=== PATIENT | male | born 1960 | race Caucasian/White ===

== ENCOUNTER 2020-12-10 11:20 | Outpatient (CLI) | payer OTHER, SELFPAY ==
--- NOTE | 2020-12-10 11:31 | XR_ITS ---
WS: [id number] KUB, AP view, 12/10/2020 Clinical Data: CONSTIPATION/HTN/DIVERTICULITIS/DM 2/RLQ ABDOMINAL PAIN Comparison: None. Findings: No abnormal intraabdominal masses or calcifications are seen. There is no dilatated small bowel or ev idence of obstruction. 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 There is fecal material throughout the colon. The bladder is full. XR/XR KUB [id number] Impression: Negative KUB.
== END 2020-12-10 11:21 | disposition home or self-care (01) ==
PROVIDERS: PCP Electrodiagnostic Medicine; Visit Provider Electrodiagnostic Medicine
DX: K59.00 Constipation, unspecified (principal); K57.92 Diverticulitis of intestine, part unspecified, without perforation or abscess without bleeding; E11.9 Type 2 diabetes mellitus without complications; I12.9 Hypertensive chronic kidney disease with stage 1 through stage 4 chronic kidney disease, or unspecified chronic kidney disease; N18.30 Chronic kidney disease, stage 3 unspecified; R10.31 Right lower quadrant pain
CPT/HCPCS: 74018

== ENCOUNTER 2021-05-04 10:18 | Outpatient (CLI) | payer OTHER, SELFPAY ==
--- NOTE | 2021-05-04 10:29 | XRR_ITS ---
PROCEDURE INFORMATION: Exam: XR Chest Exam date and time: 05/04/2021 10:29 AM Age: 61 years old Clinical indication: Shortness of breath; Prior surgery; Surgery type: Gallbladder, appendix; Additional info: Shortness of breath/htn/nausea vomiting TECHNIQUE: Imaging protocol: XR of the chest. Views: 2 views. COMPARISON: CR Chest 1 [place] [id number] 11/03/2018 8:17 PM FINDINGS: Lungs: Unremarkable. No consolidation. Pleural spaces: Unremarkable. No pleural effusion. No pneumothorax. Heart/Mediastinum: Unremarkable. No cardiomegaly. Bones/joints: Unremarkable. XR/XR chest 2V* [id number] IMPRESSION: No acute findings.
--- NOTE | 2021-05-04 10:29 | XRR_ITS ---
PROCEDURE INFORMATION: Exam: XR Abdomen Exam date and time: 05/04/2021 10:29 AM Age: 61 years old Clinical indication: Nausea and vomiting; Prior surgery; Surgery type: Gallbladder appendix; Additional info: Nausea vomiting/diverticulitis TECHNIQUE: Imaging protocol: XR of the abdomen. Views: Frontal supine view of the abdomen. 1 View. COMPARISON: CR XR KUB [id number] 12/10/2020 11:46 AM FINDINGS: Gastrointestinal tract: Normal. No bowel dilation. Status post cholecystectomy Bones/joints: Unremarkable. XR/XR abdomen 1V* [id number] IMPRESSION: 1. No acute findings. 2. Status post cholecystectomy
== END 2021-05-04 10:19 | disposition home or self-care (01) ==
PROVIDERS: PCP Electrodiagnostic Medicine; Visit Provider Electrodiagnostic Medicine
DX: R11.2 Nausea with vomiting, unspecified (principal); R06.02 Shortness of breath; I10 Essential (primary) hypertension; K57.92 Diverticulitis of intestine, part unspecified, without perforation or abscess without bleeding; Z90.49 Acquired absence of other specified parts of digestive tract
CPT/HCPCS: 71046; 74018

== ENCOUNTER 2021-12-14 02:48 | Inpatient (IN) | payer OTHER, SELFPAY ==
[2021-12-14] VITALS (14 sets, daily range): BP systolic 146–192; BP diastolic 82–108; PULSE 81–107; RESP 15–20; TEMP 36.5–37.2; O2SAT 91–98; BMI 37.3
--- NOTE | 2021-12-14 02:57 | CTR_ITS ---
PROCEDURE INFORMATION: Exam: CT Abdomen And Pelvis Without Contrast Exam date and time: 12/14/2021 3:20 AM Age: 61 years old Clinical indication: Abdominal pain; Flank; Left; Prior surgery; Surgery type: Cholecystectomy, appendectomy; Additional info: Abd/back pain TECHNIQUE: Imaging protocol: Computed tomography of the abdomen and pelvis without contrast. Radiation optimization: All CT scans at this facility use at least one of these dose optimization techniques: automated exposure control; mA and/or kV adjustment per patient size (includes targeted exams where dose is matched to clinical indication); or iterative reconstruction. COMPARISON: CT abdomen pelvis w con* [id number] 12/24/2017 1:56 PM RADIATION DOSE METRICS: Total DLP (mGy-cm): 1417.53 FINDINGS: Lungs: Right basilar atelectasis or other infiltrate. Liver: Unremarkable. Gallbladder and bile ducts: Status post cholecystectomy. Pancreas: There is a fluid collection which appears to involve the distal pancreatic tail extending along the left anterior perirenal fascia with adjacent inflammation measuring 9 x 3 cm. Findings may be infectious in etiology. Spleen: Splenomegaly. Adrenal glands: Normal. No mass. Kidneys and ureters: 1.7 cm simple appearing right renal cyst, no follow up necessary. No hydronephrosis. Stomach and bowel: No obstruction. No mucosal thickening. Appendix: No evidence of appendicitis. Intraperitoneal space: No free air. No significant fluid collection. Vasculature: No abdominal aortic aneurysm. Lymph nodes: No enlarged lymph nodes. Urinary bladder: Unremarkable as visualized. Reproductive: Prostate gland is enlarged. Bones/joints: Unremarkable. No acute fracture. Soft tissues: Fluid collection which appears to involve the distal pancreatic tail extending along the left anterior perirenal fascia with adjacent inflammation measuring 9 x 3 cm. Findings may be infectious in etiology. There is edema, fluid and stranding about the left psoas muscle. CT/CT abdomen pelvis wo con [id number] IMPRESSION: 1. Fluid collection which appears to involve the distal pancreatic tail extending along the left anterior perirenal fascia with adjacent inflammation measuring 9 x 3 cm. Findings may be infectious in etiology. There is edema, fluid and stranding about the left psoas muscle. 2. Right basilar atelectasis or other infiltrate. COMMENTS: Consistent with the [employer]'s Incidental Findings Committee white paper (J Am Barrett Radiol 2018): Any incidental renal lesion less than 1 cm or classified as too small to characterize, or any incidental cystic renal lesion characterized as simple-appearing, is likely benign. No follow-up imaging is recommended for these lesions per consensus recommendations based on imaging criteria.
--- NOTE | 2021-12-14 03:03 | W.ED.BACK ---
HPI - Back Pain/Injury General: Chief Complaint: Back Pain/Injury Stated Complaint: low back pain Time Seen by Provider: 12/14/21 02:50 Source: patient Mode of arrival: ambulatory Limitations: no limitations History of Present Illness: 61-year-old male patient has been having low back pain for over a month. He states that tonight it worsened he has had worsening nausea as well. He denies any vomiting he has had some abdominal pain as well as cramping in nature he denies any fever states the pain is worse with movement improved with rest. Denies any bowel or bladder incontinence denies any difficulty walking. Associated symptoms: Reports nausea; Deny chills, dysuria or fever(s) Review of Systems Const: Denies: fever(s), chills, body aches or change in appetite Eyes: Denies: blurry vision or eye discomfort ENMT: Denies: throat pain or dental pain Card: Denies: chest pain Resp: Denies: dyspnea GI: Reports: nausea : Denies: dysuria Musc: Reports: back pain Skin/Breast: Denies: rash Neuro: Denies: headache(s) Psych: Denies: depression Luis/Lymph: Denies: easy bruising All/Imm: Denies: urticaria PFSH ED PFSH: Family History Mother Hypertension Father Hypertension Cancer LEUKEMIA CAD (coronary artery disease) Myocardial infarction Diabetes Social History Smoking and tobacco status: never smoked Alcohol intake: never Household members: spouse Marital status: Current occupational status: employed History of recent travel: No Physical Exam Const: COMMON NORMALS: no acute distress, patient oriented x3 and healthy appearing HENMT: COMMON NORMALS: normocephalic and atraumatic HEAD & SCALP: normocephalic and atraumatic Eye: COMMON NORMALS: Equal, round and reactive pupils present and EOMs intact bilaterally PUPIL: Yes Equal, round and reactive pupils present Neck/C-Spine: COMMON NORMALS: full ROM and supple Chest: COMMONS NORMALS: normal inspection of the chest and normal palpation of entire chest wall Resp: COMMON NORMALS: normal respiratory effort, No retractions, No use of accessory muscles and clear to auscultation bilaterally AUSCULTATION: clear to auscultation bilaterally Cardio: COMMON NORMALS: regular rate, regular rhythm and No murmurs present (Cardio) RATE: regular rate RHYTHM: regular rhythm GI: COMMON NORMALS: Normal to inspection, nondistended, normoactive bowel sounds present, Soft to palpation, non-tender and no masses PALPATION: Yes Soft to palpation Back/Pelvis: OTHER: Paraspinal tenderness to the lumbar spine Extremity: COMMON NORMALS: normal to inspection and full ROM Neuro: COMMON NORMALS: patient oriented x3, moves all extremities and no focal motor deficits Psych: COMMON NORMALS: mental status grossly normal, Normal thought process present and cooperative THOUGHT PROCESS: Normal thought process present Skin: COMMON NORMALS: no rashes or lesions noted and no wounds GENERAL SKIN EXAM: no rashes or lesions noted Course Vital Signs: Vital signs: Vital Signs Temperature 97.9 F 12/14/21 02:50 Pulse Rate 85 12/14/21 03:56 Respiratory Rate 18 12/14/21 04:23 Blood Pressure 192/93 12/14/21 03:56 Pulse Oximetry 95 12/14/21 04:23 Oxygen Delivery Me thod 12/14/21 02:50 MDM - Back Pain/Injury Medical Decision Making Patient presents here with pancreatitis this is likely causing his back and abdominal pain he is well-appearing here pain is improved. He has required multiple doses of Dilaudid though will admit for pain control. Labs : 12/14/21 03:08 12/14/21 03:08 Radiology Impressions Abdomen/Pelvis CT 12/14/21 02:57 IMPRESSION: 1. Fluid collection which appears to involve the distal pancreatic tail extending along the left anterior perirenal fascia with adjacent inflammation measuring 9 x 3 cm. Findings may be infectious in etiology. There is edema, fluid and stranding about the left psoas muscle. 2. Right basilar atelectasis or other infiltrate. COMMENTS: Consistent with the [employer]'s Incidental Findings Committee white paper (J Am Barrett Radiol 2018): Any incidental renal lesion less than 1 cm or classified as too small to characterize, or any incidental cystic renal lesion characterized as simple-appearing, is likely benign. No follow-up imaging is recommended for these lesions per consensus recommendations based on imaging criteria. Laboratory Results WBC 15.7 10^3/uL (4.0-10.0) H 12/14/21 03:08 RBC 5.24 10^6/uL (4.1-5.3) 12/14/21 03:08 Hgb 15.2 g/dL (11.7-16.6) 12/14/21 03:08 Hct 46.1 % (42.0-52.0) 12/14/21 03:08 MCV 88.0 fl (80-94) 12/14/21 03:08 MCH 29.0 pg (28.0-34.0) 12/14/21 03:08 MCHC 33.0 g/dL (30.0-36.0) 12/14/21 03:08 RDW 14.3 % (12.1-15.1) 12/14/21 03:08 Plt Count 175 10^3/cmm (130-400) 12/14/21 03:08 MPV 9.8 fL (7.4-10.4) 12/14/21 03:08 Neut % (Auto) 81.6 % 12/14/21 03:08 Lymph % (Auto) 11.2 % 12/14/21 03:08 [place] % (Auto) 5.5 % 12/14/21 03:08 Eos % (Auto) 0.9 % 12/14/21 03:08 Baso % (Auto) 0.4 % 12/14/21 03:08 Neut # (Auto) 12.85 10^3/uL (1.8-7.7) H 12/14/21 03:08 Lymph # (Auto) 1.8 10^3/uL (0.8-4.8) 12/14/21 03:08 [place] # (Auto) 0.9 10^3/uL (0.2-0.9) 12/14/21 03:08 Eos # (Auto) 0.1 10^3/uL (0.0-0.8) 12/14/21 03:08 Baso # (Auto) 0.1 10^3/uL (0.0-0.1) 12/14/21 03:08 Nucleated RBC % (auto) 0 % 12/14/21 03:08 Nucleated RBCs # 0.0 /100WBC 12/14/21 03:08 Sodium 136 mmol/L (136-145) 12/14/21 03:08 Potassium 4.2 mmol/L (3.5-5.1) 12/14/21 03:08 Chloride 95 mmol/L (98-107) L 12/14/21 03:08 Carbon Dioxide 32 mmol/L (22-29) H 12/14/21 03:08 Anion Gap 13.2 (5-19) 12/14/21 03:08 BUN 25 mg/dL (8-23) H 12/14/21 03:08 Creatinine 1.4 mg/dL (0.7-1.2) H 12/14/21 03:08 GFR Calculation 51.4 mL/min (90-130) L 12/14/21 03:08 Glucose 452 mg/dL (65-115) H 12/14/21 03:08 POC Glucose 290 mg/dL (70-110) H 12/14/21 04:48 Calculated Osmolality 306 mOsm/kg (285-295) H 12/14/21 03:08 Calcium 9.0 mg/dL (8.5-10.5) 12/14/21 03:08 Total Bilirubin 0.6 mg/dL (0.15-1.2) 12/14/21 03:08 AST 5 U/L (0-40) 12/14/21 03:08 ALT 14 U/L (0-41) 12/14/21 03:08 Alkaline Phosphatase 145 U/L (40-130) H 12/14/21 03:08 Total Protein 7.6 g/dL (6.6-8.7) 12/14/21 03:08 Albumin 4.2 g/dL (3.5-5.2) 12/14/21 03:08 Globulin 3.4 g/dL (1.3-4.6) 12/14/21 03:08 Lipase 483 U/L (13-60) H 12/14/21 03:08 Urine Color Yellow (Yellow) 12/14/21 04:21 Urine Appearance Clear (CLEAR) 12/14/21 04:21 Urine pH 5 (5-7) 12/14/21 04:21 Ur Specific [place] 1.020 (1.005-1.030) 12/14/21 04:21 Urine Protein 3+ (Negative) H 12/14/21 04:21 Urine Glucose (UA) 4+ (Normal) H 12/14/21 04:21 Urine Ketones Negative (Negative) 12/14/21 04:21 Urine Blood Neg (Negative) 12/14/21 04:21 Urine Nitrate Negative (Negative) 12/14/21 04:21 Urine Bilirubin Neg (Negative) 12/14/21 04:21 Urine Urobilinogen Norm mg/dL (Negative) 12/14/21 04:21 Ur Leukocyte Esterase Negative (Negative) 12/14/21 04:21 Urine RBC 0-4 /hpf (0-2) H 12/14/21 04:21 Urine WBC None /hpf (0-5) 12/14/21 04:21 Ur Squamous Epith Cells 0-4 /hpf (0-5) H 12/14/21 04:21 Amorphous Sediment Not Reportable 12/14/21 04:21 Urine Bacteria None /hpf (NONE) 12/14/21 04:21 Discharge Plan Discharge Patient Disposition: Admitted As Inpatient Clinical Impression: Acute pancreatitis Condition: Stable Coding Level of Care Code ED Sap Fico Architect for Jarrett Fwd Exam Comprehensive
[2021-12-14] MEDS: ondansetron 2 mg/ML SDV 2 mL 4 MG IVP (03:09)
[2021-12-14] MEDS: HYDROmorphone 1 mg/mL INJ 1 mL 0.5 MG IVP (03:11)
[2021-12-14 03:13] LABS: Basophils # 0.1 10^3/uL (0.0-0.1); Basophils % 0.4 %; Eosinophils # 0.1 10^3/uL (0.0-0.8); Eosinophils % 0.9 %; Hematocrit 46.1 % (42.0-52.0); Hemoglobin 15.2 g/dL (11.7-16.6); Lymphocytes # 1.8 10^3/uL (0.8-4.8); Lymphocytes % 11.2 %; Mean Platelet Volume 9.8 fL (7.4-10.4); Monocytes # 0.9 10^3/uL (0.2-0.9); Monocytes % 5.5 %; Neutrophils # 12.85 10^3/uL (1.8-7.7); Neutrophils % 81.6 %; Nucleated Red Blood Cells % 0 %; Platelet Count 175 10^3/cmm (130-400); Red Blood Count 5.24 10^6/uL (4.1-5.3); Red Cell Distribution Width 14.3 % (12.1-15.1); White Blood Count 15.7 10^3/uL (4.0-10.0)
[2021-12-14 03:31] LABS: Alanine Aminotransferase 14 U/L (0-41); Albumin Level 4.2 g/dL (3.5-5.2); Alkaline Phosphatase 145 U/L (40-130); Anion Gap 13.2 (5-19); Blood Urea Nitrogen 25 mg/dL (8-23); Carbon Dioxide 32 mmol/L (22-29); Chloride 95 mmol/L (98-107); Globulin 3.4 g/dL (1.3-4.6); Glomerular Filtration Rate 51.4 mL/min (90-130); Glucose 452 mg/dL (65-115); Osmolality Calculated 306 mOsm/kg (285-295); Potassium 4.2 mmol/L (3.5-5.1); Sodium 136 mmol/L (136-145); Total Bilirubin 0.6 mg/dL (0.15-1.2); Total Protein 7.6 g/dL (6.6-8.7)
[2021-12-14 03:40] LABS: Aspartate Amino Transferase 5 U/L (0-40)
[2021-12-14 03:42] LABS: Lipase 483 U/L (13-60)
[2021-12-14] MEDS: insulin regular-human 100 units/1 mL 6 UNIT IVP (03:57)
[2021-12-14] MEDS: sodium chloride 0.9% 1,000 ML 999 ML IV (03:57)
[2021-12-14] MEDS: HYDROmorphone 1 mg/mL INJ 1 mL IVP (04:23)
[2021-12-14 04:41] LABS: Glucose Urine UA 4+ (Normal); Ketones Urine Negative (Negative); Protein Urine 3+ (Negative); Urine Appearance Clear (CLEAR); Urine Color Yellow (Yellow); pH Urine 5 (5-7)
[2021-12-14 04:42] LABS: Add Urine Microscopic? YES; Bilirubin Urine Neg (Negative); Blood Urine Neg (Negative); Leukocyte Esterase Urine Negative (Negative); Nitrate Urine Negative (Negative); RBC Urine 0-4 /hpf (0-2); Squamous Epithelial Cell Urine 0-4 /hpf (0-5); Urobilinogen Urine Norm (Negative)
[2021-12-14 04:43] LABS: Add Urine Culture? No
[2021-12-14 04:50] LABS: Glucose Point of Care 290 mg/dL (70-110)
[2021-12-14 04:50] LABS: Glucose Point of Care 347 mg/dL (70-110)
--- NOTE | 2021-12-14 05:11 | PM.HP ---
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 Atkins, and Dr. Spivey (GI specialist), has been on IV as well as oral antibiotics in the past, most recently completed antibiotic course in October. Patient has seen his GI specialist recently as a follow-up for pancreatic pseudocyst, and he was told that no surgical intervention is needed at this time, they will continue to follow him. Came in today with chief complaint of lower abdominal pain rates 8 out of 10 , sharp , radiating to back accompanied with nausea and no vomiting going on for the last few days. Patient is also complaining of low back pain for over a month. Currently denies any vomiting, constipation, fever chills, shortness of breath, chest pain. Upon arrival in the ER he was worked up for above-mentioned complaint: Pertinent imaging studies: CT abdomen and pelvis without contrast: Fluid collection which appears to involve the distal pancreatic tail extending along the left anterior perirenal fascia with adjacent inflammation measuring 9 x 3 cm. Findings may be infectious in etiology.?There is edema, fluid and stranding about the left psoas muscle. Pertinent labs: WBC 15.7, H&H 15/46 , PLT : 175 , sodium 136, potassium 4.2, BUN serum creatinine: 25/1.4 , RBS ; 452 Lipase: 483 Patient was started on IV fluids as well as pain medication in the ER. Review of Systems General: Reports: 10 or more systems reviewed and unremarkable except in HPI and below Const: Denies: fever(s), chills, body aches, change in appetite or diaphoresis Card: Denies: palpitations, edema, swelling of feet/ankles, dyspnea on exertion, orthopnea or leg pain with exertion Resp: Denies: dyspnea, productive cough, wheezing or pain on inspiration GI: Reports: abdominal pain and nausea; Denies: vomiting, diarrhea or constipation : Denies: flank pain or difficulty urinating Musc: Reports: back pain; Denies: extremity pain or extremity swelling Neuro: Denies: headache(s), difficulty walking or confusion Medications/Allergies Home Medications Medication Instructions Recorded Confirmed Last Taken Type doxycycline hyclate 100 mg tablet 100 mg PO BID 7 days #14 tabs 11/14/20 11/08/21 Unknown Rx insulin detemir U-100 100 unit/mL 50 unit SUBCUT DAILY 11/14/20 11/08/21 Unknown History subcutaneous solution (Levemir U-100 Insulin) insulin regular human 100 unit/mL 15 unit SUBCUT TID PRN 11/14/20 11/08/21 Unknown History injection solution (Novolin R Regular U-100 Insulin) metoprolol succinate 50 mg 50 mg PO BID 11/14/20 11/08/21 Unknown History tablet,extended release 24 hr Allergies Allergy/AdvReac Type Severity Reaction Status Date / Time celecoxib [From Celebrex] Allergy ALGY-Hives Verified 11/08/21 11:33 povidone-iodine Allergy ALGY-Rash Verified 11/08/21 11:33 [From Betadine] Sulfa (Sulfonamide Allergy ALGY-Hives Verified 11/08/21 11:33 Antibiotics) PFSH Acute PFSH: Family History Mother Hypertension Father Hypertension Cancer LEUKEMIA CAD (coronary artery disease) Myocardial infarction Diabetes Social History Smoking and tobacco status: never smoked Alcohol intake: never Household members: spouse Marital status: Current occupational status: employed History of recent travel: No Vitals/I&O/Wt Last Vital Signs Temp 97.9 F 12/14/21 02:50 Pulse 85 12/14/21 03:56 Resp 18 12/14/21 04:23 BP 192/93 12/14/21 03:56 Pulse Ox 95 12/14/21 04:23 O2 Del Method 12/14/21 02:50 Weight last 48 hrs Weight 117.934 kg Physical Exam Const: COMMON NORMALS: patient oriented x3 Resp: COMMON NORMALS: normal respiratory effort, No retractions, No use of accessory muscles and clear to auscultation bilaterally EFFORT & INSPECTION: Yes symmetric chest movement AUSCULTATION: clear to auscultation bilaterally Cardio: COMMON NORMALS: regular rate, regular rhythm, S1 normal heart sound present, S2 normal heart sound present, No gallops present (Cardio), No murmurs present (Cardio), No rub (Cardio) and Peripheral pulses 2+ throughout RATE: regular rate RHYTHM: regular rhythm HEART SOUNDS: S1 normal heart sound present and S2 normal heart sound present PERIPHERAL PULSES: Peripheral pulses 2+ throughout GI: COMMON NORMALS: Normal to inspection, nondistended, normoactive bowel sounds present, Soft to palpation, non-tender, No hepatosplenomegaly present and no masses AUSCULTATION: Yes normoactive bowel sounds PALPATION: Yes Soft to palpation and Yes No hepatosplenomegaly present RECTAL EXAM: Yes deferred Extremity: COMMON NORMALS: no clubbing, cyanosis or edema and no pedal edema Neuro: COMMON NORMALS: patient oriented x3 Data : 12/14/21 03:08 12/14/21 03:08 A&P Assessment and plan (1) Hypertension: (2) Diabetes: (3) Gout: (4) Acute pancreatitis: (5) CKD (chronic kidney disease) stage 3, GFR 30-59 ml/min: Plan 61 year old male with past medical history of hypertension diabetes gout, CKD stage III ,Came in with chief complaint of abdominal pain as well as nausea, Patient is also complaining of low back pain for over a month. Assessment: Acute pancreatitis History of pancreatic pseudocyst Hypertension Diabetes CKD stage III Gout Leukocytosis Plan: N.p.o. except for meds Pain control IV hydration Will empirically keep on Zosyn for now Lantus 20 units subcu daily Low-dose sliding scale insulin Monitor fingerstick glucose Monitor BMP Avoid nephrotoxic's We will seek his medical records from [facility]. In case of any needed intervention patient will prefer to go to [facility]. DVT prophylaxis: On Lovenox CODE STATUS; full code Attestations Medical Necessity Statement*: Patient needs to be in hospital for management of acute pancreatitis. Anticipated length of stay greater than 2 midnights. Coding Level of Care Code Acute Punch Press Feeder for g Fwd Exam Detailed Diagnoses Hypertension I10 Diabetes E11.9 Gout M10.9 Acute pancreatitis K85.90 CKD (chronic kidney disease) stage 3, GFR 30-59 ml/min N18.30
[2021-12-14] MEDS: morphine 4 mg/mL SDV 1 mL 2 MG IVP (05:49)
[2021-12-14] MEDS: sodium chloride 0.9% 1,000 ML 100 ML IV (05:50)
[2021-12-14] MEDS: enoxaparin 40 mg/0.4 mL Syringe SUBCUT (05:51)
[2021-12-14] MEDS: hyDRALAzine 50 mg Tablet PO ×3 (06:29→20:31)
[2021-12-14] MEDS: acetaminophen 325 mg Tablet 650 MG PO ×2 (06:29→20:33)
[2021-12-14] MEDS: piperacillin-tazobactam 3.375 GM in sodium chloride 0.9% (plus) 50 ML IV ×3 (06:29→22:36)
[2021-12-14 06:54] LABS: Glucose Point of Care 279 mg/dL (70-110)
[2021-12-14] MEDS: insulin lispro 100 unit/1 mL SUBCUT ×4 (08:37→21:48)
[2021-12-14] MEDS: labetalol 5 mg/mL SDV 20mL 10 MG IVP (08:37)
[2021-12-14] MEDS: metoprolol succinate ER (24 HR) 50 mg Tablet PO ×2 (08:37→18:01)
[2021-12-14] MEDS: HYDROmorphone 1 mg/mL INJ 1 mL 0.4 MG IVP ×2 (11:12→18:02)
--- NOTE | 2021-12-14 11:13 | PM.PN ---
Subjective Subjective: Patient is endorsing pain 10/27 Added Dilaudid Continue IV fluids Abdomen is distended no significant peritonitis signs at this point Afebrile No signs of sepsis He is hypertensive because of pain Vitals/I&O/Wt Last Vital Signs Temp 98.5 F 12/14/21 08:00 Pulse 107 H 12/14/21 08:00 Resp 17 12/14/21 08:00 BP 173/94 12/14/21 08:00 Pulse Ox 98 12/14/21 08:00 O2 Del Method 12/14/21 09:00 12/13/21 12/14/21 12/14/21 22:59 06:59 14:59 Intake Total 1000 / 1000 Output Total 225 / 225 Balance 775 / 775 Weight last 48 hrs Weight 117.934 kg Physical Exam Narrative: Awake and alert Nonfocal neuro exam Abdomen distended Ascites positive Tender to deep palpation Bowel sounds are very sluggish Lower extremity 1+ edema Patient looks slightly bloated Awake and alert nonfocal neuro exam Currently saturating well on room air Sinus tachycardia, S1, S2 Data : 12/14/21 03:08 12/14/21 03:08 A&P Assessment and plan (1) CKD (chronic kidney disease) stage 3, GFR 30-59 ml/min: (2) Acute pancreatitis: (3) Diabetes: (4) Hypertension: Plan Recurrent pancreatitis Status postcholecystectomy No history of autoimmune disease N.p.o. 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
[2021-12-14 12:07] LABS: Glucose Point of Care 236 mg/dL (70-110)
[2021-12-14] MEDS: lactated ringers 1,000 ML 125 ML IV ×2 (12:37→21:47)
[2021-12-14 17:42] LABS: Glucose Point of Care 178 mg/dL (70-110)
[2021-12-14 20:58] LABS: Glucose Point of Care 157 mg/dL (70-110)
[2021-12-15] VITALS (14 sets, daily range): BP systolic 146–198; BP diastolic 84–109; PULSE 91–114; RESP 16–105; TEMP 36.4–37.3; O2SAT 93–96
[2021-12-15] MEDS: HYDROmorphone 1 mg/mL INJ 1 mL 0.4 MG IVP ×5 (01:37→23:37)
[2021-12-15 05:37] LABS: Alanine Aminotransferase 16 U/L (0-41); Albumin Level 2.9 g/dL (3.5-5.2); Alkaline Phosphatase 99 U/L (40-130); Blood Urea Nitrogen 19 mg/dL (8-23); Calcium 8.7 mg/dL (8.5-10.5); Carbon Dioxide 22 mmol/L (22-29); Chloride 96 mmol/L (98-107); Chol HDL Ratio 3.08 mg/dL (1.0-5.00); Cholesterol 148 mg/dL (0-200); Globulin 3.6 g/dL (1.3-4.6); Glomerular Filtration Rate 67.8 mL/min (90-130); Glucose 196 mg/dL (65-115); HDL Cholesterol 48 mg/dL (60-100); LDL Cholesterol Calculated 76 mg/dL (50-129); LDL HDL Ratio 1.58 RATIO (0.00-3.22); Magnesium 1.6 mg/dL (1.7-2.3); Osmolality Calculated 288 mOsm/kg (285-295); Sodium 135 mmol/L (136-145); Total Bilirubin 1.7 mg/dL (0.15-1.2); Total Protein 6.5 g/dL (6.6-8.7); Triglycerides 121 mg/dL (0-150)
[2021-12-15] MEDS: enoxaparin 40 mg/0.4 mL Syringe SUBCUT (05:37)
[2021-12-15] MEDS: piperacillin-tazobactam 3.375 GM in sodium chloride 0.9% (plus) 50 ML IV ×3 (05:37→22:42)
[2021-12-15 05:38] LABS: Anion Gap 20.8 (5-19); Aspartate Amino Transferase 13 U/L (0-40); Potassium 3.8 mmol/L (3.5-5.1)
[2021-12-15] MEDS: acetaminophen 325 mg Tablet 650 MG PO ×2 (05:51→12:02)
[2021-12-15 05:56] LABS: Basophils # 0.1 10^3/uL (0.0-0.1); Basophils % 0.4 %; Eosinophils # 0.1 10^3/uL (0.0-0.8); Eosinophils % 0.7 %; Hematocrit 47.2 % (42.0-52.0); Hemoglobin 15.1 g/dL (11.7-16.6); Lymphocytes # 0.9 10^3/uL (0.8-4.8); Lymphocytes % 5.6 %; Mean Corpuscular Hemoglobin 29.3 pg (28.0-34.0); Mean Corpuscular Volume 91.7 fl (80-94); Mean Platelet Volume 10.4 fL (7.4-10.4); Monocytes # 0.7 10^3/uL (0.2-0.9); Monocytes % 4.2 %; Neutrophils # 14.32 10^3/uL (1.8-7.7); Neutrophils % 88.7 %; Nucleated Red Blood Cells % 0 %; Platelet Count 123 10^3/cmm (130-400); Red Blood Count 5.15 10^6/uL (4.1-5.3); Red Cell Distribution Width 14.7 % (12.1-15.1); White Blood Count 16.2 10^3/uL (4.0-10.0)
[2021-12-15 06:44] LABS: Glucose Point of Care 231 mg/dL (70-110)
[2021-12-15] MEDS: lactated ringers 1,000 ML 125 ML IV ×2 (08:06→19:56)
[2021-12-15] MEDS: hyDRALAzine 50 mg Tablet PO ×3 (08:10→20:00)
[2021-12-15] MEDS: insulin lispro 100 unit/1 mL SUBCUT ×4 (08:10→21:29)
[2021-12-15] MEDS: metoprolol succinate ER (24 HR) 50 mg Tablet PO ×2 (08:10→18:03)
--- NOTE | 2021-12-15 10:28 | P.PN_ITS ---
Subjective Subjective: Patient is endorsing feeling better we will advance diet to GI soft Leukocytosis likely was No fever Continue IV antibiotics Patient is agreeable to stay 1 more day Pain 6/10 Vitals/I&O/Wt Last Vital Signs Temp 97.7 F 12/15/21 07:33 Pulse 96 12/15/21 07:33 Resp 18 12/15/21 09:46 BP 146/85 12/15/21 07:33 Pulse Ox 94 12/15/21 09:46 O2 Del Method 12/15/21 07:33 12/14/21 12/15/21 12/15/21 22:59 06:59 14:59 Intake Total 1050 / 1340 1050 / 2390 640 / 640 Output Total 200 / 200 800 / 1000 Balance 850 / 1140 250 / 1390 640 / 640 Weight last 48 hrs Weight 117.934 kg Physical Exam Narrative: Bloated, laying supine Decrease fluids Abdomen not extremely tender Midepigastric tenderness Lower extremity edema S1, S2 Currently on room air EOMI, PERRLA Nonfocal neuro exam Data : 12/15/21 05:50 12/15/21 04:22 A&P Assessment and plan (1) CKD (chronic kidney disease) stage 3, GFR 30-59 ml/min: (2) Acute pancreatitis: (3) Diabetes: (4) Hypertension: Plan Pancreatitis Pseudocyst No active signs of necrotic pancreas or sepsis however leukocytosis has worsened Continue antibiotics with fluids Advance diet to GI soft, pain is well managed for now No need to transfer at this point No active nausea, vomiting or diarrhea patient had 1 regular bowel movement today Full code GI soft diet DVT prophylaxis on board Attestations Medical Necessity Statement*: Discharge possibly tomorrow if stable Time Spent in Patient Care: 40 Coding Level of Care Code Acute Bus And Trolley Dispatcher for Chg Fwd Diagnoses CKD (chronic kidney disease) stage 3, GFR 30-59 ml/min N18.30 Acute pancreatitis K85.90 Diabetes E11.9 Hypertension I10
[2021-12-15 11:37] LABS: Glucose Point of Care 260 mg/dL (70-110)
--- NOTE | 2021-12-15 13:55 | CT_ITS ---
WS: [id number] CT ABDOMEN WITH CONTRAST HISTORY: Pancreatitis Contiguous single phase 5 mm axial imaging performed to the abdomen. Oral contrast has not been provi ded. Coronal and sagittal reformats are submitted. All CT scans at [facility] use at least on e of these dose optimization techniques: automated exposure control; mA and/or kV adjustment per geo ent size (includes targeted exams where dose is matched to clinical indication); or iterative reconst ruction. CONTRAST: Omnipaque 350; 95 mL IV. DLP: 950.03 mGy.cm COMPARISON: 12/14/2021 and 12/24/2017 Lower thorax: Small LEFT pleural effusion has increased since 12/14/2021. There is atelectasis which i s subsegmental at the lung bases. Heart is very mildly enlarged pericardial thickening or fluid. Mild scattered coronary artery calcifications. 14 mm subcarinal lymph node. Liver: Normal size liver. There is mild central bile duct dilatation. Common bile duct measures up to 9 mm. Decreased opacification of the portal vein is probably due to phase of injection and imaging. Gallbladder: Prior removal. Pancreas: Markedly abnormal appearance of the pancreas. Pancreas is atrophied with peripancreatic inf lammation and fluid. Pancreatic duct is difficult to see. There is a fluid collection extending from the pancreatic tail which extends along the paracolic gutter which is probably a pseudocyst. The panc reas is overall atrophied. Spleen: Mildly enlarged spleen at 15.5 cm. Granulomata. Adrenals: Normal. Right kidney: Normal. Left kidney: Normal size kidney. Exophytic cyst from the mid kidney measures 12 mm. No obstruction of the kidney. The kidneys being distorted and anteriorly displaced by multiloculated fluid collection in the pararenal space and extending along the psoas muscle. Aorta: Normal size aorta. Mild inflammatory changes surrounding the distal aorta. GI tract: Nondistended stomach. No small bowel obstruction. There is increased fluid within the small bowel. Abnormal wall thickening and inflammation surrounding the descending colon. This is at the level of t he pancreatic tail where there is contiguous inflammation from the pancreatic tail to involve the alo cending colon, perirenal space, paracolic gutter and psoas muscle. There are multiple small fluid col lections beginning in the bed of the pancreatic tail extending along the paracolic gutter. Multilocul ated collections with thickening of the perirenal fascia. There are additional multi loculated collec tions within an enlarged inflamed LEFT psoas muscle. Fluid collection at the pancreatic tail measures 9.2 x 4.5 cm. Smaller fluid collections extend along the LEFT psoas muscle. The entire collection in the inflammatory process is not included as only an abdomen CT was requested. There is adjacent thic kening of the abdominal wall muscles. Small mesenteric lymph nodes. Small amount of free fluid noted within the peritoneal cavity is along the perirenal fascia. Abdominal wall: No hernia. Visualized osseous structures: Unremarkable. CT/CT abdomen w con* [id number] IMPRESSION: 1. Multiloculated fluid collection beginning near the pancreatic tail and exte nding along the paracolic gutter. Contiguous inflammatory process continuing in feriorly along the paracolic gutter with multiple small fluid collections exten ding into the LEFT psoas muscle. There is associated and contiguous inflammatio n to involve the descending colon with wall thickening. No colonic perforation. Favor these changes all related to acute pancreatitis with multiloculated pseu docyst development. Patient is at risk for developing abscesses. Some of these collections may already be infected. 2. Hematoma may appear similar but these are likely pseudocysts related to the pancreatitis. 3. Atrophy of the pancreas with adjacent inflammation along the pancreatic bed . 4. Mild common bile duct dilatation to 9 mm. 5. Prior cholecystectomy. 6. Cirrhotic liver with intrahepatic duct dilatation. 7. New small LEFT pleural effusion since 12/14/2021.
[2021-12-15] MEDS: iohexol 350 mg/mL 100 mL Btl IV (14:33)
[2021-12-15] MEDS: morphine 4 mg/mL SDV 1 mL 2 MG IVP (15:41)
[2021-12-15 16:31] LABS: Glucose Point of Care 192 mg/dL (70-110)
--- NOTE | 2021-12-15 18:24 | P.TS_ITS ---
Transfer Summary Providers Date of Admission: 12/14/21 05:06 Date of Discharge/Transfer: 12/15/21 Attending Provider at Admission: Pipe Mosqueda MD Attending Provider at Transfer: Adriano Lynn MD Primary Care Provider: Tereso Nye DO Transfer Plans: Anticipated date of transfer: 12/15/21 . Diagnoses at Discharge Discharge Diagnosis (1) CKD (chronic kidney disease) stage 3, GFR 30-59 ml/min: Status: Acute (2) Acute pancreatitis: Status: Acute (3) Diabetes: Status: Acute (4) Hypertension: Status: Acute Reason for Visit Reason for Visit low back pain Hospital Course Hospital Course 61-year-old male who has a very complicated history of recurrent pancreatitis with pseudocyst has been evaluated by campus chaplain at [facility], patient was admitted there a month ago and CT-guided drainage was done, patient has been admitted this time for recurrent pancreatitis episodes his pain has not improved at all and his abdominal girth has been increasing repeat CT scan on 12/15 did show worsening of third spacing with multiloculated pseudocyst with concern for infection he has been getting IV Zosyn since admission, his lipase was around 483 at the time of admission are upper limit is 60 U/l, his leukocytosis has worsened to 16.5 today he was around 14,000 on admission he has remained afebrile, no recurrent nausea or vomiting he had a regular bowel movement on 12/15. I spoke with Dr. Patric Hernandez who accepted the patient for CT-guided drainage Will arrange transportation and transfer Patient is in agreement patient is not septic at this point but he is at risk, sepsis with pancreatitis carries high mortality and morbidity its better he gets transferred for higher level of care as soon as possible Physical Exam Narrative: Bloated, laying supine Decrease fluids Abdomen not extremely tender Midepigastric tenderness Lower extremity edema S1, S2 Currently on room air EOMI, PERRLA Nonfocal neuro exam TS Data Studies Completed and Pending Pending at discharge Category Date Time Status Complete Blood Count w/Auto AM LABS Lab 12/16/21 04:00 Ordered Complete Blood Count w/Auto AM LABS Lab 12/17/21 04:00 Ordered Comprehensive Metabolic Panel AM LABS Lab 12/16/21 04:00 Ordered Comprehensive Metabolic Panel AM LABS Lab 12/17/21 04:00 Ordered Labs from last 24 hours 12/15/21 12/15/21 12/15/21 16:28 11:06 06:26 WBC Corrected WBC RBC Hgb Hct MCV MCH MCHC RDW Plt Count MPV Gran % Neut % (Auto) Lymph % (Auto) Morrill % (Auto) Eos % (Auto) Baso % (Auto) Neut # (Auto) Lymph # (Auto) Morrill # (Auto) Eos # (Auto) Baso # (Auto) Absolute Gran (auto) Nucleated RBC % (auto) Nucleated RBCs # Sodium Potassium Chloride Carbon Dioxide Anion Gap BUN Creatinine GFR Calculation Glucose POC Glucose 192 H 260 H 231 H Calculated Osmolality Calcium Magnesium Total Bilirubin AST ALT Alkaline Phosphatase Total Protein Albumin Globulin Triglycerides Cholesterol LDL Cholesterol, Calc HDL Cholesterol LDL/HDL Ratio Cholesterol/HDL Ratio 12/15/21 12/15/21 12/15/21 05:50 04:22 04:22 WBC 16.2 H Cancelled Corrected WBC Cancelled RBC 5.15 Cancelled Hgb 15.1 Cancelled Hct 47.2 Cancelled MCV 91.7 Cancelled MCH 29.3 Cancelled MCHC 32.0 Cancelled RDW 14.7 Cancelled Plt Count 123 L Cancelled MPV 10.4 Cancelled Gran % Cancelled Neut % (Auto) 88.7 Cancelled Lymph % (Auto) 5.6 Cancelled Morrill % (Auto) 4.2 Cancelled Eos % (Auto) 0.7 Cancelled Baso % (Auto) 0.4 Cancelled Neut # (Auto) 14.32 H Cancelled Lymph # (Auto) 0.9 Cancelled Morrill # (Auto) 0.7 Cancelled Eos # (Auto) 0.1 Cancelled Baso # (Auto) 0.1 Cancelled Absolute Gran (auto) Cancelled Nucleated RBC % (auto) 0 Cancelled Nucleated RBCs # 0.0 Cancelled Sodium 135 L Potassium 3.8 Chloride 96 L Carbon Dioxide 22 Anion Gap 20.8 H BUN 19 Creatinine 1.1 GFR Calculation 67.8 L Glucose 196 H POC Glucose Calculated Osmolality 288 Calcium 8.7 Magnesium 1.6 L Total Bilirubin 1.7 H AST 13 ALT 16 Alkaline Phosphatase 99 Total Protein 6.5 L Albumin 2.9 L Globulin 3.6 Triglycerides 121 Cholesterol 148 LDL Cholesterol, Calc 76 HDL Cholesterol 48 L LDL/HDL Ratio 1.58 Cholesterol/HDL Ratio 3.08 12/14/21 20:45 WBC Corrected WBC RBC Hgb Hct MCV MCH MCHC RDW Plt Count MPV Gran % Neut % (Auto) Lymph % (Auto) Morrill % (Auto) Eos % (Auto) Baso % (Auto) Neut # (Auto) Lymph # (Auto) Morrill # (Auto) Eos # (Auto) Baso # (Auto) Absolute Gran (auto) Nucleated RBC % (auto) Nucleated RBCs # Sodium Potassium Chloride Carbon Dioxide Anion Gap BUN Creatinine GFR Calculation Glucose POC Glucose 157 H Calculated Osmolality Calcium Magnesium Total Bilirubin AST ALT Alkaline Phosphatase Total Protein Albumin Globulin Triglycerides Cholesterol LDL Cholesterol, Calc HDL Cholesterol LDL/HDL Ratio Cholesterol/HDL Ratio Completed Studies During Hospitalization Category Date Time Status CT abdomen pelvis wo con [id number] Stat Cat Scan 12/14/21 02:[address] abdomen w con* [id number] Routine Cat Scan 12/15/21 13:55 Completed Laboratory Last Values WBC 16.2 10^3/uL (4.0-10.0) H 12/15/21 05:50 Corrected WBC Cancelled 12/15/21 04:22 RBC 5.15 10^6/uL (4.1-5.3) 12/15/21 05:50 Hgb 15.1 g/dL (11.7-16.6) 12/15/21 05:50 Hct 47.2 % (42.0-52.0) 12/15/21 05:50 MCV 91.7 fl (80-94) 12/15/21 05:50 MCH 29.3 pg (28.0-34.0) 12/15/21 05:50 MCHC 32.0 g/dL (30.0-36.0) 12/15/21 05:50 RDW 14.7 % (12.1-15.1) 12/15/21 05:50 Plt Count 123 10^3/cmm (130-400) L 12/15/21 05:50 MPV 10.4 fL (7.4-10.4) 12/15/21 05:50 Gran % Cancelled 12/15/21 04:22 Neut % (Auto) 88.7 % 12/15/21 05:50 Lymph % (Auto) 5.6 % 12/15/21 05:50 Morrill % (Auto) 4.2 % 12/15/21 05:50 Eos % (Auto) 0.7 % 12/15/21 05:50 Baso % (Auto) 0.4 % 12/15/21 05:50 Neut # (Auto) 14.32 10^3/uL (1.8-7.7) H 12/15/21 05:50 Lymph # (Auto) 0.9 10^3/uL (0.8-4.8) 12/15/21 05:50 Morrill # (Auto) 0.7 10^3/uL (0.2-0.9) 12/15/21 05:50 Eos # (Auto) 0.1 10^3/uL (0.0-0.8) 12/15/21 05:50 Baso # (Auto) 0.1 10^3/uL (0.0-0.1) 12/15/21 05:50 Absolute Gran (auto) Cancelled 12/15/21 04:22 Nucleated RBC % (auto) 0 % 12/15/21 05:50 Nucleated RBCs # 0.0 /100WBC 12/15/21 05:50 Sodium 135 mmol/L (136-145) L 12/15/21 04:22 Potassium 3.8 mmol/L (3.5-5.1) 12/15/21 04:22 Chloride 96 mmol/L (98-107) L 12/15/21 04:22 Carbon Dioxide 22 mmol/L (22-29) 12/15/21 04:22 Anion Gap 20.8 (5-19) H 12/15/21 04:22 BUN 19 mg/dL (8-23) 12/15/21 04:22 Creatinine 1.1 mg/dL (0.7-1.2) 12/15/21 04:22 GFR Calculation 67.8 mL/min (90-130) L 12/15/21 04:22 Glucose 196 mg/dL (65-115) H 12/15/21 04:22 POC Glucose 192 mg/dL (70-110) H 12/15/21 16:28 Calculated Osmolality 288 mOsm/kg (285-295) 12/15/21 04:22 Calcium 8.7 mg/dL (8.5-10.5) 12/15/21 04:22 Magnesium 1.6 mg/dL (1.7-2.3) L 12/15/21 04:22 Total Bilirubin 1.7 mg/dL (0.15-1.2) H 12/15/21 04:22 AST 13 U/L (0-40) 12/15/21 04:22 ALT 16 U/L (0-41) 12/15/21 04:22 Alkaline Phosphatase 99 U/L (40-130) 12/15/21 04:22 Total Protein 6.5 g/dL (6.6-8.7) L 12/15/21 04:22 Albumin 2.9 g/dL (3.5-5.2) L 12/15/21 04:22 Globulin 3.6 g/dL (1.3-4.6) 12/15/21 04:22 Triglycerides 121 mg/dL (0-150) 12/15/21 04:22 Cholesterol 148 mg/dL (0-200) 12/15/21 04:22 LDL Cholesterol, Calc 76 mg/dL (50-129) 12/15/21 04:22 HDL Cholesterol 48 mg/dL (60-100) L 12/15/21 04:22 LDL/HDL Ratio 1.58 RATIO (0.00-3.22) 12/15/21 04:22 Cholesterol/HDL Ratio 3.08 mg/dL (1.0-5.00) 12/15/21 04:22 Lipase 483 U/L (13-60) H 12/14/21 03:08 Urine Color Yellow (Yellow) 12/14/21 04:21 Urine Appearance Clear (CLEAR) 12/14/21 04:21 Urine pH 5 (5-7) 12/14/21 04:21 Ur Specific [place] 1.020 (1.005-1.030) 12/14/21 04:21 Urine Protein 3+ (Negative) H 12/14/21 04:21 Urine Glucose (UA) 4+ (Normal) H 12/14/21 04:21 Urine Ketones Negative (Negative) 12/14/21 04:21 Urine Blood Neg (Negative) 12/14/21 04:21 Urine Nitrate Negative (Negative) 12/14/21 04:21 Urine Bilirubin Neg (Negative) 12/14/21 04:21 Urine Urobilinogen Norm mg/dL (Negative) 12/14/21 04:21 Ur Leukocyte Esterase Negative (Negative) 12/14/21 04:21 Urine RBC 0-4 /hpf (0-2) H 12/14/21 04:21 Urine WBC None /hpf (0-5) 12/14/21 04:21 Ur Squamous Epith Cells 0-4 /hpf (0-5) H 12/14/21 04:21 Amorphous Sediment Not Reportable 12/14/21 04:21 Urine Bacteria None /hpf (NONE) 12/14/21 04:21 Radiology Impressions Abdomen/Pelvis CT 12/14/21 02:57 IMPRESSION: 1. Fluid collection which appears to involve the distal pancreatic tail extending along the left anterior perirenal fascia with adjacent inflammation measuring 9 x 3 cm. Findings may be infectious in etiology. There is edema, fluid and stranding about the left psoas muscle. 2. Right basilar atelectasis or other infiltrate. COMMENTS: Consistent with the [employer]'s Incidental Findings Committee white paper (J Am Barrett Radiol 2018): Any incidental renal lesion less than 1 cm or classified as too small to characterize, or any incidental cystic renal lesion characterized as simple-appearing, is likely benign. No follow-up imaging is recommended for these lesions per consensus recommendations based on imaging criteria. Abdomen CT 12/15/21 13:55 IMPRESSION: 1. Multiloculated fluid collection beginning near the pancreatic tail and extending along the paracolic gutter. Contiguous inflammatory process continuing inferiorly along the paracolic gutter with multiple small fluid collections extending into the LEFT psoas muscle. There is associated and contiguous inflammation to involve the descending colon with wall thickening. No colonic perforation. Favor these changes all related to acute pancreatitis with multiloculated pseudocyst development. Patient is at risk for developing abscesses. Some of these collections may already be infected. 2. Hematoma may appear similar but these are likely pseudocysts related to the pancreatitis. 3. Atrophy of the pancreas with adjacent inflammation along the pancreatic bed. 4. Mild common bile duct dilatation to 9 mm. 5. Prior cholecystectomy. 6. Cirrhotic liver with intrahepatic duct dilatation. 7. New small LEFT pleural effusion since 12/14/2021. Recent Clincial Data Last Vital Signs Temp 98.2 F 12/15/21 15:23 Pulse 105 H 12/15/21 15:23 Resp 18 12/15/21 15:41 BP 198/109 12/15/21 15:23 Pulse Ox 95 12/15/21 15:41 O2 Del Method 12/15/21 15:23 Vital Signs Temp Pulse Resp BP Pulse Ox O2 Del Method 12/15/21 15:41 18 95 12/15/21 15:23 98.2 F 105 H 18 198/109 95 Room Air 12/15/21 13:51 18 96 12/15/21 08:00 97.7 F 95 18 166/87 12/15/21 11:07 97.7 F 95 18 166/87 96 Room Air 12/15/21 09:46 18 94 12/15/21 07:33 97.7 F 96 18 146/85 94 Room Air Intake & Output/Weight 12/13/21 12/14/21 12/15/21 12/16/21 06:59 06:59 06:59 06:59 Intake Total 1000 / 1000 2390 / 2390 690 / 690 Output Total 225 / 225 1000 / 1000 475 / 475 Balance 775 / 775 1390 / 1390 215 / 215 Weight 117.934 kg Vitals Last Vital Signs Temp 98.2 F 12/15/21 15:23 Pulse 105 H 12/15/21 15:23 Resp 18 12/15/21 15:41 BP 198/109 12/15/21 15:23 Pulse Ox 95 12/15/21 15:41 O2 Del Method 12/15/21 15:23 TS Medications Medications Acetaminophen (Acetaminophen 325 Mg Tablet) 650 mg PO Q6H PRN PRN Reason: Mild/Mod Pain Or Temp >/= 101 Last Admin: 12/15/21 12:02 Dose: 650 mg Bisacodyl (Bisacodyl 5 Mg Tablet) 10 mg PO DAILY PRN; Protocol PRN Reason: Constipation (see protocol) Dextrose (Dextrose 50% Syringe 50 Ml) 25 ml IVP ONCE PRN; Protocol PRN Reason: hypoglycemia protocol Dextrose (Dextrose 50% Syringe 50 Ml) 50 ml IVP PRN PRN; Protocol PRN Reason: hypoglycemia protocol Enoxaparin Sodium (Enoxaparin 40 Mg/0.4 Ml Syringe) 40 mg SUBCUT Q24H [facility] Last Admin: 12/15/21 05:37 Dose: 40 mg Glucagon (Glucagon 1 Mg/Ml Inj 1 Ml) 1 mg IM ONCE PRN; Protocol PRN Reason: Adult Acute Hypoglycemia Prot. Hydralazine HCl (Hydralazine 50 Mg Tablet) 50 mg PO TID [facility] Last Admin: 12/15/21 15:33 Dose: 50 mg Hydromorphone HCl (Hydromorphone 1 Mg/Ml Inj 1 Ml) 0.4 mg IVP Q4H PRN PRN Reason: pain Last Admin: 12/15/21 13:51 Dose: 0.4 mg Dextrose (D5w) 500 mls @ 100 mls/hr IV ONCE PRN; Protocol PRN Reason: Adult Acute Hypoglycemia Prot Piperacillin Sod/Tazobactam (Sod 3.375 gm/ Sodium Chloride) 50 mls @ 12.5 mls/hr IV Q8H [facility]; Protocol Last Admin: 12/15/21 13:51 Dose: 12.5 mls/hr Lactated Ringer's (Lactated Ringers) 1,000 mls @ 75 mls/hr IV .[id number] [facility] Last Admin: 12/15/21 08:06 Dose: 125 mls/hr Insulin Human Lispro (Insulin Lispro 100 Unit/1 Ml) 0 unit SUBCUT WM&BEDTIME [facility]; Protocol Last Admin: 12/15/21 18:00 Dose: 4 unit Metoprolol Succinate (Metoprolol Succinate Er (24 Hr) 50 Mg Tablet) 50 mg PO BID [facility] Last Admin: 12/15/21 18:03 Dose: 50 mg Morphine Sulfate (Morphine 4 Mg/Ml Sdv 1 Ml) 2 mg IVP Q4H PRN PRN Reason: SEVERE PAIN Last Admin: 12/15/21 15:41 Dose: 2 mg Naloxone HCl (Naloxone 0.4 Mg/Ml Sdv) 0.1 mg IVP Q2M PRN PRN Reason: OPIATERV Ondansetron HCl (Ondansetron 2 Mg/Ml Sdv 2 Ml) 4 mg IVP Q8H PRN PRN Reason: vomiting, or N/V if npo Discontinued Medications Hydromorphone HCl (Hydromorphone 1 Mg/Ml Inj 1 Ml) 0.5 mg IVP ONCE ONE Stop: 12/14/21 02:58 Last Admin: 12/14/21 03:11 Dose: 0.5 mg Hydromorphone HCl (Hydromorphone 1 Mg/Ml Inj 1 Ml) 1 mg IVP ONCE ONE Stop: 12/14/21 04:12 Last Admin: 12/14/21 04:23 Dose: 1 mg Sodium Chloride (Sodium Chloride 0.9%) 1,000 mls @ 999 mls/hr IV .Q1H1M ONE Stop: 12/14/21 04:47 Last Infusion: 12/14/21 05:43 Dose: Infused Sodium Chloride (Sodium Chloride 0.9%) 1,000 mls @ 100 mls/hr IV .Q10H [facility] Last Admin: 12/14/21 05:50 Dose: 100 mls/hr Insulin Glargine (Insulin Glargine 100 Units/1 Ml) 20 unit SUBCUT ONCE ONE Stop: 12/14/21 20:01 Last Admin: 12/14/21 21:50 Dose: Not Given Insulin Human Regular (Insulin Regular-Human 100 Units/1 Ml) 10 unit IVP ONCE ONE Stop: 12/14/21 03:48 Last Admin: 12/14/21 03:56 Dose: Not Given Insulin Human Regular (Insulin Regular-Human 100 Units/1 Ml) 6 unit IVP ONCE ONE Stop: 12/14/21 03:55 Last Admin: 12/14/21 03:57 Dose: 6 unit Iohexol (Iohexol 350 Mg/Ml 100 Ml Btl) 0 ml IV ONCE ONE Stop: 12/15/21 14:33 Last Admin: 12/15/21 14:33 Dose: 80 ml Labetalol HCl (Labetalol 5 Mg/Ml Sdv 20ml) 10 mg IVP ONCE ONE Stop: 12/14/21 07:39 Last Admin: 12/14/21 08:37 Dose: 10 mg Ondansetron HCl (Ondansetron 2 Mg/Ml Sdv 2 Ml) 4 mg IVP ONCE ONE Stop: 12/14/21 02:58 Last Admin: 12/14/21 03:09 Dose: 4 mg Allergies amoxicillin Allergy (Verified 12/14/21 06:15) ADR-Itching celecoxib [From Celebrex] Allergy (Verified 12/14/21 06:15) ALGY-Difficulty Breathing with hives povidone-iodine [From Betadine] Allergy (Verified 11/08/21 11:33) ALGY-Rash Sulfa (Sulfonamide Antibiotics) Allergy (Verified 11/08/21 11:33) ALGY-Hives Home Medications insulin detemir U-100 100 unit/mL subcutaneous solution (Levemir U-100 Insulin) 25 unit SUBCUT BID 11/14/20 [History Confirmed 12/14/21] insulin regular human 100 unit/mL injection solution (Novolin R Regular U-100 Insulin) 10 unit SUBCUT TID 11/14/20 [History Confirmed 12/14/21] metoprolol succinate 50 mg tablet,extended release 24 hr 50 mg PO TID 11/14/20 [History Confirmed 12/14/21] ascorbic acid (vitamin C) 500 mg tablet (Vitamin C) 500 mg PO DAILY 12/14/21 [History Confirmed 12/14/21] cholecalciferol (vitamin D3) 50 mcg (2,000 unit) tablet (Vitamin D3) 50 mcg PO DAILY 12/14/21 [History Confirmed 12/14/21] cyclobenzaprine 10 mg tablet 10 mg PO TID PRN Muscle Spasm 12/14/21 [History Confirmed 12/14/21] hydralazine 50 mg tablet 50 mg PO TID 12/14/21 [History Confirmed 12/14/21] hydroxyzine HCl 25 mg tablet 25 mg PO BID PRN Muscle Spasm 12/14/21 [History Confirmed 12/14/21] [id number] 36,000-114,000-180,000 unit capsule,delay rel (Creon) 2 cap PO TIDWM 12/14/21 [History Confirmed 12/14/21] metolazone 2.5 mg tablet 2.5 mg PO DAILY 12/14/21 [History Confirmed 12/14/21] ondansetron HCl 4 mg tablet 4 mg PO Q6H PRN Nausea And Vomiting 12/14/21 [History Confirmed 12/14/21] pantoprazole 40 mg tablet,delayed release 40 mg PO DAILY 12/14/21 [History Confirmed 12/14/21] prednisone 20 mg tablet 20 mg PO DAILY 12/14/21 [History Confirmed 12/14/21] sildenafil 25 mg tablet 20 mg PO DAILY PRN Erectile Dysfunction 12/14/21 [History Confirmed 12/14/21] tamsulosin 0.4 mg capsule 0.4 mg PO DAILY 12/14/21 [History Confirmed 12/14/21] Discharge Plan Discharge Patient Disposition: Home Condition: Stable Prescriptions: No Action Levemir U-100 Insulin 100 unit/mL solution 25 unit SUBCUT BID Novolin R Regular U-100 Insuln 100 unit/mL solution 10 unit SUBCUT TID metoprolol succinate 50 mg tablet extended release 24 hr 50 mg PO TID cyclobenzaprine 10 mg Tablet 10 mg PO TID PRN (Reason: Muscle Spasm) metolazone 2.5 mg Tablet 2.5 mg PO DAILY ondansetron HCl 4 mg Tablet 4 mg PO Q6H PRN (Reason: Nausea And Vomiting) prednisone 20 mg Tablet 20 mg PO DAILY Rx Instructions: Take for one week then d/c. To be finished on 12/16/21. sildenafil 25 mg Tablet 20 mg PO DAILY PRN (Reason: Erectile Dysfunction) Rx Instructions: administer 30 minutes to 4 hours before activity Vitamin C 500 mg Tablet 500 mg PO DAILY tamsulosin 0.4 mg Capsule 0.4 mg PO DAILY pantoprazole 40 mg Tablet,Delayed Release (Dr/Ec) 40 mg PO DAILY hydroxyzine HCl 25 mg Tablet 25 mg PO BID PRN (Reason: Muscle Spasm) hydralazine 50 mg Tablet 50 mg PO TID Vitamin D3 50 mcg (2,000 unit) Tablet 50 mcg PO DAILY Creon 36,000-114,000- 180,000 unit Capsule,Delayed Release(Dr/Ec) 2 cap PO TIDWM Rx Instructions: administer with meals and/or snacks Discharge Orders: Transfer Out of Facility (Order); Ordered 12/15/21 Ordered By: Adriano Lynn Referrals: Tereso Nye DO [Primary Care Provider] - Patient Instructions: Opioid Safety Transfer Attestations Time Spent in Transfer Care: less than 30 min Quality Metrics Clinical Quality Measures [ No reported AMI, CVA or VTE this stay] Coding Level of Care Code Acute [employer]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
[2021-12-15 21:21] LABS: Glucose Point of Care 178 mg/dL (70-110)
--- NOTE | 2021-12-15 22:24 | PC.NURSE ---
Report called to Russ Calvo, , [address] to [facility] at 0280. Patient to transfer to room [facility].
--- NOTE | 2021-12-15 23:59 | PC.NURSE ---
[facility]S at bedside at 2350 to transport pt to [place], [place]. Patient given PRN pain medication prior to transfer, per pt request. Pt left via stretcher with belongings.
== END 2021-12-16 | disposition short-term general hospital (02) | DRG 439 ==
LOC: ER 05:14 → MEDSURG 06:21
PROVIDERS: Admitting Provider Internal Medicine; Emergency Provider Emergency Medicine; PCP Electrodiagnostic Medicine; Visit Provider Internal Medicine
DX: K85.90 Acute pancreatitis without necrosis or infection, unspecified (principal); K86.3 Pseudocyst of pancreas; E11.22 Type 2 diabetes mellitus with diabetic chronic kidney disease; I12.9 Hypertensive chronic kidney disease with stage 1 through stage 4 chronic kidney disease, or unspecified chronic kidney disease; N18.30 Chronic kidney disease, stage 3 unspecified; I16.0 Hypertensive urgency; M10.9 Gout, unspecified; E11.65 Type 2 diabetes mellitus with hyperglycemia; Z79.4 Long term (current) use of insulin; Z90.49 Acquired absence of other specified parts of digestive tract
CPT/HCPCS: 36415; 36416; 74160; 74176; 80053; 80061; 81001; 82962; 83690; 83735; 85025; 96372; J1170; J1650; J1815; J2270; J2405; J2543; J3490; J7030; Q9967

== ENCOUNTER → 2021-12-29 08:10 | Outpatient (BNVA) | payer OTHER, SELFPAY | PROVIDERS: PCP Electrodiagnostic Medicine; Visit Provider Nurse Practitioner Family | DX: N40.1 Benign prostatic hyperplasia with lower urinary tract symptoms (principal) | CPT/HCPCS: 81003 ==

== ENCOUNTER 2022-01-20 06:36 | Emergency (ER) | payer OTHER, SELFPAY ==
[2022-01-20 06:44] VITALS: BP 144/103; PULSE 95; RESP 16; TEMP 37.1; O2SAT 97; BMI 39.7
--- NOTE | 2022-01-20 06:58 | XRR_ITS ---
PROCEDURE INFORMATION: Exam: XR Left Knee Exam date and time: 01/20/2022 7:09 AM Age: 61 years old Clinical indication: Pain; Knee; Left; Prior surgery; Additional info: Pain. History--pt is C/O pain left knee -swelling and up to hip. PT could not straigten left knee TECHNIQUE: Imaging protocol: Radiologic exam of the Left knee. Views: 3 views. COMPARISON: No relevant prior studies available. FINDINGS: Bones/joints: There is no acute fracture or dislocation. If symptoms persist, follow-up imaging in several days may be useful to exclude an occult fracture. No other significant acute bone or joint abnormality. Soft tissues: Soft tissue fullness in the suprapatellar region may indicate evidence of joint effusion. XR/XR knee LT 3V* [id number] IMPRESSION: 1. No acute fracture or dislocation. 2. Suspected knee joint effusion.
--- NOTE | 2022-01-20 07:18 | ED_ITS ---
HPI - Extremity Problem General: Chief complaint: Extremity Problem,Nontraumatic Stated complaint: Lower back and hip pain Time Seen by Provider: 01/20/22 06:42 Source: patient Mode of arrival: wheelchair History of Present Illness: 61-year-old male presents to the emergency room with complaint of the left knee pain. He states began about 6 weeks ago. He has a lumbar spine film his primary care doctor took around that time where he is complaining of some extremity pain they are evaluating for radiculopathy. He cannot recall any particular injury to the knee or to his back. His knee has been swollen and painful with ambulation. He has not had any fever sweats or chills he has noticed the knee has become warm to the touch is gotten progressively worse. He denies any swelling outside of the knee joint itself there is no calf pain or thigh pain he has not had any shortness of breath or chest pain. No trauma no direct injury or blows or cuts abrasions etc. to the knee itself. Patient is diabetic. No previous surgeries on the left knee. MD Complaint: joint swelling and joint pain Onset (ago): week(s) (6) Pain Consistency: constant Location: left Quality: aching Radiation: none Relieving factors: nothing and rest Exacerbating factors: weight bearing and palpation Associated symptoms: Deny arthralgias, chest pain, fever(s), myalgias, rash or short of breath Review of Systems Const: Denies: fever(s), chills, fatigue or malaise ENMT: Denies: throat pain, ear or mastoid pain, nasal discharge or nasal congestion Card: Denies: chest pain, palpitations, irregular heart rhythm, edema or swelling of feet/ankles Resp: Denies: dyspnea, productive cough or non-productive cough GI: Denies: abdominal pain, nausea, vomiting, hematemesis, coffee ground emesis, diarrhea, constipation, bloating, hematochezia or melena : Denies: flank pain, difficulty urinating, dysuria, urinary frequency or urinary urgency Musc: Reports: back pain (chronic) and joint pain (L knee); Denies: joint warmth Skin/Breast: Denies: rash or pruritus PFS ED PFSH: Medical History Diabetes GERD (gastroesophageal reflux disease) Gout Gout Hypercholesteremia Hypertension Hypertension Male erectile dysfunction, unspecified Type 2 diabetes mellitus without complications Surgical History History of appendectomy History of laparoscopic cholecystectomy History of vasectomy Family History Mother Hypertension Father Hypertension Cancer LEUKEMIA CAD (coronary artery disease) Myocardial infarction Diabetes Social History Smoking and tobacco status: never smoked Alcohol intake: never Household members: spouse Marital status: Current occupational status: employed History of recent travel: No Course Vital Signs: Vital signs: Vital Signs Temperature 98.7 F 01/20/22 06:44 Pulse Rate 83 01/20/22 08:11 Respiratory Rate 16 01/20/22 06:44 Blood Pressure 150/77 01/20/22 08:11 Pulse Oximetry 97 01/20/22 08:11 Oxygen Delivery Me thod 01/20/22 08:11 MDM - Extremity (Nontraumatic) Medical Decision Making No acute fracture on left knee x-ray. His low back pain is chronic and is for the most part unchanged previously seen Dr. Hansen and did some x-rays of his back which not show anything significantly acute. He does appear to have a new joint effusion on exam his sed rate and CRP are mildly elevated his white count is normal discussed the CT findings with Dr. Allen. Based on the laboratory studies and the clinical presentation we do not feel that his acutely infected like it is more of a arthritic inflammation. We will do Medrol Dosepak he avoids any NSAIDs he can use the hydrocodone that was previously prescribed and we will get him set up to see orthopedics. Medical Records I reviewed the patient's medical records. Lab Data I reviewed the patient's lab results. : 01/20/22 06:55 01/20/22 06:55 Radiology Impressions Knee X-Ray 01/20/22 06:58 IMPRESSION: 1. No acute fracture or dislocation. 2. Suspected knee joint effusion. Knee CT 01/20/22 07:23 IMPRESSION: 1. Moderate suprapatellar joint effusion with enhancing joint capsule suspicious for synovitis or infection. 2. Mild soft tissue edema about the knee suspicious for cellulitis. Recommend correlation for infection. 3. No acute fractures. 4. 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 5. No drainable extra-articular fluid collections Laboratory Results WBC 9.8 10^3/uL (4.0-10.0) 01/20/22 06:55 RBC 4.05 10^6/uL (4.1-5.3) L 01/20/22 06:55 Hgb 11.2 g/dL (11.7-16.6) L 01/20/22 06:55 Hct 35.6 % (42.0-52.0) L 01/20/22 06:55 MCV 87.9 fl (80-94) 01/20/22 06:55 MCH 27.7 pg (28.0-34.0) L 01/20/22 06:55 MCHC 31.5 g/dL (30.0-36.0) 01/20/22 06:55 RDW 14.2 % (12.1-15.1) 01/20/22 06:55 Plt Count 207 10^3/cmm (130-400) 01/20/22 06:55 MPV 10.8 fL (7.4-10.4) H 01/20/22 06:55 Neut % (Auto) 82.3 % 01/20/22 06:55 Lymph % (Auto) 8.7 % 01/20/22 06:55 [place] % (Auto) 7.2 % 01/20/22 06:55 Eos % (Auto) 1.0 % 01/20/22 06:55 Baso % (Auto) 0.3 % 01/20/22 06:55 Neut # (Auto) 8.08 10^3/uL (1.8-7.7) H 01/20/22 06:55 Lymph # (Auto) 0.9 10^3/uL (0.8-4.8) 01/20/22 06:55 [place] # (Auto) 0.7 10^3/uL (0.2-0.9) 01/20/22 06:55 Eos # (Auto) 0.1 10^3/uL (0.0-0.8) 01/20/22 06:55 Baso # (Auto) 0.0 10^3/uL (0.0-0.1) 01/20/22 06:55 Nucleated RBC % (auto) 0 % 01/20/22 06:55 Nucleated RBCs # 0.0 /100WBC 01/20/22 06:55 ESR 58 mm/hr (0-10) H 01/20/22 06:55 Sodium 137 mmol/L (136-145) 01/20/22 06:55 Potassium 3.5 mmol/L (3.5-5.1) 01/20/22 06:55 Chloride 100 mmol/L (98-107) 01/20/22 06:55 Carbon Dioxide 28 mmol/L (22-29) 01/20/22 06:55 Anion Gap 12.5 (5-19) 01/20/22 06:55 BUN 14 mg/dL (8-23) 01/20/22 06:55 Creatinine 1.0 mg/dL (0.7-1.2) 01/20/22 06:55 GFR Calculation 75.7 mL/min (90-130) L 01/20/22 06:55 Glucose 117 mg/dL (65-115) H 01/20/22 06:55 Calculated Osmolality 286 mOsm/kg (285-295) 01/20/22 06:55 Calcium 8.7 mg/dL (8.5-10.5) 01/20/22 06:55 C-Reactive Protein 80.8 mg/L (0.0-4.9) H 01/20/22 06:55 Discharge Plan Discharge Patient Disposition: Home Clinical Impression: Arthralgia of knee, left, Effusion of knee joint, left Condition: Stable Prescriptions: New Medrol (Kaveh) 4 mg tablets,dose pack See Rx Instructions .ROUTE .COMPLEX Qty: 21 0RF Rx Instructions: orally per package directions No Action Levemir U-100 Insulin 100 unit/mL solution 25 unit SUBCUT BID Novolin R Regular U-100 Insuln 100 unit/mL solution 15 unit SUBCUT TID tamsulosin 0.4 mg capsule 0.4 mg PO BID Qty: 180 3RF cyclobenzaprine 10 mg Tablet 10 mg PO TID PRN (Reason: Muscle Spasm) ondansetron HCl 4 mg Tablet 4 mg PO Q6H PRN (Reason: Nausea And Vomiting) sildenafil 25 mg Tablet 20 mg PO DAILY PRN (Reason: Erectile Dysfunction) Rx Instructions: administer 30 minutes to 4 hours before activity ascorbic acid (vitamin C) [Vitamin C] 500 mg Tablet 500 mg PO DAILY pantoprazole 40 mg Tablet,Delayed Release (Dr/Ec) 40 mg PO DAILY hydralazine 50 mg Tablet 50 mg PO TID cholecalciferol (vitamin D3) [Vitamin D3] 50 mcg (2,000 unit) Tablet 50 mcg PO DAILY Creon 36,000-114,000- 180,000 unit Capsule,Delayed Release(Dr/Ec) 2 cap PO TIDWM Rx Instructions: administer with meals and/or snacks hydrocodone-acetaminophen 5-325 mg tablet 1 tab PO BID PRN (Reason: Pain) metoprolol tartrate 50 mg tablet 50 mg PO TID Discharge Orders: Discharge ED (Routine); Ordered 01/20/22 Ordered By: Wilfredo Cadet Referrals: Tereso Nye DO [Primary Care Provider] - Discharge Diet: Usual diet Discharge Activity: Increase activity as tolerated Patient Instructions: Opioid Safety, Pain Management Activity Restrictions/Additional Instructions: Case management will contact you to make arrangements for you to follow-up with orthopedics. Use prednisone taper as prescribed. Use previously prescribed hydrocodone for pain elevate and ice as needed. Coding Level of Care Code ED Order To Delivery Supervisor for Jarrett Tobias
[2022-01-20 07:19] LABS: Erythrocyte Sedimentation Rate 58 mm/hr (0-10)
[2022-01-20 07:22] LABS: Basophils % 0.3 %; Eosinophils # 0.1 10^3/uL (0.0-0.8); Hematocrit 35.6 % (42.0-52.0); Hemoglobin 11.2 g/dL (11.7-16.6); Lymphocytes # 0.9 10^3/uL (0.8-4.8); Lymphocytes % 8.7 %; Mean Corpuscular HGB Conc 31.5 g/dL (30.0-36.0); Mean Corpuscular Hemoglobin 27.7 pg (28.0-34.0); Mean Corpuscular Volume 87.9 fl (80-94); Mean Platelet Volume 10.8 fL (7.4-10.4); Monocytes # 0.7 10^3/uL (0.2-0.9); Monocytes % 7.2 %; Neutrophils # 8.08 10^3/uL (1.8-7.7); Neutrophils % 82.3 %; Nucleated Red Blood Cells % 0 %; Platelet Count 207 10^3/cmm (130-400); Red Blood Count 4.05 10^6/uL (4.1-5.3); Red Cell Distribution Width 14.2 % (12.1-15.1); White Blood Count 9.8 10^3/uL (4.0-10.0)
--- NOTE | 2022-01-20 07:23 | CT_ITS ---
WS: [id number] CONTRAST-ENHANCED CT LEFT KNEE TECHNIQUE: Contrast-enhanced CT LEFT knee with coronal and sagittal reformatted images. CLINICAL INFORMATION: pain swelling COMPARISON: None. DLP: 368.[address] scans at [facility] use at least one of these dose optimization techniques: automated e xposure control; mA and/or kV adjustment per patient size (includes targeted exams where dose is matc hed to clinical indication); or iterative reconstruction. FINDINGS: Normal anatomic alignment. No acute fractures. 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 Moderate suprapatellar and joint effusion. Enhancing joint capsule suspicious for synovitis or infection in the appropriate clinical setting. No evidence of osteomyelitis. Joint space narrowing worse in the medial joint compartment. Moderate narrowing at the patellofemoral articulation with hypertrophic patella. Soft tissue edema in the prepatellar soft tissues. Mild soft tissue edema about the knee.Correlation for cellulitis. CT/CT knee LT w con [id number] IMPRESSION: 1. Moderate suprapatellar joint effusion with enhancing joint capsule suspicio us for synovitis or infection. 2. Mild soft tissue edema about the knee suspicious for cellulitis. Recommend correlation for infection. 3. No acute fractures. 4. 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 5. No drainable extra-articular fluid collections
[2022-01-20 07:34] LABS: Anion Gap 12.5 (5-19); Blood Urea Nitrogen 14 mg/dL (8-23); C Reactive Protein 80.8 mg/L (0.0-4.9); Calcium 8.7 mg/dL (8.5-10.5); Carbon Dioxide 28 mmol/L (22-29); Chloride 100 mmol/L (98-107); Glomerular Filtration Rate 75.7 mL/min (90-130); Glucose 117 mg/dL (65-115); Osmolality Calculated 286 mOsm/kg (285-295); Potassium 3.5 mmol/L (3.5-5.1); Sodium 137 mmol/L (136-145)
[2022-01-20] MEDS: iohexol 350 mg/mL 500 mL Btl (per mL) IV (07:35)
[2022-01-20 08:11] VITALS: BP 150/77; PULSE 83; O2SAT 97
[2022-01-20 09:00] VITALS: BP 134/68; PULSE 85; O2SAT 96
[2022-01-20 10:03] VITALS: BP 144/70; PULSE 85; O2SAT 99
== END 2022-01-20 10:05 | disposition home or self-care (01) ==
PROVIDERS: Emergency Provider Family Medicine; PCP Electrodiagnostic Medicine
DX: M25.462 Effusion, left knee (principal); M25.562 Pain in left knee; Z79.4 Long term (current) use of insulin; E11.9 Type 2 diabetes mellitus without complications; I10 Essential (primary) hypertension
CPT/HCPCS: 73562; 73701; 80048; 85025; 85651; 86140; 87040; 99285

== ENCOUNTER → 2022-02-22 14:44 | Outpatient (BNVA) | payer OTHER, SELFPAY | PROVIDERS: PCP Electrodiagnostic Medicine; Referring Provider Electrodiagnostic Medicine; Visit Provider Orthopaedic Surgery | DX: M79.89 Other specified soft tissue disorders (principal) | CPT/HCPCS: 73560; 73565 ==

== ENCOUNTER 2022-02-23 08:43 | Outpatient (CLI) | payer OTHER, SELFPAY ==
--- NOTE | 2022-02-23 08:45 | USCV_ITS ---
LexusClay Age: 61 Gender: M : 1960 Exam Date: 02/23/2022 09:02 Ordering Phys: Tyler Perla MD Technologist: HIPOLITO Exam Location: [facility] [place] Indication: LT Leg Swelling HISTORY: PT has LT leg swelling x 2 months. Pt has diabetes PROCEDURES: Venous duplex imaging was performed in only the left lower extremity. The following venous structures were evaluated: common femoral vein, profunda vein, proximal portion of the greater saphenous vein, superficial femoral vein, and the popliteal vein. In addition, the posterior tibial and peroneal trunk were evaluated. On the left side, the common femoral, superficial femoral, profunda femoral, popliteal, posterior tibial, greater saphenous veins, and the peroneal trunk were identified and interrogated in the standard fashion. FINDINGS: Normal 2-D Doppler and augmentation and compressibility throughout the lower extremity venous structures. Additional imaging through the proximal calf veins also reveals no thrombus. Limited evaluation of the greater saphenous vein is patent with no thrombus. CONCLUSIONS No DVT left lower extremity. Dr. Mellisa Prado DO (Electronically Signed) Final Date: 23 February 2022 09:55 S
== END 2022-02-23 08:44 | disposition home or self-care (01) ==
LOC: RAD 08:44
PROVIDERS: PCP Electrodiagnostic Medicine; Visit Provider Orthopaedic Surgery
DX: M25.562 Pain in left knee (principal)
CPT/HCPCS: 93971

== ENCOUNTER 2022-03-29 12:58 | Outpatient (CLI) | payer OTHER, SELFPAY | END 2022-03-29 12:59 | disposition home or self-care (01) | LOC: LAB 13:02 | PROVIDERS: Nurse Practitioner Family; PCP Electrodiagnostic Medicine; Visit Provider Urology | DX: Z12.5 Encounter for screening for malignant neoplasm of prostate (principal) | CPT/HCPCS: 36415; 84153 ==

== ENCOUNTER → 2022-03-31 10:09 | Outpatient (BNVA) | payer OTHER, SELFPAY | PROVIDERS: PCP Electrodiagnostic Medicine; Visit Provider Urology | DX: N40.1 Benign prostatic hyperplasia with lower urinary tract symptoms (principal); R97.20 Elevated prostate specific antigen [PSA]; N52.9 Male erectile dysfunction, unspecified; N41.1 Chronic prostatitis | CPT/HCPCS: 81003 ==

== ENCOUNTER → 2022-05-11 15:00 | Outpatient (BNVA) | payer OTHER, SELFPAY | PROVIDERS: PCP Electrodiagnostic Medicine; Visit Provider Urology | DX: N40.1 Benign prostatic hyperplasia with lower urinary tract symptoms (principal); N52.9 Male erectile dysfunction, unspecified | CPT/HCPCS: 81003 ==

== ENCOUNTER 2022-05-12 09:26 | Outpatient (CLI) | payer OTHER, SELFPAY ==
--- NOTE | 2022-05-12 09:36 | USCV_ITS ---
LexusClay Age: 62 Gender: M : 1960 Exam Date: 05/12/2022 09:48 Ordering Phys: Tereso Nye DO Technologist: HUBERT Exam Location: [facility] [place]_ Indication: CHRONIC HEART FAILURE BP: 143 / 93 HR: 70 Rhythm: Sinus Technical Quality: Suboptimal, Poor MEASUREMENTS (Male / Female) Normal Values 2D ECHO LVOT Diameter 2.0 cm LA Diameter 4.4 cm Aorta at Sinotubular Diameter 3.1 cm IVC Diameter 1.5 cm M-MODE Aortic Annulus Diameter 3.1 cm LA Ao Ratio MM 1.4 MV E Point Septal Separation 0.8 cm DOPPLER Right Atrial Pressure 8.0 mmHg PV Peak Velocity 85.0 cm/s RV Acceleration Time 0.1 s RV Ejection Time 0.3 s RV AcT/ET 0.2 FINDINGS Left Ventricle Normal left ventricular size and systolic function, EF 65%. Segmental wall motion analysis difficult, since there is no apical views. No gross abnormalities based on the parasternal views Right Ventricle Possibly of normal size and ejection fraction Right Atrium Right atrium not well visualized. Left Atrium Mildly increased left atrial size. Mitral Valve Mild mitral annular calcification. Trace mitral valve regurgitation. Aortic Valve No gross abnormalities noted Tricuspid Valve No gross abnormalities noted Pulmonic Valve No gross abnormalities noted Pericardium No pericardial effusion. Aorta Normal aortic annulus size. IVC Inferior vena cava not visualized. CONCLUSIONS Normal left ventricular size and systolic function, EF 65%. Segmental wall motion analysis difficult, since there is no apical views. No gross wall motion abnormalities based on the parasternal views. Mildly increased left atrial size. Right atrium not well visualized. Mild mitral annular calcification. Trace mitral valve regurgitation. There is no pericardial effusion. Technically difficult study since there is no apical views Dr Nery Pagan MD FACC (Electronically Signed) Final Date: 12 May 2022 18:34 S
== END 2022-05-12 09:27 | disposition home or self-care (01) ==
PROVIDERS: PCP Electrodiagnostic Medicine; Visit Provider Electrodiagnostic Medicine
DX: I50.9 Heart failure, unspecified (principal); I34.0 Nonrheumatic mitral (valve) insufficiency
CPT/HCPCS: 93306

== ENCOUNTER 2022-08-08 10:57 | Inpatient (IN) | payer OTHER, SELFPAY ==
[2022-08-08] VITALS (12 sets, daily range): BP systolic 107–160; BP diastolic 76–120; PULSE 83–102; RESP 16–18; TEMP 36.4–36.7; O2SAT 95–100; BMI 35.9; BMI 37.8
[2022-08-08 11:08] LABS: Glucose Point of Care 209 mg/dL (70-110)
--- NOTE | 2022-08-08 11:48 | XRR_ITS ---
PROCEDURE INFORMATION: Exam: XR Chest Exam date and time: 08/08/2022 11:55 AM Age: 62 years old Clinical indication: Other: Weakness TECHNIQUE: Imaging protocol: Radiologic exam of the chest. Views: 1 view. COMPARISON: CR XR chest 2V* [id number] 06/21/2022 3:26 PM FINDINGS: Lungs: Hypoinflation and interstitial prominence. Pleural spaces: No significant pleural effusion. Heart/Mediastinum: Borderline cardiomegaly. Bones/joints: Osteopenia and degenerative change. XR/XR chest 1V portable [id number] IMPRESSION: Hypoinflation and interstitial prominence.
--- NOTE | 2022-08-08 11:51 | W.ED.WEAKNES ---
HPI - Weakness General: Chief complaint: Weakness Stated complaint: dizzy, high sugar Time Seen by Provider: 08/08/22 11:42 History of Present Illness: Patient presents to the ER with complaints of dizziness and weakness worsening over the last several days. Patient does state a couple weeks ago he was placed on several water pills. Patient also complained of calf tightness muscle spasms abdominal cramps and dizziness. Patient does have a history of chronic pancreatitis. Patient did not take any medicine this morning. MD Complaint: generalized weakness Onset (ago): day(s) (2 to 3 days ago) Duration: constant Location: generalized Migration: none Severity: mild Relieving factors: none Exacerbating factors: none Context: new medication Associated symptoms: Denies chest pain, chills, dysuria, fever(s), headache(s), nausea or vomiting Review of Systems General: Reports: 10 or more systems reviewed and unremarkable except in HPI and below Const: Denies: fever(s), chills or body aches Eyes: Denies: change in vision or photophobia ENMT: Denies: throat pain or odynophagia Card: Denies: chest pain, palpitations or irregular heart rhythm Resp: Denies: dyspnea, productive cough or non-productive cough GI: Denies: abdominal pain, nausea, vomiting or diarrhea : Denies: flank pain, difficulty urinating or dysuria Musc: Reports: muscle weakness; Denies: neck pain or back pain Neuro: Reports: vertigo; Denies: headache(s), numbness in extremities or weakness in extremities PFSH ED PFSH: Medical History Diabetes GERD (gastroesophageal reflux disease) Gout Gout Hypercholesteremia Hypertension Hypertension Male erectile dysfunction, unspecified Type 2 diabetes mellitus without complications Surgical History History of appendectomy History of laparoscopic cholecystectomy History of vasectomy Family History Mother Hypertension Father , Age 72 Hypertension Cancer LEUKEMIA CAD (coronary artery disease) Myocardial infarction Diabetes Social History Smoking and tobacco status: never smoked Alcohol intake: never Household members: spouse Marital status: Current occupational status: employed Physical Exam Const: COMMON NORMALS: no acute distress, average body habitus, patient oriented x3, no limitations, healthy appearing, alert and well nourished HENMT: COMMON NORMALS: normocephalic, atraumatic, hearing grossly normal bilaterally, external ears normal, Normal external nose present and moist oral mucous membranes HEAD & SCALP: normocephalic and atraumatic NOSE: Normal external nose present EXTERNAL EAR: Yes external ears normal Eye: COMMON NORMALS: Equal, round and reactive pupils present, EOMs intact bilaterally, conjunctivae normal and no scleral icterus CONJUNCTIVA: Yes conjunctivae normal PUPIL: Yes Equal, round and reactive pupils present Neck/C-Spine: COMMON NORMALS: full ROM, no lymphadenopathy, supple, no meningeal signs, no JVD and Thyroid normal THYROID: Thyroid normal Lymph: LYMPHATIC: no lymphadenopathy noted Chest: COMMONS NORMALS: normal inspection of the chest and normal palpation of entire chest wall Resp: COMMON NORMALS: normal respiratory effort, No retractions, No use of accessory muscles and clear to auscultation bilaterally AUSCULTATION: clear to auscultation bilaterally Cardio: COMMON NORMALS: no JVD, regular rate, regular rhythm, S1 normal heart sound present, S2 normal heart sound present, No gallops present (Cardio), No clicks present (Cardio) and No murmurs present (Cardio) RATE: regular rate RHYTHM: regular rhythm HEART SOUNDS: S1 normal heart sound present and S2 normal heart sound present GI: COMMON NORMALS: Normal to inspection, nondistended, normoactive bowel sounds present, Soft to palpation, No hepatosplenomegaly present and no masses PALPATION: Yes Soft to palpation, Yes Tenderness to palpation present (GI) Details: other (Mildly diffuse tenderness with palpation), Yes No hepatosplenomegaly present and No Rebound tenderness present : COMMON NORMALS: Yes no CVA tenderness BLADDER/KIDNEY EXAM: Yes no CVA tenderness Back/Pelvis: COMMON NORMALS: no CVA tenderness Neuro: COMMON NORMALS: patient oriented x3 SENSORIUM/ORIENTATION: Yes alert MENINGEAL SIGNS: Yes no meningeal signs Course Vital Signs: Vital signs: Vital Signs Temperature 97.6 F 08/08/22 11:01 Pulse Rate 88 08/08/22 16:00 Respiratory Rate 18 08/08/22 11:01 Blood Pressure 133/90 08/08/22 16:00 Pulse Oximetry 98 08/08/22 16:00 Oxygen Delivery Me thod Room Air 08/08/22 16:00 MDM - Weakness Medical Decision Making Patient presented with multiple complaints such as dizziness weakness elevated blood sugar abdominal pain cramps. Patient is on 3 different diuretics and they all per patient they are all started within the last 2 weeks. Patient symptoms are started over the last 2 to 3 days. Lab work was obtained which showed patient a white count of 10.4, BUN of 51 and 2.2, chest x-ray which was essentially negative and abdomen pelvis CT which showed suspicion for acute pancreatitis, patient's liver enzymes are all elevated patient was given a bolus of 1 L normal saline here in ER and I did not make the patient feel any better. These findings was discussed with the patient and as well as Dr. Mosqueda patient will be admitted for acute pancreatitis and dehydration. Differential Diagnosis Likely dehydration; Unlikely acute myocardial infarction, anemia, hypoglycemia, hypothyroidism, rhabdomyolysis or sepsis Medical Records I reviewed the patient's medical records. Lab Data I reviewed the patient's lab results. 08/08/22 12:05 08/08/22 12:05 Radiology Impressions Chest X-Ray 08/08/22 11:48 IMPRESSION: Hypoinflation and interstitial prominence. Abdomen/Pelvis CT 08/08/22 13:08 IMPRESSION: 1. Mild induration about the atrophic pancreas suspicious for acute pancreatitis. Reactive mesenteric lymph nodes. Recommend correlation with pancreatic enzymes. 2. Interval increase in size of the pancreatic tail pseudocyst extending into the LEFT lower quadrant. This is described above. 3. Pseudocyst closely abuts the LEFT colon. Patient risk for fistula formation. This is similar to the prior study. 4. Cirrhotic liver with mild intrahepatic biliary ductal dilatation and dilatation common bile duct appears stable. 5. Prior cholecystectomy. 6. Enlarged prostate. 7. Trace RIGHT pleural fluid with RIGHT basilar atelectasis. Laboratory Results WBC 10.4 10^3/uL (4.0-10.0) H 08/08/22 12:05 RBC 5.44 10^6/uL (4.1-5.3) H 08/08/22 12:05 Hgb 16.5 g/dL (11.7-16.6) 08/08/22 12:05 Hct 48.1 % (42.0-52.0) 08/08/22 12:05 MCV 88.4 fl (80-94) 08/08/22 12:05 MCH 30.3 pg (28.0-34.0) 08/08/22 12:05 MCHC 34.3 g/dL (30.0-36.0) 08/08/22 12:05 RDW 13.2 % (12.1-15.1) 08/08/22 12:05 Plt Count 206 10^3/cmm (130-400) 08/08/22 12:05 MPV 10.9 fL (7.4-10.4) H 08/08/22 12:05 Neut % (Auto) 74.8 % 08/08/22 12:05 Lymph % (Auto) 14.8 % 08/08/22 12:05 [place] % (Auto) 5.0 % 08/08/22 12:05 Eos % (Auto) 4.2 % 08/08/22 12:05 Baso % (Auto) 0.9 % 08/08/22 12:05 Neut # (Auto) 7.76 10^3/uL (1.8-7.7) H 08/08/22 12:05 Lymph # (Auto) 1.5 10^3/uL (0.8-4.8) 08/08/22 12:05 [place] # (Auto) 0.5 10^3/uL (0.2-0.9) 08/08/22 12:05 Eos # (Auto) 0.4 10^3/uL (0.0-0.8) 08/08/22 12:05 Baso # (Auto) 0.1 10^3/uL (0.0-0.1) 08/08/22 12:05 Nucleated RBC % (auto) 0 % 08/08/22 12:05 Nucleated RBCs # 0.0 /100WBC 08/08/22 12:05 Sodium 135 mmol/L (136-145) L 08/08/22 12:05 Potassium 4.1 mmol/L (3.5-5.1) 08/08/22 12:05 Chloride 92 mmol/L (98-107) L 08/08/22 12:05 Carbon Dioxide 28 mmol/L (22-29) 08/08/22 12:05 Anion Gap 19.1 (5-19) H 08/08/22 12:05 BUN 51 mg/dL (8-23) H 08/08/22 12:05 Creatinine 2.2 mg/dL (0.7-1.2) H 08/08/22 12:05 GFR Calculation 30.4 mL/min (90-130) L 08/08/22 12:05 Glucose 209 mg/dL (65-115) H 08/08/22 12:05 POC Glucose 209 mg/dL (70-110) H 08/08/22 11:06 Calculated Osmolality 300 mOsm/kg (285-295) H 08/08/22 12:05 Calcium 10.0 mg/dL (8.5-10.5) 08/08/22 12:05 Magnesium 1.7 mg/dL (1.7-2.3) 08/08/22 12:05 Total Bilirubin 2.5 mg/dL (0.15-1.2) H 08/08/22 12:05 AST 226 U/L (0-40) H 08/08/22 12:05 ALT 383 U/L (0-41) H 08/08/22 12:05 Alkaline Phosphatase 425 U/L (40-130) H 08/08/22 12:05 Troponin T Baseline 37 ng/L (0-15) H 08/08/22 12:05 Troponin T 120 Minute 25.32 ng/L (0-15) H 08/08/22 15:55 Delta Troponin T -11.68 ABS# (0-10) L 08/08/22 15:55 Total Protein 8.0 g/dL (6.6-8.7) 08/08/22 12:05 Albumin 4.3 g/dL (3.5-5.2) 08/08/22 12:05 Globulin 3.7 g/dL (1.3-4.6) 08/08/22 12:05 Lipase 479 U/L (13-60) H 08/08/22 12:05 Urine Color Dark yellow (Yellow) 08/08/22 16:05 Urine Appearance Clear (CLEAR) 08/08/22 16:05 Urine pH 5 (5-7) 08/08/22 16:05 Ur Specific [place] 1.020 (1.005-1.030) 08/08/22 16:05 Urine Protein 2+ (Negative) H 08/08/22 16:05 Urine Glucose (UA) 2+ (Normal) H 08/08/22 16:05 Urine Ketones 1+ (Negative) H 08/08/22 16:05 Urine Blood Neg (Negative) 08/08/22 16:05 Urine Nitrate Negative (Negative) 08/08/22 16:05 Urine Bilirubin 1+ (Negative) H 08/08/22 16:05 Urine Urobilinogen 4 mg/dL (Negative) H 08/08/22 16:05 Ur Leukocyte Esterase Negative (Negative) 08/08/22 16:05 Urine RBC 0-4 /hpf (0-2) H 08/08/22 16:05 Urine WBC 0-4 /hpf (0-5) H 08/08/22 16:05 Ur Squamous Epith Cells 0-4 /hpf (0-5) H 08/08/22 16:05 Amorphous Sediment Not Reportable 08/08/22 16:05 Urine Bacteria Trace /hpf (NONE) 08/08/22 16:05 Hyaline Casts 5-10 /lpf H 08/08/22 16:05 Serum Ketones Negative (Negative) 08/08/22 12:05 EKG Data EKG 1: I personally reviewed and interpreted this EKG as follows: EKG interpretation date: 08/08/22 EKG interpretation time: 12:03 Prior EKG tracings: not available for review Interpretation: EKG showed ventricular rate of 95 bpm, IL interval 163, QRS duration 93, QTc of 399, normal sinus rhythm, moderate ST depression EKG 2: I personally reviewed and interpreted this EKG as follows: EKG interpretation date: 08/08/22 EKG interpretation time: 14:36 Prior EKG tracings: available for review Interpretation: EKG showed ventricular rate of 79 bpm normal sinus rhythm, IL interval 160, QRS duration 91, QTc of 423, normal sinus rhythm, moderate ST depression Discharge Plan Discharge Patient Disposition: Admitted As Inpatient Clinical Impression: Dehydration, Weakness generalized Acute pancreatitis Qualifiers: Pancreatitis type: unspecified pancreatitis type Acute pancreatitis complication: no infection or necrosis Qualified Code(s): K85.90 - Acute pancreatitis without necrosis or infection, unspecified Condition: Stable Coding Level of Care Code ED Human Relations Manager for Chg Micheline
--- NOTE | 2022-08-08 12:03 | ECG_ITS ---
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 Measurements Intervals [place] Rate: 95 P: 78 NM: 163 QRS: 29 QRSD: 93 T: 31 QT: 347 QTc: 436 Interpretive Statements SINUS RHYTHM MODERATE ST DEPRESSION [0.05+ mV ST DEPRESSION] Compared to ECG 12/24/2017 12:51:46 ST (T wave) deviation now present T-wave abnormality no longer present Electronically Signed On 08-08-2022 16:28:08 CDT by Geoff Whitfield M.D. [id number]
[2022-08-08 12:12] LABS: Basophils # 0.1 10^3/uL (0.0-0.1); Basophils % 0.9 %; Eosinophils # 0.4 10^3/uL (0.0-0.8); Eosinophils % 4.2 %; Hematocrit 48.1 % (42.0-52.0); Hemoglobin 16.5 g/dL (11.7-16.6); Lymphocytes # 1.5 10^3/uL (0.8-4.8); Lymphocytes % 14.8 %; Mean Corpuscular HGB Conc 34.3 g/dL (30.0-36.0); Mean Corpuscular Hemoglobin 30.3 pg (28.0-34.0); Mean Corpuscular Volume 88.4 fl (80-94); Mean Platelet Volume 10.9 fL (7.4-10.4); Monocytes # 0.5 10^3/uL (0.2-0.9); Neutrophils # 7.76 10^3/uL (1.8-7.7); Neutrophils % 74.8 %; Nucleated Red Blood Cells % 0 %; Platelet Count 206 10^3/cmm (130-400); Red Blood Count 5.44 10^6/uL (4.1-5.3); Red Cell Distribution Width 13.2 % (12.1-15.1); White Blood Count 10.4 10^3/uL (4.0-10.0)
[2022-08-08 12:24] LABS: Ketone (Acetest) Serum Negative (Negative)
[2022-08-08 12:33] LABS: Alanine Aminotransferase 383 U/L (0-41); Albumin Level 4.3 g/dL (3.5-5.2); Alkaline Phosphatase 425 U/L (40-130); Anion Gap 19.1 (5-19); Aspartate Amino Transferase 226 U/L (0-40); Blood Urea Nitrogen 51 mg/dL (8-23); Carbon Dioxide 28 mmol/L (22-29); Chloride 92 mmol/L (98-107); Globulin 3.7 g/dL (1.3-4.6); Glomerular Filtration Rate 30.4 mL/min (90-130); Glucose 209 mg/dL (65-115); Magnesium 1.7 mg/dL (1.7-2.3); Osmolality Calculated 300 mOsm/kg (285-295); Potassium 4.1 mmol/L (3.5-5.1); Sodium 135 mmol/L (136-145); Total Bilirubin 2.5 mg/dL (0.15-1.2)
[2022-08-08 13:00] LABS: Lipase 479 U/L (13-60)
[2022-08-08 13:06] LABS: Troponin(5th) Baseline 37 ng/L (0-15)
--- NOTE | 2022-08-08 13:08 | CT_ITS ---
WS: [id number] CT ABDOMEN PELVIS TECHNIQUE: Noncontrast CT of the abdomen and pelvis with coronal and sagittal reformatted images. CLINICAL INFORMATION: n/v ab d pain, elevated lfts, hx of chronic pancratitis COMPARISON: None. DLP: 1205.[address] scans at [facility] use at least one of these dose optimization techniques: automated e xposure control; mA and/or kV adjustment per patient size (includes targeted exams where dose is matc hed to clinical indication); or iterative reconstruction. FINDINGS: Changes of chronic pancreatitis. Suggestion of acute pancreatitis with mild inflammation of the atrop hic pancreas. Reactive mesenteric lymph nodes. Pancreatic pseudocyst along the pancreatic tail was pr esent December 15, 2021. This has increased in size today measuring 7.4 x 6.7 x 9.9 cm. LEFT colon a buts the pseudocyst similar to previous. Patient risk for fistula formation. Prior cholecystectomy clips. Splenic granulomas. Cirrhotic liver is similar to previous. Trace RIGHT pleural fluid with RIGHT basilar atelectasis. Normal sigmoid colon. Sigmoid constipation. . Enlarged prostate measuring 5.3 CM. Tiny fat-containing umbilical hernia. Adrenal glands are normal. Bilateral renal cortical atrophy. Malrotation LEFT kidn ey. Bilateral renal cysts. No hydronephrosis. Prominent lymph nodes along the central mesentery likel y reactive. CT/CT abdomen pelvis wo con [id number] IMPRESSION: 1. Mild induration about the atrophic pancreas suspicious for acute pancreatit is. Reactive mesenteric lymph nodes. Recommend correlation with pancreatic enzy mes. 2. Interval increase in size of the pancreatic tail pseudocyst extending into the LEFT lower quadrant. This is described above. 3. Pseudocyst closely abuts the LEFT colon. Patient risk for fistula formation . This is similar to the prior study. 4. Cirrhotic liver with mild intrahepatic biliary ductal dilatation and dilata tion common bile duct appears stable. 5. Prior cholecystectomy. 6. Enlarged prostate. 7. Trace RIGHT pleural fluid with RIGHT basilar atelectasis.
[2022-08-08] MEDS: sodium chloride 0.9% 1,000 ML 999 ML IV (13:34)
--- NOTE | 2022-08-08 13:54 | PC.PHAR ---
pt states his takes care of his medications-pts verified pts medications-pt states he uses levemir flextouch 35 units bid rx filled 30 units daily max 60 units per day filled 07/13/22-pt states he uses novolog flexpen 20 units daily at noon rx filled 07/13/22 20 units plus ss tid max of 100 units per day-pts states the pts pantoprazole 40mg daily was dced 07/28/22 and changed to pepcid 20mg daily-notes are made in the pharmacy comments
[2022-08-08] MEDS: ondansetron 2 mg/ML SDV 2 mL 4 MG IVP (14:04)
--- NOTE | 2022-08-08 14:14 | ECG_ITS ---
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 Measurements Intervals [place] Rate: 79 P: 73 [place]: 160 QRS: 54 QRSD: 91 T: 4 QT: 388 QTc: 447 Interpretive Statements SINUS RHYTHM MODERATE ST DEPRESSION [0.05+ mV ST DEPRESSION] Compared to ECG 08/08/2022 12:03:54 No significant changes Electronically Signed On 08-08-2022 16:33:29 CDT by Geoff Whitfield M.D. [email or web address] [id number]
[2022-08-08 16:21] LABS: Troponin 5 2HR 25.32 ng/L (0-15)
[2022-08-08 16:23] LABS: Troponin 5 2HR Delta -11.68 ABS# (0-10)
[2022-08-08 16:35] LABS: Urine Appearance Clear (CLEAR); Urine Color Dark Yellow (Yellow)
[2022-08-08 16:36] LABS: Add Urine Culture? No; Add Urine Microscopic? YES; Bacteria Urine TRACE /hpf; Bilirubin Urine 1+ (Negative); Blood Urine Neg (Negative); Glucose Urine UA 2+ (Normal); Ketones Urine 1+ (Negative); Leukocyte Esterase Urine Negative (Negative); Nitrate Urine Negative (Negative); Protein Urine 2+ (Negative); RBC Urine 0-4 /hpf (0-2); Squamous Epithelial Cell Urine 0-4 /hpf (0-5); Urobilinogen Urine 4 mg/dL (Negative); WBC Urine 0-4 /hpf (0-5); pH Urine 5 (5-7)
--- NOTE | 2022-08-08 18:20 | PM.HP ---
Providers/Chief Complaint Admitting Physician: Pipe Mosqueda MD Primary Care Provider: Tereso Nye DO Chief Complaint: dizzy, high sugar History of Present Illness Clay Alberts is a 62 year old male with past medical history of hypertension diabetes chronic pancreatitis, recently being managed as outpatient with torsemide metolazone and spironolactone, for shortness of breath, came in today with chief complaint of worsening abdominal pain as well as nausea, going on for the last few days , along with bilateral lower extremity cramps, patient is also reporting poor appetite, CT abdomen and pelvis done today without contrast has shown: Changes consistent with acute on chronic pancreatitis. X-ray chest no acute findings pertinent labs: WBC 10.4, H&H 16.5 and 48,plt : 206 , serum sodium 135 serum potassium 4.1, BUN 51, serum creatinine 2.2, total bilirubin 2.5, AST 226, ALT 383, ALP 425, lipase 479. Review of Systems General: Reports: 10 or more systems reviewed and unremarkable except in HPI and below Const: Denies: fever(s), chills, body aches, change in appetite or diaphoresis Card: Denies: palpitations, edema, swelling of feet/ankles, dyspnea on exertion, orthopnea or leg pain with exertion Resp: Denies: dyspnea, productive cough, wheezing or pain on inspiration GI: Reports: abdominal pain and nausea; Denies: vomiting, diarrhea or constipation : Denies: flank pain or difficulty urinating Musc: Denies: back pain, extremity pain or extremity swelling Neuro: Denies: headache(s), difficulty walking or confusion Medications/Allergies Home Medications Medication Instructions Recorded Confirmed Last Taken Type cholecalciferol (vitamin D3) 50 50 mcg PO DAILY 12/14/21 08/08/22 01/20/22 History mcg (2,000 unit) tablet (Vitamin D3) hydralazine 50 mg tablet 50 mg PO TID 12/14/21 08/08/22 08/07/22 History ondansetron HCl 4 mg tablet 4 mg PO Q6H PRN Nausea And Vomiting 12/14/21 08/08/22 12/11/21 History sildenafil 25 mg tablet 25 mg PO DAILY PRN Erectile 12/14/21 08/08/22 Unknown History Dysfunction tamsulosin 0.4 mg capsule 0.4 mg PO BID #180 caps 12/29/21 08/08/22 08/07/22 Rx hydrocodone 5 mg-acetaminophen 325 1 tab PO BID PRN Pain 01/20/22 08/08/22 01/20/22 History mg tablet metoprolol tartrate 50 mg tablet 50 mg PO TID 01/20/22 08/08/22 08/07/22 History albuterol sulfate 90 mcg/actuation 2 puff inhalation QID PRN 08/08/22 08/08/22 Unknown History aerosol inhaler Shortness Of Breath famotidine 20 mg tablet (Pepcid AC) 20 mg PO QAM 08/08/22 08/08/22 Unknown History hydroxyzine HCl 25 mg tablet 25 mg PO BEDTIME PRN 08/08/22 08/08/22 08/07/22 History anxiety/itching insulin aspart U-100 100 unit/mL 20 unit SUBCUT DAILY@12 08/08/22 08/08/22 Unknown History (3 mL) subcutaneous pen (Novolog FlexPen U-100 Insulin aspart) insulin detemir U-100 100 unit/mL 35 unit SUBCUT BID 08/08/22 08/08/22 Unknown History (3 mL) subcutaneous pen (Levemir FlexPen) [id number] See Rx Instructions .Route .COMPLEX 08/08/22 08/08/22 Unknown History 36,000-114,000-180,000 unit capsule,delay rel (Creon) metolazone 5 mg tablet 2.5 - 5 mg PO DAILY 08/08/22 08/08/22 08/07/22 History potassium chloride 10 mEq 10 meq PO DAILY 08/08/22 08/08/22 08/07/22 History tablet,extended release spironolactone 50 mg tablet 50 mg PO QAM 08/08/22 08/08/22 08/07/22 History torsemide 20 mg tablet 20 mg PO DAILY 08/08/22 08/08/22 08/07/22 History Allergies Allergy/AdvReac Type Severity Reaction Status Date / Time amoxicillin Allergy ADR-Itching Verified 08/08/22 13:28 celecoxib [From Celebrex] Allergy ALGY-Difficulty Verified 08/08/22 13:28 Breathing doxycycline Allergy Unknown Verified 08/08/22 13:29 furosemide [From Lasix] Allergy ALGY-Hives Verified 08/08/22 13:29 povidone-iodine Allergy ALGY-Rash Verified 08/08/22 13:28 [From Betadine] Sulfa (Sulfonamide Allergy ALGY-Hives Verified 08/08/22 13:28 Antibiotics) PFSH Acute PFSH: Medical History (Updated 08/08/22 @ 18:24 by iPpe Mosqueda MD) Diabetes GERD (gastroesophageal reflux disease) Gout Gout Hypercholesteremia Hypertension Hypertension Male erectile dysfunction, unspecified Type 2 diabetes mellitus without complications Surgical History History of appendectomy History of laparoscopic cholecystectomy History of vasectomy Family History Mother Hypertension Father , Age 72 Hypertension Cancer LEUKEMIA CAD (coronary artery disease) Myocardial infarction Diabetes Social History Smoking and tobacco status: never smoked Alcohol intake: never Household members: spouse Marital status: Current occupational status: employed Vitals/I&O/Wt Last Vital Signs Temp 97.6 F 08/08/22 11:01 Pulse 86 08/08/22 18:00 Resp 18 08/08/22 11:01 BP 156/111 08/08/22 18:00 Pulse Ox 98 08/08/22 18:00 O2 Del Method Room Air 08/08/22 18:00 08/08/22 08/08/22 08/08/22 06:59 14:59 22:59 Intake Total 1000 / 1000 Balance 1000 / 1000 Weight last 48 hrs Weight 113.398 kg Physical Exam Const: COMMON NORMALS: patient oriented x3 HENMT: COMMON NORMALS: normocephalic and atraumatic Resp: COMMON NORMALS: normal respiratory effort, No retractions, No use of accessory muscles and clear to auscultation bilaterally EFFORT & INSPECTION: Yes symmetric chest movement AUSCULTATION: clear to auscultation bilaterally Cardio: COMMON NORMALS: regular rate, regular rhythm, S1 normal heart sound present, S2 normal heart sound present, No gallops present (Cardio), No murmurs present (Cardio), No rub (Cardio) and Peripheral pulses 2+ throughout RATE: regular rate RHYTHM: regular rhythm HEART SOUNDS: S1 normal heart sound present and S2 normal heart sound present PERIPHERAL PULSES: Peripheral pulses 2+ throughout GI: COMMON NORMALS: Normal to inspection, nondistended, normoactive bowel sounds present, Soft to palpation, non-tender, No hepatosplenomegaly present and no masses AUSCULTATION: Yes normoactive bowel sounds PALPATION: Yes Soft to palpation and Yes No hepatosplenomegaly present RECTAL EXAM: Yes deferred Extremity: COMMON NORMALS: no clubbing, cyanosis or edema and no pedal edema Neuro: COMMON NORMALS: patient oriented x3 Data 08/08/22 12:05 08/08/22 12:05 A&P Assessment and plan (1) Acute pancreatitis: Qualifiers: Acute pancreatitis complication: no infection or necrosis Pancreatitis type: unspecified pancreatitis type Qualified Code(s): K85.90 - Acute pancreatitis without necrosis or infection, unspecified (2) Hypertension: (3) Dehydration: (4) Acute kidney injury superimposed on CKD: (5) Transaminitis: Plan 62 year old male with past medical history of hypertension diabetes chronic pancreatitis, recently being managed as outpatient with torsemide metolazone and spironolactone, for shortness of breath, came in today with chief complaint of worsening abdominal pain as well as nausea, going on for the last few days , along with bilateral lower extremity cramps, patient is also reporting poor appetite. Assessment: BOYD on CKD: Possibly secondary to recent diuretic use, monitor for possibly developing HRS1 : Given these CT findings of cirrhotic liver, HRS can be possibly precipitated by overdiuresis associated dehydration. CT abdomen and pelvis done today without contrast has shown: Changes consistent with acute on chronic pancreatitis. Admission serum creatinine is:2.2 Baseline serum creatinine unknown Follow urine electrolytes: Random urine sodium random urine creatinine Monitor intake and output charting. Monitor BMP Avoid nephrotoxic's Currently on IV hydration with normal saline 125 cc an hour Continue albumin IV 25 g every 8 hours Hold spironolactone metolazone torsemide Acute on chronic pancreatitis: Pain control Advance diet as tolerated Transaminitis: Patient has prior history of cholecystectomy Follow ultrasound abdomen Monitor CMP Possible hepatitis panel Possible serum acetaminophen level Elevated total bilirubin: Plan as above CODE STATUS: Full code DVT prophylaxis on heparin subcu Attestations Medical Necessity Statement*: Patient needs to be in hospital for management of BOYD need for IV hydration. Anticipated length of stay greater 2 midnights Coding Level of Care Code Acute Code for [facility] Diagnoses Acute pancreatitis K85.90 Acute pancreatitis complication: no infection or necrosis Pancreatitis type: unspecified pancreatitis type Hypertension I10 Dehydration E86.0 Acute kidney injury superimposed on CKD N17.9; N18.9 Transaminitis R74.01
--- NOTE | 2022-08-08 18:33 | USR_ITS ---
PROCEDURE INFORMATION: Exam: US Abdomen, Limited; Right Upper Quadrant Exam date and time: 08/08/2022 6:50 PM Age: 62 years old Clinical indication: Other: Transaminitis; Prior surgery; Surgery date: 6+ months; Surgery type: [place] 2020, appendectomy 1963 TECHNIQUE: Imaging protocol: Real time ultrasound of the abdomen with image documentation. Limited exam focused on the right upper quadrant. COMPARISON: No relevant prior studies available. FINDINGS: Liver: Normal. No masses. Gallbladder: Cholecystectomy. Biliary ducts: Normal. No stones. No dilation. Pancreas: Poorly visualized due to overlying bowel gas. Right kidney: Right kidney measures 10.7 cm in length. No mass. No hydronephrosis. US/US abdomen limited [id number] IMPRESSION: No acute findings.
[2022-08-08] MEDS: albumin 25 G/100 ML VIAL IV (19:57)
[2022-08-08] MEDS: sodium chloride 0.9% 1,000 ML 125 ML IV (19:58)
[2022-08-08] MEDS: heparin 5,000 unit/mL INJ 1 mL 5000 UNIT SUBCUT (19:58)
[2022-08-08] MEDS: acetaminophen 325 mg Tablet 650 MG PO (19:58)
[2022-08-08 21:16] LABS: Glucose Point of Care 189 mg/dL (70-110)
[2022-08-08] MEDS: hyDRALAzine 50 mg Tablet PO (21:24)
[2022-08-08] MEDS: insulin glargine 100 units/1 mL 35 UNIT SUBCUT (21:24)
[2022-08-08 22:08] LABS: Creatinine Urine, Random 214 mg/dL (39-259)
[2022-08-08 22:14] LABS: Urine Random Sodium 37 mmol/L
[2022-08-08 22:17] LABS: Urine Protein Random 82 mg/dL
[2022-08-08 22:22] LABS: Troponin 5 6HR 32.52 ng/L (0-15)
[2022-08-08 22:28] LABS: Troponin 5 6HR Delta -4.48 ng/L (0-12)
[2022-08-09] VITALS (7 sets, daily range): BP systolic 119–141; BP diastolic 74–85; PULSE 64–91; RESP 14–18; TEMP 36.3–37.2; O2SAT 95–96
[2022-08-09] MEDS: sodium chloride 0.9% 1,000 ML 125 ML IV ×3 (03:57→22:47)
[2022-08-09] MEDS: heparin 5,000 unit/mL INJ 1 mL 5000 UNIT SUBCUT ×3 (03:57→17:23)
[2022-08-09] MEDS: albumin 25 G/100 ML VIAL IV ×3 (04:05→20:42)
[2022-08-09] MEDS: famotidine 20 mg Tablet PO (05:59)
[2022-08-09 06:22] LABS: Glucose Point of Care 180 mg/dL (70-110)
[2022-08-09 06:40] LABS: Basophils # 0.1 10^3/uL (0.0-0.1); Basophils % 1.2 %; Eosinophils # 0.5 10^3/uL (0.0-0.8); Eosinophils % 6.6 %; Hematocrit 41.8 % (42.0-52.0); Hemoglobin 13.9 g/dL (11.7-16.6); Lymphocytes # 1.7 10^3/uL (0.8-4.8); Lymphocytes % 22.7 %; Mean Corpuscular HGB Conc 33.3 g/dL (30.0-36.0); Mean Corpuscular Hemoglobin 30.2 pg (28.0-34.0); Mean Corpuscular Volume 90.9 fl (80-94); Mean Platelet Volume 10.9 fL (7.4-10.4); Monocytes # 0.4 10^3/uL (0.2-0.9); Monocytes % 5.3 %; Neutrophils % 63.8 %; Nucleated Red Blood Cells % 0 %; Platelet Count 142 10^3/cmm (130-400); Red Cell Distribution Width 13.3 % (12.1-15.1); White Blood Count 7.5 10^3/uL (4.0-10.0)
[2022-08-09 06:50] LABS: Alanine Aminotransferase 299 U/L (0-41); Alkaline Phosphatase 320 U/L (40-130); Anion Gap 16.6 (5-19); Aspartate Amino Transferase 171 U/L (0-40); Blood Urea Nitrogen 49 mg/dL (8-23); Calcium 8.7 mg/dL (8.5-10.5); Carbon Dioxide 25 mmol/L (22-29); Chloride 97 mmol/L (98-107); Glomerular Filtration Rate 38.3 mL/min (90-130); Glucose 156 mg/dL (65-115); Magnesium 1.7 mg/dL (1.7-2.3); Osmolality Calculated 296 mOsm/kg (285-295); Potassium 3.6 mmol/L (3.5-5.1); Sodium 135 mmol/L (136-145); Total Bilirubin 2.4 mg/dL (0.15-1.2)
[2022-08-09] MEDS: hyDRALAzine 50 mg Tablet PO ×3 (09:08→20:37)
[2022-08-09] MEDS: tamsulosin 0.4 mg Capsule PO ×2 (09:08→17:23)
[2022-08-09] MEDS: insulin glargine 100 units/1 mL 35 UNIT SUBCUT ×2 (09:10→20:37)
--- NOTE | 2022-08-09 10:15 | PC.CHAP ---
Pastoral Care Encounter/Spiritual Assessment Type of Contact [] Declined international tax manager visit [] Patient/Family/Request visit [] Outpatient visit [] Follow-up visit [] Physician referral [] Code/Alert [] Routine visit [] Staff referral [] Actively dying [] Patient sleeping [] Family support [] [] Out of room [] Palliative care [] [x] Receiving care in room [] Pre-surgical visit [] Trauma [] Long length of stay [] ICU visit [] Other: Relational/Emotional Strength [] Patient feels connected with others/family/visitors/staff [] Distress [] Loneliness/isolation [] Abandonment Spirituality of Patient [] Person of Niya [] Attends Voodoo of their [place] [] Believes in Prayer [] Reads Bible or Mormon materials [] There are Spiritual issues to be addressed 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 Interventions [] Prayer [] Active listening [] Non-anxious presence [] Spiritual/emotional support [] Crisis/trauma care [] Spiritual counseling [] Bereavement support [] Provided bereavement packet [] Provided Bible/devotional materials [] Provided toy/stuffed animal, coloring book to patient or family member [] Provided Communion [] Anointing/[place] [] Salvation [] Completed spiritual assessment [] Other: Impact on Illness or Injury [] Angry [] Fearful [] Anxious [] Often cries [] Exhaustion [] Unable to work [] Unable to attend voodoo [] Unable to walk/stand [] Unable to read [] Unable to drive [] Unable to eat/drink [] Unable to sleep [] Unable to be with family [] Patient intubated [] Other: Summary Time spent with patient
[2022-08-09 11:14] LABS: Glucose Point of Care 280 mg/dL (70-110)
--- NOTE | 2022-08-09 13:36 | PM.PN ---
Subjective Subjective: Patient was seen and examined this morning, denied any abdominal pain nausea vomiting, BOYD is improving, Transaminitis is improving. Medications: Medication Review Details: Generic Name Dose Route Start Last Admin Trade Name Lucy PRN Reason Stop Dose Admin Acetaminophen 650 mg 08/08/22 18:13 08/08/22 19:58 Acetaminophen 32 5 Mg Tablet PO 650 mg Q6H PRN Administration Mild/Mod Pain Or Temp >/= 101 Famotidine 20 mg 08/09/22 06:00 08/09/22 05:59 Famotidine 20 Mg Tablet PO 20 mg QAM GIBRAN Administration Heparin Sodium (Po rcine) 5,000 unit 08/08/22 18:30 08/09/22 09:09 Heparin 5,000 Un it/Ml Inj 1 Ml SUBCUT 5,000 unit Q8H GIBRAN Administration Hydralazine HCl 50 mg 08/08/22 21:00 08/09/22 09:08 Hydralazine 50 M g Tablet PO 50 mg TID GIBRAN Administration Sodium Chloride 1,000 mls @ 125 m ls/hr 08/08/22 18:15 08/09/22 03:57 Sodium Chloride 0.9% IV 125 mls/hr .Q8H GIBRAN Administration Albumin Human 25 g in 100 mls @ 60 mls/hr 08/08/22 18:30 08/09/22 12:26 Albumin IV 60 mls/hr Q8H GIBRAN Administration Insulin Glargine 35 unit 08/08/22 21:00 08/09/22 09:10 Insulin Glargine 100 Units/1 Ml SUBCUT 35 unit BID@0900,2100 GIBRAN Administration Tamsulosin HCl 0.4 mg 08/09/22 09:00 08/09/22 09:08 Tamsulosin 0.4 M g Capsule PO 0.4 mg BID GIBRAN Administration Vitals/I&O/Wt Last Vital Signs Temp 97.5 F L 08/09/22 08:16 Pulse 77 08/09/22 08:16 Resp 18 08/09/22 08:16 BP 132/79 08/09/22 08:16 Pulse Ox 96 08/09/22 08:16 O2 Del Method Room Air 08/09/22 08:16 08/08/22 08/09/22 08/09/22 22:59 06:59 14:59 Intake Total 1100 / 2100 2197.917 / 4297.917 240 / 240 Output Total 70 / 70 700 / 770 Balance 1029 1497.917 / 3527.917 240 / 240 Weight last 48 hrs Weight 119.295 kg Weight 119.431 kg Weight 113.398 kg Physical Exam Const: COMMON NORMALS: patient oriented x3 HENMT: COMMON NORMALS: normocephalic and atraumatic HEAD & SCALP: normocephalic and atraumatic Resp: COMMON NORMALS: clear to auscultation bilaterally EFFORT & INSPECTION: Yes symmetric chest movement AUSCULTATION: clear to auscultation bilaterally Cardio: COMMON NORMALS: regular rate, regular rhythm, S1 normal heart sound present, S2 normal heart sound present, No gallops present (Cardio), No murmurs present (Cardio), No rub (Cardio) and Peripheral pulses 2+ throughout RATE: regular rate RHYTHM: regular rhythm HEART SOUNDS: S1 normal heart sound present and S2 normal heart sound present PERIPHERAL PULSES: Peripheral pulses 2+ throughout GI: COMMON NORMALS: Normal to inspection, nondistended, normoactive bowel sounds present, Soft to palpation, non-tender, No hepatosplenomegaly present and no masses AUSCULTATION: Yes normoactive bowel sounds PALPATION: Yes Soft to palpation and Yes No hepatosplenomegaly present RECTAL EXAM: Yes deferred Extremity: COMMON NORMALS: no clubbing, cyanosis or edema and no pedal edema Neuro: COMMON NORMALS: patient oriented x3 Data 08/09/22 06:23 08/09/22 06:23 A&P Assessment and plan (1) Acute pancreatitis: Qualifiers: Acute pancreatitis complication: no infection or necrosis Pancreatitis type: unspecified pancreatitis type Qualified Code(s): K85.90 - Acute pancreatitis without necrosis or infection, unspecified (2) Hypertension: (3) Dehydration: (4) Acute kidney injury superimposed on CKD: (5) Transaminitis: Plan 62 year old male with past medical history of hypertension diabetes chronic pancreatitis, recently being managed as outpatient with torsemide metolazone and spironolactone, for shortness of breath, came in today with chief complaint of worsening abdominal pain as well as nausea, going on for the last few days , along with bilateral lower extremity cramps, patient is also reporting poor appetite. Assessment: BOYD on CKD: Possibly secondary to recent diuretic use, monitor for possibly developing HRS1 : Given these CT findings of cirrhotic liver, HRS can be possibly precipitated by overdiuresis associated dehydration. CT abdomen and pelvis done today without contrast has shown: Changes consistent with acute on chronic pancreatitis. Admission serum creatinine is:2.2 Baseline serum creatinine unknown Follow urine electrolytes: Random urine sodium random urine creatinine Monitor intake and output charting. Monitor BMP Avoid nephrotoxic's Currently on IV hydration with normal saline 125 cc an hour Continue albumin IV 25 g every 8 hours Hold spironolactone metolazone torsemide Acute on chronic pancreatitis: Pain control Advance diet as tolerated Transaminitis: Patient has prior history of cholecystectomy Follow ultrasound abdomen Monitor CMP Possible hepatitis panel Possible serum acetaminophen level Elevated total bilirubin: Plan as above CODE STATUS: Full code DVT prophylaxis on heparin subcu Attestations Medical Necessity Statement*: Needs to be in hospital for IV hydration. Coding Level of Care Code Acute Code for [facility] Diagnoses Acute pancreatitis K85.90 Acute pancreatitis complication: no infection or necrosis Pancreatitis type: unspecified pancreatitis type Hypertension I10 Dehydration E86.0 Acute kidney injury superimposed on CKD N17.9; N18.9 Transaminitis R74.01
[2022-08-09] MEDS: insulin lispro 100 unit/1 mL SUBCUT ×3 (15:25→20:37)
[2022-08-09 16:56] LABS: Glucose Point of Care 328 mg/dL (70-110)
[2022-08-09] MEDS: ondansetron 2 mg/ML SDV 2 mL 4 MG IVP (17:23)
[2022-08-09 20:30] LABS: Glucose Point of Care 209 mg/dL (70-110)
[2022-08-10] MEDS: heparin 5,000 unit/mL INJ 1 mL 5000 UNIT SUBCUT ×3 (01:19→17:33)
[2022-08-10] MEDS: albumin 25 G/100 ML VIAL IV (03:47)
[2022-08-10 03:52] VITALS: BP 130/78; PULSE 80; RESP 16; TEMP 36.4; O2SAT 97
[2022-08-10 05:05] LABS: Basophils # 0.1 10^3/uL (0.0-0.1); Basophils % 0.9 %; Eosinophils # 0.4 10^3/uL (0.0-0.8); Eosinophils % 6.4 %; Hematocrit 38.8 % (42.0-52.0); Hemoglobin 12.7 g/dL (11.7-16.6); Lymphocytes # 1.2 10^3/uL (0.8-4.8); Mean Corpuscular HGB Conc 32.7 g/dL (30.0-36.0); Mean Corpuscular Volume 91.5 fl (80-94); Monocytes # 0.4 10^3/uL (0.2-0.9); Monocytes % 7.1 %; Neutrophils # 3.75 10^3/uL (1.8-7.7); Neutrophils % 65.4 %; Nucleated Red Blood Cells % 0 %; Platelet Count 121 10^3/cmm (130-400); Red Blood Count 4.24 10^6/uL (4.1-5.3); Red Cell Distribution Width 13.3 % (12.1-15.1); White Blood Count 5.7 10^3/uL (4.0-10.0)
[2022-08-10 05:23] LABS: Alanine Aminotransferase 358 U/L (0-41); Alkaline Phosphatase 317 U/L (40-130); Aspartate Amino Transferase 231 U/L (0-40); Blood Urea Nitrogen 34 mg/dL (8-23); Calcium 8.7 mg/dL (8.5-10.5); Carbon Dioxide 26 mmol/L (22-29); Chloride 102 mmol/L (98-107); Globulin 2.6 g/dL (1.3-4.6); Glomerular Filtration Rate 47.3 mL/min (90-130); Glucose 105 mg/dL (65-115); Osmolality Calculated 290 mOsm/kg (285-295); Sodium 136 mmol/L (136-145); Total Bilirubin 1.7 mg/dL (0.15-1.2); Total Protein 6.6 g/dL (6.6-8.7)
[2022-08-10 05:24] LABS: Anion Gap 11.9 (5-19); Potassium 3.9 mmol/L (3.5-5.1)
[2022-08-10 06:21] LABS: Glucose Point of Care 134 mg/dL (70-110)
[2022-08-10] MEDS: famotidine 20 mg Tablet PO (06:27)
[2022-08-10 08:00] VITALS: BP 162/101; PULSE 70; RESP 18; TEMP 36.4; O2SAT 95
[2022-08-10] MEDS: hyDRALAzine 50 mg Tablet PO ×3 (08:15→20:53)
[2022-08-10] MEDS: tamsulosin 0.4 mg Capsule PO ×2 (08:15→17:33)
[2022-08-10] MEDS: sodium chloride 0.9% 1,000 ML 125 ML IV (08:24)
[2022-08-10] MEDS: insulin glargine 100 units/1 mL 35 UNIT SUBCUT ×2 (08:53→20:53)
--- NOTE | 2022-08-10 09:02 | MR_ITS ---
WS: [id number] MRCP (MAGNETIC RESONANCE CHOLANGIOPANCREATOGRAPHY) HISTORY: transaminitis, hyperbilirubinemia. COMPARISON: CT abdomen and pelvis 08/08/2022 TECHNIQUE: Multiple sequences are performed to evaluate the intra and extrahepatic ducts. Liver is normal size. No bile duct dilatation. Common bile duct is normal and 8 mm. Prior cholecystec misty. No filling defect of the common bile duct. Common bile duct is poorly visualized due to the ragland creatic head. Spleen is enlarged measuring 15.6 cm in length. No renal obstruction. Mild atrophy of t he LEFT kidney. Very poor visualization of the pancreas. There is tethering and cluster of soft tissue surrounding th e pancreas involving the mesentery in the small bowel. Similar findings seen on recent CTs. It is amilcar y difficult to identify a normal pancreas. There is central small bowel mesenteric stranding and teth ering. Patient has a known pseudocyst along the LEFT paracolic gutter which is incompletely included on numerous sequences. Pseudocyst measures at least 7.0 x 1.7 cm. Stomach wall is thickened. No defin ite enlarged lymph nodes. There are small mesenteric lymph nodes which are not enlarged. No GI tract obstruction. No adrenal mass. MR/MR MRCP [id number] IMPRESSION: 1. No bile duct dilatation. Maximum diameter of the common bile duct is 8 mm. 2. Prior cholecystectomy. 3. Very poor visualization of the pancreas. There is marked tethering of the c entral small bowel mesentery. Poor differentiation of the proximal small bowel, pancreas and marked thickening of the stomach wall. These findings are poorly visualized on the recent CTs which have been obtained without oral and not IV c ontrast has been obtained. As patient's renal function improves consider follow -up CT abdomen and pelvis with IV and good oral contrast. The central mesentery and the pancreas needs to be better evaluated. PET/CT is also an option to bear luate for malignancy. These changes may all be related to chronic episodes of p ancreatitis. 4. LEFT paracolic gutter pseudocyst.
[2022-08-10 11:55] VITALS: BP 152/89; PULSE 81; RESP 16; TEMP 36.6; O2SAT 96
[2022-08-10] MEDS: insulin lispro 100 unit/1 mL SUBCUT ×3 (12:30→20:53)
[2022-08-10] MEDS: ondansetron 2 mg/ML SDV 2 mL 4 MG IVP (15:55)
[2022-08-10 16:00] VITALS: BP 161/92; PULSE 75; RESP 18; TEMP 36.5; O2SAT 96
--- NOTE | 2022-08-10 16:32 | P.PN_ITS ---
Subjective Subjective: Patient was seen and examined this morning, he has denied any abdominal pain nausea vomiting, unfortunately AST has trended up ALT : Has also trended up alk phos has gone slightly down, total bilirubin is trending down, given the fact that the AST ALT is going up after initial downward trend, will do MRCP. Serum creatinine is improving. Medications: Medication Review Details: Generic Name Dose Route Start Last Admin Trade Name Freq PRN Reason Stop Dose Admin Acetaminophen 650 mg 08/08/22 18:13 08/08/22 19:58 Acetaminophen 32 5 Mg Tablet PO 650 mg Q6H PRN Administration Mild/Mod Pain Or Temp >/= 101 Famotidine 20 mg 08/09/22 06:00 08/10/22 06:27 Famotidine 20 Mg Tablet PO 20 mg QAM GIBRAN Administration Heparin Sodium (Po rcine) 5,000 unit 08/08/22 18:30 08/10/22 11:14 Heparin 5,000 Un it/Ml Inj 1 Ml SUBCUT 5,000 unit Q8H GIBRAN Administration Hydralazine HCl 50 mg 08/08/22 21:00 08/10/22 15:43 Hydralazine 50 M g Tablet PO 50 mg TID GIBRAN Administration Insulin Glargine 35 unit 08/08/22 21:00 08/10/22 08:53 Insulin Glargine 100 Units/1 Ml SUBCUT 35 unit BID@0900,2100 GIBRAN Administration Insulin Human Lisp ro 0 unit 08/09/22 14:24 08/10/22 12:30 Insulin Lispro 1 00 Unit/1 Ml SUBCUT 6 unit WM&BEDTIME GIBRAN Administration Protocol Ondansetron HCl 4 mg 08/08/22 18:13 08/10/22 15:55 Ondansetron 2 Mg /Ml Sdv 2 Ml IVP 4 mg Q8H PRN Administration vomiting, or N/V if npo Tamsulosin HCl 0.4 mg 08/09/22 09:00 08/10/22 08:15 Tamsulosin 0.4 M g Capsule PO 0.4 mg BID GIBRAN Administration Vitals/I&O/Wt Last Vital Signs Temp 97.8 F 08/10/22 11:55 Pulse 81 08/10/22 11:55 Resp 16 08/10/22 11:55 BP 152/89 08/10/22 11:55 Pulse Ox 96 08/10/22 11:55 O2 Del Method Room Air 08/10/22 11:55 08/10/22 08/10/22 08/10/22 06:59 14:59 22:59 Intake Total 1100 / 4360 240 / 240 975 / 1215 Output Total 900 / 2200 Balance 200 / 2160 240 / 240 975 / 1215 Weight last 48 hrs Weight 123.921 kg Weight 119.295 kg Weight 119.431 kg Physical Exam Const: COMMON NORMALS: patient oriented x3 HENMT: COMMON NORMALS: normocephalic and atraumatic HEAD & SCALP: normocephalic and atraumatic Resp: COMMON NORMALS: clear to auscultation bilaterally EFFORT & INSPECTION: Yes symmetric chest movement AUSCULTATION: clear to auscultation bilaterally Cardio: COMMON NORMALS: regular rate, regular rhythm, S1 normal heart sound present, S2 normal heart sound present, No gallops present (Cardio), No murmurs present (Cardio), No rub (Cardio) and Peripheral pulses 2+ throughout RATE: regular rate RHYTHM: regular rhythm HEART SOUNDS: S1 normal heart sound present and S2 normal heart sound present PERIPHERAL PULSES: Peripheral pulses 2+ throughout GI: COMMON NORMALS: Normal to inspection, nondistended, normoactive bowel sounds present, Soft to palpation, non-tender, No hepatosplenomegaly present and no masses AUSCULTATION: Yes normoactive bowel sounds PALPATION: Yes Soft to palpation and Yes No hepatosplenomegaly present RECTAL EXAM: Yes deferred Extremity: COMMON NORMALS: no clubbing, cyanosis or edema and no pedal edema Neuro: COMMON NORMALS: patient oriented x3 Data 08/10/22 04:20 08/10/22 04:20 A&P Assessment and plan (1) Acute pancreatitis: Qualifiers: Acute pancreatitis complication: no infection or necrosis Pancreatitis type: unspecified pancreatitis type Qualified Code(s): K85.90 - Acute pancreatitis without necrosis or infection, unspecified (2) Hypertension: (3) Dehydration: (4) Acute kidney injury superimposed on CKD: (5) Transaminitis: Plan 62 year old male with past medical history of hypertension diabetes chronic pancreatitis, recently being managed as outpatient with torsemide metolazone and spironolactone, for shortness of breath, came in today with chief complaint of worsening abdominal pain as well as nausea, going on for the last few days , along with bilateral lower extremity cramps, patient is also reporting poor appetite. Assessment: BOYD on CKD: Possibly secondary to recent diuretic use, monitor for possibly developing HRS1 : Given these CT findings of cirrhotic liver, HRS can be possibly precipitated by overdiuresis associated dehydration. CT abdomen and pelvis done today without contrast has shown: Changes consistent with acute on chronic pancreatitis. Admission serum creatinine is:2.2 Baseline serum creatinine unknown Follow urine electrolytes: Random urine sodium random urine creatinine Monitor intake and output charting. Monitor BMP Avoid nephrotoxic's Currently on IV hydration with normal saline 125 cc an hour Continue albumin IV 25 g every 8 hours Hold spironolactone metolazone torsemide Acute on chronic pancreatitis: Pain control Advance diet as tolerated Transaminitis: Patient has prior history of cholecystectomy Follow ultrasound abdomen Monitor CMP Possible hepatitis panel Possible serum acetaminophen level Elevated total bilirubin: Plan as above CODE STATUS: Full code DVT prophylaxis on heparin subcu Attestations Medical Necessity Statement*: Awaiting MRCP Coding Level of Care Code Acute Code for [facility] Diagnoses Acute pancreatitis K85.90 Acute pancreatitis complication: no infection or necrosis Pancreatitis type: unspecified pancreatitis type Hypertension I10 Dehydration E86.0 Acute kidney injury superimposed on CKD N17.9; N18.9 Transaminitis R74.01
[2022-08-10 16:53] LABS: Glucose Point of Care 149 mg/dL (70-110)
[2022-08-10 19:33] VITALS: BP 134/70; PULSE 93; RESP 16; TEMP 36.6; O2SAT 95
[2022-08-10 20:25] LABS: Glucose Point of Care 246 mg/dL (70-110)
[2022-08-10 23:50] VITALS: BP 128/70; PULSE 79; RESP 18; TEMP 36.4; O2SAT 98
[2022-08-11] MEDS: heparin 5,000 unit/mL INJ 1 mL 5000 UNIT SUBCUT (01:53)
[2022-08-11 03:52] VITALS: BP 122/68; PULSE 72; RESP 16; TEMP 36.9; O2SAT 98
[2022-08-11 05:08] LABS: Basophils # 0.1 10^3/uL (0.0-0.1); Basophils % 0.9 %; Eosinophils # 0.4 10^3/uL (0.0-0.8); Eosinophils % 6.7 %; Hematocrit 41.9 % (42.0-52.0); Hemoglobin 13.5 g/dL (11.7-16.6); Lymphocytes % 17.7 %; Mean Corpuscular HGB Conc 32.2 g/dL (30.0-36.0); Mean Corpuscular Volume 93.1 fl (80-94); Monocytes # 0.4 10^3/uL (0.2-0.9); Monocytes % 6.4 %; Neutrophils # 3.95 10^3/uL (1.8-7.7); Nucleated Red Blood Cells % 0 %; Platelet Count 127 10^3/cmm (130-400); Red Cell Distribution Width 13.2 % (12.1-15.1); White Blood Count 5.8 10^3/uL (4.0-10.0)
[2022-08-11 05:27] LABS: Alanine Aminotransferase 312 U/L (0-41); Albumin Level 3.9 g/dL (3.5-5.2); Alkaline Phosphatase 347 U/L (40-130); Aspartate Amino Transferase 155 U/L (0-40); Blood Urea Nitrogen 25 mg/dL (8-23); Calcium 9.3 mg/dL (8.5-10.5); Carbon Dioxide 23 mmol/L (22-29); Chloride 104 mmol/L (98-107); Globulin 2.9 g/dL (1.3-4.6); Glomerular Filtration Rate 51.2 mL/min (90-130); Glucose 142 mg/dL (65-115); Osmolality Calculated 291 mOsm/kg (285-295); Sodium 137 mmol/L (136-145); Total Bilirubin 1.4 mg/dL (0.15-1.2); Total Protein 6.8 g/dL (6.6-8.7)
[2022-08-11 05:28] LABS: Anion Gap 14.2 (5-19); Potassium 4.2 mmol/L (3.5-5.1)
[2022-08-11 05:36] LABS: Hepatitis A Antibody IgM Non-Reactive (Nonreactive); Hepatitis B Core IgM Non-Reactive (Nonreactive); Hepatitis B Surface Antigen Non-Reactive (Nonreactive); Hepatitis C Virus Antibody Non-Reactive (Nonreactive)
[2022-08-11 06:12] LABS: Glucose Point of Care 170 mg/dL (70-110)
[2022-08-11] MEDS: famotidine 20 mg Tablet PO (06:16)
[2022-08-11] MEDS: tamsulosin 0.4 mg Capsule PO (08:15)
[2022-08-11] MEDS: insulin lispro 100 unit/1 mL SUBCUT (08:15)
[2022-08-11] MEDS: hyDRALAzine 50 mg Tablet PO (08:15)
[2022-08-11] MEDS: insulin glargine 100 units/1 mL 35 UNIT SUBCUT (08:17)
[2022-08-11 08:44] VITALS: BP 136/87; PULSE 74; RESP 15; TEMP 37.1; O2SAT 96
--- NOTE | 2022-08-11 09:43 | P.DS_ITS ---
Discharge Providers Date of Admission: 08/08/22 17:53 Date of Discharge: August 11, 2022 Attending Provider at Admission: Pipe Mosqueda MD Attending Provider at Discharge: Pipe Mosqueda MD Primary Care Provider: Tereso Nye DO Diagnoses at Discharge Discharge Diagnosis (1) Acute pancreatitis: Status: Acute Qualifiers: Acute pancreatitis complication: no infection or necrosis Pancreatitis type: unspecified pancreatitis type Qualified Code(s): K85.90 - Acute pancreatitis without necrosis or infection, unspecified (2) Hypertension: Status: Acute (3) Dehydration: Status: Acute (4) Acute kidney injury superimposed on CKD: Status: Acute (5) Transaminitis: Status: Acute Reason for Visit Reason for Visit: dizzy, high sugar Hospital Course Hospital Course 62 year old male with past medical history of hypertension diabetes chronic pancreatitis, recently being managed as outpatient with torsemide metolazone and spironolactone, for shortness of breath, came in today with chief complaint of worsening abdominal pain as well as nausea, going on for the last few days , along with bilateral lower extremity cramps, patient is also reporting poor appetite was admitted for the management of BOYD on CKD possibly secondary to overdiuresis, he was recently started on torsemide metolazone as well spironolactone, for shortness of breath and possibly lower extremity swelling,CT abdomen and pelvis done today without contrast has shown: Changes consistent with acute on chronic pancreatitis.Admission serum creatinine is:2.2, patient was kept on IV hydration, albumin IV, diuretics were on hold, intake output was monitored, nephrotoxins were avoided, kidney function responded appropriately Serum creatinine at the time of discharge was 1.4, at the time of discharge diuretics has been kept on hold He has been asked to follow-up with repeat CMP with his PCP, during the hospital stay patient was also managed for acute pancreatitis, was managed conservatively with pain control, diet as tolerated, to which she responded well, at the time of discharge, he denied any abdominal pain nausea vomiting was tolerating diet well, he was also worked up for transaminitis, has prior history of cholecystectomy, ultrasound abdomen:No acute findings.MRCP was done: No bile duct dilatation, Very poor visualization of the pancreas. There is marked tethering of the central small bowel mesentery. Poor differentiation of the proximal small bowel, pancreas and marked thickening of the stomach wall. These findings are poorly visualized on the recent CTs which have been obtained without oral and not IV contrast has been obtained. As patient's renal function improves consider follow-up CT abdomen and pelvis with IV and good oral contrast. The central mesentery and the pancreas needs to be better evaluated. PET/CT is also an option to evaluate for malignancy. These changes may all be related to chronic episodes of pancreatitis. LEFT paracolic gutter pseudocyst. At the time of discharge LFT was improving, he has been asked to follow-up with repeat CMP, with his primary care physician, patient has also been advised to get CT abdomen and pelvis with IV contrast done once renal function is recovered. Overall patient responded well to above medical management and is being discharged in stable condition to home.He will continue to follow his PCP as well as GI as outpatient. ? Physical Exam Const: COMMON NORMALS: patient oriented x3 HENMT: COMMON NORMALS: normocephalic and atraumatic HEAD & SCALP: normocephalic and atraumatic Resp: COMMON NORMALS: clear to auscultation bilaterally AUSCULTATION: clear to auscultation bilaterally Cardio: COMMON NORMALS: regular rate, regular rhythm, S1 normal heart sound present, S2 normal heart sound present, No gallops present (Cardio), No murmurs present (Cardio), No rub (Cardio) and Peripheral pulses 2+ throughout RATE: regular rate RHYTHM: regular rhythm HEART SOUNDS: S1 normal heart sound present and S2 normal heart sound present PERIPHERAL PULSES: Peripheral pulses 2+ throughout GI: COMMON NORMALS: Normal to inspection, nondistended, normoactive bowel sounds present, Soft to palpation, non-tender, No hepatosplenomegaly present and no masses AUSCULTATION: Yes normoactive bowel sounds PALPATION: Yes Soft to palpation and Yes No hepatosplenomegaly present RECTAL EXAM: Yes deferred Extremity: COMMON NORMALS: no clubbing, cyanosis or edema and no pedal edema Neuro: COMMON NORMALS: patient oriented x3 Discharge Data Studies Completed and Pending Completed Studies During Hospitalization Category Date Time Status CT abdomen pelvis wo con [id number] Stat Cat Scan 08/08/22 13:08 Completed XR chest 1V portable [id number] Stat Exams 08/08/22 11:48 Completed MR MRCP [id number] Routine MRI 08/10/22 09:02 Completed US abdomen limited [id number] Routine Ultrasound 08/08/22 18:33 Completed Radiology Impressions Chest X-Ray 08/08/22 11:48 IMPRESSION: Hypoinflation and interstitial prominence. Abdomen/Pelvis CT 08/08/22 13:08 IMPRESSION: 1. Mild induration about the atrophic pancreas suspicious for acute pancreatitis. Reactive mesenteric lymph nodes. Recommend correlation with pancreatic enzymes. 2. Interval increase in size of the pancreatic tail pseudocyst extending into the LEFT lower quadrant. This is described above. 3. Pseudocyst closely abuts the LEFT colon. Patient risk for fistula formation. This is similar to the prior study. 4. Cirrhotic liver with mild intrahepatic biliary ductal dilatation and dilatation common bile duct appears stable. 5. Prior cholecystectomy. 6. Enlarged prostate. 7. Trace RIGHT pleural fluid with RIGHT basilar atelectasis. Abdomen Ultrasound 08/08/22 18:33 IMPRESSION: No acute findings. Cholangiopancreatography MRI 08/10/22 09:02 IMPRESSION: 1. No bile duct dilatation. Maximum diameter of the common bile duct is 8 mm. 2. Prior cholecystectomy. 3. Very poor visualization of the pancreas. There is marked tethering of the central small bowel mesentery. Poor differentiation of the proximal small bowel, pancreas and marked thickening of the stomach wall. These findings are poorly visualized on the recent CTs which have been obtained without oral and not IV co ntrast has been obtained. As patient's renal function improves consider follow- up CT abdomen and pelvis with IV and good oral contrast. The central mesentery and the pancreas needs to be better evaluated. PET/CT is also an option to evaluate for malignancy. These changes may all be related to chronic episodes of pancreatitis. 4. LEFT paracolic gutter pseudocyst. Laboratory Results WBC 5.8 10^3/uL (4.0-10.0) 08/11/22 04:50 RBC 4.50 10^6/uL (4.1-5.3) 08/11/22 04:50 Hgb 13.5 g/dL (11.7-16.6) 08/11/22 04:50 Hct 41.9 % (42.0-52.0) L 08/11/22 04:50 MCV 93.1 fl (80-94) 08/11/22 04:50 MCH 30.0 pg (28.0-34.0) 08/11/22 04:50 MCHC 32.2 g/dL (30.0-36.0) 08/11/22 04:50 RDW 13.2 % (12.1-15.1) 08/11/22 04:50 Plt Count 127 10^3/cmm (130-400) L 08/11/22 04:50 MPV 11.0 fL (7.4-10.4) H 08/11/22 04:50 Neut % (Auto) 68.0 % 08/11/22 04:50 Lymph % (Auto) 17.7 % 08/11/22 04:50 [place] % (Auto) 6.4 % 08/11/22 04:50 Eos % (Auto) 6.7 % 08/11/22 04:50 Baso % (Auto) 0.9 % 08/11/22 04:50 Neut # (Auto) 3.95 10^3/uL (1.8-7.7) 08/11/22 04:50 Lymph # (Auto) 1.0 10^3/uL (0.8-4.8) 08/11/22 04:50 [place] # (Auto) 0.4 10^3/uL (0.2-0.9) 08/11/22 04:50 Eos # (Auto) 0.4 10^3/uL (0.0-0.8) 08/11/22 04:50 Baso # (Auto) 0.1 10^3/uL (0.0-0.1) 08/11/22 04:50 Nucleated RBC % (auto) 0 % 08/11/22 04:50 Nucleated RBCs # 0.0 /100WBC 08/11/22 04:50 Sodium 137 mmol/L (136-145) 08/11/22 04:50 Potassium 4.2 mmol/L (3.5-5.1) 08/11/22 04:50 Chloride 104 mmol/L (98-107) 08/11/22 04:50 Carbon Dioxide 23 mmol/L (22-29) 08/11/22 04:50 Anion Gap 14.2 (5-19) 08/11/22 04:50 BUN 25 mg/dL (8-23) H 08/11/22 04:50 Creatinine 1.4 mg/dL (0.7-1.2) H 08/11/22 04:50 GFR Calculation 51.2 mL/min (90-130) L 08/11/22 04:50 Glucose 142 mg/dL (65-115) H 08/11/22 04:50 POC Glucose 170 mg/dL (70-110) H 08/11/22 06:08 Calculated Osmolality 291 mOsm/kg (285-295) 08/11/22 04:50 Calcium 9.3 mg/dL (8.5-10.5) 08/11/22 04:50 Magnesium 1.7 mg/dL (1.7-2.3) 08/09/22 06:23 Total Bilirubin 1.4 mg/dL (0.15-1.2) H 08/11/22 04:50 AST 155 U/L (0-40) H 08/11/22 04:50 ALT 312 U/L (0-41) H 08/11/22 04:50 Alkaline Phosphatase 347 U/L (40-130) H 08/11/22 04:50 Troponin T Baseline 37 ng/L (0-15) H 08/08/22 12:05 Troponin T 120 Minute 25.32 ng/L (0-15) H 08/08/22 15:55 Delta Troponin T -11.68 ABS# (0-10) L 08/08/22 15:55 Troponin T Hi Sens 6Hr 32.52 ng/L (0-15) H 08/08/22 21:58 Troponin T Hi Sens 6Hr Delta -4.48 ng/L (0-12) L 08/08/22 21:58 Total Protein 6.8 g/dL (6.6-8.7) 08/11/22 04:50 Albumin 3.9 g/dL (3.5-5.2) 08/11/22 04:50 Globulin 2.9 g/dL (1.3-4.6) 08/11/22 04:50 Lipase 479 U/L (13-60) H 08/08/22 12:05 Urine Color Dark yellow (Yellow) 08/08/22 16:05 Urine Appearance Clear (CLEAR) 08/08/22 16:05 Urine pH 5 (5-7) 08/08/22 16:05 Ur Specific [place] 1.020 (1.005-1.030) 08/08/22 16:05 Urine Protein 2+ (Negative) H 08/08/22 16:05 Urine Glucose (UA) 2+ (Normal) H 08/08/22 16:05 Urine Ketones 1+ (Negative) H 08/08/22 16:05 Urine Blood Neg (Negative) 08/08/22 16:05 Urine Nitrate Negative (Negative) 08/08/22 16:05 Urine Bilirubin 1+ (Negative) H 08/08/22 16:05 Urine Urobilinogen 4 mg/dL (Negative) H 08/08/22 16:05 Ur Leukocyte Esterase Negative (Negative) 08/08/22 16:05 Urine RBC 0-4 /hpf (0-2) H 08/08/22 16:05 Urine WBC 0-4 /hpf (0-5) H 08/08/22 16:05 Ur Squamous Epith Cells 0-4 /hpf (0-5) H 08/08/22 16:05 Amorphous Sediment Not Reportable 08/08/22 16:05 Urine Bacteria Trace /hpf (NONE) 08/08/22 16:05 Hyaline Casts 5-10 /lpf H 08/08/22 16:05 U Random Total Protein 82 mg/dL 08/08/22 16:09 Ur Random Sodium 37 mmol/L 08/08/22 16:09 Urine Creatinine 214 mg/dL (39-259) 08/08/22 16:09 Serum Ketones Negative (Negative) 08/08/22 12:05 Hepatitis A IgM Ab Non-reactive (Nonreactive) 08/11/22 04:50 Hep Bs Antigen Non-reactive (Nonreactive) 08/11/22 04:50 Hep B Core IgM Ab Non-reactive (Nonreactive) 08/11/22 04:50 Hepatitis C Antibody Non-reactive (Nonreactive) 08/11/22 04:50 Vitals Last Vital Signs Temp 98.4 F 08/11/22 03:52 Pulse 72 08/11/22 03:52 Resp 16 08/11/22 03:52 BP 122/68 08/11/22 03:52 Pulse Ox 98 08/11/22 03:52 O2 Del Method Room Air 08/11/22 03:52 Discharge Plan Discharge Patient Disposition: Home Condition: Stable Prescriptions: Continued tamsulosin 0.4 mg capsule 0.4 mg PO BID Qty: 180 3RF ondansetron HCl 4 mg Tablet 4 mg PO Q6H PRN (Reason: Nausea And Vomiting) sildenafil 25 mg Tablet 25 mg PO DAILY PRN (Reason: Erectile Dysfunction) Rx Instructions: administer 30 minutes to 4 hours before activity hydralazine 50 mg Tablet 50 mg PO TID cholecalciferol (vitamin D3) [Vitamin D3] 50 mcg (2,000 unit) Tablet 50 mcg PO DAILY hydrocodone-acetaminophen 5-325 mg tablet 1 tab PO BID PRN (Reason: Pain) metoprolol tartrate 50 mg tablet 50 mg PO TID Pepcid AC 20 mg Tablet 20 mg PO QAM albuterol sulfate 90 mcg/actuation HFA aerosol inhaler 2 puff INHALATION QID PRN (Reason: Shortness Of Breath) hydroxyzine HCl 25 mg tablet 25 mg PO BEDTIME PRN (Reason: anxiety/itching) Novolog FlexPen U-100 Insulin 100 unit/mL (3 mL) insulin pen 20 unit SUBCUT DAILY@12 Levemir FlexPen 100 unit/mL (3 mL) insulin pen 35 unit SUBCUT BID Creon 36,000-114,000- 180,000 unit capsule,delayed release(DR/EC) See Rx Instructions .ROUTE .COMPLEX Rx Instructions: TAKE 2 CAPSULES BY MOUTH WITH EACH MEAL AND 1 CAPSULE WITH EACH SNACK Held torsemide 20 mg tablet 20 mg PO DAILY Hold Instructions: Resume on 09/01/22. patient will see his pcp before starting metolazone 5 mg tablet 2.5 - 5 mg PO DAILY Hold Instructions: Resume on 09/01/22. Patient will see his pcp before restarting potassium chloride 10 mEq tablet extended release 10 meq PO DAILY Hold Instructions: Resume on 09/01/22. spironolactone 50 mg tablet 50 mg PO QAM Hold Instructions: Resume on 08/18/22. Discharge Orders: Discharge Order (Routine); Ordered 08/11/22 Ordered By: Pipe Mosqueda Other Ambulatory Orders: Comprehensive Metabolic Panel (Routine) Timeframe: 1 Week Facility: [facility] - Location: Lab - Main Lab Ordered By: Pipe Mosqueda Referrals: Tereso Nye DO [Primary Care Provider] - 08/16/22 2:40 am Discharge Diet: Diabetic Patient Instructions: Opioid Safety Discharge Attestations Time Spent in Discharge Care*: less than 30 min Quality Metrics Clinical Quality Measures [ No reported AMI, CVA or VTE this stay] Coding Level of Care Code Acute Code for [facility] Diagnoses Acute pancreatitis K85.90 Acute pancreatitis complication: no infection or necrosis Pancreatitis type: unspecified pancreatitis type Hypertension I10 Dehydration E86.0 Acute kidney injury superimposed on CKD N17.9; N18.9 Transaminitis R74.01
[2022-08-11 10:49] VITALS: BP 136/87; PULSE 74; RESP 15; TEMP 37.1; O2SAT 96
[2022-08-11 11:18] LABS: Glucose Point of Care 222 mg/dL (70-110)
== END 2022-08-11 11:40 | disposition home or self-care (01) | DRG 439 ==
LOC: ER 17:27 → MEDSURG 17:54
PROVIDERS: Admitting Provider Internal Medicine; Emergency Provider Emergency Medicine; PCP Electrodiagnostic Medicine; Visit Provider Internal Medicine
DX: K85.90 Acute pancreatitis without necrosis or infection, unspecified (principal); N17.9 Acute kidney failure, unspecified; I12.9 Hypertensive chronic kidney disease with stage 1 through stage 4 chronic kidney disease, or unspecified chronic kidney disease; N18.9 Chronic kidney disease, unspecified; E86.0 Dehydration; E11.22 Type 2 diabetes mellitus with diabetic chronic kidney disease; K86.1 Other chronic pancreatitis; Z79.891 Long term (current) use of opiate analgesic; Z79.4 Long term (current) use of insulin; K21.9 Gastro-esophageal reflux disease without esophagitis; M10.9 Gout, unspecified; E78.00 Pure hypercholesterolemia, unspecified; K74.60 Unspecified cirrhosis of liver
CPT/HCPCS: 36415; 36416; 71045; 74176; 74181; 76705; 80053; 80074; 81001; 82009; 82575; 82962; 83690; 83735; 84156; 84300; 84484; 85025; 93005; 96361; 96372; 96374; 96376; 99285; J1644; J1815; J2405; J7030; P9047

== ENCOUNTER → 2022-09-14 15:57 | Outpatient (BNVA) | payer OTHER, SELFPAY | PROVIDERS: PCP Electrodiagnostic Medicine; Visit Provider Internal Medicine Cardiovascular Disease | DX: R06.02 Shortness of breath (principal); R06.09 Other forms of dyspnea; R06.01 Orthopnea | CPT/HCPCS: 36415; 80048; 83880; 85378 ==

== ENCOUNTER 2022-10-06 07:37 | Outpatient (CLI) | payer OTHER, SELFPAY ==
[2022-10-06 08:43] LABS: Blood Urea Nitrogen 29 mg/dL (8-23); Calcium 8.8 mg/dL (8.5-10.5); Carbon Dioxide 32 mmol/L (22-29); Chloride 101 mmol/L (98-107); Glomerular Filtration Rate 43.9 mL/min (90-130); Glucose 231 mg/dL (65-115); NT Pro B Type Natriuretic Pept 154 pg/mL (0-125); Osmolality Calculated 303 mOsm/kg (285-295); Sodium 140 mmol/L (136-145)
== END 2022-10-06 07:38 | disposition home or self-care (01) ==
PROVIDERS: PCP Electrodiagnostic Medicine; Visit Provider Internal Medicine Cardiovascular Disease
DX: I50.32 Chronic diastolic (congestive) heart failure (principal); R06.09 Other forms of dyspnea; R06.01 Orthopnea
CPT/HCPCS: 80048; 83880

== ENCOUNTER 2024-11-29 09:42 | Outpatient (CLI) | payer MEDICARE, BC, SELFPAY ==
--- NOTE | 2024-11-29 09:48 | CTR_ITS ---
PROCEDURE INFORMATION: Exam: CT Abdomen And Pelvis Without Contrast Exam date and time: 11/29/2024 9:54 AM Age: 64 years old Clinical indication: Condition or disease; Other: Pseudocyst of pancrea; Prior surgery; Surgery date: 6+ months; Surgery type: Pancreatic stent, appy, gb; HX of chronic pancreatitis, pancreatic pseudocyst, abscess drain removed 10 days ago, recent bloating and abdominal distention; Additional info: Other chronic pancreatitis/pseudocyst of pancreas, stat TECHNIQUE: Imaging protocol: Computed tomography of the abdomen and pelvis without contrast. Radiation optimization: All CT scans at this facility use at least one of these dose optimization techniques: automated exposure control; mA and/or kV adjustment per patient size (includes targeted exams where dose is matched to clinical indication); or iterative reconstruction. COMPARISON: MR MRCP [id number] 08/10/2022 2:22 PM RADIATION DOSE METRICS: Total DLP (mGy-cm): 971.7 FINDINGS: Heart: There is a tiny pericardial effusion. Liver: Normal. No mass. Gallbladder and biliary ducts: Status post cholecystectomy. Pancreas: See Soft tissues finding. Spleen: Multiple calcifications are seen within the splenic parenchyma compatible with calcified splenic granulomas. The spleen is prominent measuring 17.1 cm AP dimension. Adrenal glands: Normal. No mass. Kidneys and ureters: There are nonobstructing left renal calculi present, the largest measuring approximately 4.7 mm. Stable bilateral renal cysts are present, the largest seen on the right measuring 1.9 cm. Stomach and bowel: See Intraperitoneal space finding. Appendix: No evidence of appendicitis. Intraperitoneal space: The previously noted pseudocyst within the left paracolic gutter appears smaller in size compared with 08/08/2022. There is some scarring and thickening of the pseudocyst wall that extends into Gerota's fascia and lateral conal fascia on the left. The fat planes of the descending colon are obliterated adjacent to the pseudocyst. The somewhat triangular-shaped pseudocyst now measures approximately 6.3 cm AP dimension by 2.9 cm transverse dimension and approximately 5.1 cm craniocaudal dimension. There is mildly prominent mesenteric and omental vasculature seen on this noncontrast CT examination. This could represent some portosystemic shunt vascularity. Vasculature: See Intraperitoneal space finding. Lymph nodes: Unremarkable. No enlarged lymph nodes. Urinary bladder: Unremarkable as visualized. Reproductive: The prostate gland is prominent measuring 5.3 x 5.5 x 6.1 cm. Bones/joints: Unremarkable. No acute fracture. Soft tissues: Strandy opacities are seen in the perinephric fascia bilaterally likely representing chronic scarring. Again, the pancreatic morphology is poorly defined with calcifications present in the pancreatic head, hazy and strandy opacities seen along the serosal margins of the pancreas and extending into the mesenteric fat, dilatation of the main pancreatic duct measuring approximately 9 mm, and bilateral chronic thickening of Gerota's fascia. These findings likely represent chronic pancreatitis although recurrent pancreatitis can not be entirely excluded in the appropriate clinical setting. There are small bilateral inguinal hernias containing fat. Subcutaneous haziness is seen in the left flank anteriorly likely representing edema. CT/CT abdomen pelvis wo con [id number] IMPRESSION: 1. Somewhat indistinct amorphous appearing pancreas again noted with findings suggesting chronic pancreatitis. Hazy and strandy opacities in the peripancreatic fat extending into the mesenteric fat and fascia ghazal represents chronic scarring as well although acute pancreatitis can not be entirely excluded. 2. Decreasing volume of the left pseudocyst as described above. Thickening of Gerota's fascia and lateral conal fascia with attenuation of fat planes between the descending colon and pseudocyst suggest chronic changes. 3. Mild splenomegaly. 4. Mildly prominent mesenteric and omental vasculature seen in this noncontrast CT examination could represent portosystemic shunt vascularity. 5. Tiny pericardial effusion 6. Stable bilateral renal cysts and left renal calculi.
== END 2024-11-29 09:43 | disposition home or self-care (01) ==
LOC: RAD 09:44
PROVIDERS: PCP Electrodiagnostic Medicine; Visit Provider Nurse Practitioner
DX: K86.1 Other chronic pancreatitis (principal); K86.3 Pseudocyst of pancreas
CPT/HCPCS: 74176

== ENCOUNTER 2025-02-10 23:05 | Emergency (ER) | payer MEDICARE, BC, SELFPAY ==
--- OUTSIDE RECORDS SUMMARY | 2025-02-10 23:11 | XMS_ITS | Encounter Summary ---
Author Organization [facility] Address [address] [place] [address] Care Team Providers Care Blood Bank Specialist Name Role Phone Unavailable Primary Care Provider Unavailabl e Encounter Details Date Type Department Care Team (Late st Contact Info) Description 04/30/2018 Lab Requisition [facility] Laboratory Services [address] [place] [address] Karen Austin MD [address] [place] [address] Social History Tobacco Use Types Packs/Day Years Used Date Smoking Tobacco: Never Assessed Sex and Gender Information Value Date Recorded Sex Assigned at Not on file Legal Sex Male 12:46 AM BULK PLANT MANAGER Gender Identity Not on file Sexual Orientation Not on file documented as of this encounter Plan of Treatment Not on file documented as of this encounter Procedures Procedure Name Priority Date/Time Associated Diagnosis Comments CBC WITH DIFFERENTIAL Stat 04/30/2018 3:20 AM BULK PLANT MANAGER documented in this encounter Results * (ABNORMAL) CBC WITH DIFFERENTIAL (04/30/2018 3:20 AM BULK PLANT MANAGER) WBC 7.6 4.8 - 10.8 K/uL 04/30/2018 5:[address] [facility]OR[facility] RBC 2.90(L) 4.60 - 6.20 M/uL 04/30/2018 5:20 AM [facility] HEMOGLOBIN 8.4(L) 14.0 - 18.0 g/dL 04/30/2018 5:20 AM [facility] HEMATOCRIT 29.0(L) 41.0 - 53.0 % 04/30/2018 5:[address] [facility] MCV 100.0 84.0 - 103.0 fL 04/30/2018 5:[address] [facility] [employer] [facility] MCH 29.0 27.0 - 34.0 pg 04/30/2018 5:[address] [facility] [employer] [facility] MCHC 29.0(L) 30.0 - 35.0 g/dL 04/30/2018 5:[address] [facility] [employer] [facility] RDW 14.9(H) 11.0 - 14.5 % 04/30/2018 5:[address] [facility] [employer] [facility] RDW-STDEV 55.4(H) 37.0 - 54.0 fL 04/30/2018 5:[address] [facility] [employer] [facility] PLATELETS 218 140 - 440 K/uL 04/30/2018 5:[address] [facility] [employer] [facility] MPV 10.4 8.9 - 12.8 fL 04/30/2018 5:[address] [facility] [employer] [facility] NEUTROPHILS 72 42 - 75 % 04/30/2018 5:[address] [facility] [employer] [facility] LYMPHOCYTES 16(L) 24 - 44 % 04/30/2018 5:[address] [facility] [employer] [facility] MONOCYTES 10 2 - 10 % 04/30/2018 5:[address] [facility] [employer] [facility] EOSINOPHILS 2 0 - 7 % 04/30/2018 5:[address] [facility] [employer] [facility] BASOPHILS 1 0 - 1 % 04/30/2018 5:[address] [facility] [employer] [facility] IMMATURE GRANULOCYTES 0 0 - 2 % 04/30/2018 5:[address] [facility] [employer] [facility] NEUTROPHIL ABSOLUTE 5.42 2.00 - 8.00 K/uL 04/30/2018 5:[address] [facility] [employer] [facility] LYMPHOCYTE ABSOLUTE 1.20 1.20 - 4.00 K/uL 04/30/2018 5:[address] [facility] [employer] [facility] MONOCYTE ABSOLUTE 0.73(H) 0.10 - 0.60 K/uL 04/30/2018 5:[address] [facility] [employer] [facility] EOSINOPHIL ABSOLUTE 0.15 0.00 - 0.70 K/uL 04/30/2018 5:[address] [facility] [employer] [facility] BASOPHILS ABSOLUTE 0.04 0.00 - 0.20 K/uL 04/30/2018 5:20 AM BULK PLANT MANAGER [facility] IMMATURE GRANULOCYTES ABSOLUTE 0.03 0.00 - 0.10 K/uL 04/30/2018 5:20 AM BULK PLANT MANAGER [facility] Blood Collection / Unknown 04/30/2018 3:20 AM BULK PLANT MANAGER 04/30/2018 5:12 AM BULK PLANT MANAGER us Karen Austin MD HEMATOLOGY ORDERABLES Fin al Result [facility] CLIA# [id number] [address] [place] [address] documented in this encounter Visit Diagnoses Not on filedocumented in this encounter
--- OUTSIDE RECORDS SUMMARY | 2025-02-10 23:11 | XMS_ITS | Encounter Summary ---
Author Organization [employer] [facility] Address [address] [place] [address] Care Team Providers Care Plastics Plater Name Role Phone Unavailable Primary Care Provider Unavailabl e Encounter Details Date Type Department Care Team (Late st Contact Info) Description 03/30/2018 Lab Requisition [facility] Laboratory Services [address] [place] [address] [place] [address] Timi Duy Taylor MD [address] [place] [address] Social History Tobacco Use Types Packs/Day Years Used Date Smoking Tobacco: Never Assessed Sex and Gender Information Value Date Recorded Sex Assigned at Not on file Legal Sex Male 12:46 AM ION EXCHANGE OPERATOR Gender Identity Not on file Sexual Orientation Not on file documented as of this encounter Plan of Treatment Not on file documented as of this encounter Procedures Procedure Name Priority Date/Time Associated Diagnosis Comments CBC WITH DIFFERENTIAL Stat 03/30/2018 3:00 AM ION EXCHANGE OPERATOR COMPREHENSIVE METABOLIC PANEL Stat 03/30/2018 3:00 AM ION EXCHANGE OPERATOR documented in this encounter Results * (ABNORMAL) COMPREHENSIVE METABOLIC PANEL (03/30/2018 3:00 AM ION EXCHANGE OPERATOR) SODIUM 137 136 - 145 mmol/L 03/30/2018 8:48 AM ION EXCHANGE OPERATOR [facility] LABORATORY [facility] POTASSIUM 3.8 3.5 - 5.1 mmol/L 03/30/2018 8:48 AM ION EXCHANGE OPERATOR [facility] CHLORIDE 92(L) 98 - 107 mmol/L 03/30/2018 8:48 AM ION EXCHANGE OPERATOR [facility] LABORATORY [facility] CO2 28 22 - 29 mmol/L 03/30/2018 8:48 AM ION EXCHANGE OPERATOR [facility] LAB[facility] CALCIUM 9.3 8.6 - 10.0 mg/dL 03/30/2018 8:48 AM [facility] BUN 61(H) 6 - 20 mg/dL 03/30/2018 8:48 AM [facility] CREATININE 3.85(H) 0.67 - 1.17 mg/dL 03/30/2018 8:48 AM [facility] GLUCOSE 171(H) 74 - 99 mg/dL 03/30/2018 8:48 AM [facility] TOTAL PROTEIN 6.7 6.4 - 8.3 g/dL 03/30/2018 8:48 AM [facility] ALBUMIN 3.0(L) 3.5 - 5.2 g/dL 03/30/2018 8:48 AM [facility] BILIRUBIN TOTAL 0.3 0.2 - 1.0 mg/dL 03/30/2018 8:48 AM [facility] ALKALINE PHOSPHATASE 128 40 - 129 U/L 03/30/2018 8:48 AM [facility] AST 13 10 - 50 U/L 03/30/2018 8:48 AM [facility] ALT 23 <=50 U/L 03/30/2018 8:48 AM [facility] GFR 16(L) >=60 mL/min/1. 73 sq meter 03/30/2018 8:48 AM [facility] Comment: eGFR has not been validated for use in the elderly (> 70 years of age), women, patients with serious co-morbid conditions, or persons with extremes of body size or muscle mass and should also be interpreted with caution in patients with acute kidney failure, dialysis dependent patients, patients reporting exceptional dietary intake (e.g. vegetarian diet, high protein diets, creatine supplementation), and patients with severe liver disease. Based on National Kidney Disease Education Program If patient is , please refer to the GFR result. GFR, 20(L) >=60 mL/min/1. 73 sq meter 03/30/2018 8:48 AM [facility] ANION GAP 17 9 - 20 mmol/L 03/30/2018 8:48 AM [facility] Blood Collection / Unknown 03/30/2018 3:00 AM ION EXCHANGE OPERATOR 03/30/2018 8:14 AM ION EXCHANGE OPERATOR us Timi Duy Taylor MD CHEMISTRY ORDERABLES Final Resul t [facility] CLIA# [id number] [facility] [place] [address] * (ABNORMAL) CBC WITH DIFFERENTIAL (03/30/2018 3:00 AM ION EXCHANGE OPERATOR) Pathologist [facility] WBC 10.1 4.8 - 10.8 K/uL 03/30/2018 8:23 AM [facility] RBC 2.76(L) 4.60 - 6.20 M/uL 03/30/2018 8:23 AM [facility] HEMOGLOBIN 8.0(L) 14.0 - 18.0 g/dL 03/30/2018 8:23 AM [facility] HEMATOCRIT 27.1(L) 41.0 - 53.0 % 03/30/2018 8:23 AM [facility] MCV 98.2 84.0 - 103.0 fL 03/30/2018 8:23 AM [facility] MCH 29.0 27.0 - 34.0 pg 03/30/2018 8:23 AM [facility] MCHC 29.5(L) 30.0 - 35.0 g/dL 03/30/2018 8:23 AM [facility] RDW 17.9(H) 11.0 - 14.5 % 03/30/2018 8:23 AM [facility] RDW-STDEV 64.5(H) 37.0 - 54.0 fL 03/30/2018 8:23 AM [facility] PLATELETS 283 140 - 440 K/uL 03/30/2018 8:23 AM [facility] MPV 9.9 8.9 - 12.8 fL 03/30/2018 8:23 AM [facility] NEUTROPHILS 70 42 - 75 % 03/30/2018 8:23 AM [facility] LYMPHOCYTES 14(L) 24 - 44 % 03/30/2018 8:23 AM [facility] MONOCYTES 10 2 - 10 % 03/30/2018 8:23 AM [facility] EOSINOPHILS 5 0 - 7 % 03/30/2018 8:23 AM [facility] BASOPHILS 1 0 - 1 % 03/30/2018 8:23 AM [facility] IMMATURE GRANULOCYTES 1 0 - 2 % 03/30/2018 8:23 AM [facility] NEUTROPHIL ABSOLUTE 7.10 2.00 - 8.00 K/uL 03/30/2018 8:23 AM [facility] LYMPHOCYTE ABSOLUTE 1.45 1.20 - 4.00 K/uL 03/30/2018 8:23 AM [facility] MONOCYTE ABSOLUTE 0.96(H) 0.10 - 0.60 K/uL 03/30/2018 8:23 AM [facility] EOSINOPHIL ABSOLUTE 0.50 0.00 - 0.70 K/uL 03/30/2018 8:23 AM [facility] BASOPHILS ABSOLUTE 0.07 0.00 - 0.20 K/uL 03/30/2018 8:23 AM [facility] IMMATURE GRANULOCYTES ABSOLUTE 0.05 0.00 - 0.10 K/uL 03/30/2018 8:23 AM [facility] Blood Collection / Unknown 03/30/2018 3:00 AM [facility] 03/30/2018 8:14 AM ION EXCHANGE OPERATOR us Timi Duy Taylor MD HEMATOLOGY ORDERABLES Final Resu lt [facility] CLIA# [id number] [address] [place] [id number] documented in this encounter Visit Diagnoses Not on filedocumented in this encounter
--- OUTSIDE RECORDS SUMMARY | 2025-02-10 23:11 | XMS_ITS | Encounter Summary ---
Author Organization [facility] Address [address] [place] [address] Care Team Providers Care Brick Molder Hand Name Role Phone Unavailable Primary Care Provider Unavailabl e Encounter Details Date Type Department Care Team (Late st Contact Info) Description 04/25/2018 Lab Requisition [facility] Laboratory Services [address] [place] [address] Timi Duy Taylor MD [address] [place] [address] Social History Tobacco Use Types Packs/Day Years Used Date Smoking Tobacco: Never Assessed Sex and Gender Information Value Date Recorded Sex Assigned at Not on file Legal Sex Male 12:46 AM LUBE MAN Gender Identity Not on file Sexual Orientation Not on file documented as of this encounter Plan of Treatment Not on file documented as of this encounter Visit Diagnoses Not on filedocumented in this encounter
--- OUTSIDE RECORDS SUMMARY | 2025-02-10 23:11 | XMS_ITS | Encounter Summary ---
Author Organization [facility] Address [address] [place] [address] Care Team Providers Care Kitchen Helper Name Role Phone Unavailable Primary Care Provider Unavailabl e Encounter Details Date Type Department Care Team (Late st Contact Info) Description 04/29/2018 Lab Requisition [facility] Laboratory Services [address] [place] [address] [place] [address] Karen Austin MD [address] [place] [address] Social History Tobacco Use Types Packs/Day Years Used Date Smoking Tobacco: Never Assessed Sex and Gender Information Value Date Recorded Sex Assigned at Not on file Legal Sex Male 12:46 AM CONTROL CLERK FOOD AND BEVERAGE Gender Identity Not on file Sexual Orientation Not on file documented as of this encounter Plan of Treatment Not on file documented as of this encounter Procedures Procedure Name Priority Date/Time Associated Diagnosis Comments MAGNESIUM LEVEL Stat 04/29/2018 3:00 AM CONTROL CLERK [employer]OD [employer] BEVERAGE BASIC METABOLIC PANEL Stat 04/29/2018 3:00 AM CONTROL CLERK [employer]OD [employer] BEVERAGE documented in this encounter Results * (ABNORMAL) BASIC METABOLIC PANEL (04/29/2018 3:00 AM CONTROL CLERK [employer]OD AND BEVERAGE) SODIUM 145 136 - 145 mmol/L 04/29/2018 6:03 AM CONTROL CLERK FOOD AND BEVERAGE [facility] LAB[facility] POTASSIUM 3.7 3.5 - 5.1 mmol/L 04/29/2018 6:03 AM CONTROL CLERK FOOD AND BEVERAGE [facility] CHLORIDE 110(H) 98 - 107 mmol/L 04/29/2018 6:03 AM CONTROL CLERK FOOD AND BEVERAGE [facility] CO2 24 22 - 29 mmol/L 04/29/2018 6:03 AM CONTROL CLERK FOOD AND BEVERAGE [facility] CALCIUM 8.4(L) 8.6 - 10.0 mg/dL 04/29/2018 6:03 AM [facility] BUN 19 6 - 20 mg/dL 04/29/2018 6:03 AM [facility] CREATININE 1.46(H) 0.67 - 1.17 mg/dL 04/29/2018 6:03 AM [facility] GLUCOSE 82 74 - 99 mg/dL 04/29/2018 6:03 AM [facility] GFR 49(L) >=60 mL/min/1. 73 sq meter 04/29/2018 6:03 AM [facility] Comment: eGFR has not been validated for [...] please refer to the GFR result. GFR, 60 >=60 mL/min/1. 73 sq meter 04/29/2018 6:03 AM [facility] ANION GAP 11 9 - 20 mmol/L 04/29/2018 6:03 AM [facility] Blood Collection / Unknown 04/29/2018 3:00 AM CONTROL CLERK [employer]OD [employer] BEVERAGE 04/29/2018 5:59 AM [facility] us Karen Austin MD CHEMISTRY ORDERABLES Leidy josé Result [facility] CLIA# [id number] [address] [place] [address] * (ABNORMAL) MAGNESIUM LEVEL (04/29/2018 3:00 AM [facility]) MAGNESIUM 1.5(L) 1.6 - 2.6 mg/dL 04/29/2018 6:01 AM [facility] Blood Collection / Unknown 04/29/2018 3:00 AM CONTROL CLERK [employer]OD AND BEVERAGE 04/29/2018 5:59 AM CONTROL CLERK FOOD AND BEVERAGE us Karen Austin MD CHEMISTRY ORDERABLES Leidy josé Result [facility] CLIA# [id number] [address] [place] [address] documented in this encounter Visit Diagnoses Not on filedocumented in this encounter
--- OUTSIDE RECORDS SUMMARY | 2025-02-10 23:11 | XMS_ITS | Encounter Summary ---
Author Organization [facility] Address [address] [place] [address] Care Team Providers Care Disposal Plant Operator Name Role Phone Unavailable Primary Care Provider Unavailabl e Encounter Details Date Type Department Care Team (Late st Contact Info) Description 05/03/2018 Lab Requisition [facility] Laboratory Services [address] [place] [address] [place] [address] Wilmar Haas, DO [address] [place] [address] Social History Tobacco Use Types Packs/Day Years Used Date Smoking Tobacco: Never Assessed Sex and Gender Information Value Date Recorded Sex Assigned at Not on file Legal Sex Male 12:46 AM PODIATRIC SURGEON Gender Identity Not on file Sexual Orientation Not on file documented as of this encounter Plan of Treatment Not on file documented as of this encounter Procedures Procedure Name Priority Date/Time Associated Diagnosis Comments BLOOD CULTURE Stat 05/03/2018 11:45 PM PODIATRIC SURGEON documented in this encounter Results * (ABNORMAL) BLOOD CULTURE (05/03/2018 11:45 PM PODIATRIC SURGEON) BLOOD CULTURE Culture positive for Lactobacillus species(A) 05/08/2018 7:23 AM PODIATRIC SURGEON [facility] Comment:This organism isolat ed from one culture only. Susceptibility testing is not routinely performed as this organism frequently represents skin contaminants in blood cultures. If testing is indicated, please contact Microbiology. Blood (Other, specify) Collection / Unknown 05/03/2018 11:45 PM PODIATRIC SURGEON 05/04/2018 12:39 AM PODIATRIC SURGEON Narrative [facility] - 05/08/2018 7:23 AM PODIATRIC SURGEON Positive Blood Culture called to Yady Alcantara RN at [facility] by LIAM JANG on 05/05/2018 at 1:06 PM with verbal readback. us Wilmar Haas DO MICROBIOLOGY - GENERAL ORDER VANESSA Final Result [facility] LABORATORY SERVICES [facility]# [id number] [address] [place] [address] documented in this encounter Visit Diagnoses Not on filedocumented in this encounter
--- OUTSIDE RECORDS SUMMARY | 2025-02-10 23:11 | XMS_ITS | Encounter Summary ---
Author Organization [facility] Address [address] [place] [address] Care Team Providers Care Unloader Name Role Phone Unavailable Primary Care Provider Unavailabl e Encounter Details Date Type Department Care Team (Late st Contact Info) Description 03/11/2018 Lab Requisition [facility] Laboratory [facility] [facility] [address] [place] [address] [place] [address] Tracy Pereira MD NO ADDRESS ON FILE Social History Tobacco Use Types Packs/Day Years Used Date Smoking Tobacco: Never Assessed Sex and Gender Information Value Date Recorded Sex Assigned at Not on file Legal Sex Male 12:46 AM SUPERVISOR NURSE Gender Identity Not on file Sexual Orientation Not on file documented as of this encounter Plan of Treatment Not on file documented as of this encounter Procedures Procedure Name Priority Date/Time Associated Diagnosis Comments BLOOD CULTURE Stat 03/11/2018 11:05 AM SUPERVISOR NURSE documented in this encounter Results * BLOOD CULTURE (03/11/2018 11:05 AM SUPERVISOR NURSE) BLOOD CULTURE No growth 03/16/2018 12:53 PM SUPERVISOR NURSE [facility] Blood (Other, specify) Collection / Unknown 03/11/2018 11:05 AM SUPERVISOR NURSE 03/11/2018 12:13 PM SUPERVISOR NURSE us Tracy Pereira MD MICROBIOLOGY - GENERAL ORDERABLE S Final Result [facility] CLIA# [id number] [address] [place] [address] documented in this encounter Visit Diagnoses Not on filedocumented in this encounter
--- OUTSIDE RECORDS SUMMARY | 2025-02-10 23:11 | XMS_ITS | Encounter Summary ---
Author Organization [facility] Address [address] [place] [address] Care Team Providers Care Gameplay Programmer Name Role Phone Unavailable Primary Care Provider Unavailabl e Encounter Details Date Type Department Care Team (Late st Contact Info) Description 03/23/2018 Lab Requisition [facility] Laboratory Services [address] [place] [address] [place] [address] Arturo Simon MD [address] [place] [address] Social History Tobacco Use Types Packs/Day Years Used Date Smoking Tobacco: Never Assessed Sex and Gender Information Value Date Recorded Sex Assigned at Not on file Legal Sex Male 12:46 AM PORT DRIER Gender Identity Not on file Sexual Orientation Not on file documented as of this encounter Plan of Treatment Not on file documented as of this encounter Procedures Procedure Name Priority Date/Time Associated Diagnosis Comments SPUTUM CULTURE WITH GRAM STAIN Stat 03/23/2018 7:45 AM PORT DRIER documented in this encounter Results * SPUTUM CULTURE WITH GRAM STAIN (03/23/2018 7:45 AM PORT DRIER) CULTURE No pathogens isolated. Normal respiratory geovanna present. 03/27/2018 8:09 AM [facility] [employer] [facility] GRAM STAIN Smear contains </=10 squamous epithelial cells per low power field 03/27/2018 8:09 AM PORT DRIER [facility] GRAM STAIN >25 PMN WBC/LPF 9 8:09 AM PORT DRIER [facility] GRAM STAIN Mixed geovanna with no predominate morphology 03/27/2018 8:[address] [facility] Sputum SPUTUM SPECIMEN OBTAINED BY ASPIRATION / Unknown Collection / Unknown 03/23/2018 7:45 AM PORT DRIER 03/25/2018 4:19 AM PORT DRIER us Arturo Simon MD MICROBIOLOGY - GENERAL FLOR SANON Final Result Performing Organization Address City/State/[facility] Co de Phone Number [facility] LABORATORY SERVICES [facility]# [id number] [address] [place] [address] documented in this encounter Visit Diagnoses Not on filedocumented in this encounter
--- OUTSIDE RECORDS SUMMARY | 2025-02-10 23:11 | XMS_ITS | Encounter Summary ---
Author Organization [facility] Address [address] [place] [address] Care Team Providers Care Acid Purification Equipment Operator Name Role Phone Unavailable Primary Care Provider Unavailabl e Encounter Details Date Type Department Care Team (Late st Contact Info) Description 04/30/2018 Lab Requisition [facility] Laboratory Services [address] [place] [address] [place] [address] Karen Austin MD [address] [place] [address] Social History Tobacco Use Types Packs/Day Years Used Date Smoking Tobacco: Never Assessed Sex and Gender Information Value Date Recorded Sex Assigned at Not on file Legal Sex Male 12:46 AM VP SOFTWARE Gender Identity Not on file Sexual Orientation Not on file documented as of this encounter Plan of Treatment Not on file documented as of this encounter Procedures Procedure Name Priority Date/Time Associated Diagnosis Comments MAGNESIUM LEVEL Stat 04/30/2018 3:20 AM VP SOFTWARE BASIC METABOLIC PANEL Stat 04/30/2018 3:20 AM VP SOFTWARE documented in this encounter Results * MAGNESIUM LEVEL (04/30/2018 3:20 AM VP SOFTWARE) MAGNESIUM 1.9 1.6 - 2.6 mg/dL 04/30/2018 6:12 AM VP SOFTWARE [facility] [employer] [facility] Blood Collection / Unknown 04/30/2018 3:20 AM VP SOFTWARE 04/30/2018 5:12 AM VP SOFTWARE Karen Austin MD CHEMISTRY ORDERABLES Leidy l Result [facility] [employer] [facility] CLIA# [id number] On license of [facility] [place] [address] * (ABNORMAL) BASIC METABOLIC PANEL (04/30/2018 3:20 AM [facility]) SODIUM 146(H) 136 - 145 mmol/L 04/30/2018 6:12 AM [facility] POTASSIUM 3.9 3.5 - 5.1 mmol/L 04/30/2018 6:12 AM [facility] CHLORIDE 111(H) 98 - 107 mmol/L 04/30/2018 6:12 AM [facility] CO2 23 22 - 29 mmol/L 04/30/2018 6:12 AM [facility] CALCIUM 8.2(L) 8.6 - 10.0 mg/dL 04/30/2018 6:12 AM [facility] BUN 19 6 - 20 mg/dL 04/30/2018 6:12 AM [facility] CREATININE 1.48(H) 0.67 - 1.17 mg/dL 04/30/2018 6:12 AM [facility] GLUCOSE 72(L) 74 - 99 mg/dL 04/30/2018 6:12 AM [facility] GFR 49(L) >=60 mL/min/1. 73 sq meter 04/30/2018 6:12 AM [facility] Comment: eGFR has not been validated for [...] please refer to the GFR result. GFR, 59(L) >=60 mL/min/1. 73 sq meter 04/30/2018 6:12 AM [facility] ANION GAP 12 9 - 20 mmol/L 04/30/2018 6:12 AM [facility] Blood Collection / Unknown 04/30/2018 3:20 AM VP SOFTWARE 04/30/2018 5:12 AM [employer] us Karen Austin MD CHEMISTRY ORDERABLES Leidy josé Result [facility] CLIA# [id number] [address] [place] [address] documented in this encounter Visit Diagnoses Not on filedocumented in this encounter
--- OUTSIDE RECORDS SUMMARY | 2025-02-10 23:11 | XMS_ITS | Encounter Summary ---
Author Organization [employer] [facility] Address [address] [place] [address] Care Team Providers Care Senior Asset Manager Name Role Phone Unavailable Primary Care Provider Unavailabl e Encounter Details Date Type Department Care Team (Late st Contact Info) Description 03/23/2018 Lab Requisition [facility] Laboratory Services [address] [place] [address] Eulalia Carter MD [address] [place] [address] Social History Tobacco Use Types Packs/Day Years Used Date Smoking Tobacco: Never Assessed Sex and Gender Information Value Date Recorded Sex Assigned at Not on file Legal Sex Male 12:46 AM HAIR SPINNER Gender Identity Not on file Sexual Orientation Not on file documented as of this encounter Plan of Treatment Not on file documented as of this encounter Procedures Procedure Name Priority Date/Time Associated Diagnosis Comments COMPREHENSIVE METABOLIC PANEL Stat 03/23/2018 3:30 AM HAIR SPINNER HEMOGLOBIN A1C Stat 03/23/2018 3:00 AM HAIR SPINNER documented in this encounter Results * (ABNORMAL) COMPREHENSIVE METABOLIC PANEL (03/23/2018 3:30 AM HAIR SPINNER) SODIUM 132(L) 136 - 145 mmol/L 03/23/2018 5:42 AM HAIR SPINNER [facility] POTASSIUM 5.1 3.5 - 5.1 mmol/L 03/23/2018 5:42 AM HAIR SPINNER [facility] CHLORIDE 88(L) 98 - 107 mmol/L 03/23/2018 5:42 AM HAIR SPINNER [facility] CO2 27 22 - 29 mmol/L 03/23/2018 5:42 AM HAIR SPINNER [facility] CALCIUM 9.3 8.6 - 10.0 mg/dL 03/23/2018 5:42 AM [facility] BUN 70(H) 6 - 20 mg/dL 03/23/2018 5:42 AM [facility] CREATININE 4.01(H) 0.67 - 1.17 mg/dL 03/23/2018 5:42 AM [facility] GLUCOSE 77 74 - 99 mg/dL 03/23/2018 5:42 AM [facility] TOTAL PROTEIN 6.8 6.4 - 8.3 g/dL 03/23/2018 5:42 AM [facility] ALBUMIN 3.2(L) 3.5 - 5.2 g/dL 03/23/2018 5:42 AM [facility] BILIRUBIN TOTAL 0.4 0.2 - 1.0 mg/dL 03/23/2018 5:42 AM [facility] ALKALINE PHOSPHATASE 152(H) 40 - 129 U/L 03/23/2018 5:42 AM [facility] AST 13 10 - 50 U/L 03/23/2018 5:42 AM [facility] ALT 23 <=50 U/L 03/23/2018 5:42 AM [facility] GFR 15(L) >=60 mL/min/1. 73 sq meter 03/23/2018 5:42 AM [facility] Comment: eGFR has not been validated for [...] please refer to the GFR result. GFR, 19(L) >=60 mL/min/1. 73 sq meter 03/23/2018 5:42 AM [facility] ANION GAP 17 9 - 20 mmol/L 03/23/2018 5:42 AM [facility] Blood Collection / Unknown 03/23/2018 3:30 AM HAIR SPINNER 03/23/2018 4:55 AM HAIR SPINNER Eulalia Carter MD CHEMISTRY ORDERABLES Final Resul t Performing Organization Address [facility] de Phone Number [facility] [place] [facility] CLIA# [id number] [facility] [place] [address] * HEMOGLOBIN A1C (03/23/2018 3:00 AM HAIR SPINNER) HEMOGLOBIN A1C 5.4 4.0 - 6.0 % 03/23/2018 1:46 PM HAIR SPINNER [facility] [place] [facility] EST. AVG GLUCOSE, A1C 108 mg/dL 03/23/2018 1:46 PM HAIR SPINNER [facility] Blood 03/23/2018 3:00 AM HAIR SPINNER 03/23/2018 4:55 AM HAIR SPINNER Narrative [facility] - 03/23/2018 1:46 PM HAIR SPINNER HGB A1C INTERPRETATION NORMAL: <5.7% PRE-DIABETES: 5.7 - 6.4% DIABETES: 6.5% OR GREATER Eulalia Carter MD CHEMISTRY ORDERABLES Final Resul t Performing Organization Address [facility] Co de Phone Number [facility] CLIA# [id number] [facility] [place] [address] documented in this encounter Visit Diagnoses Not on filedocumented in this encounter
--- OUTSIDE RECORDS SUMMARY | 2025-02-10 23:11 | XMS_ITS | Encounter Summary ---
Author Organization [facility] Address [address] [place] [address] Care Team Providers Care Bit Sander Name Role Phone Unavailable Primary Care Provider Unavailabl e Encounter Details Date Type Department Care Team (Late st Contact Info) Description 03/20/2018 Lab Requisition [facility] Laboratory Services [address] [place] [address] [place] [address] Arturo Simon MD [address] [place] [address] Social History Tobacco Use Types Packs/Day Years Used Date Smoking Tobacco: Never Assessed Sex and Gender Information Value Date Recorded Sex Assigned at Not on file Legal Sex Male 12:46 AM IMPREGNATOR Gender Identity Not on file Sexual Orientation Not on file documented as of this encounter Plan of Treatment Not on file documented as of this encounter Procedures Procedure Name Priority Date/Time Associated Diagnosis Comments CBC WITH DIFFERENTIAL Stat 03/20/2018 10:30 AM IMPREGNATOR COMPREHENSIVE METABOLIC PANEL Stat 03/20/2018 10:30 AM IMPREGNATOR documented in this encounter Results * (ABNORMAL) COMPREHENSIVE METABOLIC PANEL (03/20/2018 10:30 AM IMPREGNATOR) SODIUM 132(L) 136 - 145 mmol/L 03/20/2018 12:51 PM IMPREGNATOR [facility] POTASSIUM 4.6 3.5 - 5.1 mmol/L 03/20/2018 12:51 PM IMPREGNATOR [facility] CHLORIDE 90(L) 98 - 107 mmol/L 03/20/2018 12:51 PM IMPREGNATOR [facility] CO2 29 22 - 29 mmol/L 03/20/2018 12:51 PM IMPREGNATOR [facility] CALCIUM 9.3 8.6 - 10.0 mg/dL 03/20/2018 12:51 PM [facility] BUN 46(H) 6 - 20 mg/dL 03/20/2018 12:51 PM [facility] CREATININE 3.69(H) 0.67 - 1.17 mg/dL 03/20/2018 12:51 PM [facility] GLUCOSE 143(H) 74 - 99 mg/dL 03/20/2018 12:51 PM [facility] TOTAL PROTEIN 7.1 6.4 - 8.3 g/dL 03/20/2018 12:51 PM [facility] ALBUMIN 3.4(L) 3.5 - 5.2 g/dL 03/20/2018 12:51 PM [facility] BILIRUBIN TOTAL 0.5 0.2 - 1.0 mg/dL 03/20/2018 12:51 PM [facility] ALKALINE PHOSPHATASE 159(H) 40 - 129 U/L 03/20/2018 12:51 PM [facility] AST 21 10 - 50 U/L 03/20/2018 12:51 PM [facility] ALT 28 <=50 U/L 03/20/2018 12:51 PM [facility] GFR 17(L) >=60 mL/min/1. 73 sq meter 03/20/2018 12:51 PM [facility] Comment: eGFR has not been validated [...] please refer to the GFR result. GFR, 21(L) >=60 mL/min/1. 73 sq meter 03/20/2018 12:51 PM [facility] ANION GAP 13 9 - 20 mmol/L 03/20/2018 12:51 PM [facility] Blood Collection / Unknown 03/20/2018 10:30 AM IMPREGNATOR 03/20/2018 11:57 AM IMPREGNATOR us Arturo Simon MD CHEMISTRY ORDERABLES Final Result [facility] CLIA# [id number] [facility] [place] [address] * (ABNORMAL) CBC WITH DIFFERENTIAL (03/20/2018 10:30 AM IMPREGNATOR) WBC 14.9(H) 4.8 - 10.8 K/uL 03/20/2018 12:04 PM [facility] RBC 2.70(L) 4.60 - 6.20 M/uL 03/20/2018 12:04 PM [facility] HEMOGLOBIN 7.8(L) 14.0 - 18.0 g/dL 03/20/2018 12:04 PM [facility] HEMATOCRIT 26.1(L) 41.0 - 53.0 % 03/20/2018 12:04 PM [facility] MCV 96.7 84.0 - 103.0 fL 03/20/2018 12:04 PM [facility] MCH 28.9 27.0 - 34.0 pg 03/20/2018 12:04 PM [facility] MCHC 29.9(L) 30.0 - 35.0 g/dL 03/20/2018 12:04 PM [facility] RDW 17.8(H) 11.0 - 14.5 % 03/20/2018 12:04 PM [facility] RDW-STDEV 62.7(H) 37.0 - 54.0 fL 03/20/2018 12:04 PM [facility] PLATELETS 386 140 - 440 K/uL 03/20/2018 12:04 PM [facility] MPV 9.8 8.9 - 12.8 fL 03/20/2018 12:04 PM [facility] NEUTROPHILS 78(H) 42 - 75 % 03/20/2018 12:04 PM [facility] LYMPHOCYTES 11(L) 24 - 44 % 03/20/2018 12:04 PM [facility] MONOCYTES 10 2 - 10 % 03/20/2018 12:04 PM [facility] EOSINOPHILS 1 0 - 7 % 03/20/2018 12:04 PM [facility] BASOPHILS 0 0 - 1 % 03/20/2018 12:04 PM [facility] IMMATURE GRANULOCYTES 1 0 - 2 % 03/20/2018 12:04 PM [facility] NEUTROPHIL ABSOLUTE 11.54(H) 2.00 - 8.00 K/uL 03/20/2018 12:04 PM [facility] LYMPHOCYTE ABSOLUTE 1.61 1.20 - 4.00 K/uL 03/20/2018 12:04 PM [facility] MONOCYTE ABSOLUTE 1.52(H) 0.10 - 0.60 K/uL 03/20/2018 12:04 PM [facility] EOSINOPHIL ABSOLUTE 0.09 0.00 - 0.70 K/uL 03/20/2018 12:04 PM [facility] BASOPHILS ABSOLUTE 0.05 0.00 - 0.20 K/uL 03/20/2018 12:04 PM [facility] IMMATURE GRANULOCYTES ABSOLUTE 0.08 0.00 - 0.10 K/uL 03/20/2018 12:04 PM [facility] Blood Collection / Unknown 03/20/2018 10:30 AM IMPREGNATOR 03/20/2018 11:57 AM IMPREGNATOR us Arturo Simon MD HEMATOLOGY ORDERABLES Final Result [facility] CLIA# [id number] [address] [place] [address] documented in this encounter Visit Diagnoses Not on filedocumented in this encounter
--- OUTSIDE RECORDS SUMMARY | 2025-02-10 23:11 | XMS_ITS | Encounter Summary ---
Author Organization [facility] Address [address] [place] [address] Care Team Providers Care Software Quality Engineer Name Role Phone Unavailable Primary Care Provider Unavailabl e Encounter Details Date Type Department Care Team (Late st Contact Info) Description 03/19/2018 Lab Requisition [facility] Laboratory Services [address] [place] [address] [place] [address] Adriano Ng MD NO ADDRESS ON FILE Social History Tobacco Use Types Packs/Day Years Used Date Smoking Tobacco: Never Assessed Sex and Gender Information Value Date Recorded Sex Assigned at Not on file Legal Sex Male 12:46 AM SOLUTION ENGINEER Gender Identity Not on file Sexual Orientation Not on file documented as of this encounter Plan of Treatment Not on file documented as of this encounter Procedures Procedure Name Priority Date/Time Associated Diagnosis Comments AMMONIA LEVEL Stat 03/19/2018 11:48 PM SOLUTION ENGINEER documented in this encounter Results * AMMONIA LEVEL (03/19/2018 11:48 PM SOLUTION ENGINEER) AMMONIA 39.6 16.0 - 60.0 umol/L 03/20/2018 12:25 AM SOLUTION ENGINEER [facility] Venous blood specimen (specimen) Collection / Unknown 03/19/2018 11:48 PM SOLUTION ENGINEER 03/20/2018 12:03 AM SOLUTION ENGINEER us Adriano Ng MD CHEMISTRY ORDERABLES Final Re sult [facility] CLIA# [id number] [address] [place] [address] documented in this encounter Visit Diagnoses Not on filedocumented in this encounter
--- OUTSIDE RECORDS SUMMARY | 2025-02-10 23:11 | XMS_ITS | Encounter Summary ---
Author Organization [facility] Address [address] [place] [address] Care Team Providers Care Boom Supervisor Name Role Phone Unavailable Primary Care Provider Unavailabl e Encounter Details Date Type Department Care Team (Late st Contact Info) Description 03/28/2018 Lab Requisition [facility] Laboratory Services [address] [place] [address] [place] [address] Timi Duy Taylor MD [address] [place] [address] Social History Tobacco Use Types Packs/Day Years Used Date Smoking Tobacco: Never Assessed Sex and Gender Information Value Date Recorded Sex Assigned at Not on file Legal Sex Male 12:46 AM FLAKE OR SHRED ROLL OPERATOR Gender Identity Not on file Sexual Orientation Not on file documented as of this encounter Plan of Treatment Not on file documented as of this encounter Procedures Procedure Name Priority Date/Time Associated Diagnosis Comments IRON, TIBC, AND PERCENT SATURATION Stat 03/28/2018 4:00 AM FLAKE OR SHRED ROLL OPERATOR documented in this encounter Results * (ABNORMAL) IRON, TIBC, AND PERCENT SATURATION (03/28/2018 4:00 AM FLAKE OR SHRED ROLL OPERATOR) IRON 36(L) 59 - 158 ug/dL 03/28/2018 6:05 AM FLAKE OR SHRED ROLL OPERATOR [facility] TIBC 210(L) 250 - 450 ug/dL 03/28/2018 6:05 AM FLAKE OR SHRED ROLL OPERATOR [facility] IRON % SATURATION 17 15 - 60 % 03/28/2018 6:05 AM FLAKE OR SHRED ROLL OPERATOR [facility] Blood Collection / Unknown 03/28/2018 4:00 AM FLAKE OR SHRED ROLL OPERATOR 03/28/2018 5:04 AM FLAKE OR SHRED ROLL OPERATOR Timi Duy Taylor MD CHEMISTRY ORDERABLES Final Resul t [facility]# [id number] [address] [place], [place] [address] documented in this encounter Visit Diagnoses Not on filedocumented in this encounter
--- OUTSIDE RECORDS SUMMARY | 2025-02-10 23:11 | XMS_ITS | Encounter Summary ---
Author Organization [facility] Address [address] [place] [address] Care Team Providers Care Adult Literacy Teacher Name Role Phone Unavailable Primary Care Provider Unavailabl e Encounter Details Date Type Department Care Team (Late st Contact Info) Description 03/14/2018 Lab Requisition [facility] Laboratory Services [address] [place] [address] [place] [address] Tracy Pereira MD NO ADDRESS ON FILE Social History Tobacco Use Types Packs/Day Years Used Date Smoking Tobacco: Never Assessed Sex and Gender Information Value Date Recorded Sex Assigned at Not on file Legal Sex Male 12:46 AM PLANT UTILITIES ENGINEER Gender Identity Not on file Sexual Orientation Not on file documented as of this encounter Plan of Treatment Not on file documented as of this encounter Procedures Procedure Name Priority Date/Time Associated Diagnosis Comments CBC WITH DIFFERENTIAL Stat 03/14/2018 3:00 AM PLANT UTILITIES ENGINEER COMPREHENSIVE METABOLIC PANEL Stat 03/14/2018 3:00 AM PLANT UTILITIES ENGINEER documented in this encounter Results * (ABNORMAL) COMPREHENSIVE METABOLIC PANEL (03/14/2018 3:00 AM PLANT UTILITIES ENGINEER) SODIUM 131(L) 136 - 145 mmol/L 03/14/2018 5:47 AM [facility] POTASSIUM 4.8 3.5 - 5.1 mmol/L 03/14/2018 5:47 AM PLANT UTILITIES ENGINEER [facility] CHLORIDE 90(L) 98 - 107 mmol/L 03/14/2018 5:47 AM [facility] CO2 27 22 - 29 mmol/L 03/14/2018 5:47 AM [facility] CALCIUM 8.6 8.6 - 10.0 mg/dL 03/14/2018 5:47 AM PLANT UTILITIES ENGINEER [facility] BUN 53(H) 6 - 20 mg/dL 03/14/2018 5:47 AM [facility] CREATININE 4.33(H) 0.67 - 1.17 mg/dL 03/14/2018 5:47 AM [facility] GLUCOSE 196(H) 74 - 99 mg/dL 03/14/2018 5:47 AM [facility] TOTAL PROTEIN 6.2(L) 6.4 - 8.3 g/dL 03/14/2018 5:47 AM [facility] ALBUMIN 3.0(L) 3.5 - 5.2 g/dL 03/14/2018 5:47 AM [facility] BILIRUBIN TOTAL 0.7 0.2 - 1.0 mg/dL 03/14/2018 5:47 AM [facility] ALKALINE PHOSPHATASE 198(H) 40 - 129 U/L 03/14/2018 5:47 AM [facility] AST 10 10 - 50 U/L 03/14/2018 5:47 AM [facility] ALT 11 <=50 U/L 03/14/2018 5:47 AM [facility] GFR 14(L) >=60 mL/min/1. 73 sq meter 03/14/2018 5:47 AM [facility] Comment: eGFR has not been validated for [...] please refer to the GFR result. GFR, 17(L) >=60 mL/min/1. 73 sq meter 03/14/2018 5:47 AM [facility] ANION GAP 14 9 - 20 mmol/L 03/14/2018 5:47 AM [facility] Blood Collection / Unknown 03/14/2018 3:00 AM PLANT UTILITIES ENGINEER 03/14/2018 5:07 AM PLANT UTILITIES ENGINEER us Tracy Pereira MD CHEMISTRY ORDERABLES Final Resul t [facility] CLIA# [id number] [address] [place] [address] * (ABNORMAL) CBC WITH DIFFERENTIAL (03/14/2018 3:00 AM PLANT UTILITIES ENGINEER) Pathologist [facility] WBC 14.0(H) 4.8 - 10.8 K/uL 03/14/2018 5:15 AM [facility] RBC 2.50(L) 4.60 - 6.20 M/uL 03/14/2018 5:15 AM [facility] HEMOGLOBIN 7.3(L) 14.0 - 18.0 g/dL 03/14/2018 5:15 AM [facility] HEMATOCRIT 24.3(L) 41.0 - 53.0 % 03/14/2018 5:15 AM [facility] MCV 97.2 84.0 - 103.0 fL 03/14/2018 5:15 AM [facility] MCH 29.2 27.0 - 34.0 pg 03/14/2018 5:15 AM [facility] MCHC 30.0 30.0 - 35.0 g/dL 03/14/2018 5:15 AM [facility] RDW 17.8(H) 11.0 - 14.5 % 03/14/2018 5:15 AM [facility] RDW-STDEV 62.0(H) 37.0 - 54.0 fL 03/14/2018 5:15 AM [facility] PLATELETS 189 140 - 440 K/uL 03/14/2018 5:15 AM [facility] MPV 10.1 8.9 - 12.8 fL 03/14/2018 5:15 AM [facility] NEUTROPHILS 82(H) 42 - 75 % 03/14/2018 5:15 AM [facility] LYMPHOCYTES 7(L) 24 - 44 % 03/14/2018 5:15 AM [facility] MONOCYTES 7 2 - 10 % 03/14/2018 5:15 AM [facility] EOSINOPHILS 2 0 - 7 % 03/14/2018 5:15 AM [facility] BASOPHILS 1 0 - 1 % 03/14/2018 5:15 AM [facility] IMMATURE GRANULOCYTES 2 0 - 2 % 03/14/2018 5:15 AM [facility] NEUTROPHIL ABSOLUTE 11.40(H) 2.00 - 8.00 K/uL 03/14/2018 5:15 AM [facility] LYMPHOCYTE ABSOLUTE 1.03(L) 1.20 - 4.00 K/uL 03/14/2018 5:15 AM [facility] MONOCYTE ABSOLUTE 1.02(H) 0.10 - 0.60 K/uL 03/14/2018 5:15 AM [facility] EOSINOPHIL ABSOLUTE 0.21 0.00 - 0.70 K/uL 03/14/2018 5:15 AM [facility] BASOPHILS ABSOLUTE 0.08 0.00 - 0.20 K/uL 03/14/2018 5:15 AM [facility] IMMATURE GRANULOCYTES ABSOLUTE 0.23(H) 0.00 - 0.10 K/uL 03/14/2018 5:15 AM [facility] Blood Collection / Unknown 03/14/2018 3:00 AM PLANT UTILITIES ENGINEER 03/14/2018 5:08 AM PLANT UTILITIES ENGINEER Tracy Pereira MD HEMATOLOGY ORDERABLES Final Resu lt [facility] CLIA# [id number] [address] [place] [address] documented in this encounter Visit Diagnoses Not on filedocumented in this encounter
--- OUTSIDE RECORDS SUMMARY | 2025-02-10 23:11 | XMS_ITS | Encounter Summary ---
Author Organization [facility] Address [address] [place] [address] Care Team Providers Care Change Agent Name Role Phone Unavailable Primary Care Provider Unavailabl e Encounter Details Date Type Department Care Team (Late st Contact Info) Description 05/03/2018 Lab Requisition [facility] Laboratory Services [address] [place] [address] [place] [address] Rudy Mcclure MD [address] [place] [address] Social History Tobacco Use Types Packs/Day Years Used Date Smoking Tobacco: Never Assessed Sex and Gender Information Value Date Recorded Sex Assigned at Not on file Legal Sex Male 12:46 AM CLEANING PORTER Gender Identity Not on file Sexual Orientation Not on file documented as of this encounter Plan of Treatment Not on file documented as of this encounter Procedures Procedure Name Priority Date/Time Associated Diagnosis Comments BASIC METABOLIC PANEL Stat 05/03/2018 11:30 PM CLEANING PORTER documented in this encounter Results * (ABNORMAL) BASIC METABOLIC PANEL (05/03/2018 11:30 PM CLEANING PORTER) SODIUM 147(H) 136 - 145 mmol/L 05/04/2018 1:14 AM [facility] POTASSIUM 3.9 3.5 - 5.1 mmol/L 05/04/2018 1:14 AM [facility] CHLORIDE 112(H) 98 - 107 mmol/L 05/04/2018 1:14 AM [facility] CO2 23 22 - 29 mmol/L 05/04/2018 1:14 AM [facility] CALCIUM 8.2(L) 8.6 - 10.0 mg/dL 05/04/2018 1:14 AM CLEANING PORTER [facility] BUN 19 6 - 20 mg/dL 05/04/2018 1:14 AM [facility] CREATININE 1.37(H) 0.67 - 1.17 mg/dL 05/04/2018 1:14 AM [facility] GLUCOSE 57(L) 74 - 99 mg/dL 05/04/2018 1:14 AM [facility] GFR 53(L) >=60 mL/min/1. 73 sq meter 05/04/2018 1:14 AM [facility] Comment: eGFR has not been validated [...] please refer to the GFR result. GFR, >60 >=60 mL/min/1. 73 sq meter 05/04/2018 1:14 AM [facility] ANION GAP 12 9 - 20 mmol/L 05/04/2018 1:14 AM [facility] Blood Collection / Unknown 05/03/2018 11:30 PM CLEANING PORTER 05/04/2018 12:39 AM CLEANING PORTER us Rudy Mcclure MD CHEMISTRY ORDERABLES Final Res ult [facility] CLIA# [id number] [address] [place] [address] documented in this encounter Visit Diagnoses Not on filedocumented in this encounter
--- OUTSIDE RECORDS SUMMARY | 2025-02-10 23:11 | XMS_ITS | Encounter Summary ---
Author Organization [facility] Address [address] [place] [address] Care Team Providers Care Senior Business Architect Name Role Phone Unavailable Primary Care Provider Unavailabl e Encounter Details Date Type Department Care Team (Late st Contact Info) Description 03/28/2018 Lab Requisition [facility] Laboratory Services [address] [place] [address] [place] [address] Timi Duy Taylor MD [address] [place] [address] Social History Tobacco Use Types Packs/Day Years Used Date Smoking Tobacco: Never Assessed Sex and Gender Information Value Date Recorded Sex Assigned at Not on file Legal Sex Male 12:46 AM WORKGROUP LEADER Gender Identity Not on file Sexual Orientation Not on file documented as of this encounter Plan of Treatment Not on file documented as of this encounter Procedures Procedure Name Priority Date/Time Associated Diagnosis Comments HEMOGLOBIN A1C Stat 03/28/2018 4:00 AM WORKGROUP LEADER documented in this encounter Results * HEMOGLOBIN A1C (03/28/2018 4:00 AM WORKGROUP LEADER) HEMOGLOBIN A1C 5.4 4.0 - 6.0 % 03/28/2018 12:08 PM [facility] Packet [employer] [facility] EST. AVG GLUCOSE, A1C 108 mg/dL 03/28/2018 12:08 PM [facility] [employer] [facility] Blood Collection / Unknown 03/28/2018 4:00 AM WORKGROUP LEADER 03/28/2018 5:04 AM WORKGROUP LEADER Narrative [facility] [employer] [facility] - 03/28/2018 12:08 PM WORKGROUP LEADER HGB A1C INTERPRETATION NORMAL: <5.7% PRE-DIABETES: 5.7 - 6.4% DIABETES: 6.5% OR GREATER us Timi Duy Taylor MD CHEMISTRY ORDERABLES Final Resul t [facility]# [id number] [address] [place] [address] documented in this encounter Visit Diagnoses Not on filedocumented in this encounter
--- OUTSIDE RECORDS SUMMARY | 2025-02-10 23:11 | XMS_ITS | Encounter Summary ---
Author Organization [facility] Address [address] [place] [address] Care Team Providers Care Heel Finisher Name Role Phone Unavailable Primary Care Provider Unavailabl e Encounter Details Date Type Department Care Team (Late st Contact Info) Description 03/11/2018 Lab Requisition [facility] Services [address] [place] [address] Tracy Pereira MD NO ADDRESS ON FILE Social History Tobacco Use Types Packs/Day Years Used Date Smoking Tobacco: Never Assessed Sex and Gender Information Value Date Recorded Sex Assigned at Not on file Legal Sex Male 12:46 AM [employer] Gender Identity Not on file Sexual Orientation Not on file documented as of this encounter Plan of Treatment Not on file documented as of this encounter Visit Diagnoses Not on filedocumented in this encounter
--- OUTSIDE RECORDS SUMMARY | 2025-02-10 23:11 | XMS_ITS | Encounter Summary ---
Author Organization [facility] Address [address] [place] [address] Care Team Providers Care Gm Name Role Phone Unavailable Primary Care Provider Unavailabl e Encounter Details Date Type Department Care Team (Late st Contact Info) Description 05/03/2018 Lab Requisition [facility] [address] [place] [address] Wilmar Haas, DO [address] [place] [address] Social History Tobacco Use Types Packs/Day Years Used Date Smoking Tobacco: Never Assessed Sex and Gender Information Value Date Recorded Sex Assigned at Not on file Legal Sex Male 12:46 AM [employer] Gender Identity Not on file Sexual Orientation Not on file documented as of this encounter Plan of Treatment Not on file documented as of this encounter Procedures Procedure Name Priority Date/Time Associated Diagnosis Comments CBC WITH DIFFERENTIAL Stat 05/03/2018 11:30 PM [employer] documented in this encounter Results * (ABNORMAL) CBC WITH DIFFERENTIAL (05/03/2018 11:30 PM [employer]) WBC 7.3 4.8 - 10.8 K/uL 05/04/2018 12:45 AM [facility]OR[facility]ORY [facility] RBC 2.88(L) 4.60 - 6.20 M/uL 05/04/2018 12:45 AM [facility] HEMOGLOBIN 8.5(L) 14.0 - 18.0 g/dL 05/04/2018 12:45 AM [facility] HEMATOCRIT 29.3(L) 41.0 - 53.0 % 05/04/2018 12:45 AM [facility] MCV 101.7 84.0 - 103.0 fL 05/04/2018 12:45 AM [facility] [place] [facility] MCH 29.5 27.0 - 34.0 pg 05/04/2018 12:45 AM [facility] [place] [facility] MCHC 29.0(L) 30.0 - 35.0 g/dL 05/04/2018 12:45 AM [facility] [place] [facility] RDW 14.8(H) 11.0 - 14.5 % 05/04/2018 12:45 AM [facility] [place] [facility] RDW-STDEV 55.5(H) 37.0 - 54.0 fL 05/04/2018 12:45 AM [facility] [place] [facility] PLATELETS 217 140 - 440 K/uL 05/04/2018 12:45 AM [facility] MPV 10.4 8.9 - 12.8 fL 05/04/2018 12:45 AM [facility] [place] [facility] NEUTROPHILS 70 42 - 75 % 05/04/2018 12:45 AM [facility] [place] [facility] LYMPHOCYTES 18(L) 24 - 44 % 05/04/2018 12:45 AM [facility] [place] [facility] MONOCYTES 8 2 - 10 % 05/04/2018 12:45 AM [facility] [place] [facility] EOSINOPHILS 3 0 - 7 % 05/04/2018 12:45 AM [facility] BASOPHILS 1 0 - 1 % 05/04/2018 12:45 AM [facility] [place] [facility] IMMATURE GRANULOCYTES 1 0 - 2 % 05/04/2018 12:45 AM [facility] [place] [facility] NEUTROPHIL ABSOLUTE 5.13 2.00 - 8.00 K/uL 05/04/2018 12:45 AM [facility] [place] [facility] LYMPHOCYTE ABSOLUTE 1.34 1.20 - 4.00 K/uL 05/04/2018 12:45 AM [facility] MONOCYTE ABSOLUTE 0.59 0.10 - 0.60 K/uL 05/04/2018 12:45 AM [facility] [place] [facility] EOSINOPHIL ABSOLUTE 0.19 0.00 - 0.70 K/uL 05/04/2018 12:45 AM [facility] BASOPHILS ABSOLUTE 0.04 0.00 - 0.20 K/uL 05/04/2018 12:45 AM [employer] [facility] IMMATURE GRANULOCYTES ABSOLUTE 0.04 0.00 - 0.10 K/uL 05/04/2018 12:45 AM [employer] [facility] Blood Collection / Unknown 05/03/2018 11:30 PM [employer] 05/04/2018 12:39 AM [employer] us Wilmar Haas DO HEMATOLOGY ORDERABLES Final Result [facility] CLIA# [id number] [place] [address] documented in this encounter Visit Diagnoses Not on filedocumented in this encounter
--- OUTSIDE RECORDS SUMMARY | 2025-02-10 23:11 | XMS_ITS | Data Portability ---
Author Organization [facility]ena [facility], L.LKennyCKenny, [facility] Address [address] [place] [address] Care Team Providers Care Student Counsellor Name Role Phone MATEUS GLOVER Primary Care Provider Unavailabl e Assessment Encounter Date Assessment Date Assessment LastModified by Organization Details LastModified Time 06/26/2024 06/26/2024 Document scribed by Jayce Oliver Genetics Teacher. I was present during interview and exam. I have reviewed and agree with above documentation. Dr. Mateus Glover. A Care Coordination Assessment form was filled out as part of this patient's office visit today. [email or web address] Not available 06/26/2024 12:23:28 07/24/2024 07/24/[address] fu [address] sr next week. monitor wound for worsening drainage. continue to monitor glucose closely. pt to take lexarpo 10mg every single day for 1 mt. f/u with me in 1 mt. [email or web address] Not available 07/24/2024 12:56:19 11/27/2024 11/27/2024 Document scribed by Jayce Oliver Genetics Teacher. I was present during interview and exam. I have reviewed and agree with above documentation. Dr. Mateus Glover. Advised pt contact [place] and update them on the amount of purulent drainage he is experiencing, they may want to address this sooner than his next appt on 12/05/24. Will treat with abx, I want to prevent Sepsis. Reviewed allergies, will treat with Clindamycin, spouse confirms he does ok on this. [email or web address] Not available 11/27/2024 10:55:17 12/09/2024 12/09/2024 Document scribed by Jayce Oliver, Genetics Teacher. I was present during interview and exam. I have reviewed and agree with above documentation. Dr. Mateus Glover. Reviewed recent lab with pt, explained kidneys and liver appear well right now, likely not the cause of his issue. Likely having allergic rxn to med, or house substance ( detergent, soap), or side effect of a med. Pt to stop Spironolactone and Pepcid AC, start OTC Loratadine, [email or web address] Not available 12/09/2024 16:41:21 Plan of Treatment Reminders Order Date Submit Date Provider Last Modified By Organization Details Last Modified Time Details Appointments None recorded. Lab CMP, serum or plasma [address] [facility], [address], [address], 17:37:16 CBC [address] [facility], [address], [address], 17:37:16 C-reactive protein, quantitativ e, serum or plasma 2024 025 [facility], [address] [place] [address], [facility] [address] [place], [address], 07:17:29 ESR (erythrocyt e sedimentati on rate), blood [address] ([facility]), [address] [place], [address], 17:37:16 lipase, serum or plasma 2024 025 [facility], [address] [place] [address], [facility] [address] [place], [address], 07:17:29 amylase, serum or plasma 2024 025 [facility], [address] [facility] [address] [place], [address], 07:17:29 Referral None recorded. Procedures None recorded. Surgeries None recorded. Imaging None recorded. Medication Orders loratadine 10 mg tablet 2024 025 [email or web address] [facility]/Pharmacy #[id number], [address], [address], [place], [address], 16:48:34 clindamycin HCl 300 mg capsule 2024 025 [facility]/Pharmacy #[id number], [address], [address], [place], [address], 16:19:27 fluconazole 150 mg tablet 2024 025 [facility]/Pharmacy #[id number], [address], [address], [place], [address], 16:22:41 terbinafine HCl 1 % topical cream 2024 025 [email or web address] [facility]/Pharmacy #[id number], [address], [address], [place], [address], 17:37:16 allopurinol 200 mg tablet 2024 025 [facility]/Pharmacy #[id number], [address], [address], [place], [address], 5 05:02:03 escitalopra m 10 mg tablet 2024 025 [email or web address] [facility]/Pharmacy #[id number], [address], [address], [place], [address], 16:22:31 Patient TargetsNo targets recorded. Patient InstructionsNo instructions recorded. Reason for Referral None Reported. Results Created Date Observation Date Name Description Value Unit Range Abnormal Flag Note LastModifiedBy Organization Detail LastModifiedTime 11/28/1911/27/2024 CBC WBC 12.8 x10 4.5-10 .5 high Not Available [facility] [address] [facility], [place], [address], 11/27/2024 11:34:35 11/28/1911/27/2024 CBC RBC 4.63 x10 4.30-5 .90 Not Available [facility] [address] [facility], [place], [address], 11/27/2024 11:34:35 11/28/1911/27/2024 CBC HGB 14.1 g/dL 13.5-1 8.0 Not Available [facility] [address] [facility], [place], [address], 11/27/2024 11:34:35 11/28/1911/27/2024 CBC HCT 43.5 % 35.0-6 0.0 Not Available [facility] [address] [facility], [place], [address], 11/27/2024 11:34:35 11/28/1911/27/2024 CBC MCV 94.0 fL 80.0-9 9.9 Not Available [facility] [address] [facility], [place], [address], 11/27/2024 11:34:35 11/28/1911/27/2024 CBC MCH 30.4 pg 27.0-3 2.0 Not Available [facility] [address] [facility], [place], [address], 11/27/2024 11:34:35 11/28/1911/27/2024 CBC MCHC 32.3 g/dL 32.0-3 6.0 Not Available [facility] [address] [facility], [place], [address], 11/27/2024 11:34:35 11/28/1911/27/2024 CBC RDW 13.3 % 11.5-1 4.5 Not Available [facility] [address] [facility] [place], [address], 11/27/2024 11:34:35 11/28/1911/27/2024 CBC plt 238.5 x10 150.0- 451.0 Not Available [facility] [address] [facility], [place], [address], 11/27/2024 11:34:35 11/28/1911/27/2024 CBC lymphocytes % 6.5 % 20.0-5 0.0 low Not Available [facility] [address] [facility] [address], [place], [address], 11/27/2024 11:34:35 11/28/1911/27/2024 CBC granulcytes % 87.9 % 30.0-7 0.0 high Not Available [facility] [address] [facility] [address], [place], [address], 11/27/2024 11:34:35 11/28/1911/27/2024 CBC monocytes % 3.6 % 2.0-16 .0 Not Available [facility] [address] [facility] [address], [place], [address], 11/27/2024 11:34:35 11/28/1911/27/2024 CBC granulcytes# 11.3 x10 Not Joslyn ilable [facility] [address] [facility] [place], [address], 11/27/2024 11:34:35 11/28/19 25 11/27/2024 CBC lymphocytes # 0.8 x10 Not Available [facility] [address] [facility] [address], [place], [address], 11/27/2024 11:34:35 11/28/19 25 11/27/2024 CBC monocytes # 0.5 x10 Not Avai lable [facility] [address] [facility] [address], [place], [address], 11/27/2024 11:34:35 11/28/19 25 11/27/2024 CMP (MALE ) glucose 91.0 mg/dL 60.0-9 9.0 Not Available [facility] [address] [address], [place], [address], 11/27/2024 11:57:43 11/28/19 25 11/27/2024 CMP (MALE ) BUN (blood urea nitrogen) 18.0 mg/dL 10.0-2 6.0 Not Available [facility] [address] [facility], [place], [address], 11/27/2024 11:57:43 11/28/19 25 11/27/2024 CMP (MALE ) creatinine (serum) 1.5 mg/dL 0.4-1. 5 Not Available [facility] [address] [address], [place], [address], 11/27/2024 11:57:43 11/28/19 25 11/27/2024 CMP (MALE ) BUN/creatini ne ratio 12.00 ratio Not Available [facility] [address] [facility] [address], [place], [address], 11/27/2024 11:57:43 11/28/19 25 11/27/2024 CMP (MALE ) eGFR calculated 49.9 Not Available [facility] [address] [facility] [address], [place], [address], 11/27/2024 11:57:43 11/28/19 25 11/27/2024 CMP (MALE ) total protein 8.0 g/dL 6.0-8. 5 Not Available [facility] [address] [facility], [place], [address], 11/27/2024 11:57:43 11/28/19 25 11/27/2024 CMP (MALE ) total bilirubin 1.3 mg/dL 0.2-1. 3 Not Available [facility] [address] [facility] [address], [place], [address], 11/27/2024 11:57:43 11/28/19 25 11/27/2024 CMP (MALE ) albumin 4.1 g/dL 3.5-5. 5 Not Available [facility] [address] [facility] [address], [place], [address], 11/27/2024 11:57:43 11/28/1911/27/2024 CMP (MALE ) globulin 3.9 calc Not Available [facility] [address] [facility] [address], [place], [address], 11/27/2024 11:57:43 11/28/19 25 11/27/2024 CMP (MALE ) AST (SGOT) 30.0 U/L 0.0-46 .0 Not Available [facility] [address] [facility] [address], [place], [address], 11/27/2024 11:57:43 11/28/19 25 11/27/2024 CMP (MALE ) altv (SGPT) 64.0 U/L 13.0-6 9.0 normal Not Available [facility] [address] [facility], [place], [address], 11/27/2024 11:57:43 09/1011/27/2024 CMP (MALE ) A/G ratio 1.1 ratio Not Available [facility] [address] [facility] [address], [place], [address], 11/27/2024 11:57:43 11/28/1911/27/2024 CMP (MALE ) ALP phos 330.0 U/L 30.0-1 40.0 abnormal Not Available [facility] [address] [facility], [place], [address], 11/27/2024 11:57:43 11/28/19 25 11/27/2024 CMP (MALE ) calcium 9.2 mg/dL 8.4-10 .5 Not Available [facility] [address] [facility], [place], [address], 11/27/2024 11:57:43 11/28/19 25 11/27/2024 CMP (MALE ) sodium 140.0 mmol/ L 136.0- 145.0 Not Available [facility] [address] [facility] [address], [place], [address], 11/27/2024 11:57:43 11/28/19 25 11/27/2024 CMP (MALE ) potassium 3.9 mmol/ L 3.5-5. 1 Not Available [facility] [address] [facility] [address], [place], [address], 11/27/2024 11:57:43 11/28/1911/27/2024 CMP (MALE ) chloride 105.0 mmol/ L 98.0-1 10.0 normal Not Available [facility] [address] [facility], [place], [address], 11/27/2024 11:57:43 11/28/19 25 11/27/2024 CMP (MALE ) C02 26.0 mmol/ L 22.0-3 1.0 Not Available [facility] [address] [facility] [address], [place], [address], 11/27/2024 11:57:43 11/28/19 25 11/27/2024 CMP (MALE ) anion gap 9.0 calc Not Available [facility] [address] [facility] [address], [place], [address], 11/27/2024 11:57:43 11/28/19 25 11/27/2024 CMP (MALE ) osmolality 290.6 calc Not Available [facility] [address] [facility] [address], [place], [address], 11/27/2024 11:57:43 11/28/19 25 11/28/2024 C-DAVID CTIVE PROTE IN C-reactive protein 97.9 mg/L <8.0 high Not Available [facility] [address] [place], [address], 11/28/2024 07:17:28 11/28/1911/28/2024 AMYLA SE amylase 45 U/L 21-101 normal Not Available [facility] [address] [place], [address], 11/28/2024 07:17:29 11/28/1911/28/2024 LIPAS E lipase 114 U/L 7-60 high Not Available [facility] [address] [place], [address], 11/28/2024 07:17:29 11/28/1911/27/2024 ESR (eryt hrocy te sedim entat ion rate) , blood SedRate 35 Not Available [facility] ([facility] [address] [place], [address], 11/27/2024 10:56:15 Result Notes None recorded. Problems Name Problem SNOMED Code Status Onset Date Resolution Date Notes Provider Name and Address Organization Details Recorded Time [facility] 05780748 Active 2022 Mateus Glover DO [address] [place] [address], [address] , [facility]CKenny 5 08:16:17 Benign hypertensi on 33883226 Active 2022 Jayce baez, [facility], [facility].L[facility]CKenny 5 12:22:35 Pulmonary edema 39272915 Active 2022 Not Available [facility] 4 07:52:43 Acute on chronic diastolic heart failure 886337966 Active 2022 Mateus Glover, [address], [address] , [facility].CKenny 5 08:16:17 Herpes zoster 7437250 Active 2022 Not Available [facility] 4 07:52:43 Chronic diastolic heart failure 098500063 Active 2022 Not Available [facility] 4 07:52:43 Chronic atrial flutter 066424143 Active 2022 Not Available [facility] 4 07:52:43 Pseudocyst of pancreas 815263471 Active 2022 Not Available [facility] 4 07:52:43 Cirrhosis of liver 53807066 Active 2022 Mateus Glover [address], [address] , [facility] 5 08:16:17 Dyspnea 361369931 Active 2022 Princess baez [facility] 5 12:14:34 Edema 254446343 Active 2022 Mateus Glover DO [address] [place] [address], [address] , [facility] 5 08:16:17 Congestive heart failure 43252029 Completed 202212/20/2023 Jayce Brizuelakofi sasha, [facility] 4 12:48:27 Acute bronchitis 32707790 Active 2023 Princess Pamella baez, [facility] 5 12:14:25 Candidiasi s of skin 96380978 Active 2023 Princess baez [facility] 5 12:14:29 Type 2 diabetes mellitus 56184375 Active 2023 Mateus Glover [address], [address] , [facility] 5 08:16:17 Obstructiv e sleep apnea syndrome 15436707 Active 2023 Mateus Glover [address], [address] , [facility] 5 08:16:17 Itching of skin 665544353 Active 2023 Princess baez [facility] 5 12:15:36 Chronic kidney disease 264986809 Active 2023 Mateus Glover [address], [address] , [facility] 5 08:16:17 Gastroesop hageal reflux disease 501834518 Active 2023 Mateus Glover [address], [address] , [facility] 5 08:16:17 Chronic obstructiv e pulmonary disease 44589560 Active 2023 Mateus Glover [address], [address] , [facility] 5 08:16:17 Chronic pancreatit is 481724839 Active 2024 Jayce baez [facility] 5 12:25:40 Moderate recurrent major depression 07204437 Active 2024 Jayce baez [facility] 5 12:40:47 Depressive disorder 15413002 Active [address], [address] , [facility] 5 00:27:12 Wound of skin 728781643 Active [address], [address] , [facility] 5 00:27:13 Problem Notes None recorded. Medical Equipment None Reported. Allergies Allergen ID Allergen Name Allergen Category Reaction Reaction Severity Criticality Documentation Date Start Date Code Code System Note Provider Name and Address Organization Details Recorded Time 51731 Celebrex medicatio n hives mild low 10/15/2022 37104 7 RxNorm Britt Jimenez [facility] 4 16:18:55 14271 Levaquin medicatio n Not available Not available Not available 11/14/2022 63528 2 RxNorm ELISA MENJIVAR [facility] 3 13:59:14 978 doxycycli ne Not available Not available Not available Not available 06/21/2022 3640 RxNorm ERIC MARISOL [facility] 3 15:19:55 979 amoxicill in medicatio n Not available Not available Not available 06/21/2022 723 RxNorm ERIC DAMON [facility] 3 15:20:01 980 celecoxib medicatio n Not available Not available Not available 06/21/2022 66713 7 RxNojonh DAMON [facility] 3 15:20:14 981 chlorhexi dine medicatio n Not available Not available Not available 06/21/2022 2358 RxNorm ERIC DAMON [facility] 3 15:20:33 982 Substance with sulfonami de structure and antibacte rial mechanism of action (substanc e) medicatio n Not available Not available Not available 06/21/2022 44099 8003 SNOMED ERIC DAMON [facility] 3 15:20:39 983 furosemid e medicatio n Not available Not available Not available 06/21/2022 4603 RxNojonh DAMON [facility] 3 15:20:55 Medications Name Sig Start Date Stop Date Status Note LastModified by Organization Details LastModified Time cyclobenz aprine 10 mg tablet 3 times a day as needed for muscle pain and spasm 08/15 completed Recorded 04/21/19 23 9:52AM by Elisa Delarosa, Office Visit; Refill Quantity : 45; Tablet; Not Available Not Available Not Available metolazon e 2.5 mg tablet 08/15 completed Not Available Not Available Not Available terbinafi ne HCl 1 % topical cream APPLY TO THE AFFECTED AND SURROUND ING AREAS OF SKIN BY TOPICAL ROUTE ONCE DAILY active Not Available Not Available No t Available doxycycli ne hyclate 100 mg capsule 09/12 completed Not Available Not Available Not Available torsemide 20 mg tablet TAKE 1/2 TABLET BY MOUTH DAILY 12/09 completed Not Available Not Available Not Available clindamyc in HCl 300 mg capsule TAKE 1 CAPSULE BY MOUTH FOUR TIMES A DAY FOR 10 DAYS 12/09 completed Not Available Not Available Not Available Normal Saline Flush 0.9 % injection syringe FLUSH WITH 5ML OF NS ONCE DAILY 12/09 completed Not Available Not Available Not Available fluconazo le 150 mg tablet TAKE 1 TABLET BY MOUTH EVERY DAY FOR FUNGAL INFECTIO N. 12/09 completed Not Available Not Available Not Available metoprolo l succinate ER 50 mg tablet,ex tended release 24 hr Take 1 tablet 3 times a day by oral route. 08/15 completed Not Available Not Available Not Available hydrocodo ne 5 mg-acetam inophen 325 mg tablet TAKE 2 TABLETS BY MOUTH EVERY 6 HOURS NEEDED FOR MILD PAIN X5 DAYS 12/09 completed Not Available Not Available Not Available ondansetr on HCl 4 mg tablet TAKE 1 TABLET BY MOUTH THREE TIMES A DAY NEEDED FOR NAUSEA FOR 45 DAYS 11/15 completed Not Available Not Available Not Available prednison e 20 mg tablet 09/12 completed Not Available Not Available Not Available metolazon e 5 mg tablet Take 1 tablet every day by oral route for 30 days. 09/12 completed Not Available Not Available Not Available triamcino lone acetonide 0.5 % topical ointment APPLY A THIN LAYER TO AFFECTED AREA(S) TWICE A DAY 09/12 completed Not Available Not Available Not Available potassium chloride ER 10 mEq tablet,ex tended release TAKE 1 TABLET BY MOUTH EVERY DAY FOR 30 DAYS 08/15 completed Not Available Not Available Not Available allopurin ol 100 mg tablet TAKE 2 TABLETS BY MOUTH EVERY DAY FOR 10 DAYS 12/09 completed Not Available Not Available Not Available ciproflox acin 500 mg tablet TAKE 1 TABLET BY MOUTH EVERY DAY FOR 5 DAYS 06/26 completed Not Available Not Available Not Available sildenafi l 25 mg tablet Take 1 tablet every day by oral route as directed . 08/15 completed Not Available Not Available Not Available simvastat in 40 mg tablet daily 08/15 completed Recorded 08/15/19 09 4:28PM by Leticia Mullen LPN, Office Visit; Not Available Not Available Not Available amoxicill in 875 mg tablet TAKE 1 TABLET BY MOUTH TWICE A DAY TILL GONE 06/14 completed Not Available Not Available Not Available tamsulosi n 0.4 mg capsule TAKE 1 CAPSULE BY MOUTH TWICE A DAY FOR 90 DAYS active Not Available Not Available No t Available linezolid 600 mg tablet TAKE 1 TABLET BY MOUTH EVERY 12 HOURS FOR 10 DAYS 07/24 completed Not Available Not Available Not Available gemfibroz il 600 mg tablet daily 08/15 completed Recorded 08/15/19 4:27PM by Leticia Mullen LPN, Office Visit; Not Available Not Available Not Available pantopraz ole 40 mg tablet,de layed release TAKE 1 TABLET BY MOUTH EVERY DAY 08/15 completed Not Available Not Available Not Available triamcino lone acetonide 0.1 % topical ointment APPLY TOPICALL Y TO AFFECTED AREAS TWICE A DAY FOR 2 WEEKS. 08/15 completed Not Available Not Available Not Available nystatin 100,000 unit/gram topical cream APPLY TO AFFECTED AREA TWICE A DAY NEEDED 08/15 completed Not Available Not Available Not Available metoprolo l tartrate 50 mg tablet TAKE 1 TABLET BY MOUTH THREE TIMES A DAY 2024 active Once daily Not Available Not Available Not Available docusate sodium 100 mg capsule TAKE 1 CAPSULE BY MOUTH TWICE A DAY 12/09 completed Not Available Not Available Not Available hydroxyzi ne HCl 25 mg tablet TAKE 1 TABLET BY MOUTH AT BEDTIME FOR 30 DAYS NEEDED FOR ANXIETY 08/15 completed Not Available Not Available Not Available allopurin ol 300 mg tablet daily 04/03 completed Recorded 08/15/19 09 4:26PM by Leticia Mullen LPN, Office Visit; Not Available Not Available Not Available hydralazi ne 50 mg tablet TAKE 1 TABLET BY MOUTH 3 TIMES A DAY 04/17 completed Not Available Not Available Not Available hydrochlo rothiazid e 25 mg tablet daily 08/15 completed Recorded 08/15/19 09 4:26PM by Leticia Mullen LPN, Office Visit; Not Available Not Available Not Available furosemid e 20 mg tablet TAKE 1 TABLET BY MOUTH EVERY DAY 08/15 completed Not Available Not Available Not Available levofloxa yara 500 mg tablet Take 1 tablet every 24 hours by oral route for 10 days. 04/10 completed Not Available Not Available Not Available albuterol sulfate HFA 90 mcg/actua tion aerosol inhaler INHALE 2 PUFFS BY MOUTH EVERY 4 HOURS NEEDED 08/15 completed Not Available Not Available Not Available ondansetr on 4 mg disintegr ating tablet DISSOLVE 1 TABLET IN MOUTH EVERY 8 HOURS FOR 10 DAYS 12/09 completed Not Available Not Available Not Available cefdinir 300 mg capsule take 1 capsule BY MOUTH EVERY TWELVE HOURS for 5 days 06/26 completed Not Available Not Available Not Available finasteri de 5 mg tablet TAKE 1 TABLET BY MOUTH EVERY DAY 08/15 completed Not Available Not Available Not Available loratadin e 10 mg tablet Take 1 tablet every day by oral route for 30 days. 2024 active Not Available Not Available Not Avai lable spironola ctone 50 mg tablet TAKE 1 TABLET BY MOUTH EVERY DAY IN THE MORNING 12/09 completed Not Available Not Available Not Available oxycodone 5 mg tablet TAKE 1 TABLET EVERY 6 HOURS NEEDED FOR PAIN DO NOT OPERATE HEAVY MACHINER Y OR MIX WITH ALCOHOL 06/14 completed Not Available Not Available Not Available ergocalci ferol (vitamin D2) 1,000 unit tablet Take 1 tablet every day by oral route. 12/09 completed Not Available Not Available Not Available escitalop juan 10 mg tablet TAKE 1 TABLET BY MOUTH EVERY DAY FOR 90 DAYS, FOR MOOD. 12/09 completed Not Available Not Available Not Available dutasteri de 0.5 mg capsule TAKE 1 CAPSULE BY MOUTH EVERY DAY 08/15 completed Not Available Not Available Not Available Novolog FlexPen U-100 Insulin aspart 100 unit/mL (3 mL) subcutane ous INJECT 20 UNITS PLUS SLIDING SCALE SUBCUTAN EOUSLY 3 TIMES A DAY BEFORE MEALS MAX 100 UNITS PER DAY 06/10 completed Not Available Not Available Not Available Pepcid AC 20 mg tablet Take 1 tablet every day by oral route. 12/09 completed Not Available Not Available Not Available hydroxyzi ne HCl as needed 04/17 completed 88466; Recorded 04/21/19 9:52AM by Elisa Delarosa (Authori olivia through Mateus Glover DO), Office Visit; Refill Quantity : 0; Not Available Not Available Not Available metoprolo l tartrate 3 times a day 06/14 completed Recorded 02/02/20 23 9:52AM by Elisa Delarosa, Office Visit; Refill Quantity : 90; Tablet; Not Available Not Available Not Available furosemid e twice a day as needed for swelling 04/17 completed Recorded 04/21/19 23 11:02AM by Mateus Glover DO, Office Visit; Refill Quantity : 60; Tablet; Not Available Not Available Not Available hydralazi ne three times daily 04/17 completed 14338; Recorded 05/31/19 23 3:29PM by Estela Harry (Authori zed through Wade Sharma MD), Refill Request; Refill Quantity : 90; Tablet; Not Available Not Available Not Available quinapril daily 08/15 completed Recorded 08/15/19 09 4:27PM by Leticia Mullen LPN, Office Visit; Not Available Not Available Not Available sildenafi l as needed 06/14 completed [id number]; Recorded 05/31/19 23 3:29PM by Estela Harry (Authori zed through Wade Sharma MD), Refill Request; Refill Quantity : 0; Not Available Not Available Not Available metolazon e as needed 06/14 completed 54307; Recorded 05/31/19 23 3:29PM by Estela Harry (Authori zed through Wade Sharma MD), Refill Request; Refill Quantity : 0; Not Available Not Available Not Available Mucinex DM q 12 hours 08/15 completed Recorded 10/13/19 22 11:08AM by Elisa Delarosa, Office Visit; Refill Quantity : 0; Not Available Not Available Not Available Levemir FlexPen 100 unit/mL (3 mL) solution subcutane ous insulin pen INJECT 30 UNITS UNDER THE SKIN DAILY, MAX 60 UNITS/DA Y 06/10 completed Not Available Not Available Not Available BD Ultra-Fin e Deanna Pen Needle 32 gauge x /32 active Not Available Not Available Not Available Suprep Bowel Prep Kit 17.5 gram-3.13 gram-1.6 gram oral solution FOLLOWIN G directio ns provided by clinic 06/26 completed Not Available Not Available Not Available Novolog PenFill U-100 Insulin 08/15 completed Not Available Not Available Not Available Creon 36,000 unit-114, 000 unit-180, 000 unit capsule,d elayed release TAKE 2 CAPSULES BY MOUTH BEFORE MEALS active Not Available Not Available No t Available Levemir FlexTouch U100 Insulin 08/15 completed Not Available Not Available Not Available Stiolto Respimat 2.5 mcg-2.5 mcg/actua tion solution for inhalatio n INHALE 2 PUFFS BY MOUTH EVERY DAY 06/10 completed Not Available Not Available Not Available Tresiba FlexTouch U-200 insulin 200 unit/mL (3 mL) subcutane ous pen INJECT 80 UNITS SUBCUTAN EOUSLY DAILY TITRATE UP TO 120 UNITS active Not Available Not Available No t Available FreeStyle Deana 14 Day Sensor kit USE 4 TIMES DAILY TO CHECK BLOOD SUGARS active Not Available Not Available No t Available Trelegy Ellipta 200 mcg-62.5 mcg-25 mcg powder for inhalatio n TAKE 1 PUFF BY MOUTH EVERY DAY 08/15 completed Not Available Not Available Not Available FreeStyle Deana 3 Sensor device USE TO CHECK CONTINUO USLY active Not Available Not Available No t Available allopurin ol 200 mg tablet Take 1 tablet every day by oral route for 10 days. 09/30 completed Not Available Not Available Not Available Ultra-Fin e Pen Needle 31 gauge x 3/16 USE TO INJECT INSULIN 4 TO 5 TIMES DAILY E11.65 active Not Available Not Available No t Available Vitals Date Recorded Body height Body mass index (BMI) Body weight Oxygen saturation Heart rate Respiratory rate Systolic And Diastolic Provider Name and Address Organization Details Last Updated DateTime 5 177.8 cm 34.5 kg/m2 704894. 87 g 99 % 85 /min 20 /min 110/68 mm[Hg] Princess Can [facility] 5 12:15:53 Date Recorded Body height Body mass index (BMI) Body weight Oxygen saturation Heart rate Respiratory rate Systolic And Diastolic Provider Name and Address Organization Details Last Updated DateTime 5 177.8 cm 35.5 kg/m2 140389. 12 g 98 % 86 /min 18 /min 110/70 mm[Hg] Princess Can [facility] 5 11:46:52 Date Recorded Body height Body mass index (BMI) Body weight Oxygen saturation Heart rate Body temperature Systolic And Diastolic Provider Name and Address Organization Details Last Updated DateTime 5 177.8 cm 36 kg/m2 323852. 68 g 99 % 76 /min 97.6 [degF] 128/74 mm[Hg] Tatiana Jacob [facility] 5 08:56:36 Date Recorded Body height Body mass index (BMI) Body weight Oxygen saturation Heart rate Respiratory rate Systolic And Diastolic Provider Name and Address Organization Details Last Updated DateTime 5 177.8 cm 36.3 kg/m2 478056. 87 g 98 % 71 /min 18 /min 122/64 mm[Hg] Princess Can [facility] 5 10:22:30 Date Recorded Body height Body mass index (BMI) Body weight Oxygen saturation Heart rate Respiratory rate Systolic And Diastolic Provider Name and Address Organization Details Last Updated DateTime 5 177.8 cm 36.5 kg/m2 265812. 56 g 94 % 90 /min 18 /min 136/80 mm[Hg] Princess Can [facility] 5 16:20:47 Social History Question Answer Notes LastModified by [employer] Details LastModified Time Tobacco Smoking Status Never Smoker Princess Can sasha [facility] 11/16/2023 10:04:13 What Was The Date Of Your Most Recent Tobacco Screening? 09/13/2024 [email or web address] Information not available 09/13/2024 What Is Your Relationship Status? [email or web address] Information not available 12/20/2023 Sex: Unknown Functional Status Question Answer Note LastModified by [employer] Details LastModified Time Do you use any illicit or recreational drugs? No [email or web address] Information not available 06/21/2022 Do you or have you ever used any other forms of tobacco or nicotine? No [email or web address] Information not available 06/21/2022 What is your level of alcohol consumption? None [email or web address] Information not available 06/21/2022 Mental Status None recorded. Family History Relationship Description Onset Age of this Age Resolved Age Notes LastModified by Organization Details LastModified Time Father No current problems or disability [email or web address] Not available 06/2022 15:39:32 Mother No current problems or disability [email or web address] Not available 06/2022 15:39:32 Notes:Diabetes-father, broth er, [place]/CAD- father, Leukemia- father, Hypertension, HTN- mother,father, Arthritis, Colon Cancer, Hypercholesterolemia, Cancer, Heart disease in male family member before age 55, Diabetes Mellitus Medical History No medical history recorded. Immunizations Vaccine Type Date Status Note Provider Nam e and Address Organization Details Recorded Time Td(adult) unspecified formulation 2 completed Not Available [facility] 10/15/2022 02:52:02 Tdap 2 completed Princess baez [facility] 08/16/2023 09:55:33 Influenza, split virus, quadrivalent, PF 2 completed Princess baez [facility] 08/16/2023 09:55:33 Influenza, split virus, trivalent, preservative 4 completed Not Available [facility] 12/09/2024 16:12:50 RSV, recombinant, protein subunit RSVpreF, adjuvant reconstituted, 0.5 mL, PF 4 completed Not Available [facility] 12/09/2024 16:12:50 Influenza, MDCK, trivalent, PF 4 completed Not Available [facility] 12/09/2024 16:12:50 Pneumococcal conjugate PCV20, polysaccharide [id number] conjugate, adjuvant, PF 4 completed Not Available [facility] 12/09/2024 16:12:50 Past Encounters Encounter ID Performer Location Encounter Start Date Encounter Closed Date Diagnosis/Indication Diagnosis SNOMED-CT Code Diagnosis ICD10 Code Diagnosis IMO Codes Diagnosis Note [id number] Mateus Glover DO [facility] ([facility]) [address] [place] [address] 06/21/2022 14:30:42 06/28/2022 21:17:06 Dyspnea on exertion 18980608 R06.09 Edema of l ower extremity 799788155 R60.0 worsening. with heart failure. pt does not tolerate loop diuretics. will start spironolac tone. counseled Chronic pancreatitis 235 143595 K86.1 will get labs to determine if this is contributi ng to symptoms. counseled [id number] Mateus Glover DO [facility] ([facility]) [address] [place] [address] 07/13/2022 10:27:52 07/13/2022 20:32:23 Dyspnea 737484155 R06.00 Pulmonary edema 14507199 J81.1 Chronic sy stolic heart failure 614680418 I50.22 start back on torsemide. pt reports he tolerates this despite question of allergy.co unseled on concerns for CHF flair vs cirrhosis. will get labs and get records of ECHO, and send to to his hepatologi . Herpes zoster 5677912 B0 2.9 present for 1-2 mts. topical steroids. I counseled the patient on diagnosis, treatment options, medication s, and expectatio ns. All questions were addresssed . They were instructed to call the office or come in for Follow Up with any questions, concerns, or worsening problems. Acute on c hronic diastolic heart failure 943703581 I50.33 start tosemide for 7 days. monitor weight, breathing. consider doubling torsemide if no improvemen t in 2 days. Return to office with no improvemen t or any problems. Go to ER with severe worsening or severe problems. Chronic di astolic heart failure 484479954 I50.32 05/12/22 EHCO:CONCL USIONSNorm al left ventricula r size and systolic function, EF 65%.Segmen chiki wall motion analysis difficult, since there is noapical views.No gross wall motion abnormalit ies based on the parasterna lviews.Mil dly increased left atrial size.Right atrium not well visualized .Mild mitral annular calcificat ion. Trace mitral valveregur gitation.T here is no pericardia l effusion.T echnically difficult study since there is no apical views+++++ ++++++++++ + [id number] Mateus Glover DO [facility] ([facility]) [address] [place] [address] 07/28/2022 14:09:32 07/28/2022 18:55:45 Chronic diastolic heart failure 677763110 I50.32 acute worsening, will need to have pt start back on torsemide 20mg every single day and the 1/2 tab of metolozone . continue spironolac tone, consider entresto. start KCL daily.will send to cardiology . ==== 3 EHCO:CONCL USIONS Normal left ventricula r size and systolic function, EF 65%. Segmental wall motion analysis difficult, since there is no apical views. No gross wall motion abnormalit ies based on the parasterna l views. Mildly increased left atrial size. Right atrium not well visualized . Mild mitral annular calcificat ion. Trace mitral valve regurgitat ion. There is no pericardia l effusion. Technicall y difficult study since there is no apical views ++++++++++ ++++++ [id number] Mateus Glover DO [facility]) [address] [place] [address] 08/16/2022 15:22:41 08/16/2022 20:02:44 Pseudocyst of pancreas 146251653 K86.3 concern for fistula vs flair. pt has f/u with Dr. Sr at [facility] next week.pt has f/u imaging next week at [facility] as well. will get labs in 2 days. Chronic di astolic heart failure 907462647 I50.32 acute worsening, will need to have pt start back on 1/2 dose torsemide 20mg every single day and the 1/2 tabspirono lactone, when weight starts increasein g. Pt to monitor weight closely. consider ==== 3 EHCO:CONCL USIONS Normal left ventricula r size and systolic function, EF 65%. Segmental wall motion analysis difficult, since there is no apical views. No gross wall motion abnormalit ies based on the parasterna l views. Mildly increased left atrial size. Right atrium not well visualized . Mild mitral annular calcificat ion. Trace mitral valve regurgitat ion. There is no pericardia l effusion. Technicall y difficult study since there is no apical views ++++++++++ ++++++ Cirrhosis of liver 007 K74.60 acute worsening, I reviewed recent hospital records as above.symp toms improved. will get f/u labs. [id number] Mateus Glover DO [facility] ([facility]) [address] [place] [address] 09/12/2022 16:40:47 09/12/2022 19:33:22 Edema 733898138 R60.9 recurrent fluid overload. unclear if cardiac or hepatic. pt to keep fu with GI and cardiology .will have pt take spironolac tone every single AM. prn torsemide 20mg with metolazone 2.5mg, and 10meg KCL. pt to monitor weight and symptoms. Congestive heart failure 10432842 I50.9 presumed. pt needs cardiology eval. Ins will not cover [facility] cardiology , will send to [facility] as his other specialist s are there.will have pt take spironolac tone every single AM. prn torsemide 20mg with metolazone 2.5mg, and 10meg KCL. pt to monitor weight and symptoms. Chronic di astolic heart failure 033106548 I50.32 ====05/12/ 3 EHCO:CONCL USIONS Normal left ventricula r size and systolic function, EF 65%. Segmental wall motion analysis difficult, since there is no apical views. No gross wall motion abnormalit ies based on the parasterna l views. Mildly increased left atrial size. Right atrium not well visualized . Mild mitral annular calcificat ion. Trace mitral valve regurgitat ion. There is no pericardia l effusion. Technicall y difficult study since there is no apical views ++++++++++ ++++++ Chronic at rial flutter 750553697 I48.92 [id number] Mateus Glover DO [facility] ([facility]) [address] [place] [address] 11/10/2022 10:42:50 11/10/2022 13:23:11 Dysuria 40124789 R30.0 Benign pro static hyperplasia with outflow obstruction 177703983 N40.1 Acute urin javier tract infection 503928640 N39.0 Chronic di astolic heart failure 157657824 I50.32 ==== 3 EHCO:CONCL USIONS Normal left ventricula r size and systolic function, EF 65%. Segmental wall motion analysis difficult, since there is no apical views. No gross wall motion abnormalit ies based on the parasterna l views. Mildly increased left atrial size. Right atrium not well visualized . Mild mitral annular calcificat ion. Trace mitral valve regurgitat ion. There is no pericardia l effusion. Technicall y difficult study since there is no apical views ++++++++++ ++++++ Cirrhosis of liver 007 K74.60 acute worsening, I reviewed recent hospital records as above.symp toms improved. will get f/u labs. [id number] Mateus Glover DO [facility] ([facility]) [address] [place] [phone] 04/03/2023 11:23:57 04/03/2023 16:21:33 Chronic atrial flutter 289472413 I48.92 stable. continue with metoprolol and cardiology . Chronic di astolic heart failure 044869376 I50.32 continue metoprolol , torsemide. continue with cardiology . He will continue to monitor weight and SOB. counseled on diet, fluids. ==== 3 EHCO:CONCL USIONS Normal left ventricula r size and systolic function, EF 65%. Segmental wall motion analysis difficult, since there is no apical views. No gross wall motion abnormalit ies based on the parasterna l views. Mildly increased left atrial size. Right atrium not well visualized . Mild mitral annular calcificat ion. Trace mitral valve regurgitat ion. There is no pericardia l effusion. Technicall y difficult study since there is no apical views ++++++++++ ++++++ Benign hypertension 1072 5009 I10 improved. continue metoprolol . spironolac tone, hydralazin e. Gout 53802352 M10.9 stable. counseled Candidiasis of skin 4988 3006 B37.2 counseled oun [employer], start nystatin powder. Acute bronchitis 9980468 2 J20.9 prn albuterol. Return to office with no improvemen t or any problems. Go to ER with severe worsening or severe problems. Type 2 lilo betes mellitus 93026756 E11.69 E11.59 E11.42 E11.22 Pt is on long acting and short acting insulin. followed by Endocrinol deirdre. counseled on glucose control, diet, weight. continue care with specialist . [id number] Mateus Glover DO [facility] ([facility]) [address] [place] [address] 04/17/2023 14:05:43 04/17/2023 15:28:28 Chronic diastolic heart failure 844198236 I50.32 currently stable. continue metoprolol , torsemide. continue with cardiology . He will continue to monitor weight and SOB. counseled on diet, fluids. ==== 3 EHCO:CONCL USIONS Normal left ventricula r size and systolic function, EF 65%. Segmental wall motion analysis difficult, since there is no apical views. No gross wall motion abnormalit ies based on the parasterna l views. Mildly increased left atrial size. Right atrium not well visualized . Mild mitral annular calcificat ion. Trace mitral valve regurgitat ion. There is no pericardia l effusion. Technicall y difficult study since there is no apical views ++++++++++ ++++++ Acute on c hronic diastolic heart failure 021995806 I50.33 stablized. continue torsemide and care with cardiology Benign hypertension 1072 5009 I10 improved. continue metoprolol . spironolac tone. stay off hydralazin e for now. [id number] Mateus Glover DO [facility] ([facility]) [address] [place] [address] 06/15/2023 11:19:21 06/16/2023 22:54:06 Chronic diastolic heart failure 840216372 I50.32 currently stable. continue metoprolol , torsemide. continue with cardiology . He will continue to monitor weight and SOB. counseled on diet, fluids.Has follow-up with what sounds like an angiogram scheduled early July ==== 3 EHCO:CONCL USIONS Normal left ventricula r size and systolic function, EF 65%. Segmental wall motion analysis difficult, since there is no apical views. No gross wall motion abnormalit ies based on the parasterna l views. Mildly increased left atrial size. Right atrium not well visualized . Mild mitral annular calcificat ion. Trace mitral valve regurgitat ion. There is no pericardia l effusion. Technicall y difficult study since there is no apical views ++++++++++ ++++++ Benign hypertension 1072 5009 I10 improved. continue metoprolol . spironolac tone. stay off hydralazin e for now. Type 2 lilo betes mellitus 85059001 E11.69 E11.59 E11.42 E11.22 Pt is on long acting and short acting insulin. followed by Endocrinol deirdre. counseled on glucose control, diet, weight. continue care with specialist . [id number] Mateus Glover DO [facility] ([facility]) [address] [place] [address] 08/16/2023 09:36:53 08/16/2023 13:07:17 Chronic diastolic heart failure 850701655 I50.32 currently stable. continue metoprolol , torsemide. continue with cardiology . He will continue to monitor weight and SOB. counseled on diet, fluids. ==== 3 EHCO:CONCL USIONS Normal left ventricula r size and systolic function, EF 65%. Segmental wall motion analysis difficult, since there is no apical views. No gross wall motion abnormalit ies based on the parasterna l views. Mildly increased left atrial size. Right atrium not well visualized . Mild mitral annular calcificat ion. Trace mitral valve regurgitat ion. There is no pericardia l effusion. Technicall y difficult study since there is no apical views ++++++++++ ++++++ Benign hypertension 1072 5009 I10 Monitor BP regularly at home, continue metoprolol . spironolac tone. stay off hydralazin e for now. Type 2 lilo betes mellitus 67957959 E11.69 E11.59 E11.42 E11.22 Pt is on long acting and short acting insulin. followed by Endocrinol deirdre. counseled on glucose control, diet, weight. continue care with specialist . Pseudocyst of pancreas 459486531 K86.3 08/16/23- Recent CT pancreas, fluid around it, continue seeing [facility], planning repeat CT in 2-3 months. Obstructiv e sleep apnea syndrome 08079427 G47.33 Sleep study Spring 2023 with [facility], planning to start CPAP, using HOME. Seeing Dr. Davey with [facility]. [id number] Mateus Glover DO [facility] ([facility]) [address] [place] [phone] 09/27/2023 08:05:49 09/27/2023 09:58:07 Cirrhosis of liver 04579143 K74.60 09/27/23- recently with abnormal LFT's on lab with [facility], will obtain these records for review, repeat lab today. Edema 565906960 R60.9 09/27/23- weight gain 10 lbs in one week, counseled take Torsemide 1 whole tablet daily for the next 3 days, then he can resume his 1/2 tablet. Continue Spironolac tone. Lab today. Obstructiv e sleep apnea syndrome 39916265 G47.33 09/27/23- tolerating CPAP. [id number] Mateus Glover DO [facility] ([facility]) [address] [place] [phone] 11/16/2023 09:56:08 11/16/2023 12:09:55 Cirrhosis of liver 06993246 K74.60 11/16/23: Liver enzymes elevated in September. We will repeat labs today. Counseled patient. He currently does not have abdominal pain or jaundice.- recently with abnormal LFT's on lab with [facility], will obtain these records for review, repeat lab today. Edema 001338657 R60.9 Improved. Continue to monitor weight daily. Continue spironolac tone and one half tab of torsemide daily. Obstructiv e sleep apnea syndrome 16808957 G47.33 Pt is compliant with CPAP, wearing more than 6hrs/night and missing less than 1 night/90da ys. I counseled on REBEKA, CPAPs, and sleep hygeine. Itching of skin 63131213 0 L29.9 Possibly secondary to his liver issues. We can try loratadine over-the-c ounter daily for a few weeks. Type 2 lilo betes mellitus 42646913 E11.69 E11.59 E11.42 E11.22 Pt is on long acting and short acting insulin. followed by Endocrinol deirdre. counseled on glucose control, diet, weight. continue care with specialist . [id number] Mateus Glover DO [facility] ([facility]) [address] [place] [phone] 02/29/2024 10:16:58 03/10/2024 08:49:26 Pseudocyst of pancreas 081207819 K86.3 08/16/23- Recent CT pancreas, fluid around it, continue seeing [facility], planning repeat CT in 2-3 months. Cirrhosis of liver 13572 007 K74.60 11/16/23: Liver enzymes elevated in September. We will repeat labs today. Counseled patient. He currently does not have abdominal pain or jaundice.- recently with abnormal LFT's on lab with [facility], will obtain these records for review, repeat lab today. [id number] Mateus Glover DO [facility] ([facility]) [address] [place] [address] 03/06/2024 12:42:42 03/06/2024 18:01:16 Abdominal pain 27996794 R10.9 03/06/24- lab and CT w/wo contrast. [id number] Mateus Glover DO [facility] ([facility]) [address] [place] [address] 5 06/10/2024 08:02:58 06/10/2024 08:49:36 Chronic diastolic heart failure 369330430 I50.32 concern for dehydratio n: stop torsemide for now. monitor closely ==== 3 EHCO:CONCL USIONS Normal left ventricula r size and systolic function, EF 65%. Segmental wall motion analysis difficult, since there is no apical views. No gross wall motion abnormalit ies based on the parasterna l views. Mildly increased left atrial size. Right atrium not well visualized . Mild mitral annular calcificat ion. Trace mitral valve regurgitat ion. There is no pericardia l effusion. Technicall y difficult study since there is no apical views ++++++++++ ++++++ Pseudocyst of pancreas 070734917 K86.3 06/10/24: I am concerned he has either another intra-abd infection and becoming septic or her pancreatic drain is not working properly. Pt to go to [facility] today, this AM. either Dr. Sr's office or [facility] ER. His will call Dr. Sr's office first thing. story: He had pancreatic duct stent placed and removed a few wks later in Jan, [address] Valdivia at [facility]. He then became septic and required hospitaliz ation again for IV abx in Feb. Dr. Sr placed a buttermaker pancreatic drain along with another, larger stent about 1 mt ago. [id number] Mateus Glover DO [facility] ([facility]) [address] [place] [address] 06/26/2024 12:02:26 06/27/2024 14:31:23 Chronic diastolic heart failure 704360603 I50.32 concern for dehydratio n: stop torsemide for now. monitor closely ==== 3 EHCO:CONCL USIONS Normal left ventricula r size and systolic function, EF 65%. Segmental wall motion analysis difficult, since there is no apical views. No gross wall motion abnormalit ies based on the parasterna l views. Mildly increased left atrial size. Right atrium not well visualized . Mild mitral annular calcificat ion. Trace mitral valve regurgitat ion. There is no pericardia l effusion. Technicall y difficult study since there is no apical views ++++++++++ ++++++ Chronic at rial flutter 009633598 I48.92 stable. continue with metoprolol and cardiology . Type 2 lilo betes mellitus 12111825 E11.69 E11.59 E11.42 E11.22 Pt is on long acting and short acting insulin. followed by Endocrinol deirdre. counseled on glucose control, diet, weight. continue care with specialist . Benign hypertension 1072 5009 I10 Monitor BP regularly at home, continue metoprolol . spironolac tone. stay off hydralazin e for now. Cirrhosis of liver 007 K74.60 11/16/23: Liver enzymes elevated in September. We will repeat labs today. Counseled patient. He currently does not have abdominal pain or jaundice.- recently with abnormal LFT's on lab with [facility], will obtain these records for review, repeat lab today. Chronic ki dney disease [id number] N18.9 monitoring renal function. Chronic ob structive pulmonary disease [id number] J44.9 Cough and breathing have been stable. Tolerating inhalers. No acute exacerbati on. Counseled patient on triggers and use of inhalers. No changes to medication s. Gastroesop hageal reflux disease [id number] K21.9 Stable, continues Pepcid. Gout [id number] M10.9 stable. counseled. no chronic meds Chronic pancreatitis [id number] K86.1 curently no flair. counseled on s/s and action plan. counseled on diet Depressive disorder [id number] F32.A 06/26/24: situations , r/t health, counseled start Escitalopr am 10mg daily. Counseled on diagnosis, treatment options including medication s and possible side effects. Wound of skin [id number] T14.8XXD 06/26/24: wound healing well, continue with nursing dressing changes twice weekly, f/u with Surgeon next week as scheduled. Moderate r ecurrent major depression [id number] F33.1 06/26/24: situations , r/t health, counseled start Escitalopr am 10mg daily. Counseled on diagnosis, treatment options including medication s and possible side effects. [id number] Mateus Glover DO [facility] ([facility]) [address] [place] [address] [phone] 5 07/24/2024 10:50:28 09/05/2024 16:26:34 Type 2 diabetes mellitus [id number] E11.69 E11.59 E11.42 E11.22 Pt is on long acting and short acting insulin. followed by Endocrinol deirdre. counseled on glucose control, diet, weight. continue care with specialist . He had lantus lowered to 72 units due to low glucose. [id number] MELVA LANDRUM [facility] ([facility]) [address] [place] [address] [phone] 5 09/13/2024 08:48:05 09/13/2024 09:13:12 Gouty arthritis of right wrist [id number] M10.9 [id number] Discussed use of allopurino l. No injury or signs of infection as cause. Pt to f/u if he develops fever, worsening symptoms, red streaking, or concerns arise. [id number] Mateus Glover DO [facility] ([facility]) [address] [place] [address] [phone] 5 11/27/2024 09:56:55 12/10/2024 08:06:01 Candidiasis [id number] B37.9 [id number] Counseled will treat with oral and topical antifungal Local infe ction of wound [id number] T14.8XXA L08.9 [id number] 11/27/24: Advised pt contact [place] and update them on the amount of purulent drainage he is experienci ng, they may want to address this sooner than his next appt on 12/05/24. Will treat with abx, I want to prevent Sepsis. Reviewed allergies, will treat with Clindamyci n, spouse confirms he does ok on this. Will also draw lab today. [id number] Mateus Glover DO [facility] ([facility]) [address] [place] [address] [phone] 5 12/09/2024 16:12:33 12/18/2024 13:18:52 Contact dermatitis [id number] L25.9 [id number] 12/09/24: Reviewed recent lab with pt, explained kidneys and liver appear well right now, likely not the cause of his issue. Likely having allergic rxn to med, or house substance ( detergent, soap), or side effect of a med.Pt to stop Spironolac tone and Pepcid AC, start OTC Loratadine . Health Concerns Section Related Observation LastModified by Organization Detai ls LastModified Time None Recorded Concern Status LastModified by Organization Details LastModified Time None Recorded Advance Directives Directive None Recorded Payers Insurance Date Sequence Insurance Name Policy Number Policy Brooke Covered Member ID Brooke Member ID Guarantor Name 09/13/2024 1 [place] [id number] Clay Alberts [id number] Clay Alberts 11/26/2024 1 [place] Clay Alberts [id number] Clay Alberts 11/26/2024 [place] - [facility] (MEDICARE) Clay Alberts [id number] Clay Alberts 09/13/2024 1 [employer] (EPO) [id number] Clay Alberts [id number] Clay Alberts 12/18/2024 2 [place]MEDICARE SUPPLEMENT) [id number] Clay Alberts [id number] Clay Alberts 09/13/2024 1 [facility] (E[facility] Clay Alberts [id number] Clay Alberts Notes Date Note Type Note Provider Name and Address Organization Details Recorded Time 06/26/2024 text/html ROS as noted in the HPI Pt presents for recheck He had surgery on his back for cyst removal on 06/18/[address] Sr, f/u scheduled in one week. He is taking tylenol for his pain. He rates his pain at 7/10He did not receive any abtHe believes he is healing well, reports there is some green in there, the nurse comes out twice weekly to change dressing, has told pt he is doing well, nothing to worry about. Having some clear drainage. Having some chills, no fever. He still has ALAN drain in place, was told it is nearly ready to remove. He has coughing and sinus drainage for a month He c/o problems sleeping was unable to sleep until 5 am this morning Bp has been ranging from 108/77 to 139/85, is 110/68 in clinic this am.Continues Metoprolol 50mg TID, Spironolactone 50mg daily, Torsemide 10mg daily. Continues seeing Dr. Roque for Endocrinology.Report s his DM is doing well. He admits mood is down some r/t health lately, tearful in clinic this am. Mateus Glover, DO [address] [place] [address], [phone], [facility] 07/24/2024 00:27:26 07/24/2024 text/html ROS as noted in the HPI Pt presents for recheck on mood and sleep He was started on escitalopram on 07/16 and he admits that he has not been taking all the time. He feels that he just has some bad days and is doing good overall He has been taking a sleep aid from [email or web address] as needed and has been sleeping goodHe has been without his cpap for over a week for it to be repaired and states that he slept better when he had it Last he had the spot on his back removed and he is doing ok. He still continues with runny nose and cough for cpl months and has not resolved after taking abt tx Mateus Glover, DO [address] [place] [address], [phone], [facility] 09/04/2024 23:30:07 09/13/2024 text/html ROS as noted in the HPI walk inx2 days swelling to right wrist without injury. Pt states he's had gout before but it's always in his ankle/toes. The wrist pain feels just like gout. denies fever. The wrist is red, swollen, and painful. States allupurinol has worked in the past. MELVA LANDRUM [address] [place], [phone], [facility]. 09/14/2024 08:15:30 11/27/2024 text/html ROS as noted in the HPI Pt presents for skin problem He has itchy discolorations to both axilla, this has been present for 1 month. He has itchy rash on both arms and legs that he can no get rid of No new meds/ vitamins/ supplements/ soaps/ detergents. He also c/o diarrhea this am and fever that started on Sat, 4 days ago.He has lost 4lbs the last 2-3 days. He had his drain removed last week on Mon of last week, he has some bumps around the site that he thinks is d/t the adhesive. He has significant purulent drainage at site.He goes back on 12/05 to have ERCP and stent changedNot currently on abx. He reports DM has been pretty good. Glucose is 79 in clinic this am. Mateus Glover DO [address] [place] [address], [phone], [facility] 12/09/2024 16:31:44 12/09/2024 text/html ROS as noted in the HPI Pt presents for itching. He continues with itching and starting with rash on chest.He is taking Benadryl but not resolving the itching He is concerned it may be from one of his medications We treated with Fluconazole and Terbinafine, as well as Clindamycin on 11/27/24. He has been using these. He admits he didn't notice much difference when he took the Fluconazole. Continues Spironolactone. Continues Pepcid AC, not having any issues with acid reflux. Mateus Glover DO [address] [place], [phone], [facility] 12/17/2024 18:56:13
--- OUTSIDE RECORDS SUMMARY | 2025-02-10 23:11 | XMS_ITS | Encounter Summary ---
Author Organization [facility] Address [address] [place] [address] Care Team Providers Care Sports Clerk Name Role Phone Unavailable Primary Care Provider Unavailabl e Encounter Details Date Type Department Care Team (Late st Contact Info) Description 05/01/2018 Lab Requisition [facility] Laboratory Services [address] [place] [address] Karen Austin MD [address] [place] [address] Social History Tobacco Use Types Packs/Day Years Used Date Smoking Tobacco: Never Assessed Sex and Gender Information Value Date Recorded Sex Assigned at Not on file Legal Sex Male 12:46 AM INDUSTRIAL RELATIONS SPECIALIST Gender Identity Not on file Sexual Orientation Not on file documented as of this encounter Plan of Treatment Not on file documented as of this encounter Procedures Procedure Name Priority Date/Time Associated Diagnosis Comments MAGNESIUM LEVEL Stat 05/01/2018 3:15 AM INDUSTRIAL RELATIONS SPECIALIST BASIC METABOLIC PANEL Stat 05/01/2018 3:15 AM INDUSTRIAL RELATIONS SPECIALIST documented in this encounter Results * MAGNESIUM LEVEL (05/01/2018 3:15 AM INDUSTRIAL RELATIONS SPECIALIST) MAGNESIUM 1.6 1.6 - 2.6 mg/dL 05/01/2018 5:45 AM INDUSTRIAL RELATIONS SPECIALIST [facility] Blood Collection / Unknown 05/01/2018 3:15 AM INDUSTRIAL RELATIONS SPECIALIST 05/01/2018 5:13 AM INDUSTRIAL RELATIONS SPECIALIST Karen Austin MD CHEMISTRY ORDERABLES Leidy l Result [facility] [employer] [facility] CLIA# [id number] [facility]ly [facility] [place] [address] * (ABNORMAL) BASIC METABOLIC PANEL (05/01/2018 3:15 AM [facility]) SODIUM 147(H) 136 - 145 mmol/L 05/01/2018 5:45 AM [facility] POTASSIUM 4.0 3.5 - 5.1 mmol/L 05/01/2018 5:45 AM [facility] CHLORIDE 113(H) 98 - 107 mmol/L 05/01/2018 5:45 AM [facility] CO2 24 22 - 29 mmol/L 05/01/2018 5:45 AM [facility] CALCIUM 8.2(L) 8.6 - 10.0 mg/dL 05/01/2018 5:45 AM [facility] BUN 20 6 - 20 mg/dL 05/01/2018 5:45 AM [facility] CREATININE 1.41(H) 0.67 - 1.17 mg/dL 05/01/2018 5:45 AM [facility] GLUCOSE 53(L) 74 - 99 mg/dL 05/01/2018 5:45 AM [facility] GFR 51(L) >=60 mL/min/1. 73 sq meter 05/01/2018 5:45 AM [facility] Comment: eGFR has not been validated for [...] GFR, >60 >=60 mL/min/1. 73 sq meter 05/01/2018 5:45 AM [facility] ANION GAP 10 9 - 20 mmol/L 05/01/2018 5:45 AM [facility] Blood Collection / Unknown 05/01/2018 3:15 AM INDUSTRIAL RELATIONS SPECIALIST 05/01/2018 5:13 AM INDUSTRIAL RELATIONS SPECIALIST us Karen Austin MD CHEMISTRY ORDERABLES Leidy josé Result [facility] CLIA# [id number] [address] [place] [address] documented in this encounter Visit Diagnoses Not on filedocumented in this encounter
--- OUTSIDE RECORDS SUMMARY | 2025-02-10 23:11 | XMS_ITS | Encounter Summary ---
Author Organization [facility] Address [address] [place] [address] Care Team Providers Care Aerodynamics Engineer Name Role Phone Unavailable Primary Care Provider Unavailabl e Encounter Details Date Type Department Care Team (Late st Contact Info) Description 05/03/2018 Lab Requisition [facility] Laboratory Services [address] [place] [address] Wilmar Haas, DO [address] [place] [address] Social History Tobacco Use Types Packs/Day Years Used Date Smoking Tobacco: Never Assessed Sex and Gender Information Value Date Recorded Sex Assigned at Not on file Legal Sex Male 12:46 AM ORDER EDITOR Gender Identity Not on file Sexual Orientation Not on file documented as of this encounter Plan of Treatment Not on file documented as of this encounter Procedures Procedure Name Priority Date/Time Associated Diagnosis Comments BLOOD CULTURE Stat 05/03/2018 11:30 PM ORDER EDITOR documented in this encounter Results * (ABNORMAL) BLOOD CULTURE (05/03/2018 11:30 PM ORDER EDITOR) BLOOD CULTURE CORYNEBAC TERIUM(A) 05/07/2018 6:54 AM ORDER EDITOR [facility] Comment:This organism isolat ed from one culture only. Susceptibility testing is not routinely performed as this organism frequently represents skin contaminants in blood cultures. If testing is indicated, please contact Microbiology. Blood (Other, specify) Collection / Unknown 05/03/2018 11:30 PM ORDER EDITOR 05/04/2018 12:40 AM ORDER EDITOR Narrative [facility] - 05/07/2018 6:54 AM ORDER EDITOR Positive blood culture called to Anamaria Tony RN [facility] by Jennie Rosa on 05/05/2018 at 2:18 AM with verbal readback. us Wilmar Haas DO MICROBIOLOGY - GENERAL ORDER VANESSA Final Result [facility]# [id number] [address] [place] [address] documented in this encounter Visit Diagnoses Not on filedocumented in this encounter
--- OUTSIDE RECORDS SUMMARY | 2025-02-10 23:11 | XMS_ITS | Encounter Summary ---
Author Organization [facility] Address [address] [place] [address] Care Team Providers Care Inside Polisher Name Role Phone Unavailable Primary Care Provider Unavailabl e Encounter Details Date Type Department Care Team (Late st Contact Info) Description 05/02/2018 Lab Requisition [facility] Laboratory Services [address] [place] [address] Wilmar Haas, DO [address] [place] [address] Social History Tobacco Use Types Packs/Day Years Used Date Smoking Tobacco: Never Assessed Sex and Gender Information Value Date Recorded Sex Assigned at Not on file Legal Sex Male 12:46 AM COGNOS BI DEVELOPER Gender Identity Not on file Sexual Orientation Not on file documented as of this encounter Plan of Treatment Not on file documented as of this encounter Procedures Procedure Name Priority Date/Time Associated Diagnosis Comments BASIC METABOLIC PANEL Stat 05/02/2018 3:00 AM COGNOS BI DEVELOPER documented in this encounter Results * (ABNORMAL) BASIC METABOLIC PANEL (05/02/2018 3:00 AM COGNOS BI DEVELOPER) SODIUM 144 136 - 145 mmol/L 05/02/2018 5:59 AM [facility] LABORATORY [facility] POTASSIUM 3.8 3.5 - 5.1 mmol/L 05/02/2018 5:59 AM COGNOS BI DEVELOPER [facility] CHLORIDE 110(H) 98 - 107 mmol/L 05/02/2018 5:59 AM [facility] CO2 25 22 - 29 mmol/L 05/02/2018 5:59 AM [facility] CALCIUM 8.7 8.6 - 10.0 mg/dL 05/02/2018 5:59 AM [facility] BUN 21(H) 6 - 20 mg/dL 05/02/2018 5:59 AM [facility] CREATININE 1.37(H) 0.67 - 1.17 mg/dL 05/02/2018 5:59 AM [facility] GLUCOSE 39(LL) 74 - 99 mg/dL 05/02/2018 5:59 AM [facility] Comment:Critical value. Resu lts called to Ailin Talbert by FORD SHAIKH at 5:57 AM on 05/02/2018 and read back verified. GFR 53(L) >=60 mL/min/1. 73 sq meter 05/02/2018 5:59 AM [facility] Comment: eGFR has not been validated [...] GFR, >60 >=60 mL/min/1. 73 sq meter 05/02/2018 5:59 AM [facility] ANION GAP 9 9 - 20 mmol/L 05/02/2018 5:59 AM [facility] Blood Collection / Unknown 05/02/2018 3:00 AM COGNOS BI DEVELOPER 05/02/2018 5:14 AM COGNOS BI DEVELOPER us Wilmar Haas DO CHEMISTRY ORDERABLES Final R esult [facility] CLIA# [id number] [facility] [address] documented in this encounter Visit Diagnoses Not on filedocumented in this encounter
--- OUTSIDE RECORDS SUMMARY | 2025-02-10 23:11 | XMS_ITS | Encounter Summary ---
Author Organization [facility] Address [address] [place] [address] Care Team Providers Care Pediatric Orthodontist Name Role Phone Unavailable Primary Care Provider Unavailabl e Encounter Details Date Type Department Care Team (Late st Contact Info) Description 03/19/2018 Lab Requisition [facility] Laboratory [facility] [address] [place] [address] Adriano Ng MD NO ADDRESS ON FILE Social History Tobacco Use Types Packs/Day Years Used Date Smoking Tobacco: Never Assessed Sex and Gender Information Value Date Recorded Sex Assigned at Not on file Legal Sex Male 12:46 AM RESIDENTIAL GREEN BUILDING DESIGNER Gender Identity Not on file Sexual Orientation Not on file documented as of this encounter Plan of Treatment Not on file documented as of this encounter Procedures Procedure Name Priority Date/Time Associated Diagnosis Comments URINALYSIS WITH REFLEX CULTURE Stat 03/19/2018 11:17 PM RESIDENTIAL GREEN BUILDING DESIGNER URINE CULTURE Routine 03/19/2018 11:17 PM RESIDENTIAL GREEN BUILDING DESIGNER documented in this encounter Results * URINE CULTURE (03/19/2018 11:17 PM RESIDENTIAL GREEN BUILDING DESIGNER) CULTURE Polymicrobial growth consistent with normal urethral geovanna and/or colonizing bacteria 03/20/2018 8:48 PM RESIDENTIAL GREEN BUILDING DESIGNER [facility] Urine URINE SPECIMEN OBTAINED BY CLEAN CATCH PROCEDURE / Unknown Collection / Unknown 03/19/2018 11:17 PM RESIDENTIAL GREEN BUILDING DESIGNER 03/20/2018 12:17 AM RESIDENTIAL GREEN BUILDING DESIGNER Adriano Ng MD MICROBIOLOGY - GENERAL ORDERA BLES Final Result [facility] CLIA# [id number] [address] [place] [address] * (ABNORMAL) URINALYSIS WITH REFLEX CULTURE (03/19/2018 11:17 PM RESIDENTIAL GREEN BUILDING DESIGNER) COLOR UA Ashanti(A) Pale to dark yellow 03/20/2018 12:17 AM [facility] CLARITY UA Cloudy(A) Clear 03/20/2018 12:17 AM [facility] SPECIFIC GRAVITY UA 1.019 1.003 - 1.035 03/20/2018 12:17 AM [facility] PH UA 5.0 5.0 - 8.0 03/20/2018 12:17 AM [facility] LEUKOCYTE ESTERASE UA 3+(A) Negative 03/20/2018 12:17 AM [facility] NITRITE UA Negative Negative 03/20/2018 12:17 AM [facility] PROTEIN UA 1+(A) Negative 03/20/2018 12:17 AM [facility] GLUCOSE UA 1+(A) Negative 03/20/2018 12:17 AM [facility] KETONES UA Negative Negative 03/20/2018 12:17 AM [facility] UROBILINOGEN UA <2.0 <2.0 mg/dL 12:17 AM [facility] BILIRUBIN UA Negative Negative 03/20/2018 12:17 AM [facility] BLOOD UA Negative Negative 03/20/2018 12:17 AM [facility] Comment: Ascorbic acid may cause false negative results for blood. A microscopic review was reflexed to rule out this interference. WBC UA 51-100(A) 0 - 2 /hpf 03/20/2018 12:17 AM [facility] RBC UA 0-2 0 - 2 /hpf 03/20/2018 12:17 AM [facility] BACTERIA UA 2+(A) Negative /hpf 03/20/2018 12:17 AM [facility] EPITHELIAL CELLS, URINE 0-5 0 - 5 /hpf 03/20/2018 12:17 AM [facility] TRANSITIONAL EPI 0-2 0 - 2 /hpf 03/20/2018 12:17 AM [facility] HYALINE CAST 6-10(A) None Seen, 0-2 /lpf 03/20/2018 12:17 AM [facility] AMORPHOUS CRYSTAL Present(A) Absent 03/20/2018 12:17 AM [facility] WBC CLUMPS Present(A) Absent 03/20/2018 12:17 AM [facility] COMMENT, URINE Mucous: Few 9 12:17 AM [facility] Ascorbic Acid UA Positive(A) Negative 03/20/2018 12:17 AM [facility] Urine URINE SPECIMEN OBTAINED BY CLEAN CATCH PROCEDURE / Unknown Collection / Unknown 03/19/2018 11:17 PM RESIDENTIAL GREEN BUILDING DESIGNER 03/20/2018 12:02 AM RESIDENTIAL GREEN BUILDING DESIGNER Narrative [facility] - 03/20/2018 12:17 AM RESIDENTIAL GREEN BUILDING DESIGNER Based on results, a urine culture has been reflexed. Adriano Ng MD URINE ORDERABLES Final Result [facility] CLIA# [id number] [address] [place] [address] documented in this encounter Visit Diagnoses Not on filedocumented in this encounter
--- OUTSIDE RECORDS SUMMARY | 2025-02-10 23:11 | XMS_ITS | Encounter Summary ---
Author Organization [facility] Address [address] [place] [address] Care Team Providers Care Web Marketing Analyst Name Role Phone Unavailable Primary Care Provider Unavailabl e Encounter Details Date Type Department Care Team (Late st Contact Info) Description 03/16/2018 Lab Requisition [facility] Laboratory Services [address] [place] [address] Eulalia Carter MD [address] [place] [address] Social History Tobacco Use Types Packs/Day Years Used Date Smoking Tobacco: Never Assessed Sex and Gender Information Value Date Recorded Sex Assigned at Not on file Legal Sex Male 12:46 AM SILK SNAPPER Gender Identity Not on file Sexual Orientation Not on file documented as of this encounter Plan of Treatment Not on file documented as of this encounter Procedures Procedure Name Priority Date/Time Associated Diagnosis Comments BASIC METABOLIC PANEL Stat 03/16/2018 4:30 AM SILK SNAPPER documented in this encounter Results * (ABNORMAL) BASIC METABOLIC PANEL (03/16/2018 4:30 AM SILK SNAPPER) SODIUM 131(L) 136 - 145 mmol/L 03/16/2018 6:20 AM [facility] LABORATORY [facility] POTASSIUM 4.3 3.5 - 5.1 mmol/L 03/16/2018 6:20 AM SILK SNAPPER [facility] CHLORIDE 89(L) 98 - 107 mmol/L 03/16/2018 6:20 AM [facility] CO2 25 22 - 29 mmol/L 03/16/2018 6:20 AM [facility] CALCIUM 8.9 8.6 - 10.0 mg/dL 03/16/2018 6:20 AM [facility] Trinean [facility] BUN 45(H) 6 - 20 mg/dL 03/16/2018 6:20 AM [facility] CREATININE 4.22(H) 0.67 - 1.17 mg/dL 03/16/2018 6:20 AM [facility] GLUCOSE 166(H) 74 - 99 mg/dL 03/16/2018 6:20 AM [facility] GFR 15(L) >=60 mL/min/1. 73 sq meter 03/16/2018 6:20 AM [facility] Comment: eGFR has not [...] please refer to the GFR result. GFR, 18(L) >=60 mL/min/1. 73 sq meter 03/16/2018 6:20 AM [facility] ANION GAP 17 9 - 20 mmol/L 03/16/2018 6:20 AM [facility] Blood Collection / Unknown 03/16/2018 4:30 AM SILK SNAPPER 03/16/2018 5:21 AM SILK SNAPPER us Eulalia Carter MD CHEMISTRY ORDERABLES Final Resul t [facility] CLIA# [id number] [facility] [place] [address] documented in this encounter Visit Diagnoses Not on filedocumented in this encounter
--- OUTSIDE RECORDS SUMMARY | 2025-02-10 23:11 | XMS_ITS | Encounter Summary ---
Author Organization [facility] Address [address] [place] [address] Care Team Providers Care Ground Support Agent Name Role Phone Unavailable Primary Care Provider Unavailabl e Encounter Details Date Type Department Care Team (Late st Contact Info) Description 03/26/2018 Lab Requisition [facility] Laboratory Services [address] [place] [address] [place] [address] Eulalia Carter MD [address] [place] [address] Social History Tobacco Use Types Packs/Day Years Used Date Smoking Tobacco: Never Assessed Sex and Gender Information Value Date Recorded Sex Assigned at Not on file Legal Sex Male 12:46 AM PRIVATE SECRETARY Gender Identity Not on file Sexual Orientation Not on file documented as of this encounter Plan of Treatment Not on file documented as of this encounter Procedures Procedure Name Priority Date/Time Associated Diagnosis Comments HEMOGLOBIN A1C Stat 03/26/2018 3:00 AM PRIVATE SECRETARY COMPREHENSIVE METABOLIC PANEL Stat 03/26/2018 3:00 AM PRIVATE SECRETARY documented in this encounter Results * HEMOGLOBIN A1C (03/26/2018 3:00 AM PRIVATE SECRETARY) HEMOGLOBIN A1C 5.4 4.0 - 6.0 % 03/26/2018 10:48 AM PRIVATE SECRETARY [facility] EST. AVG GLUCOSE, A1C 108 mg/dL 03/26/2018 10:48 AM PRIVATE SECRETARY [facility] Blood Collection / Unknown 03/26/2018 3:00 AM PRIVATE SECRETARY 03/26/2018 4:54 AM PRIVATE SECRETARY Narrative [facility] - 03/26/2018 10:48 AM PRIVATE SECRETARY HGB A1C INTERPRETATION NORMAL: <5.7% PRE-DIABETES: 5.7 - 6.4% DIABETES: 6.5% OR GREATER us Eulalia Carter MD CHEMISTRY ORDERABLES Final Resul t [facility] CLIA# [id number] [address] [place] [address] * (ABNORMAL) COMPREHENSIVE METABOLIC PANEL (03/26/2018 3:00 AM PRIVATE SECRETARY) SODIUM 134(L) 136 - 145 mmol/L 03/26/2018 5:30 AM [facility] POTASSIUM 4.1 3.5 - 5.1 mmol/L 03/26/2018 5:30 AM [facility] CHLORIDE 89(L) 98 - 107 mmol/L 03/26/2018 5:30 AM [facility] CO2 25 22 - 29 mmol/L 03/26/2018 5:30 AM [facility] CALCIUM 9.4 8.6 - 10.0 mg/dL 03/26/2018 5:30 AM [facility] BUN 94(H) 6 - 20 mg/dL 03/26/2018 5:30 AM [facility] CREATININE 4.77(H) 0.67 - 1.17 mg/dL 03/26/2018 5:30 AM [facility] GLUCOSE 151(H) 74 - 99 mg/dL 03/26/2018 5:30 AM [facility] TOTAL PROTEIN 6.8 6.4 - 8.3 g/dL 03/26/2018 5:30 AM [facility] ALBUMIN 2.9(L) 3.5 - 5.2 g/dL 03/26/2018 5:30 AM [facility] BILIRUBIN TOTAL 0.5 0.2 - 1.0 mg/dL 03/26/2018 5:30 AM [facility] ALKALINE PHOSPHATASE 126 40 - 129 U/L 03/26/2018 5:30 AM [facility] AST 17 10 - 50 U/L 03/26/2018 5:30 AM [facility] ALT 26 <=50 U/L 03/26/2018 5:30 AM [facility] GFR 13(L) >=60 mL/min/1. 73 sq meter 03/26/2018 5:30 AM [facility] Comment: eGFR has not been validated [...] please refer to the GFR result. GFR, 15(L) >=60 mL/min/1. 73 sq meter 03/26/2018 5:30 AM [facility] ANION GAP 20 9 - 20 mmol/L 03/26/2018 5:30 AM [facility] Blood Collection / Unknown 03/26/2018 3:00 AM PRIVATE SECRETARY 03/26/2018 4:52 AM PRIVATE SECRETARY us Eulalia Carter MD CHEMISTRY ORDERABLES Final Resul t [facility] CLIA# [id number] [address] [place] [id number] documented in this encounter Visit Diagnoses Not on filedocumented in this encounter
--- OUTSIDE RECORDS SUMMARY | 2025-02-10 23:11 | XMS_ITS | Clinical Summary ---
Author Organization [facility] Address [address] [place] [address] Phone Care Team Providers Care Java Web Engineer Name Role Phone Unavailable Primary Care Provider Unavailabl e Social History Tobacco Use Types Packs/Day Years Used Date Smoking Tobacco: Never Assessed Sex and Gender Information Value Date Recorded Sex Assigned at Not on file Legal Sex Male 12:46 AM STAFF CONSULTANT Gender Identity Not on file Sexual Orientation Not on file Plan of Treatment Health Maintenance Due Date Last Done Comments DTAP/TDAP/TD VACCINES (1 - Tdap) 1978 COLORECTAL SCREENING 2004 Colorectal Cancer Screening 2004 FIT-DNA Q 3 years 2004 FIT/FOBT Q 1 year 2004 Flex Sig/CT Colonography Q 5 years 2004 PNEUMOCOCCAL VACCINE 50+ YEARS (1 of 1 - PCV) 04/12/19 10 ZOSTER VACCINE (1 of 2) 2009 INFLUENZA VACCINE (#1) 2024 RSV VACCINE (60+ or ) (1 - 1-dose 75+ series) 2034
--- OUTSIDE RECORDS SUMMARY | 2025-02-10 23:11 | XMS_ITS | Encounter Summary ---
Author Organization [facility] Address [address] [place] [address] Care Team Providers Care Ancillary Services Manager Therapy Name Role Phone Unavailable Primary Care Provider Unavailabl e Encounter Details Date Type Department Care Team (Late st Contact Info) Description 04/26/2018 Lab Requisition [facility] Laboratory Services [address] [place] [address] [place] [address] Karen Austin MD [address] [place] [address] Social History Tobacco Use Types Packs/Day Years Used Date Smoking Tobacco: Never Assessed Sex and Gender Information Value Date Recorded Sex Assigned at Not on file Legal Sex Male 12:46 AM EYEGLASS LENS GENERATOR Gender Identity Not on file Sexual Orientation Not on file documented as of this encounter Plan of Treatment Not on file documented as of this encounter Procedures Procedure Name Priority Date/Time Associated Diagnosis Comments MAGNESIUM LEVEL Stat 04/26/2018 3:45 AM EYEGLASS LENS GENERATOR BASIC METABOLIC PANEL Stat 04/26/2018 3:45 AM EYEGLASS LENS GENERATOR documented in this encounter Results * (ABNORMAL) MAGNESIUM LEVEL (04/26/2018 3:45 AM EYEGLASS LENS GENERATOR) MAGNESIUM 1.5(L) 1.6 - 2.6 mg/dL 04/26/2018 5:48 AM EYEGLASS LENS GENERATOR [facility] [employer] [facility] Blood Collection / Unknown 04/26/2018 3:45 AM EYEGLASS LENS GENERATOR 04/26/2018 5:09 AM EYEGLASS LENS GENERATOR Karen Austin MD CHEMISTRY ORDERABLES Leidy l Result [facility] CLIA# [id number] [address] [place] [address] * (ABNORMAL) BASIC METABOLIC PANEL (04/26/2018 3:45 AM EYEGLASS LENS GENERATOR) SODIUM 146(H) 136 - 145 mmol/L 04/26/2018 5:48 AM [facility] POTASSIUM 3.6 3.5 - 5.1 mmol/L 04/26/2018 5:48 AM [facility] CHLORIDE 111(H) 98 - 107 mmol/L 04/26/2018 5:48 AM [facility] CO2 23 22 - 29 mmol/L 04/26/2018 5:48 AM [facility] CALCIUM 8.6 8.6 - 10.0 mg/dL 04/26/2018 5:48 AM [facility] BUN 23(H) 6 - 20 mg/dL 04/26/2018 5:48 AM [facility] CREATININE 1.82(H) 0.67 - 1.17 mg/dL 04/26/2018 5:48 AM [facility] GLUCOSE 83 74 - 99 mg/dL 04/26/2018 5:48 AM [facility] GFR 38(L) >=60 mL/min/1. 73 sq meter 04/26/2018 5:48 AM [facility] Comment: eGFR has not been validated for [...] please refer to the GFR result. GFR, 47(L) >=60 mL/min/1. 73 sq meter 04/26/2018 5:48 AM [facility] ANION GAP 12 9 - 20 mmol/L 04/26/2018 5:48 AM [facility] Blood Collection / Unknown 04/26/2018 3:45 AM EYEGLASS LENS GENERATOR 04/26/2018 5:09 AM EYEGLASS LENS GENERATOR us Karen Austin MD CHEMISTRY ORDERABLES Leidy josé Result [facility] CLIA# [id number] [address] [place] [id number] documented in this encounter Visit Diagnoses Not on filedocumented in this encounter
--- OUTSIDE RECORDS SUMMARY | 2025-02-10 23:11 | XMS_ITS | Encounter Summary ---
Author Organization [facility] Address [address] [place] [address] Care Team Providers Care Secret Service Agent Name Role Phone Unavailable Primary Care Provider Unavailabl e Encounter Details Date Type Department Care Team (Late st Contact Info) Description 03/26/2018 Lab Requisition [facility] Laboratory Services [address] [place] [address] [place] [address] Eulalia Carter MD [address] [place] [address] Social History Tobacco Use Types Packs/Day Years Used Date Smoking Tobacco: Never Assessed Sex and Gender Information Value Date Recorded Sex Assigned at Not on file Legal Sex Male 12:46 AM RECRUITMENT ADVERTISING MANAGER Gender Identity Not on file Sexual Orientation Not on file documented as of this encounter Plan of Treatment Not on file documented as of this encounter Procedures Procedure Name Priority Date/Time Associated Diagnosis Comments CBC WITH DIFFERENTIAL Stat 03/26/2018 3:00 AM RECRUITMENT ADVERTISING MANAGER documented in this encounter Results * (ABNORMAL) CBC WITH DIFFERENTIAL (03/26/2018 3:00 AM RECRUITMENT ADVERTISING MANAGER) WBC 9.0 4.8 - 10.8 K/uL 03/26/2018 4:59 AM RECRUITMENT ADVERTISING MANAGER [facility] RBC 2.84(L) 4.60 - 6.20 M/uL 03/26/2018 4:59 AM RECRUITMENT ADVERTISING MANAGER [facility] HEMOGLOBIN 8.3(L) 14.0 - 18.0 g/dL 03/26/2018 4:59 [address] RECRUITMENT ADVERTISING MANAGER [facility] HEMATOCRIT 27.2(L) 41.0 - 53.0 % 03/26/2018 4:59 AM RECRUITMENT ADVERTISING MANAGER [facility] MCV 95.8 84.0 - 103.0 fL 03/26/2018 4:59 AM [facility] [email or web address] [facility] MCH 29.2 27.0 - 34.0 pg 03/26/2018 4:59 AM [facility] MCHC 30.5 30.0 - 35.0 g/dL 03/26/2018 4:59 AM [facility] RDW 17.9(H) 11.0 - 14.5 % 03/26/2018 4:59 AM [facility] RDW-STDEV 61.1(H) 37.0 - 54.0 fL 03/26/2018 4:59 AM [facility] PLATELETS 328 140 - 440 K/uL 03/26/2018 4:59 AM [facility] MPV 9.8 8.9 - 12.8 fL 03/26/2018 4:59 AM [facility] NEUTROPHILS 72 42 - 75 % 03/26/2018 4:59 AM [facility] LYMPHOCYTES 13(L) 24 - 44 % 03/26/2018 4:59 AM [facility] [email or web address] [facility] MONOCYTES 9 2 - 10 % 03/26/2018 4:59 AM [facility] [email or web address] [facility] EOSINOPHILS 5 0 - 7 % 03/26/2018 4:59 AM [facility] BASOPHILS 1 0 - 1 % 03/26/2018 4:59 AM [facility] IMMATURE GRANULOCYTES 1 0 - 2 % 03/26/2018 4:59 AM [facility] NEUTROPHIL ABSOLUTE 6.52 2.00 - 8.00 K/uL 03/26/2018 4:59 AM [facility] [email or web address] [facility] LYMPHOCYTE ABSOLUTE 1.15(L) 1.20 - 4.00 K/uL 03/26/2018 4:59 AM [facility] [email or web address] [facility] MONOCYTE ABSOLUTE 0.78(H) 0.10 - 0.60 K/uL 03/26/2018 4:59 AM [facility] EOSINOPHIL ABSOLUTE 0.44 0.00 - 0.70 K/uL 03/26/2018 4:59 AM [facility] BASOPHILS ABSOLUTE 0.07 0.00 - 0.20 K/uL 03/26/2018 4:59 AM RECRUITMENT ADVERTISING MANAGER [facility] IMMATURE GRANULOCYTES ABSOLUTE 0.07 0.00 - 0.10 K/uL 03/26/2018 4:59 AM RECRUITMENT ADVERTISING MANAGER [facility] Blood Collection / Unknown 03/26/2018 3:00 AM RECRUITMENT ADVERTISING MANAGER 03/26/2018 4:53 AM RECRUITMENT ADVERTISING MANAGER us Eulalia Carter MD HEMATOLOGY ORDERABLES Final Resu lt [facility] CLIA# [id number] [address] [place] [address] documented in this encounter Visit Diagnoses Not on filedocumented in this encounter
--- OUTSIDE RECORDS SUMMARY | 2025-02-10 23:11 | XMS_ITS | Encounter Summary ---
Author Organization [facility] Address [address] [place] [address] Care Team Providers Care Weld Engineer Name Role Phone Unavailable Primary Care Provider Unavailabl e Encounter Details Date Type Department Care Team (Late st Contact Info) Description 03/12/2018 Lab Requisition [facility] Laboratory Services [address] [place] [address] [place] [address] Tracy Pereira MD NO ADDRESS ON FILE Social History Tobacco Use Types Packs/Day Years Used Date Smoking Tobacco: Never Assessed Sex and Gender Information Value Date Recorded Sex Assigned at Not on file Legal Sex Male 12:46 AM SKIDWAY MAN Gender Identity Not on file Sexual Orientation Not on file documented as of this encounter Plan of Treatment Not on file documented as of this encounter Visit Diagnoses Not on filedocumented in this encounter
--- OUTSIDE RECORDS SUMMARY | 2025-02-10 23:11 | XMS_ITS | Encounter Summary ---
Author Organization [facility] Address [address] [place] [address] Care Team Providers Care Roofing Tile Sorter Name Role Phone Unavailable Primary Care Provider Unavailabl e Encounter Details Date Type Department Care Team (Late st Contact Info) Description 05/09/2018 Lab Requisition [facility] Laboratory Services [address] [place] [address] [place] [address] Wilmar Haas, DO [address] [place] [address] Social History Tobacco Use Types Packs/Day Years Used Date Smoking Tobacco: Never Assessed Sex and Gender Information Value Date Recorded Sex Assigned at Not on file Legal Sex Male 12:46 AM EMBROIDERER HAND Gender Identity Not on file Sexual Orientation Not on file documented as of this encounter Plan of Treatment Not on file documented as of this encounter Procedures Procedure Name Priority Date/Time Associated Diagnosis Comments CBC WITH DIFFERENTIAL Stat 05/09/2018 3:00 AM EMBROIDERER HAND PHOSPHORUS Stat 05/09/2018 3:00 AM EMBROIDERER HAND MAGNESIUM LEVEL Stat 05/09/2018 3:00 AM EMBROIDERER HAND COMPREHENSIVE METABOLIC PANEL Stat 05/09/2018 3:00 AM EMBROIDERER HAND documented in this encounter Results * (ABNORMAL) PHOSPHORUS (05/09/2018 3:00 AM EMBROIDERER HAND) PHOSPHORUS 4.9(H) 2.5 - 4.5 mg/dL 05/09/2018 5:44 AM EMBROIDERER HAND [facility] Blood Collection / Unknown 05/09/2018 3:00 AM EMBROIDERER HAND 05/09/2018 5:07 AM EMBROIDERER HAND Wilmar Haas DO CHEMISTRY ORDERABLES Final R esult Performing Organization Address City/[facility]/ZIP Co de Phone Number [facility] CLIA# [id number] [address] [place] [address] * MAGNESIUM LEVEL (05/09/2018 3:00 AM EMBROIDERER HAND) MAGNESIUM 1.7 1.6 - 2.6 mg/dL 05/09/2018 5:44 AM [facility] Blood Collection / Unknown 05/09/2018 3:00 AM EMBROIDERER HAND 05/09/2018 5:07 AM EMBROIDERER HAND Wilmar Haas DO CHEMISTRY ORDERABLES Final R esult Performing Organization Address [facility] Co de Phone Number [facility] CLIA# [id number] [address] [place] [address] * (ABNORMAL) COMPREHENSIVE METABOLIC PANEL (05/09/2018 3:00 AM EMBROIDERER HAND) SODIUM 145 136 - 145 mmol/L 05/09/2018 5:44 AM [facility] POTASSIUM 5.4(H) 3.5 - 5.1 mmol/L 05/09/2018 5:44 AM [facility] CHLORIDE 110(H) 98 - 107 mmol/L 05/09/2018 5:44 AM [facility] CO2 25 22 - 29 mmol/L 05/09/2018 5:44 AM [facility] CALCIUM 9.0 8.6 - 10.0 mg/dL 05/09/2018 5:44 AM [facility] BUN 24(H) 6 - 20 mg/dL 05/09/2018 5:44 AM [facility] CREATININE 2.24(H) 0.67 - 1.17 mg/dL 05/09/2018 5:44 AM [facility] GLUCOSE 129(H) 74 - 99 mg/dL 05/09/2018 5:44 AM [facility] TOTAL PROTEIN 7.1 6.4 - 8.3 g/dL 05/09/2018 5:44 AM [facility] ALBUMIN 2.9(L) 3.5 - 5.2 g/dL 05/09/2018 5:44 AM [facility] BILIRUBIN TOTAL 0.3 0.2 - 1.0 mg/dL 05/09/2018 5:44 AM [facility] ALKALINE PHOSPHATASE 134(H) 40 - 129 U/L 05/09/2018 5:44 AM [facility] AST 88(H) 10 - 50 U/L 05/09/2018 5:44 AM [facility] ALT 74(H) <=50 U/L 05/09/2018 5:44 AM [facility] GFR 30(L) >=60 mL/min/1. 73 sq meter 05/09/2018 5:44 AM [facility] Comment: eGFR has not been [...] please refer to the GFR result. GFR, 37(L) >=60 mL/min/1. 73 sq meter 05/09/2018 5:44 AM [facility] ANION GAP 10 9 - 20 mmol/L 05/09/2018 5:44 AM [facility] Blood Collection / Unknown 05/09/2018 3:00 AM EMBROIDERER HAND 05/09/2018 5:07 AM [facility] us Wilmar Haas DO CHEMISTRY ORDERABLES Final R esult [facility] CLIA# [id number] [address] [place] [address] * (ABNORMAL) CBC WITH DIFFERENTIAL (05/09/2018 3:00 AM EMBROIDERER HAND) [facility] WBC 14.7(H) 4.8 - 10.8 K/uL 05/09/2018 5:19 AM [facility] RBC 3.15(L) 4.60 - 6.20 M/uL 05/09/2018 5:19 AM [facility] HEMOGLOBIN 9.3(L) 14.0 - 18.0 g/dL 05/09/2018 5:19 AM [facility] HEMATOCRIT 33.0(L) 41.0 - 53.0 % 05/09/2018 5:19 AM [facility] MCV 104.8(H) 84.0 - 103.0 fL 05/09/2018 5:19 AM [facility] MCH 29.5 27.0 - 34.0 pg 05/09/2018 5:19 AM [facility] MCHC 28.2(L) 30.0 - 35.0 g/dL 05/09/2018 5:19 AM [facility] RDW 15.4(H) 11.0 - 14.5 % 05/09/2018 5:19 AM [facility] RDW-STDEV 59.0(H) 37.0 - 54.0 fL 05/09/2018 5:19 AM [facility] PLATELETS 329 140 - 440 K/uL 05/09/2018 5:19 AM [facility] MPV 9.6 8.9 - 12.8 fL 05/09/2018 5:19 AM [facility] NEUTROPHILS 82(H) 42 - 75 % 05/09/2018 5:19 AM [facility] LYMPHOCYTES 10(L) 24 - 44 % 05/09/2018 5:19 AM [facility] [facility] MONOCYTES 6 2 - 10 % 05/09/2018 5:19 AM [facility] EOSINOPHILS 1 0 - 7 % 05/09/2018 5:19 AM [facility] BASOPHILS 1 0 - 1 % 05/09/2018 5:19 AM [facility] IMMATURE GRANULOCYTES 1 0 - 2 % 05/09/2018 5:19 AM [facility] NEUTROPHIL ABSOLUTE 11.95(H) 2.00 - 8.00 K/uL 05/09/2018 5:19 AM [facility] LYMPHOCYTE ABSOLUTE 1.52 1.20 - 4.00 K/uL 05/09/2018 5:19 AM [facility] MONOCYTE ABSOLUTE 0.90(H) 0.10 - 0.60 K/uL 05/09/2018 5:19 AM [facility] EOSINOPHIL ABSOLUTE 0.08 0.00 - 0.70 K/uL 05/09/2018 5:19 AM [facility] BASOPHILS ABSOLUTE 0.10 0.00 - 0.20 K/uL 05/09/2018 5:19 AM [facility] IMMATURE GRANULOCYTES ABSOLUTE 0.10 0.00 - 0.10 K/uL 05/09/2018 5:19 AM [facility] Blood Collection / Unknown 05/09/2018 3:00 AM EMBROIDERER HAND 05/09/2018 5:07 AM EMBROIDERER HAND Wilmar Haas DO HEMATOLOGY ORDERABLES Final Result [facility] CLIA# [id number] [address] [place] [address] documented in this encounter Visit Diagnoses Not on filedocumented in this encounter
--- OUTSIDE RECORDS SUMMARY | 2025-02-10 23:11 | XMS_ITS | Encounter Summary ---
Author Organization [facility] Address [address] [place] [address] Care Team Providers Care Oven Attendant Name Role Phone Unavailable Primary Care Provider Unavailabl e Encounter Details Date Type Department Care Team (Late st Contact Info) Description 04/19/2018 Lab Requisition [facility] Laboratory Services [address] [place] [address] [place] [address] Carissa Monroy MD NO ADDRESS ON FILE Social History Tobacco Use Types Packs/Day Years Used Date Smoking Tobacco: Never Assessed Sex and Gender Information Value Date Recorded Sex Assigned at Not on file Legal Sex Male 12:46 AM BLUEPRINT ASSEMBLER Gender Identity Not on file Sexual Orientation Not on file documented as of this encounter Plan of Treatment Not on file documented as of this encounter Procedures Procedure Name Priority Date/Time Associated Diagnosis Comments CBC WITH DIFFERENTIAL Stat 04/19/2018 3:00 AM BLUEPRINT ASSEMBLER documented in this encounter Results * (ABNORMAL) CBC WITH DIFFERENTIAL (04/19/2018 3:00 AM BLUEPRINT ASSEMBLER) WBC 10.7 4.8 - 10.8 K/uL 04/19/2018 1:51 PM [facility] RBC 3.11(L) 4.60 - 6.20 M/uL 04/19/2018 1:51 PM [facility] HEMOGLOBIN 9.0(L) 14.0 - 18.0 g/dL 04/19/2018 1:51 PM [facility] HEMATOCRIT 30.9(L) 41.0 - 53.0 % 04/19/2018 1:51 PM [facility] MCV 99.4 84.0 - 103.0 fL 04/19/2018 1:51 PM [facility] MCH 28.9 27.0 - 34.0 pg 04/19/2018 1:51 PM [facility] MCHC 29.1(L) 30.0 - 35.0 g/dL 04/19/2018 1:51 PM [facility] RDW 15.2(H) 11.0 - 14.5 % 04/19/2018 1:51 PM [facility] RDW-STDEV 55.4(H) 37.0 - 54.0 fL 04/19/2018 1:51 PM [facility] PLATELETS 295 140 - 440 K/uL 04/19/2018 1:51 PM [facility] MPV 10.2 8.9 - 12.8 fL 04/19/2018 1:51 PM [facility] NEUTROPHILS 82(H) 42 - 75 % 04/19/2018 1:51 PM [facility] LYMPHOCYTES 10(L) 24 - 44 % 04/19/2018 1:51 PM [facility] MONOCYTES 6 2 - 10 % 04/19/2018 1:51 PM [facility] EOSINOPHILS 1 0 - 7 % 04/19/2018 1:51 PM [facility] BASOPHILS 1 0 - 1 % 04/19/2018 1:51 PM [facility] IMMATURE GRANULOCYTES 1 0 - 2 % 04/19/2018 1:51 PM [facility] NEUTROPHIL ABSOLUTE 8.81(H) 2.00 - 8.00 K/uL 04/19/2018 1:51 PM [facility] LYMPHOCYTE ABSOLUTE 1.02(L) 1.20 - 4.00 K/uL 04/19/2018 1:51 PM [facility] MONOCYTE ABSOLUTE 0.67(H) 0.10 - 0.60 K/uL 04/19/2018 1:51 PM [facility] EOSINOPHIL ABSOLUTE 0.07 0.00 - 0.70 K/uL 04/19/2018 1:51 PM [facility] BASOPHILS ABSOLUTE 0.06 0.00 - 0.20 K/uL 04/19/2018 1:51 PM [facility] IMMATURE GRANULOCYTES ABSOLUTE 0.05 0.00 - 0.10 K/uL 04/19/2018 1:51 PM BLUEPRINT ASSEMBLER [facility] Blood Collection / Unknown 04/19/2018 3:00 AM BLUEPRINT ASSEMBLER 04/19/2018 1:46 PM BLUEPRINT ASSEMBLER us Carissa Monroy MD HEMATOLOGY ORDERABLES Final Resu lt [facility] CLIA# [id number] [address] [place] [address] documented in this encounter Visit Diagnoses Not on filedocumented in this encounter
--- OUTSIDE RECORDS SUMMARY | 2025-02-10 23:11 | XMS_ITS | Encounter Summary ---
Author Organization [facility] Address [address] [place] [address] Care Team Providers Care Lining Strap Closer Name Role Phone Unavailable Primary Care Provider Unavailabl e Encounter Details Date Type Department Care Team (Late st Contact Info) Description 03/24/2018 Lab Requisition [facility] Laboratory Services [address] [place] [address] Arturo Simon MD [address] [place] [address] Social History Tobacco Use Types Packs/Day Years Used Date Smoking Tobacco: Never Assessed Sex and Gender Information Value Date Recorded Sex Assigned at Not on file Legal Sex Male 12:46 AM SCUDDING INSPECTOR Gender Identity Not on file Sexual Orientation Not on file documented as of this encounter Plan of Treatment Not on file documented as of this encounter Procedures Procedure Name Priority Date/Time Associated Diagnosis Comments CBC WITH DIFFERENTIAL Stat 03/24/2018 12:35 AM SCUDDING INSPECTOR BASIC METABOLIC PANEL Stat 03/24/2018 12:35 AM SCUDDING INSPECTOR documented in this encounter Results * (ABNORMAL) BASIC METABOLIC PANEL (03/24/2018 12:35 AM SCUDDING INSPECTOR) SODIUM 129(L) 136 - 145 mmol/L 03/24/2018 5:45 AM SCUDDING INSPECTOR [facility] POTASSIUM 4.2 3.5 - 5.1 mmol/L 03/24/2018 5:45 AM SCUDDING INSPECTOR [facility] CHLORIDE 90(L) 98 - 107 mmol/L 03/24/2018 5:45 AM SCUDDING INSPECTOR [facility] CO2 22 22 - 29 mmol/L 03/24/2018 5:45 AM SCUDDING INSPECTOR [facility] CALCIUM 8.7 8.6 - 10.0 mg/dL 03/24/2018 5:45 AM [facility] BUN 50(H) 6 - 20 mg/dL 03/24/2018 5:45 AM [facility] CREATININE 2.74(H) 0.67 - 1.17 mg/dL 03/24/2018 5:45 AM [facility] GLUCOSE 175(H) 74 - 99 mg/dL 03/24/2018 5:45 AM [facility] GFR 24(L) >=60 mL/min/1. 73 sq meter 03/24/2018 5:45 AM [facility] Comment: eGFR has not been validated for [...] please refer to the GFR result. GFR, 29(L) >=60 mL/min/1. 73 sq meter 03/24/2018 5:45 AM [facility] ANION GAP 17 9 - 20 mmol/L 03/24/2018 5:45 AM [facility] Blood Collection / Unknown 03/24/2018 12:35 AM SCUDDING INSPECTOR 03/24/2018 5:02 AM SCUDDING INSPECTOR us Arturo Simon MD CHEMISTRY ORDERABLES Final Result [facility] CLIA# [id number] [address] [place] [address] * (ABNORMAL) CBC WITH DIFFERENTIAL (03/24/2018 12:35 AM SCUDDING INSPECTOR) WBC 10.6 4.8 - 10.8 K/uL 03/24/2018 5:18 AM [facility] RBC 2.44(L) 4.60 - 6.20 M/uL 03/24/2018 5:18 AM [facility] HEMOGLOBIN 7.4(L) 14.0 - 18.0 g/dL 03/24/2018 5:18 AM [facility] HEMATOCRIT 24.2(L) 41.0 - 53.0 % 03/24/2018 5:18 AM [facility] MCV 99.2 84.0 - 103.0 fL 03/24/2018 5:18 AM [facility] MCH 30.3 27.0 - 34.0 pg 03/24/2018 5:18 AM [facility] MCHC 30.6 30.0 - 35.0 g/dL 03/24/2018 5:18 AM [facility] RDW 17.5(H) 11.0 - 14.5 % 03/24/2018 5:18 AM [facility] RDW-STDEV 64.2(H) 37.0 - 54.0 fL 03/24/2018 5:18 AM [facility] PLATELETS 327 140 - 440 K/uL 03/24/2018 5:18 AM [facility] MPV 9.9 8.9 - 12.8 fL 03/24/2018 5:18 AM [facility] NEUTROPHILS 77(H) 42 - 75 % 03/24/2018 5:18 AM [facility] LYMPHOCYTES 10(L) 24 - 44 % 03/24/2018 5:18 AM [facility] MONOCYTES 8 2 - 10 % 03/24/2018 5:18 AM [facility] EOSINOPHILS 3 0 - 7 % 03/24/2018 5:18 AM [facility] BASOPHILS 1 0 - 1 % 03/24/2018 5:18 AM [facility] IMMATURE GRANULOCYTES 1 0 - 2 % 03/24/2018 5:18 AM [facility] NEUTROPHIL ABSOLUTE 8.19(H) 2.00 - 8.00 K/uL 03/24/2018 5:18 AM SCUDDING INSPECTOR [facility] LYMPHOCYTE ABSOLUTE 1.09(L) 1.20 - 4.00 K/uL 03/24/2018 5:18 AM SCUDDING INSPECTOR [facility] MONOCYTE ABSOLUTE 0.87(H) 0.10 - 0.60 K/uL 03/24/2018 5:18 AM SCUDDING INSPECTOR [facility] EOSINOPHIL ABSOLUTE 0.29 0.00 - 0.70 K/uL 03/24/2018 5:18 AM [facility] BASOPHILS ABSOLUTE 0.07 0.00 - 0.20 K/uL 03/24/2018 5:18 AM [facility] IMMATURE GRANULOCYTES ABSOLUTE 0.11(H) 0.00 - 0.10 K/uL 03/24/2018 5:18 AM [facility] Blood Collection / Unknown 03/24/2018 12:35 AM SCUDDING INSPECTOR 03/24/2018 5:02 AM SCUDDING INSPECTOR us Arturo Simon MD HEMATOLOGY ORDERABLES Final Result [facility] CLIA# [id number] [facility] [place] [address] documented in this encounter Visit Diagnoses Not on filedocumented in this encounter
--- OUTSIDE RECORDS SUMMARY | 2025-02-10 23:11 | XMS_ITS | Encounter Summary ---
Author Organization [facility] Address [address] [place] [address] Care Team Providers Care Plastics Production Machine Operator Name Role Phone Unavailable Primary Care Provider Unavailabl e Encounter Details Date Type Department Care Team (Late st Contact Info) Description 03/28/2018 Lab Requisition [facility] Laboratory Services [address] [place] [address] Timi Duy Taylor MD [address] [place] [address] Social History Tobacco Use Types Packs/Day Years Used Date Smoking Tobacco: Never Assessed Sex and Gender Information Value Date Recorded Sex Assigned at Not on file Legal Sex Male 12:46 AM BILLING AND INSURANCE COORDINATOR Gender Identity Not on file Sexual Orientation Not on file documented as of this encounter Plan of Treatment Not on file documented as of this encounter Procedures Procedure Name Priority Date/Time Associated Diagnosis Comments CBC WITH DIFFERENTIAL Stat 03/28/2018 4:00 AM BILLING AND INSURANCE COORDINATOR COMPREHENSIVE METABOLIC PANEL Stat 03/28/2018 4:00 AM BILLING AND INSURANCE COORDINATOR documented in this encounter Results * (ABNORMAL) COMPREHENSIVE METABOLIC PANEL (03/28/2018 4:00 AM BILLING AND INSURANCE COORDINATOR) SODIUM 134(L) 136 - 145 mmol/L 03/28/2018 5:45 AM BILLING AND INSURANCE COORDINATOR [facility] POTASSIUM 4.0 3.5 - 5.1 mmol/L 03/28/2018 5:45 AM BILLING AND INSURANCE COORDINATOR [facility] CHLORIDE 91(L) 98 - 107 mmol/L 03/28/2018 5:45 AM BILLING AND INSURANCE COORDINATOR [facility] CO2 27 22 - 29 mmol/L 03/28/2018 5:45 AM BILLING AND INSURANCE COORDINATOR [facility] CALCIUM 9.3 8.6 - 10.0 mg/dL 03/28/2018 5:45 AM [facility] BUN 63(H) 6 - 20 mg/dL 03/28/2018 5:45 AM [facility] CREATININE 3.94(H) 0.67 - 1.17 mg/dL 03/28/2018 5:45 AM [facility] GLUCOSE 148(H) 74 - 99 mg/dL 03/28/2018 5:45 AM [facility] TOTAL PROTEIN 6.5 6.4 - 8.3 g/dL 03/28/2018 5:45 AM [facility] ALBUMIN 2.9(L) 3.5 - 5.2 g/dL 03/28/2018 5:45 AM [facility] BILIRUBIN TOTAL 0.4 0.2 - 1.0 mg/dL 03/28/2018 5:45 AM [facility] ALKALINE PHOSPHATASE 130(H) 40 - 129 U/L 03/28/2018 5:45 AM [facility] AST 13 10 - 50 U/L 03/28/2018 5:45 AM [facility] ALT 22 <=50 U/L 03/28/2018 5:45 AM [facility] GFR 16(L) >=60 mL/min/1. 73 sq meter 03/28/2018 5:45 AM [facility] Comment: eGFR has not been validated [...] GFR, 19(L) >=60 mL/min/1. 73 sq meter 03/28/2018 5:45 AM [facility] ANION GAP 16 9 - 20 mmol/L 03/28/2018 5:45 AM [facility] Blood Collection / Unknown 03/28/2018 4:00 AM BILLING AND INSURANCE COORDINATOR 03/28/2018 5:04 AM BILLING AND INSURANCE COORDINATOR us Timi Duy Taylor MD CHEMISTRY ORDERABLES Final Resul t [facility] CLIA# [id number] [address] [place] [address] * (ABNORMAL) CBC WITH DIFFERENTIAL (03/28/2018 4:00 AM BILLING AND INSURANCE COORDINATOR) WBC 9.0 4.8 - 10.8 K/uL 03/28/2018 5:16 AM [facility] RBC 2.73(L) 4.60 - 6.20 M/uL 03/28/2018 5:16 AM [facility] HEMOGLOBIN 7.9(L) 14.0 - 18.0 g/dL 03/28/2018 5:16 AM [facility] HEMATOCRIT 26.7(L) 41.0 - 53.0 % 03/28/2018 5:16 AM [facility] MCV 97.8 84.0 - 103.0 fL 03/28/2018 5:16 AM [facility] MCH 28.9 27.0 - 34.0 pg 03/28/2018 5:16 AM [facility] MCHC 29.6(L) 30.0 - 35.0 g/dL 03/28/2018 5:16 AM [facility] RDW 18.0(H) 11.0 - 14.5 % 03/28/2018 5:16 AM [facility] RDW-STDEV 64.9(H) 37.0 - 54.0 fL 03/28/2018 5:16 AM [facility] PLATELETS 304 140 - 440 K/uL 03/28/2018 5:16 AM [facility] MPV 9.6 8.9 - 12.8 fL 03/28/2018 5:16 AM [facility] NEUTROPHILS 67 42 - 75 % 03/28/2018 5:16 AM [facility] LYMPHOCYTES 16(L) 24 - 44 % 03/28/2018 5:16 AM [facility] MONOCYTES 10 2 - 10 % 03/28/2018 5:16 AM [facility] EOSINOPHILS 5 0 - 7 % 03/28/2018 5:16 AM [facility] BASOPHILS 1 0 - 1 % 03/28/2018 5:16 AM [facility] IMMATURE GRANULOCYTES 1 0 - 2 % 03/28/2018 5:16 AM [facility] NEUTROPHIL ABSOLUTE 6.03 2.00 - 8.00 K/uL 03/28/2018 5:16 AM [facility] LYMPHOCYTE ABSOLUTE 1.47 1.20 - 4.00 K/uL 03/28/2018 5:16 AM [facility] MONOCYTE ABSOLUTE 0.91(H) 0.10 - 0.60 K/uL 03/28/2018 5:16 AM [facility] EOSINOPHIL ABSOLUTE 0.46 0.00 - 0.70 K/uL 03/28/2018 5:16 AM [facility] BASOPHILS ABSOLUTE 0.10 0.00 - 0.20 K/uL 03/28/2018 5:16 AM [facility] IMMATURE GRANULOCYTES ABSOLUTE 0.07 0.00 - 0.10 K/uL 03/28/2018 5:16 AM [facility] Blood Collection / Unknown 03/28/2018 4:00 AM [facility] 03/28/2018 5:04 AM BILLING AND INSURANCE COORDINATOR us Timi Duy Taylor MD HEMATOLOGY ORDERABLES Final Resu lt [facility] CLIA# [id number] [address] [place] [address] documented in this encounter Visit Diagnoses Not on filedocumented in this encounter
--- OUTSIDE RECORDS SUMMARY | 2025-02-10 23:11 | XMS_ITS | Encounter Summary ---
Author Organization [facility] Address [address] [place] [address] Care Team Providers Care Paraprofessional Aide Teacher Name Role Phone Unavailable Primary Care Provider Unavailabl e Encounter Details Date Type Department Care Team (Late st Contact Info) Description 03/30/2018 Lab Requisition [facility] Laboratory Services [address] [place] [address] Timi Duy Taylor MD [address] [place] [address] Social History Tobacco Use Types Packs/Day Years Used Date Smoking Tobacco: Never Assessed Sex and Gender Information Value Date Recorded Sex Assigned at Not on file Legal Sex Male 12:46 AM MOTOR VEHICLE DISPATCHER Gender Identity Not on file Sexual Orientation Not on file documented as of this encounter Plan of Treatment Not on file documented as of this encounter Visit Diagnoses Not on filedocumented in this encounter
--- OUTSIDE RECORDS SUMMARY | 2025-02-10 23:11 | XMS_ITS | Encounter Summary ---
Author Organization [facility] Address [address] [place] [address] Care Team Providers Care Pie Bottomer Name Role Phone Unavailable Primary Care Provider Unavailabl e Encounter Details Date Type Department Care Team (Late st Contact Info) Description 03/12/2018 Lab Requisition [facility] Laboratory [facility] [address] [place] [address] Tracy Pereira MD NO ADDRESS ON FILE Social History Tobacco Use Types Packs/Day Years Used Date Smoking Tobacco: Never Assessed Sex and Gender Information Value Date Recorded Sex Assigned at Not on file Legal Sex Male 12:46 AM TOBACCO STRIPPER HAND Gender Identity Not on file Sexual Orientation Not on file documented as of this encounter Plan of Treatment Not on file documented as of this encounter Procedures Procedure Name Priority Date/Time Associated Diagnosis Comments VANCOMYCIN LEVEL RANDOM Stat 03/12/2018 3:00 AM TOBACCO STRIPPER HAND documented in this encounter Results * VANCOMYCIN LEVEL RANDOM (03/12/2018 3:00 AM TOBACCO STRIPPER HAND) VANCOMYCIN, RANDOM 19.1 5.0 - 50.0 ug/mL 03/12/2018 5:42 AM TOBACCO STRIPPER HAND [facility] Blood Collection / Unknown 03/12/2018 3:00 AM TOBACCO STRIPPER HAND 03/12/2018 5:08 AM TOBACCO STRIPPER HAND Narrative [facility] - 03/12/2018 5:42 AM TOBACCO STRIPPER HAND Vancomycin Therapeutic Ranges: Vancomycin Trough: 10 - 20 mcg/mL Vancomycin Peak: 25 - 50 mcg/mL Tracy Pereira MD CHEMISTRY ORDERABLES Final Resul t [facility] CLIA# [id number] [address] [place] [address] documented in this encounter Visit Diagnoses Not on filedocumented in this encounter
--- OUTSIDE RECORDS SUMMARY | 2025-02-10 23:11 | XMS_ITS | Encounter Summary ---
Author Organization [facility] Address [address] [place] [address] Care Team Providers Care Associate Pastor Name Role Phone Unavailable Primary Care Provider Unavailabl e Encounter Details Date Type Department Care Team (Late st Contact Info) Description 03/11/2018 Lab Requisition [facility] Laboratory Services [address] [place] [address] Tracy Pereira MD NO ADDRESS ON FILE Social History Tobacco Use Types Packs/Day Years Used Date Smoking Tobacco: Never Assessed Sex and Gender Information Value Date Recorded Sex Assigned at Not on file Legal Sex Male 12:46 AM HELP DESK COORDINATOR Gender Identity Not on file Sexual Orientation Not on file documented as of this encounter Plan of Treatment Not on file documented as of this encounter Procedures Procedure Name Priority Date/Time Associated Diagnosis Comments C. DIFFICILE DETECTION Stat 03/11/2018 11:15 AM HELP DESK COORDINATOR documented in this encounter Results * C. DIFFICILE DETECTION (03/11/2018 11:15 AM HELP DESK COORDINATOR) TOXIGENIC C DIFFICILE Not Detected Not Detected 03/11/2018 1:07 PM HELP DESK COORDINATOR [facility] Stool STOOL SPECIMEN / Unknown Collection / Unknown 03/11/2018 11:15 AM HELP DESK COORDINATOR 03/11/2018 12:13 PM HELP DESK COORDINATOR Narrative [facility] [employer] [facility] - 03/11/2018 1:07 PM HELP DESK COORDINATOR This assay is used to detect Toxigenic C. difficile target(B gene) DNA sequences in unformed stool specimens. If toxigenic C. difficile is not detected, but clinical suspicion is high please consult ID for consultation and potential repeat testing. This test should not be used as a test of cure. us Tracy Pereira MD MICROBIOLOGY - GENERAL ORDERABLE S Final Result [facility]# [id number] [facility] [place] [address] documented in this encounter Visit Diagnoses Not on filedocumented in this encounter
--- OUTSIDE RECORDS SUMMARY | 2025-02-10 23:11 | XMS_ITS | Encounter Summary ---
Author Organization [facility] Address [address] [place] [address] Care Team Providers Care Supervisor Fabrication Name Role Phone Unavailable Primary Care Provider Unavailabl e Encounter Details Date Type Department Care Team (Late st Contact Info) Description 04/23/2018 Lab Requisition [facility] Laboratory Services [address] [place] [address] [place] [address] Timi Duy Taylor MD [address] [place] [address] Social History Tobacco Use Types Packs/Day Years Used Date Smoking Tobacco: Never Assessed Sex and Gender Information Value Date Recorded Sex Assigned at Not on file Legal Sex Male 12:46 AM PLUGGER MAN Gender Identity Not on file Sexual Orientation Not on file documented as of this encounter Plan of Treatment Not on file documented as of this encounter Procedures Procedure Name Priority Date/Time Associated Diagnosis Comments CBC WITH DIFFERENTIAL Stat 04/23/2018 3:00 AM PLUGGER MAN COMPREHENSIVE METABOLIC PANEL Stat 04/23/2018 3:00 AM PLUGGER MAN documented in this encounter Results * (ABNORMAL) COMPREHENSIVE METABOLIC PANEL (04/23/2018 3:00 AM PLUGGER MAN) SODIUM 146(H) 136 - 145 mmol/L 04/23/2018 5:49 AM PLUGGER MAN [facility] POTASSIUM 3.5 3.5 - 5.1 mmol/L 04/23/2018 5:49 AM PLUGGER MAN [facility] CHLORIDE 111(H) 98 - 107 mmol/L 04/23/2018 5:49 AM PLUGGER MAN [facility] CO2 24 22 - 29 mmol/L 04/23/2018 5:49 AM PLUGGER MAN [facility] CALCIUM 8.5(L) 8.6 - 10.0 mg/dL 04/23/2018 5:49 AM [facility] BUN 26(H) 6 - 20 mg/dL 04/23/2018 5:49 AM [facility] CREATININE 1.78(H) 0.67 - 1.17 mg/dL 04/23/2018 5:49 AM [facility] GLUCOSE 45(LL) 74 - 99 mg/dL 04/23/2018 5:49 AM [facility] Comment: The following critical results were called to TEDDY MARADIAGA and read back verified. Glucose: 45 mg/dL Low Panic (Ref. Range: 74-99) TOTAL PROTEIN 6.2(L) 6.4 - 8.3 g/dL 04/23/2018 5:49 AM [facility] ALBUMIN 2.8(L) 3.5 - 5.2 g/dL 04/23/2018 5:49 AM [facility] BILIRUBIN TOTAL 0.3 0.2 - 1.0 mg/dL 04/23/2018 5:49 AM [facility] ALKALINE PHOSPHATASE 100 40 - 129 U/L 04/23/2018 5:49 AM [facility] AST 11 10 - 50 U/L 04/23/2018 5:49 AM [facility] ALT 13 <=50 U/L 04/23/2018 5:49 AM [facility] GFR 39(L) >=60 mL/min/1. 73 sq meter 04/23/2018 5:49 AM [facility] Comment: eGFR has [...] please refer to the GFR result. GFR, 48(L) >=60 mL/min/1. 73 sq meter 04/23/2018 5:49 AM [facility] ANION GAP 11 9 - 20 mmol/L 04/23/2018 5:49 AM [facility] Blood Collection / Unknown 04/23/2018 3:00 AM PLUGGER MAN 04/23/2018 5:03 AM PLUGGER MAN us Timi Duy Taylor MD CHEMISTRY ORDERABLES Final Resul t [facility] CLIA# [id number] [address] [place] [address] * (ABNORMAL) CBC WITH DIFFERENTIAL (04/23/2018 3:00 AM PLUGGER MAN) WBC 7.1 4.8 - 10.8 K/uL 04/23/2018 5:17 AM [facility] RBC 2.88(L) 4.60 - 6.20 M/uL 04/23/2018 5:17 AM [facility] HEMOGLOBIN 8.4(L) 14.0 - 18.0 g/dL 04/23/2018 5:17 AM [facility] HEMATOCRIT 28.9(L) 41.0 - 53.0 % 04/23/2018 5:17 AM [facility] MCV 100.3 84.0 - 103.0 fL 04/23/2018 5:17 AM [facility] MCH 29.2 27.0 - 34.0 pg 04/23/2018 5:17 AM [facility] MCHC 29.1(L) 30.0 - 35.0 g/dL 04/23/2018 5:17 AM [facility] RDW 14.9(H) 11.0 - 14.5 % 04/23/2018 5:17 AM [facility] RDW-STDEV 54.8(H) 37.0 - 54.0 fL 04/23/2018 5:17 AM [facility] PLATELETS 230 140 - 440 K/uL 04/23/2018 5:17 AM [facility] MPV 10.4 8.9 - 12.8 fL 04/23/2018 5:17 AM [facility] NEUTROPHILS 69 42 - 75 % 04/23/2018 5:17 AM [facility] LYMPHOCYTES 19(L) 24 - 44 % 04/23/2018 5:17 AM [facility] MONOCYTES 10 2 - 10 % 04/23/2018 5:17 AM [facility] EOSINOPHILS 2 0 - 7 % 04/23/2018 5:17 AM [facility] BASOPHILS 0 0 - 1 % 04/23/2018 5:17 AM [facility] IMMATURE GRANULOCYTES 0 0 - 2 % 04/23/2018 5:17 AM [facility] NEUTROPHIL ABSOLUTE 4.90 2.00 - 8.00 K/uL 04/23/2018 5:17 AM [facility] LYMPHOCYTE ABSOLUTE 1.31 1.20 - 4.00 K/uL 04/23/2018 5:17 AM [facility] MONOCYTE ABSOLUTE 0.71(H) 0.10 - 0.60 K/uL 04/23/2018 5:17 AM [facility] EOSINOPHIL ABSOLUTE 0.12 0.00 - 0.70 K/uL 04/23/2018 5:17 AM [facility] BASOPHILS ABSOLUTE 0.03 0.00 - 0.20 K/uL 04/23/2018 5:17 AM [facility] IMMATURE GRANULOCYTES ABSOLUTE 0.03 0.00 - 0.10 K/uL 04/23/2018 5:17 AM [facility] Blood Collection / Unknown 04/23/2018 3:00 AM PLUGGER MAN 04/23/2018 5:03 AM PLUGGER MAN us Timi Duy Taylor MD HEMATOLOGY ORDERABLES Final Resu lt [facility] CLIA# [id number] [address] [place] [address] documented in this encounter Visit Diagnoses Not on filedocumented in this encounter
--- OUTSIDE RECORDS SUMMARY | 2025-02-10 23:11 | XMS_ITS | Encounter Summary ---
Author Organization [facility] Address [address] [place] [address] Care Team Providers Care Level Designer Name Role Phone Unavailable Primary Care Provider Unavailabl e Encounter Details Date Type Department Care Team (Late st Contact Info) Description 03/23/2018 Lab Requisition [facility] Laboratory Services [address] [address] [place] [address] Eulalia Carter MD [address] [place] [address] Social History Tobacco Use Types Packs/Day Years Used Date Smoking Tobacco: Never Assessed Sex and Gender Information Value Date Recorded Sex Assigned at Not on file Legal Sex Male 12:46 AM CLAY CASTER Gender Identity Not on file Sexual Orientation Not on file documented as of this encounter Plan of Treatment Not on file documented as of this encounter Procedures Procedure Name Priority Date/Time Associated Diagnosis Comments CBC WITH DIFFERENTIAL Stat 03/23/2018 3:00 AM CLAY CASTER documented in this encounter Results * (ABNORMAL) CBC WITH DIFFERENTIAL (03/23/2018 3:00 AM CLAY CASTER) WBC 13.3(H) 4.8 - 10.8 K/uL 03/23/2018 5:03 AM [facility] RBC 2.44(L) 4.60 - 6.20 M/uL 03/23/2018 5:03 AM [facility] HEMOGLOBIN 7.0(L) 14.0 - 18.0 g/dL 03/23/2018 5:03 AM [facility] HEMATOCRIT 23.6(L) 41.0 - 53.0 % 03/23/2018 5:03 AM [facility] MCV 96.7 84.0 - 103.0 fL 03/23/2018 5:03 AM [facility] MCH 28.7 27.0 - 34.0 pg 03/23/2018 5:03 AM [facility] MCHC 29.7(L) 30.0 - 35.0 g/dL 03/23/2018 5:03 AM [facility] RDW 17.3(H) 11.0 - 14.5 % 03/23/2018 5:03 AM [facility] [employer] [facility] RDW-STDEV 61.2(H) 37.0 - 54.0 fL 03/23/2018 5:03 AM [facility] PLATELETS 378 140 - 440 K/uL 03/23/2018 5:03 AM [facility] MPV 9.8 8.9 - 12.8 fL 03/23/2018 5:03 AM [facility] NEUTROPHILS 77(H) 42 - 75 % 03/23/2018 5:03 AM [facility] LYMPHOCYTES 11(L) 24 - 44 % 03/23/2018 5:03 AM [facility] [employer] [facility] MONOCYTES 9 2 - 10 % 03/23/2018 5:03 AM [facility] [employer] [facility] EOSINOPHILS 1 0 - 7 % 03/23/2018 5:03 AM [facility] BASOPHILS 0 0 - 1 % 03/23/2018 5:03 AM [facility] IMMATURE GRANULOCYTES 1 0 - 2 % 03/23/2018 5:03 AM [facility] NEUTROPHIL ABSOLUTE 10.25(H) 2.00 - 8.00 K/uL 03/23/2018 5:03 AM [facility] LYMPHOCYTE ABSOLUTE 1.48 1.20 - 4.00 K/uL 03/23/2018 5:03 AM [facility] MONOCYTE ABSOLUTE 1.23(H) 0.10 - 0.60 K/uL 03/23/2018 5:03 AM [facility] EOSINOPHIL ABSOLUTE 0.13 0.00 - 0.70 K/uL 03/23/2018 5:03 AM [facility] BASOPHILS ABSOLUTE 0.05 0.00 - 0.20 K/uL 03/23/2018 5:03 AM [facility] IMMATURE GRANULOCYTES ABSOLUTE 0.14(H) 0.00 - 0.10 K/uL 03/23/2018 5:03 AM [facility] Blood 03/23/2018 3:00 AM [facility] 03/23/2018 4:55 AM [facility] Eulalia Carter MD HEMATOLOGY ORDERABLES Final Resu lt [facility] CLIA# [id number] [address] [place] [id number] documented in this encounter Visit Diagnoses Not on filedocumented in this encounter
--- OUTSIDE RECORDS SUMMARY | 2025-02-10 23:11 | XMS_ITS | Encounter Summary ---
Author Organization [facility] Address [address] [place] [address] Care Team Providers Care Asphalt Spreader Name Role Phone Unavailable Primary Care Provider Unavailabl e Encounter Details Date Type Department Care Team (Late st Contact Info) Description 03/26/2018 Lab Requisition [facility] Laboratory Services [address] [place] [address] Timi Duy Taylor MD [address] [place] [address] Social History Tobacco Use Types Packs/Day Years Used Date Smoking Tobacco: Never Assessed Sex and Gender Information Value Date Recorded Sex Assigned at Not on file Legal Sex Male 12:46 AM BRIM STITCHER Gender Identity Not on file Sexual Orientation Not on file documented as of this encounter Plan of Treatment Not on file documented as of this encounter Visit Diagnoses Not on filedocumented in this encounter
--- OUTSIDE RECORDS SUMMARY | 2025-02-10 23:11 | XMS_ITS | Encounter Summary ---
Author Organization [facility] Address [address] [place] [address] Care Team Providers Care Genetic Supervisor Name Role Phone Unavailable Primary Care Provider Unavailabl e Encounter Details Date Type Department Care Team (Late st Contact Info) Description 03/21/2018 Lab Requisition [facility] Laboratory Services [address] [place] [address] Eulalia Carter MD [address] [place] [address] Social History Tobacco Use Types Packs/Day Years Used Date Smoking Tobacco: Never Assessed Sex and Gender Information Value Date Recorded Sex Assigned at Not on file Legal Sex Male 12:46 AM SENIOR GEOLOGIST Gender Identity Not on file Sexual Orientation Not on file documented as of this encounter Plan of Treatment Not on file documented as of this encounter Procedures Procedure Name Priority Date/Time Associated Diagnosis Comments CBC WITH DIFFERENTIAL Stat 03/21/2018 4:45 AM SENIOR GEOLOGIST BASIC METABOLIC PANEL Stat 03/21/2018 4:45 AM SENIOR GEOLOGIST documented in this encounter Results * (ABNORMAL) BASIC METABOLIC PANEL (03/21/2018 4:45 AM SENIOR GEOLOGIST) SODIUM 133(L) 136 - 145 mmol/L 03/21/2018 5:42 AM SENIOR GEOLOGIST [facility] LABORATORY [facility] POTASSIUM 5.2(H) 3.5 - 5.1 mmol/L 03/21/2018 5:42 AM SENIOR GEOLOGIST [facility] LABORATORY [facility] CHLORIDE 90(L) 98 - 107 mmol/L 03/21/2018 5:42 AM SENIOR GEOLOGIST [facility] LABORATORY [facility] CO2 29 22 - 29 mmol/L 03/21/2018 5:42 AM SENIOR GEOLOGIST [facility] LABORATORY [facility] CALCIUM 9.5 8.6 - 10.0 mg/dL 03/21/2018 5:42 AM [facility] BUN 64(H) 6 - 20 mg/dL 03/21/2018 5:42 AM [facility] CREATININE 4.27(H) 0.67 - 1.17 mg/dL 03/21/2018 5:42 AM [facility] GLUCOSE 153(H) 74 - 99 mg/dL 03/21/2018 5:42 AM [facility] GFR 14(L) >=60 mL/min/1. 73 sq meter 03/21/2018 5:42 AM [facility] Comment: eGFR has not been validated for [...] GFR, 17(L) >=60 mL/min/1. 73 sq meter 03/21/2018 5:42 AM [facility] ANION GAP 14 9 - 20 mmol/L 03/21/2018 5:42 AM [facility] Blood Collection / Unknown 03/21/2018 4:45 AM SENIOR GEOLOGIST 03/21/2018 5:06 AM [facility] us Eulalia Carter MD CHEMISTRY ORDERABLES Final Resul t [facility] CLIA# [id number] [address] [place] [address] * (ABNORMAL) CBC WITH DIFFERENTIAL (03/21/2018 4:45 AM [facility]) WBC 10.2 4.8 - 10.8 K/uL 03/21/2018 5:12 AM [facility] RBC 2.51(L) 4.60 - 6.20 M/uL 03/21/2018 5:12 AM [facility] HEMOGLOBIN 7.2(L) 14.0 - 18.0 g/dL 03/21/2018 5:12 AM [facility] HEMATOCRIT 24.7(L) 41.0 - 53.0 % 03/21/2018 5:12 AM [facility] MCV 98.4 84.0 - 103.0 fL 03/21/2018 5:12 AM [facility] MCH 28.7 27.0 - 34.0 pg 03/21/2018 5:12 AM [facility] MCHC 29.1(L) 30.0 - 35.0 g/dL 03/21/2018 5:12 AM [facility] RDW 17.6(H) 11.0 - 14.5 % 03/21/2018 5:12 AM [facility] RDW-STDEV 63.2(H) 37.0 - 54.0 fL 03/21/2018 5:12 AM [facility] PLATELETS 337 140 - 440 K/uL 03/21/2018 5:12 AM [facility] MPV 9.5 8.9 - 12.8 fL 03/21/2018 5:12 AM [facility] NEUTROPHILS 74 42 - 75 % 03/21/2018 5:12 AM [facility] LYMPHOCYTES 12(L) 24 - 44 % 03/21/2018 5:12 AM [facility] [employer] [facility] MONOCYTES 12(H) 2 - 10 % 03/21/2018 5:12 AM [facility] [employer] [facility] EOSINOPHILS 2 0 - 7 % 03/21/2018 5:12 AM [facility] [employer] [facility] BASOPHILS 0 0 - 1 % 03/21/2018 5:12 AM [facility] IMMATURE GRANULOCYTES 1 0 - 2 % 03/21/2018 5:12 AM [facility] NEUTROPHIL ABSOLUTE 7.52 2.00 - 8.00 K/uL 03/21/2018 5:12 AM [facility] LYMPHOCYTE ABSOLUTE 1.23 1.20 - 4.00 K/uL 03/21/2018 5:12 AM SENIOR GEOLOGIST [facility] MONOCYTE ABSOLUTE 1.18(H) 0.10 - 0.60 K/uL 03/21/2018 5:12 AM SENIOR GEOLOGIST [facility] EOSINOPHIL ABSOLUTE 0.17 0.00 - 0.70 K/uL 03/21/2018 5:12 AM [facility] BASOPHILS ABSOLUTE 0.03 0.00 - 0.20 K/uL 03/21/2018 5:12 AM [facility] IMMATURE GRANULOCYTES ABSOLUTE 0.07 0.00 - 0.10 K/uL 03/21/2018 5:12 AM [facility] Blood Collection / Unknown 03/21/2018 4:45 AM SENIOR GEOLOGIST 03/21/2018 5:06 AM SENIOR GEOLOGIST us Eulalia Carter MD HEMATOLOGY ORDERABLES Final Resu lt [facility] CLIA# [id number] [address] [place] [address] documented in this encounter Visit Diagnoses Not on filedocumented in this encounter
--- OUTSIDE RECORDS SUMMARY | 2025-02-10 23:11 | XMS_ITS | Encounter Summary ---
Author Organization [facility] Address [address] [place] [address] Care Team Providers Care Health Information Internship Name Role Phone Unavailable Primary Care Provider Unavailabl e Encounter Details Date Type Department Care Team (Late st Contact Info) Description 03/16/2018 Lab Requisition [facility] Laboratory Services [address] [place] [address] Arturo Simon MD [address] [place] [address] Social History Tobacco Use Types Packs/Day Years Used Date Smoking Tobacco: Never Assessed Sex and Gender Information Value Date Recorded Sex Assigned at Not on file Legal Sex Male 12:46 AM RAND BUTTER Gender Identity Not on file Sexual Orientation Not on file documented as of this encounter Plan of Treatment Not on file documented as of this encounter Procedures Procedure Name Priority Date/Time Associated Diagnosis Comments VANCOMYCIN LEVEL RANDOM Stat 03/16/2018 4:30 AM RAND BUTTER documented in this encounter Results * VANCOMYCIN LEVEL RANDOM (03/16/2018 4:30 AM RAND BUTTER) VANCOMYCIN, RANDOM 17.4 5.0 - 50.0 ug/mL 03/16/2018 9:42 AM RAND BUTTER [facility] [employer] [facility] Blood Collection / Unknown 03/16/2018 4:30 AM RAND BUTTER 03/16/2018 9:22 AM RAND BUTTER Narrative [facility] [employer] [facility] - 03/16/2018 9:42 AM RAND BUTTER Vancomycin Therapeutic Ranges: Vancomycin Trough: 10 - 20 mcg/mL Vancomycin Peak: 25 - 50 mcg/mL us Arturo Simon MD CHEMISTRY ORDERABLES Final Result [facility] LABORATORY SERVICES [facility]# [id number] [address] [place] [address] documented in this encounter Visit Diagnoses Not on filedocumented in this encounter
--- OUTSIDE RECORDS SUMMARY | 2025-02-10 23:11 | XMS_ITS | Encounter Summary ---
Author Organization [facility] Address [address] [place] [address] Care Team Providers Care Finish Machine Tender Name Role Phone Unavailable Primary Care Provider Unavailabl e Encounter Details Date Type Department Care Team (Late st Contact Info) Description 03/16/2018 Lab Requisition [facility] Laboratory Services [address] [place] [address] Arturo Simon MD [address] [place] [address] Social History Tobacco Use Types Packs/Day Years Used Date Smoking Tobacco: Never Assessed Sex and Gender Information Value Date Recorded Sex Assigned at Not on file Legal Sex Male 12:46 AM LEAD RAMP AGENT Gender Identity Not on file Sexual Orientation Not on file documented as of this encounter Plan of Treatment Not on file documented as of this encounter Procedures Procedure Name Priority Date/Time Associated Diagnosis Comments CBC WITH DIFFERENTIAL Stat 03/16/2018 9:49 AM LEAD RAMP AGENT documented in this encounter Results * (ABNORMAL) CBC WITH DIFFERENTIAL (03/16/2018 9:49 AM LEAD RAMP AGENT) WBC 12.9(H) 4.8 - 10.8 K/uL 03/16/2018 10:54 AM LEAD RAMP AGENT [facility] LABORATORY [facility] RBC 2.82(L) 4.60 - 6.20 M/uL 03/16/2018 10:54 AM LEAD RAMP AGENT [facility] HEMOGLOBIN 8.2(L) 14.0 - 18.0 g/dL 03/16/2018 10:54 AM [facility] HEMATOCRIT 26.9(L) 41.0 - 53.0 % 03/16/2018 10:54 AM [facility] LABORATORY [facility] MCV 95.4 84.0 - 103.0 fL 03/16/2018 10:54 AM [facility] [employer] [facility] MCH 29.1 27.0 - 34.0 pg 03/16/2018 10:54 AM [facility] MCHC 30.5 30.0 - 35.0 g/dL 03/16/2018 10:54 AM [facility] RDW 18.5(H) 11.0 - 14.5 % 03/16/2018 10:54 AM [facility] [employer] [facility] RDW-STDEV 62.5(H) 37.0 - 54.0 fL 03/16/2018 10:54 AM [facility] [employer] [facility] PLATELETS 225 140 - 440 K/uL 03/16/2018 10:54 AM [facility] [employer] [facility] MPV 10.3 8.9 - 12.8 fL 03/16/2018 10:54 AM [facility] NEUTROPHILS 78(H) 42 - 75 % 03/16/2018 10:54 AM [facility] [employer] [facility] LYMPHOCYTES 10(L) 24 - 44 % 03/16/2018 10:54 AM [facility] [employer] [facility] MONOCYTES 9 2 - 10 % 03/16/2018 10:54 AM [facility] [employer] [facility] EOSINOPHILS 2 0 - 7 % 03/16/2018 10:54 AM [facility] [employer] [facility] BASOPHILS 0 0 - 1 % 03/16/2018 10:54 AM [facility] [employer] [facility] IMMATURE GRANULOCYTES 2 0 - 2 % 03/16/2018 10:54 AM [facility] [employer] [facility] NEUTROPHIL ABSOLUTE 10.02(H) 2.00 - 8.00 K/uL 03/16/2018 10:54 AM [facility] [employer] [facility] LYMPHOCYTE ABSOLUTE 1.23 1.20 - 4.00 K/uL 03/16/2018 10:54 AM [facility] [employer] [facility] MONOCYTE ABSOLUTE 1.11(H) 0.10 - 0.60 K/uL 03/16/2018 10:54 AM [facility] [employer] [facility] EOSINOPHIL ABSOLUTE 0.21 0.00 - 0.70 K/uL 03/16/2018 10:54 AM [facility] [employer] [facility] BASOPHILS ABSOLUTE 0.05 0.00 - 0.20 K/uL 03/16/2018 10:54 AM LEAD RAMP AGENT [facility] IMMATURE GRANULOCYTES ABSOLUTE 0.24(H) 0.00 - 0.10 K/uL 03/16/2018 10:54 AM LEAD RAMP AGENT [facility] Blood Collection / Unknown 03/16/2018 9:49 AM LEAD RAMP AGENT 03/16/2018 10:49 AM LEAD RAMP AGENT us Arturo Simon MD HEMATOLOGY ORDERABLES Final Result [facility] CLIA# [id number] [address] [place] [address] documented in this encounter Visit Diagnoses Not on filedocumented in this encounter
--- OUTSIDE RECORDS SUMMARY | 2025-02-10 23:11 | XMS_ITS | Encounter Summary ---
Author Organization [email or web address] [facility] Address [address] [place] [address] Care Team Providers Care Hop Worker Name Role Phone Unavailable Primary Care Provider Unavailabl e Encounter Details Date Type Department Care Team (Late st Contact Info) Description 04/20/2018 Lab Requisition [facility] Laboratory Services [address] [place] [place] [address] Timi Duy Taylor MD [address] [place] [address] Social History Tobacco Use Types Packs/Day Years Used Date Smoking Tobacco: Never Assessed Sex and Gender Information Value Date Recorded Sex Assigned at Not on file Legal Sex Male 12:46 AM RUBBER DOWN Gender Identity Not on file Sexual Orientation Not on file documented as of this encounter Plan of Treatment Not on file documented as of this encounter Procedures Procedure Name Priority Date/Time Associated Diagnosis Comments CBC WITH DIFFERENTIAL Stat 04/20/2018 10:33 AM RUBBER DOWN COMPREHENSIVE METABOLIC PANEL Stat 04/20/2018 10:33 AM RUBBER DOWN documented in this encounter Results * (ABNORMAL) COMPREHENSIVE METABOLIC PANEL (04/20/2018 10:33 AM RUBBER DOWN) SODIUM 149(H) 136 - 145 mmol/L 04/20/2018 1:04 PM [facility] LABORAT[facility] POTASSIUM 3.7 3.5 - 5.1 mmol/L 04/20/2018 1:04 PM RUBBER DOWN [facility] LABORATORY [facility] CHLORIDE 112(H) 98 - 107 mmol/L 04/20/2018 1:04 PM [facility] CO2 23 22 - 29 mmol/L 04/20/2018 1:04 PM RUBBER DOWN [facility] LABORATORY [facility] CALCIUM 8.5(L) 8.6 - 10.0 mg/dL 04/20/2018 1:04 PM [facility] BUN 34(H) 6 - 20 mg/dL 04/20/2018 1:04 PM [facility] CREATININE 2.00(H) 0.67 - 1.17 mg/dL 04/20/2018 1:04 PM [facility] GLUCOSE 126(H) 74 - 99 mg/dL 04/20/2018 1:04 PM [facility] TOTAL PROTEIN 6.3(L) 6.4 - 8.3 g/dL 04/20/2018 1:04 PM [facility] ALBUMIN 2.8(L) 3.5 - 5.2 g/dL 04/20/2018 1:04 PM [facility] BILIRUBIN TOTAL 0.3 0.2 - 1.0 mg/dL 04/20/2018 1:04 PM [facility] ALKALINE PHOSPHATASE 110 40 - 129 U/L 04/20/2018 1:04 PM [facility] AST 11 10 - 50 U/L 04/20/2018 1:04 PM [facility] ALT 15 <=50 U/L 04/20/2018 1:04 PM [facility] GFR 34(L) >=60 mL/min/1. 73 sq meter 04/20/2018 1:04 PM [facility] Comment: eGFR has not been validated [...] please refer to the GFR result. GFR, 42(L) >=60 mL/min/1. 73 sq meter 04/20/2018 1:04 PM [facility] ANION GAP 14 9 - 20 mmol/L 04/20/2018 1:04 PM [facility] Blood Collection / Unknown 04/20/2018 10:33 AM RUBBER DOWN 04/20/2018 12:17 PM RUBBER DOWN us Timi Duy Taylor MD CHEMISTRY ORDERABLES Final Resul t [facility] CLIA# [id number] [facility] [place] [address] * (ABNORMAL) CBC WITH DIFFERENTIAL (04/20/2018 10:33 AM RUBBER DOWN) WBC 7.8 4.8 - 10.8 K/uL 04/20/2018 12:22 PM [facility] RBC 2.99(L) 4.60 - 6.20 M/uL 04/20/2018 12:22 PM [facility] HEMOGLOBIN 8.8(L) 14.0 - 18.0 g/dL 04/20/2018 12:22 PM [facility] HEMATOCRIT 30.3(L) 41.0 - 53.0 % 04/20/2018 12:22 PM [facility] MCV 101.3 84.0 - 103.0 fL 04/20/2018 12:22 PM [facility] MCH 29.4 27.0 - 34.0 pg 04/20/2018 12:22 PM [facility] MCHC 29.0(L) 30.0 - 35.0 g/dL 04/20/2018 12:22 PM [facility] RDW 15.3(H) 11.0 - 14.5 % 04/20/2018 12:22 PM [facility] RDW-STDEV 56.8(H) 37.0 - 54.0 fL 04/20/2018 12:22 PM [facility] PLATELETS 261 140 - 440 K/uL 04/20/2018 12:22 PM [facility] MPV 10.4 8.9 - 12.8 fL 04/20/2018 12:22 PM [facility] NEUTROPHILS 77(H) 42 - 75 % 04/20/2018 12:22 PM [facility] LYMPHOCYTES 14(L) 24 - 44 % 04/20/2018 12:22 PM [facility] MONOCYTES 7 2 - 10 % 04/20/2018 12:22 PM [facility] EOSINOPHILS 1 0 - 7 % 04/20/2018 12:22 PM [facility] BASOPHILS 0 0 - 1 % 04/20/2018 12:22 PM [facility] IMMATURE GRANULOCYTES 1 0 - 2 % 04/20/2018 12:22 PM [facility] NEUTROPHIL ABSOLUTE 6.00 2.00 - 8.00 K/uL 04/20/2018 12:22 PM [facility] LYMPHOCYTE ABSOLUTE 1.06(L) 1.20 - 4.00 K/uL 04/20/2018 12:22 PM [facility] MONOCYTE ABSOLUTE 0.54 0.10 - 0.60 K/uL 04/20/2018 12:22 PM [facility] EOSINOPHIL ABSOLUTE 0.10 0.00 - 0.70 K/uL 04/20/2018 12:22 PM [facility] BASOPHILS ABSOLUTE 0.03 0.00 - 0.20 K/uL 04/20/2018 12:22 PM [facility] IMMATURE GRANULOCYTES ABSOLUTE 0.04 0.00 - 0.10 K/uL 04/20/2018 12:22 PM [facility] Blood Collection / Unknown 04/20/2018 10:33 AM RUBBER DOWN 04/20/2018 12:17 PM RUBBER DOWN us Timi Duy Taylor MD HEMATOLOGY ORDERABLES Final Resu lt [facility] CLIA# [id number] [facility] [place] [address] documented in this encounter Visit Diagnoses Not on filedocumented in this encounter
--- OUTSIDE RECORDS SUMMARY | 2025-02-10 23:11 | XMS_ITS | Encounter Summary ---
Author Organization [facility] Address [address] [place] [address] Care Team Providers Care Shuttler Car Name Role Phone Unavailable Primary Care Provider Unavailabl e Encounter Details Date Type Department Care Team (Late st Contact Info) Description 04/27/2018 Lab Requisition [facility] Laboratory Services [address] [place] [address] Karen Austin MD [address] [place] [address] Social History Tobacco Use Types Packs/Day Years Used Date Smoking Tobacco: Never Assessed Sex and Gender Information Value Date Recorded Sex Assigned at Not on file Legal Sex Male 12:46 AM PARKING ANALYST Gender Identity Not on file Sexual Orientation Not on file documented as of this encounter Plan of Treatment Not on file documented as of this encounter Procedures Procedure Name Priority Date/Time Associated Diagnosis Comments MAGNESIUM LEVEL Stat 04/27/2018 3:10 AM PARKING ANALYST BASIC METABOLIC PANEL Stat 04/27/2018 3:10 AM PARKING ANALYST documented in this encounter Results * MAGNESIUM LEVEL (04/27/2018 3:10 AM PARKING ANALYST) MAGNESIUM 1.7 1.6 - 2.6 mg/dL 04/27/2018 5:36 AM PARKING ANALYST [facility] Blood Collection / Unknown 04/27/2018 3:10 AM PARKING ANALYST 04/27/2018 5:04 AM PARKING ANALYST Karen Austin MD CHEMISTRY ORDERABLES Leidy l Result [facility] [employer] [facility] CLIA# [id number] [address] [place] [address] * (ABNORMAL) BASIC METABOLIC PANEL (04/27/2018 3:10 AM [facility]) SODIUM 145 136 - 145 mmol/L 04/27/2018 5:44 AM [facility] POTASSIUM 3.6 3.5 - 5.1 mmol/L 04/27/2018 5:44 AM [facility] CHLORIDE 108(H) 98 - 107 mmol/L 04/27/2018 5:44 AM [facility] CO2 24 22 - 29 mmol/L 04/27/2018 5:44 AM [facility] CALCIUM 8.6 8.6 - 10.0 mg/dL 04/27/2018 5:44 AM [facility] BUN 22(H) 6 - 20 mg/dL 04/27/2018 5:44 AM [facility] CREATININE 1.61(H) 0.67 - 1.17 mg/dL 04/27/2018 5:44 AM [facility] GLUCOSE 40(LL) 74 - 99 mg/dL 04/27/2018 5:44 AM [facility] Comment: The following critical results were called to Reshma Mcgarry and read back verified. Glucose: 40 mg/dL Low Panic (Ref. Range: 74-99) GFR 44(L) >=60 mL/min/1. 73 sq meter 04/27/2018 5:44 AM [facility] Comment: eGFR has not been validated [...] please refer to the GFR result. GFR, 54(L) >=60 mL/min/1. 73 sq meter 04/27/2018 5:44 AM [facility] ANION GAP 13 9 - 20 mmol/L 04/27/2018 5:44 AM PARKING ANALYST [facility] Blood Collection / Unknown 04/27/2018 3:10 AM PARKING ANALYST 04/27/2018 5:04 AM PARKING ANALYST Karen Austin MD CHEMISTRY ORDERABLES Leidy josé Result [facility] CLIA# [id number] [address] [place] [address] documented in this encounter Visit Diagnoses Not on filedocumented in this encounter
--- OUTSIDE RECORDS SUMMARY | 2025-02-10 23:11 | XMS_ITS | Encounter Summary ---
Author Organization [facility] Address [address] [place] [address] Care Team Providers Care Fiber Optic Assembly Worker Name Role Phone Unavailable Primary Care Provider Unavailabl e Encounter Details Date Type Department Care Team (Late st Contact Info) Description 05/03/2018 Lab Requisition [facility] Laboratory Services [address] [place] [address] Wilmar Haas, DO [address] [place] [address] Social History Tobacco Use Types Packs/Day Years Used Date Smoking Tobacco: Never Assessed Sex and Gender Information Value Date Recorded Sex Assigned at Not on file Legal Sex Male 12:46 AM GIS PROFESSOR Gender Identity Not on file Sexual Orientation Not on file documented as of this encounter Plan of Treatment Not on file documented as of this encounter Procedures Procedure Name Priority Date/Time Associated Diagnosis Comments URINALYSIS WITH REFLEX CULTURE Stat 05/04/2018 10:45 AM GIS PROFESSOR documented in this encounter Results * URINALYSIS WITH REFLEX CULTURE (05/04/2018 10:45 AM GIS PROFESSOR) COLOR UA Yellow Pale to dark yellow 05/04/2018 2:58 PM [facility] CLARITY UA Clear Clear 05/04/2018 2:58 PM [facility] SPECIFIC GRAVITY UA 1.012 1.003 - 1.035 05/04/2018 2:58 PM [facility] PH UA 5.0 5.0 - 8.0 05/04/2018 2:58 PM [facility] LEUKOCYTE ESTERASE UA Negative Negative 05/04/2018 2:58 PM [facility] NITRITE UA Negative Negative 05/04/2018 2:58 PM [facility] PROTEIN UA Negative Negative 05/04/2018 2:58 PM [facility] GLUCOSE UA Negative Negative 05/04/2018 2:58 PM [facility] KETONES UA Negative Negative 05/04/2018 2:58 PM [facility] UROBILINOGEN UA <2.0 <2.0 mg/dL 9 2:58 PM [facility] BILIRUBIN UA Negative Negative 05/04/2018 2:58 PM [facility] BLOOD UA Negative Negative 05/04/2018 2:58 PM [facility] Urine URINE SPECIMEN / Unknown Collection / Unknown 05/04/2018 10:45 AM GIS PROFESSOR 05/04/2018 2:45 PM GIS PROFESSOR us Wilmar Haas DO URINE ORDERABLES Final Resul t [facility] CLIA# [id number] [address] [place] [address] documented in this encounter Visit Diagnoses Not on filedocumented in this encounter
--- OUTSIDE RECORDS SUMMARY | 2025-02-10 23:11 | XMS_ITS | Encounter Summary ---
Author Organization [facility] Address [address] [place] [address] Care Team Providers Care Jacquard Loom Weaver Name Role Phone Unavailable Primary Care Provider Unavailabl e Encounter Details Date Type Department Care Team (Late st Contact Info) Description 03/16/2018 Lab Requisition [facility] Services [address] [place] [address] Arturo Simon MD [address] [place] [address] Social History Tobacco Use Types Packs/Day Years Used Date Smoking Tobacco: Never Assessed Sex and Gender Information Value Date Recorded Sex Assigned at Not on file Legal Sex Male 12:46 AM LOAN COUNSELOR Gender Identity Not on file Sexual Orientation Not on file documented as of this encounter Plan of Treatment Not on file documented as of this encounter Procedures Procedure Name Priority Date/Time Associated Diagnosis Comments CBC WITH DIFFERENTIAL Stat 03/16/2018 7:20 AM LOAN COUNSELOR documented in this encounter Results * (ABNORMAL) CBC WITH DIFFERENTIAL (03/16/2018 7:20 AM LOAN COUNSELOR) WBC 7.6 4.8 - 10.8 K/uL 03/16/2018 8:18 AM LOAN COUNSELOR [facility] RBC 3.94(L) 4.60 - 6.20 M/uL 03/16/2018 8:18 AM [facility] HEMOGLOBIN 11.5(L) 14.0 - 18.0 g/dL 03/16/2018 8:18 AM [facility] HEMATOCRIT 37.5(L) 41.0 - 53.0 % 03/16/2018 8:18 AM [facility] MCV 95.2 84.0 - 103.0 fL 03/16/2018 8:18 AM [facility] MCH 29.2 27.0 - 34.0 pg 03/16/2018 8:18 AM [facility] MCHC 30.7 30.0 - 35.0 g/dL 03/16/2018 8:18 AM [facility] RDW 18.7(H) 11.0 - 14.5 % 03/16/2018 8:18 AM [facility] gifted[facility]you [facility] RDW-STDEV 62.5(H) 37.0 - 54.0 fL 03/16/2018 8:18 AM [facility] PLATELETS 164 140 - 440 K/uL 03/16/2018 8:18 AM [facility] MPV 10.1 8.9 - 12.8 fL 03/16/2018 8:18 AM [facility] NEUTROPHILS 77(H) 42 - 75 % 03/16/2018 8:18 AM [facility] LYMPHOCYTES 10(L) 24 - 44 % 03/16/2018 8:18 AM [facility] MONOCYTES 8 2 - 10 % 03/16/2018 8:18 AM [facility] EOSINOPHILS 3 0 - 7 % 03/16/2018 8:18 AM [facility] BASOPHILS 1 0 - 1 % 03/16/2018 8:18 AM [facility] IMMATURE GRANULOCYTES 2 0 - 2 % 03/16/2018 8:18 AM [facility] NEUTROPHIL ABSOLUTE 5.88 2.00 - 8.00 K/uL 03/16/2018 8:18 AM [facility] LYMPHOCYTE ABSOLUTE 0.74(L) 1.20 - 4.00 K/uL 03/16/2018 8:18 AM [facility] MONOCYTE ABSOLUTE 0.64(H) 0.10 - 0.60 K/uL 03/16/2018 8:18 AM [facility] EOSINOPHIL ABSOLUTE 0.19 0.00 - 0.70 K/uL 03/16/2018 8:18 AM [facility] BASOPHILS ABSOLUTE 0.05 0.00 - 0.20 K/uL 03/16/2018 8:18 AM LOAN COUNSELOR [facility] IMMATURE GRANULOCYTES ABSOLUTE 0.12(H) 0.00 - 0.10 K/uL 03/16/2018 8:18 AM LOAN COUNSELOR [facility] Blood Collection / Unknown 03/16/2018 7:20 AM LOAN COUNSELOR 03/16/2018 8:05 AM LOAN COUNSELOR us Arturo Simon MD HEMATOLOGY ORDERABLES Final Result [facility] CLIA# [id number] [address] [place] [address] documented in this encounter Visit Diagnoses Not on filedocumented in this encounter
--- OUTSIDE RECORDS SUMMARY | 2025-02-10 23:11 | XMS_ITS | Continuity of Care Document ---
Author Organization ROBERTA Pacheco [facility] Jyoti Haro, [facility] ([facility]) Address [address] [place] [address] Care Team Providers Care Optical Design Engineer Name Role Phone MATEUS GLOVER Primary Care Provider Unavailabl e Assessment Encounter Date Assessment Date Assessment LastModified by Organization Details LastModified Time 12/09/2024 12/09/2024 Document scribed by Jayce Oliver [employer] Certified Network Professional. I was present during interview and exam. [...] Modified Time Details Appointments None recorded. Lab None recorded. Referral None recorded. Procedures None recorded. Surgeries None recorded. Imaging None recorded. Medication Orders loratadine 10 mg tablet 2024 025 dkiest [id number], [address] [facility], [place], [address], 16:48:34 Patient TargetsNo targets recorded. Patient InstructionsNo instructions recorded. Reason for Referral None Reported. Results Created Date Observation Date Name Description Value Unit Range Abnormal Flag Note LastModifiedBy Organization Detail LastModifiedTime 11/28/1911/27/2024 CBC WBC 12.8 x10 4.5-10 .5 high Not Available [facility] [address] [facility], [place], [address], 11/27/2024 11:34:35 11/28/1911/27/2024 CBC RBC 4.63 x10 4.30-5 .90 Not Available [facility] [address] [facility], [place], [address], 11/27/2024 11:34:35 11/28/1911/27/2024 CBC HGB 14.1 g/dL 13.5-1 8.0 Not Available [facility] [address] [facility], [place], [address], 11/27/2024 11:34:35 11/28/1911/27/2024 CBC HCT 43.5 % 35.0-6 0.0 Not Available [facility] [address] [facility], [place], [address], 11/27/2024 11:34:35 11/28/1911/27/2024 CBC MCV 94.0 fL 80.0-9 9.9 Not Available [facility] [address] [facility], [place], [address], 11/27/2024 11:34:35 11/28/1911/27/2024 CBC MCH 30.4 pg 27.0-3 2.0 Not Available [facility] [address] [facility], [place], [address], 11/27/2024 11:34:35 11/28/1911/27/2024 CBC MCHC 32.3 g/dL 32.0-3 6.0 Not Available [facility] [address] [facility], [place], [address], 11/27/2024 11:34:35 11/28/19 25 11/27/2024 CBC RDW 13.3 % 11.5-1 4.5 Not Available [facility] [address] [facility], [place], [address], 11/27/2024 11:34:35 11/28/19 25 11/27/2024 CBC plt 238.5 x10 150.0- 451.0 Not Available [facility] [address] [facility], [place], [address], 11/27/2024 11:34:35 11/28/19 25 11/27/2024 CBC lymphocytes % 6.5 % 20.0-5 0.0 low Not Available [facility] [address] [facility] [address], [place], [address], 11/27/2024 11:34:35 11/28/19 25 11/27/2024 CBC granulcytes % 87.9 % 30.0-7 0.0 high Not Available [facility] [address] [facility], [place], [address], 11/27/2024 11:34:35 11/28/19 25 11/27/2024 CBC monocytes % 3.6 % 2.0-16 .0 Not Available [facility] [address] [facility], [place], [address], 11/27/2024 11:34:35 11/28/19 25 11/27/2024 CBC granulcytes# 11.3 x10 Not Joslyn ilable [facility] [address] [facility], [place], [address], 11/27/2024 11:34:35 11/28/19 25 11/27/2024 CBC lymphocytes # 0.8 x10 Not Available [facility] [address] [facility], [place], [address], 11/27/2024 11:34:35 11/28/19 25 11/27/2024 CBC monocytes # 0.5 x10 Not Avai labihsan [facility] [address] [facility], [place], [address], 11/27/2024 11:34:35 11/28/19 25 11/27/2024 CMP (MALE ) glucose 91.0 mg/dL 60.0-9 9.0 Not Available [facility] [address] [facility], [place], [address], 11/27/2024 11:57:43 11/28/19 25 11/27/2024 CMP (MALE ) BUN (blood urea nitrogen) 18.0 mg/dL 10.0-2 6.0 Not Available [facility] [address] [address], [place], [address], 11/27/2024 11:57:43 11/28/19 25 11/27/2024 CMP (MALE ) creatinine (serum) 1.5 mg/dL 0.4-1. 5 Not Available [facility] [address] [facility] [address] [address], [place], [address], 11/27/2024 11:57:43 11/28/19 25 11/27/2024 CMP (MALE ) BUN/creatini ne ratio 12.00 ratio Not Available [facility] [address] [facility] [address] [address], [place], [address], 11/27/2024 11:57:43 11/28/19 25 11/27/2024 CMP (MALE ) eGFR calculated 49.9 Not Available [facility] [address] [facility], [place], [address], 11/27/2024 11:57:43 11/28/19 25 11/27/2024 CMP (MALE ) total protein 8.0 g/dL 6.0-8. 5 Not Available [facility] [address] [facility], [place], [address], 11/27/2024 11:57:43 11/28/19 25 11/27/2024 CMP (MALE ) total bilirubin 1.3 mg/dL 0.2-1. 3 Not Available [facility] [address] [facility], [place], [address], 11/27/2024 11:57:43 11/28/19 25 11/27/2024 CMP (MALE ) albumin 4.1 g/dL 3.5-5. 5 Not Available [facility] [address] [facility], [place], [address], 11/27/2024 11:57:43 11/28/19 25 11/27/2024 CMP (MALE ) globulin 3.9 calc Not Available [facility] [address] [address], [place], [address], 11/27/2024 11:57:43 11/28/19 25 11/27/2024 CMP (MALE ) AST (SGOT) 30.0 U/L 0.0-46 .0 Not Available [facility] [address] [address], [place], [address], 11/27/2024 11:57:43 11/28/19 25 11/27/2024 CMP (MALE ) altv (SGPT) 64.0 U/L 13.0-6 9.0 normal Not Available [facility] [address] [address], [place], [address], 11/27/2024 11:57:43 11/28/19 25 11/27/2024 CMP (MALE ) A/G ratio 1.1 ratio Not Available [facility] [address] [address], [place], [address], 11/27/2024 11:57:43 11/28/19 25 11/27/2024 CMP (MALE ) ALP phos 330.0 U/L 30.0-1 40.0 abnormal Not Available [facility] [address] [facility] 1, [place], [address], 11/27/2024 11:57:43 11/28/19 25 11/27/2024 CMP (MALE ) calcium 9.2 mg/dL 8.4-10 .5 Not Available [facility] [address] [facility] 1, [place], [address], 11/27/2024 11:57:43 11/28/1911/27/2024 CMP (MALE ) sodium 140.0 mmol/ L 136.0- 145.0 Not Available [facility] [address] [facility] 1, [place], [address], 11/27/2024 11:57:43 11/28/1911/27/2024 CMP (MALE ) potassium 3.9 mmol/ L 3.5-5. 1 Not Available [facility] [address] [facility] 1, [place], [address], 11/27/2024 11:57:43 11/28/19 25 11/27/2024 CMP (MALE ) chloride 105.0 mmol/ L 98.0-1 10.0 normal Not Available [facility] [address] [facility] 1, [place], [address], 11/27/2024 11:57:43 11/28/19 25 11/27/2024 CMP (MALE ) C02 26.0 mmol/ L 22.0-3 1.0 Not Available [facility] [address] [facility] 1, [place], [address], 11/27/2024 11:57:43 11/28/19 25 11/27/2024 CMP (MALE ) anion gap 9.0 calc Not Available [facility] [address] [facility], [place], [address], 11/27/2024 11:57:43 11/28/1911/27/2024 CMP (MALE ) osmolality 290.6 calc Not Available [facility] [address] [facility] [address], [place], [address], 11/27/2024 11:57:43 11/28/1911/28/2024 C-DAVID CTIVE PROTE IN C-reactive protein 97.9 mg/L <8.0 high Not Available [address] [address] [place], [address], 11/28/2024 07:17:28 11/28/1911/28/2024 AMYLA SE amylase 45 U/L 21-101 normal Not Available [address] [address] [place], [address], 11/28/2024 07:17:29 11/28/1911/28/2024 LIPAS E lipase 114 U/L 7-60 high Not Available [facility] [address] [place], [address], 11/28/2024 07:17:29 11/28/1911/27/2024 ESR (eryt hrocy te sedim entat ion rate) , blood SedRate 35 Not Available [facility] ([facility]) [address] [place], [address], 11/27/2024 10:56:15 Result Notes None recorded. Problems Name Problem SNOMED Code Status Onset Date Resolution Date Notes Provider Name and Address Organization Details Recorded Time Gout 12994312 Active 2022 Mateus Glover DO [address] [place], [address] , [facility] 03/24/202 5 08:16:17 Benign hypertensi on 50369287 Active 2022 Jayce baez [facility] 5 12:22:35 Pulmonary edema 84110418 Active 2022 Not Available [facility] 4 07:52:43 Acute on chronic diastolic heart failure 827224506 Active 2022 Mateus Glover DO [address] [place] [address], [address] , [facility] 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 5 08:16:17 Dyspnea 615524580 Active 2022 Princess baez [facility] 5 12:14:34 Edema 827731385 Active 2022 Mateus Glover DO [address] [place] [address], [address] , [facility] 5 08:16:17 Congestive heart failure 00222208 Completed 202212/20/2023 Jayce baez [facility] 4 12:48:27 Acute bronchitis 30372784 Active 2023 Princess baez [facility] 5 12:14:25 Candidiasi s of skin 76380830 Active 2023 [facility] 12:14:29 Type 2 diabetes mellitus 10662336 Active 2023 Mateus Glover [address], [address] [place] [address] , [facility] 5 08:16:17 Obstructiv e sleep apnea syndrome 54061042 Active 2023 Mateus Glover [address], [address] , [facility] 5 08:16:17 Itching of skin 434505006 Active 2023 [facility] 5 12:15:36 Chronic kidney disease 859043368 Active 2023 Mateus Glover [address], [address] , [facility] 5 08:16:17 Gastroesop hageal reflux disease 935433614 Active 2023 Mateus Glover [address], [address] , [facility] 5 08:16:17 Chronic obstructiv e pulmonary disease 74169503 Active 2023 Mateus Glover [address], [address] [place] [address] , [facility] 5 08:16:17 Chronic pancreatit is 817501921 Active 2024 Jayce Kiest [facility] 5 12:25:40 Moderate recurrent major depression 69543893 Active 2024 Jayce Oliver [facility] 5 12:40:47 Depressive disorder 84029609 Active [address], [address] [place] [address] , [facility] 5 00:27:12 Wound of skin 691633377 Active [address], [address] [place] [address] , [facility] 5 00:27:13 Problem Notes None recorded. Medical Equipment None Reported. Allergies Allergen ID Allergen Name Allergen Category Reaction Reaction Severity Criticality Documentation Date Start Date Code Code System Note Provider Name and Address Organization Details Recorded Time 51243 Celebrex medicatio n hives mild low 10/15/2022 76905 7 RxNorm Britt Jimenez [facility] 4 16:18:55 65646 Levaquin medicatio n Not available Not available Not available 11/14/2022 21947 2 RxNorm ELISA MENJIVAR [facility]enny[facility] 3 13:59:14 978 doxycycli ne Not available Not available Not available Not available 06/21/2022 3640 RxNorm ERIC DAMON [facility] LKennyL.CKenny 3 15:19:55 979 amoxicill in medicatio n Not available Not available Not available 06/21/2022 723 RxNorm ERIC DAMON [facility] LKennyLKennyCKenny 3 15:20:01 980 celecoxib medicatio n Not available Not available Not available 06/21/2022 23117 7 [facility] 3 15:20:14 981 chlorhexi dine medicatio n Not available Not available Not available 06/21/2022 2358 RxNorm [facility] 3 15:20:33 982 Substance with sulfonami de structure and antibacte rial mechanism of action (substanc e) medicatio n Not available Not available Not available 06/21/2022 20736 8003 SNOMED [facility] 3 15:20:39 983 furosemid e medicatio n Not available Not available Not available 06/21/2022 4603 [facility] 3 15:20:55 Medications Name Sig Start Date [...] tablet daily 08/15 completed Recorded 08/15/19 09 4:27PM [...] hydroxyzi ne HCl as needed 04/17 completed 37867; Recorded 04/21/19 23 9:52AM by Elisa Delarosa (Authori christianod through Mateus Glover DO), Office Visit; Refill Quantity : 0; Not Available Not Available Not Available metoprolo l tartrate 3 times a day 06/14 completed Recorded 04/21/19 23 9:52AM by Elisa Delarosa, Office Visit; Refill Quantity : 90; Tablet; Not Available Not Available Not Available furosemid e twice a day as needed for swelling 04/17 completed Recorded 04/21/19 23 11:02AM by Mateus Glover DO, Office Visit; Refill Quantity : 60; Tablet; Not Available Not Available Not Available hydralazi ne three times daily 04/17 completed 20664; Recorded 05/31/19 23 3:29PM by Estela Harry (Authori zed through Wade Sharma MD), Refill Request; Refill Quantity : 90; Tablet; Not Available Not Available Not Available quinapril daily 08/15 completed Recorded 08/15/19 09 4:27PM by Leticia Mullen LPN, Office Visit; Not Available Not Available Not Available sildenafi l as needed 06/14 completed 20987; Recorded 05/31/19 23 3:29PM by Estela Harry (Authori zed through Wade Sharma MD), Refill Request; Refill Quantity : 0; Not Available Not Available Not Available metolazon e as needed 06/14 completed 23423; Recorded 05/31/19 23 3:29PM by Estela Harry [...] e Deanna Pen Needle 32 gauge x active Not Available Not Available Not Available [...] and Address Organization Details Last Updated DateTime 177.8 cm 36.5 kg/m2 191552. 56 g 94 % 90 /min 18 /min 136/80 mm[Hg] Princess Can [facility] 16:20:47 Social History Question Answer Notes LastModified by Organizat ion Details LastModified Time Tobacco Smoking Status Never Smoker Princess baez [facility] 11/16/2023 10:04:13 What Was The Date Of Your Most Recent Tobacco Screening? 09/13/2024 [email or web address] Information not available 09/13/2024 What Is Your Relationship Status? [email or web address] Information not available 12/20/2023 Sex: Unknown Functional Status Question Answer Note LastModified by Organizat ion Details LastModified Time Do you use any illicit or recreational drugs? No [email or web address] Information not available 06/21/2022 Do you or have you ever used any other forms of tobacco or nicotine? No [email or web address] Information not available 06/21/2022 What is your level of alcohol consumption? None Information not available 06/21/2022 Mental Status None recorded. Family History Relationship Description Onset Age of this Age Resolved Age Notes LastModified by Organization Details LastModified Time Father No current problems or disability [email or web address] Not available 06/2022 15:39:32 Mother No current problems or disability [email or web address] Not available 06/2022 15:39:32 Notes:Diabetes-father, broth er, [place]/CAD- father, Leukemia- father, Hypertension, HTN- mother,father, Arthritis, Colon Cancer, Hypercholesterolemia, Cancer, Heart disease in male family member before age 55, Diabetes Mellitus Medical History No medical history recorded. Immunizations Vaccine Type Date Status Note Provider Nam e and Address Organization Details Recorded Time Td(adult) unspecified formulation 2 completed Not Available [facility] 10/15/2022 02:52:02 Tdap 2 completed Princess baez [facility] 08/16/2023 09:55:33 Influenza, split virus, quadrivalent, PF 2 completed Princess baez [facility] 08/16/2023 09:55:33 Influenza, split virus, trivalent, preservative 4 completed Not Available [facility] 12/09/2024 16:12:50 RSV, recombinant, protein subunit RSVpreF, adjuvant reconstituted, 0.5 mL, PF 4 completed Not Available [facility] 12/09/2024 16:12:50 Influenza, MDCK, trivalent, PF 4 completed Not Available [facility] 12/09/2024 16:12:50 Pneumococcal conjugate PCV20, polysaccharide [id number] conjugate, adjuvant, PF 4 completed Not Available [facility] 12/09/2024 16:12:50 Past Encounters Encounter ID Performer Location Encounter Start Date Encounter Closed Date Diagnosis/Indication Diagnosis SNOMED-CT Code Diagnosis ICD10 Code Diagnosis IMO Codes Diagnosis Note [id number] Mateus Glover DO [facility] ([facility]) [address] [place] [phone] 11/27/2024 09:56:55 12/10/2024 08:06:01 Candidiasis 21226016 B37.9 55726 Counseled will treat with oral and topical antifungal Local infe ction of wound 35671735 T14.8XXA L08.9 447086 11/27/24: Advised pt contact [facility] and update them on the amount of purulent drainage he is experienci michelle, they may want to address this sooner than his next appt on 12/05/24. Will treat with abx, I want to prevent Sepsis. Reviewed allergies, will treat with Clindamyci n, spouse confirms he does ok on this. Will also draw lab today. [id number] Mateus Glover DO [facility] ([facility]) [address] [place] [phone] 12/09/2024 16:12:33 12/18/2024 13:18:52 Contact dermatitis 99285717 L25.9 [id number] 12/09/24: Reviewed recent lab with pt, explained [...] by Organization Details LastModified Time None Recorded Payers Encounter Date Sequence Insurance Name Policy Number Policy Brooke Covered Member ID Brooke Member ID Guarantor Name 12/09/2024 1 [place] LEYDI Alberts [id number] Clay Alberts 12/09/2024 2 [place]LE[place]) [id number] Clay Alberts [id number] Clay Alberts Notes Date Note Type Note Provider Name and Address Organization Details Recorded Time 12/09/2024 text/html ROS as noted in the [...] having any issues with acid reflux. Mateus Glover, DO [address] [place] [address], [phone], [facility] 12/17/2024 18:56:13
--- OUTSIDE RECORDS SUMMARY | 2025-02-10 23:11 | XMS_ITS | Encounter Summary ---
Author Organization [facility] Address [address] [place] [address] Care Team Providers Care Aerophysicist Name Role Phone Unavailable Primary Care Provider Unavailabl e Encounter Details Date Type Department Care Team (Late st Contact Info) Description 05/07/2018 Lab Requisition [facility] Laboratory Services [address] [place] [address] Wilmar Haas DO [address] [place] [address] Social History Tobacco Use Types Packs/Day Years Used Date Smoking Tobacco: Never Assessed Sex and Gender Information Value Date Recorded Sex Assigned at Not on file Legal Sex Male 12:46 AM ALL SOURCE INTELLIGENCE TECHNICIAN Gender Identity Not on file Sexual Orientation Not on file documented as of this encounter Plan of Treatment Not on file documented as of this encounter Procedures Procedure Name Priority Date/Time Associated Diagnosis Comments IV CATHETER CULTURE Stat 05/07/2018 9 :38 AM ALL SOURCE INTELLIGENCE TECHNICIAN documented in this encounter Results * IV CATHETER CULTURE (05/07/2018 9:38 AM ALL SOURCE INTELLIGENCE TECHNICIAN) CULTURE No growth 05/09/2018 8:06 AM ALL SOURCE INTELLIGENCE TECHNICIAN [facility] [employer] [facility] Vascular catheter tip (physical object) (Other, specify) 05/07/2018 9:38 AM ALL SOURCE INTELLIGENCE TECHNICIAN 05/07/2018 8:10 PM ALL SOURCE INTELLIGENCE TECHNICIAN Wilmar Haas DO MICROBIOLOGY - GENERAL ORDER VANESSA Final Result [facility] [employer] [facility] CLIA# [id number] [address] [place] [address] documented in this encounter Visit Diagnoses Not on filedocumented in this encounter
--- OUTSIDE RECORDS SUMMARY | 2025-02-10 23:11 | XMS_ITS | Encounter Summary ---
Author Organization [employer] [facility] Address [address] [place] [address] Care Team Providers Care Clinical Informaticist Name Role Phone Unavailable Primary Care Provider Unavailabl e Encounter Details Date Type Department Care Team (Late st Contact Info) Description 03/12/2018 Lab Requisition [facility] Laboratory Services [address] [place] [address] Eulalia Carter MD [address] [place] [address] Social History Tobacco Use Types Packs/Day Years Used Date Smoking Tobacco: Never Assessed Sex and Gender Information Value Date Recorded Sex Assigned at Not on file Legal Sex Male 12:46 AM CARDROOM PLASTIC CARD GRADER Gender Identity Not on file Sexual Orientation Not on file documented as of this encounter Plan of Treatment Not on file documented as of this encounter Procedures Procedure Name Priority Date/Time Associated Diagnosis Comments CBC WITH DIFFERENTIAL Stat 03/12/2018 3:05 AM CARDROOM PLASTIC CARD GRADER BASIC METABOLIC PANEL Stat 03/12/2018 3:05 AM CARDROOM PLASTIC CARD GRADER documented in this encounter Results * (ABNORMAL) BASIC METABOLIC PANEL (03/12/2018 3:05 AM CARDROOM PLASTIC CARD GRADER) SODIUM 133(L) 136 - 145 mmol/L 03/12/2018 5:42 AM CARDROOM PLASTIC CARD GRADER [facility] LABORATORY [facility] POTASSIUM 5.1 3.5 - 5.1 mmol/L 03/12/2018 5:42 AM CARDROOM PLASTIC CARD GRADER [facility] LABORATORY [facility] CHLORIDE 89(L) 98 - 107 mmol/L 03/12/2018 5:42 AM CARDROOM PLASTIC CARD GRADER [facility]ORATORY [facility] CO2 25 22 - 29 mmol/L 03/12/2018 5:42 AM CARDROOM PLASTIC CARD GRADER [facility] LABORATORY [facility] CALCIUM 8.9 8.6 - 10.0 mg/dL 03/12/2018 5:42 AM [facility] BUN 79(H) 6 - 20 mg/dL 03/12/2018 5:42 AM [facility] CREATININE 5.37(H) 0.67 - 1.17 mg/dL 03/12/2018 5:42 AM [facility] GLUCOSE 184(H) 74 - 99 mg/dL 03/12/2018 5:42 AM [facility] GFR 11(L) >=60 mL/min/1. 73 sq meter 03/12/2018 5:42 AM [facility] Comment: eGFR has not been validated [...] please refer to the GFR result. GFR, 13(L) >=60 mL/min/1. 73 sq meter 03/12/2018 5:42 AM [facility] ANION GAP 19 9 - 20 mmol/L 03/12/2018 5:42 AM [facility] Blood Collection / Unknown 03/12/2018 3:05 AM CARDROOM PLASTIC CARD GRADER 03/12/2018 5:05 AM [facility] us Eulalia Carter MD CHEMISTRY ORDERABLES Final Resul t [facility] CLIA# [id number] [address] [place] [address] * (ABNORMAL) CBC WITH DIFFERENTIAL (03/12/2018 3:05 AM [facility]) WBC 16.7(H) 4.8 - 10.8 K/uL 03/12/2018 5:18 AM [facility] RBC 2.16(L) 4.60 - 6.20 M/uL 03/12/2018 5:18 AM [facility] HEMOGLOBIN 6.4(L) 14.0 - 18.0 g/dL 03/12/2018 5:18 AM [facility] HEMATOCRIT 20.5(L) 41.0 - 53.0 % 03/12/2018 5:18 AM [facility] [employer] [facility] MCV 94.9 84.0 - 103.0 fL 03/12/2018 5:18 AM [facility] MCH 29.6 27.0 - 34.0 pg 03/12/2018 5:18 AM [facility] [employer] [facility] MCHC 31.2 30.0 - 35.0 g/dL 03/12/2018 5:18 AM [facility] RDW 18.1(H) 11.0 - 14.5 % 03/12/2018 5:18 AM [facility] [employer] [facility] RDW-STDEV 62.6(H) 37.0 - 54.0 fL 03/12/2018 5:18 AM [facility] [employer] [facility] PLATELETS 233 140 - 440 K/uL 03/12/2018 5:18 AM [facility] [employer] [facility] MPV 10.0 8.9 - 12.8 fL 03/12/2018 5:18 AM [facility] NEUTROPHILS 84(H) 42 - 75 % 03/12/2018 5:18 AM [facility] [employer] [facility] LYMPHOCYTES 8(L) 24 - 44 % 03/12/2018 5:18 AM [facility] [employer] [facility] MONOCYTES 5 2 - 10 % 03/12/2018 5:18 AM [facility] [employer] [facility] EOSINOPHILS 1 0 - 7 % 03/12/2018 5:18 AM [facility] [employer] [facility] BASOPHILS 0 0 - 1 % 03/12/2018 5:18 AM [facility] [employer] [facility] IMMATURE GRANULOCYTES 2 0 - 2 % 03/12/2018 5:18 AM [facility] [employer] [facility] NEUTROPHIL ABSOLUTE 14.12(H) 2.00 - 8.00 K/uL 03/12/2018 5:18 AM [facility] [employer] [facility] LYMPHOCYTE ABSOLUTE 1.38 1.20 - 4.00 K/uL 03/12/2018 5:18 AM CARDROOM PLASTIC CARD GRADER [facility] MONOCYTE ABSOLUTE 0.77(H) 0.10 - 0.60 K/uL 03/12/2018 5:18 AM CARDROOM PLASTIC CARD GRADER [facility] EOSINOPHIL ABSOLUTE 0.16 0.00 - 0.70 K/uL 03/12/2018 5:18 AM [facility] BASOPHILS ABSOLUTE 0.05 0.00 - 0.20 K/uL 03/12/2018 5:18 AM CARDROOM PLASTIC CARD GRADER [facility] IMMATURE GRANULOCYTES ABSOLUTE 0.26(H) 0.00 - 0.10 K/uL 03/12/2018 5:18 AM [facility] Blood Collection / Unknown 03/12/2018 3:05 AM CARDROOM PLASTIC CARD GRADER 03/12/2018 5:06 AM CARDROOM PLASTIC CARD GRADER us Eulalia Carter MD HEMATOLOGY ORDERABLES Final Resu lt [facility] CLIA# [id number] [facility] [place] [address] documented in this encounter Visit Diagnoses Not on filedocumented in this encounter
--- OUTSIDE RECORDS SUMMARY | 2025-02-10 23:11 | XMS_ITS | Encounter Summary ---
Author Organization [facility] Address [address] [place] [address] Care Team Providers Care Faro Dealer Name Role Phone Unavailable Primary Care Provider Unavailabl e Encounter Details Date Type Department Care Team (Late st Contact Info) Description 05/28/2018 Lab Requisition [facility] Laboratory Services [address] [place] [address] Karen Austin MD [address] [place] [address] Social History Tobacco Use Types Packs/Day Years Used Date Smoking Tobacco: Never Assessed Sex and Gender Information Value Date Recorded Sex Assigned at Not on file Legal Sex Male 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 LABORATORY [facility] POTASSIUM 4.0 3.5 - 5.1 mmol/L 05/28/2018 5:49 AM CDT [facility] CHLORIDE 111(H) 98 - 107 mmol/L 05/28/2018 5:[address] [facility] LABORATORY [facility] CO2 31(H) 22 - 29 mmol/L 05/28/2018 5:[address] [facility] LABOR[facility] CALCIUM 7.9(L) 8.6 - 10.0 mg/dL 05/28/2018 5:49 AM [facility] BUN 14 6 - 20 mg/dL 05/28/2018 5:49 AM [facility] CREATININE 1.25(H) 0.67 - 1.17 mg/dL 05/28/2018 5:49 AM [facility] GLUCOSE 80 74 - 99 mg/dL 05/28/2018 5:49 AM [facility] TOTAL PROTEIN 5.2(L) 6.4 - 8.3 g/dL 05/28/2018 5:49 AM [facility] ALBUMIN 2.1(L) 3.5 - 5.2 g/dL 05/28/2018 5:49 AM [facility] BILIRUBIN TOTAL 0.2 0.2 - 1.0 mg/dL 05/28/2018 5:49 AM [facility] ALKALINE PHOSPHATASE 93 40 - 129 U/L 05/28/2018 5:49 AM [facility] AST 19 10 - 50 U/L 05/28/2018 5:49 AM [facility] ALT 16 <=50 U/L 05/28/2018 5:49 AM [facility] GFR 59(L) >=60 mL/min/1. 73 sq meter 05/28/2018 5:49 AM [facility] Comment: eGFR has not been validated [...] GFR, >60 >=60 mL/min/1. 73 sq meter 05/28/2018 5:49 AM [facility] ANION GAP 6(L) 9 - 20 mmol/L 05/28/2018 5:49 AM [facility] Blood Collection / Unknown 05/28/2018 3:57 AM CDT 05/28/2018 5:14 AM CDT us Karen Austin MD CHEMISTRY ORDERABLES Leidy josé Result [facility] CLIA# [id number] [address] [place] [address] documented in this encounter Visit Diagnoses Not on filedocumented in this encounter
--- OUTSIDE RECORDS SUMMARY | 2025-02-10 23:11 | XMS_ITS | Encounter Summary ---
Author Organization [facility] Address [address] [place] [address] Care Team Providers Care Numerical Control Machine Machinist Name Role Phone Unavailable Primary Care Provider Unavailabl e Encounter Details Date Type Department Care Team (Late st Contact Info) Description 05/03/2018 Lab Requisition [facility] Laboratory Services [address] [place] [address] Wilmar Haas, DO [address] [place] [address] Social History Tobacco Use Types Packs/Day Years Used Date Smoking Tobacco: Never Assessed Sex and Gender Information Value Date Recorded Sex Assigned at Not on file Legal Sex Male 12:46 AM RESIDENT INTERN Gender Identity Not on file Sexual Orientation Not on file documented as of this encounter Plan of Treatment Not on file documented as of this encounter Procedures Procedure Name Priority Date/Time Associated Diagnosis Comments CBC WITH DIFFERENTIAL Stat 05/03/2018 3:00 AM RESIDENT INTERN PHOSPHORUS Stat 05/03/2018 3:00 AM RESIDENT INTERN MAGNESIUM LEVEL Stat 05/03/2018 3:00 AM RESIDENT INTERN COMPREHENSIVE METABOLIC PANEL Stat 05/03/2018 3:00 AM RESIDENT INTERN documented in this encounter Results * PHOSPHORUS (05/03/2018 3:00 AM RESIDENT INTERN) PHOSPHORUS 3.7 2.5 - 4.5 mg/dL 05/03/2018 5:41 AM RESIDENT INTERN [facility] [place] Blood Collection / Unknown 05/03/2018 3:00 AM RESIDENT INTERN 05/03/2018 5:07 AM RESIDENT INTERN Wilmar Haas DO CHEMISTRY ORDERABLES Final R esult Performing Organization Address City/[facility]/ZIP Co de Phone Number [facility] CLIA# [id number] [address] [place] [address] * MAGNESIUM LEVEL (05/03/2018 3:00 AM RESIDENT INTERN) MAGNESIUM 1.7 1.6 - 2.6 mg/dL 05/03/2018 5:41 AM [facility] Blood Collection / Unknown 05/03/2018 3:00 AM RESIDENT INTERN 05/03/2018 5:07 AM RESIDENT INTERN Wilmar Haas DO CHEMISTRY ORDERABLES Final R esult Performing Organization Address [facility] Co de Phone Number [facility] CLIA# [id number] [address] [place] [address] * (ABNORMAL) COMPREHENSIVE METABOLIC PANEL (05/03/2018 3:00 AM RESIDENT INTERN) SODIUM 142 136 - 145 mmol/L 05/03/2018 5:41 AM [facility] [place] [facility] POTASSIUM 3.8 3.5 - 5.1 mmol/L 05/03/2018 5:41 AM [facility] [place] [facility] CHLORIDE 109(H) 98 - 107 mmol/L 05/03/2018 5:41 AM [facility] [place] [facility] CO2 23 22 - 29 mmol/L 05/03/2018 5:41 AM [facility] [place] [facility] CALCIUM 8.6 8.6 - 10.0 mg/dL 05/03/2018 5:41 AM [facility] [place] [facility] BUN 20 6 - 20 mg/dL 05/03/2018 5:41 AM [facility] [place] [facility] CREATININE 1.34(H) 0.67 - 1.17 mg/dL 05/03/2018 5:41 AM [facility] [place] [facility] GLUCOSE 97 74 - 99 mg/dL 05/03/2018 5:41 AM [facility] [place] [facility] TOTAL PROTEIN 5.9(L) 6.4 - 8.3 g/dL 05/03/2018 5:41 AM [facility] ALBUMIN 2.5(L) 3.5 - 5.2 g/dL 05/03/2018 5:41 AM [facility] BILIRUBIN TOTAL 0.2 0.2 - 1.0 mg/dL 05/03/2018 5:41 AM [facility] ALKALINE PHOSPHATASE 95 40 - 129 U/L 05/03/2018 5:41 AM [facility] AST 10 10 - 50 U/L 05/03/2018 5:41 AM [facility] ALT 12 <=50 U/L 05/03/2018 5:41 AM [facility] GFR 55(L) >=60 mL/min/1. 73 sq meter 05/03/2018 5:41 AM [facility] Comment: eGFR has not been [...] GFR, >60 >=60 mL/min/1. 73 sq meter 05/03/2018 5:41 AM [facility] ANION GAP 10 9 - 20 mmol/L 05/03/2018 5:41 AM [facility] Blood Collection / Unknown 05/03/2018 3:00 AM RESIDENT INTERN 05/03/2018 5:07 AM [facility] Wilmar Haas DO CHEMISTRY ORDERABLES Final R esult [facility] CLIA# [id number] [facility] [place] [address] * (ABNORMAL) CBC WITH DIFFERENTIAL (05/03/2018 3:00 AM [facility]) [facility] WBC 7.6 4.8 - 10.8 K/uL 05/03/2018 5:15 AM [facility] RBC 2.91(L) 4.60 - 6.20 M/uL 05/03/2018 5:15 AM [facility] HEMOGLOBIN 8.5(L) 14.0 - 18.0 g/dL 05/03/2018 5:15 AM [facility] HEMATOCRIT 29.0(L) 41.0 - 53.0 % 05/03/2018 5:15 AM [facility] MCV 99.7 84.0 - 103.0 fL 05/03/2018 5:15 AM [facility] MCH 29.2 27.0 - 34.0 pg 05/03/2018 5:15 AM [facility] MCHC 29.3(L) 30.0 - 35.0 g/dL 05/03/2018 5:15 AM [facility] RDW 14.8(H) 11.0 - 14.5 % 05/03/2018 5:15 AM [facility] RDW-STDEV 54.6(H) 37.0 - 54.0 fL 05/03/2018 5:15 AM [facility] PLATELETS 213 140 - 440 K/uL 05/03/2018 5:15 AM [facility] MPV 10.4 8.9 - 12.8 fL 05/03/2018 5:15 AM [facility] NEUTROPHILS 71 42 - 75 % 05/03/2018 5:15 AM [facility] LYMPHOCYTES 17(L) 24 - 44 % 05/03/2018 5:15 AM [facility] [place] [facility] MONOCYTES 9 2 - 10 % 05/03/2018 5:15 AM [facility] EOSINOPHILS 2 0 - 7 % 05/03/2018 5:15 AM [facility] BASOPHILS 0 0 - 1 % 05/03/2018 5:15 AM [facility] [place] [facility] IMMATURE GRANULOCYTES 0 0 - 2 % 05/03/2018 5:15 AM [facility] NEUTROPHIL ABSOLUTE 5.40 2.00 - 8.00 K/uL 05/03/2018 5:15 AM [facility] LYMPHOCYTE ABSOLUTE 1.29 1.20 - 4.00 K/uL 05/03/2018 5:15 AM [facility] MONOCYTE ABSOLUTE 0.68(H) 0.10 - 0.60 K/uL 05/03/2018 5:15 AM [facility] EOSINOPHIL ABSOLUTE 0.17 0.00 - 0.70 K/uL 05/03/2018 5:15 AM [facility] BASOPHILS ABSOLUTE 0.03 0.00 - 0.20 K/uL 05/03/2018 5:15 AM [facility] IMMATURE GRANULOCYTES ABSOLUTE 0.02 0.00 - 0.10 K/uL 05/03/2018 5:15 AM [facility] Blood Collection / Unknown 05/03/2018 3:00 AM RESIDENT INTERN 05/03/2018 5:07 AM RESIDENT INTERN us Wilmar Haas DO HEMATOLOGY ORDERABLES Final Result [facility] CLIA# [id number] [facility] [address] documented in this encounter Visit Diagnoses Not on filedocumented in this encounter
--- OUTSIDE RECORDS SUMMARY | 2025-02-10 23:11 | XMS_ITS | Encounter Summary ---
Author Organization [facility] Address [address] [place] [address] Care Team Providers Care Metaphysicist Name Role Phone Unavailable Primary Care Provider Unavailabl e Encounter Details Date Type Department Care Team (Late st Contact Info) Description 05/10/2018 Lab Requisition [facility] Laboratory Services [address] [place] [address] Wilmar Haas, DO [address] [place] [address] Social History Tobacco Use Types Packs/Day Years Used Date Smoking Tobacco: Never Assessed Sex and Gender Information Value Date Recorded Sex Assigned at Not on file Legal Sex Male 12:46 AM DEAN OF WOMEN Gender Identity Not on file Sexual Orientation Not on file documented as of this encounter Plan of Treatment Not on file documented as of this encounter Visit Diagnoses Not on filedocumented in this encounter
--- OUTSIDE RECORDS SUMMARY | 2025-02-10 23:11 | XMS_ITS | Encounter Summary ---
Author Organization [facility] Address [address] [place] [address] Care Team Providers Care Foil Stamp Operator Name Role Phone Unavailable Primary Care Provider Unavailabl e Encounter Details Date Type Department Care Team (Late st Contact Info) Description 05/05/2018 Lab Requisition [facility] Laboratory Services [address] [place] [address] Wilmar Haas DO [address] [place] [address] Social History Tobacco Use Types Packs/Day Years Used Date Smoking Tobacco: Never Assessed Sex and Gender Information Value Date Recorded Sex Assigned at Not on file Legal Sex Male 12:46 AM BOAT CAPTAIN Gender Identity Not on file Sexual Orientation Not on file documented as of this encounter Plan of Treatment Not on file documented as of this encounter Procedures Procedure Name Priority Date/Time Associated Diagnosis Comments VANCOMYCIN LEVEL RANDOM Stat 05/05/2018 3:20 PM BOAT CAPTAIN documented in this encounter Results * VANCOMYCIN LEVEL RANDOM (05/05/2018 3:20 PM BOAT CAPTAIN) VANCOMYCIN, RANDOM 7.6 5.0 - 50.0 ug/mL 05/05/2018 5:04 PM BOAT CAPTAIN [facility] [employer] [facility] Blood Collection / Unknown 05/05/2018 3:20 PM BOAT CAPTAIN 05/05/2018 4:35 PM BOAT CAPTAIN Narrative [facility] [employer] [facility] - 05/05/2018 5:04 PM BOAT CAPTAIN Vancomycin Therapeutic Ranges: Vancomycin Trough: 10 - 20 mcg/mL Vancomycin Peak: 25 - 50 mcg/mL us Wilmar Haas DO CHEMISTRY ORDERABLES Final R esult [id number] [address] [place] [address] documented in this encounter Visit Diagnoses Not on filedocumented in this encounter
--- OUTSIDE RECORDS SUMMARY | 2025-02-10 23:11 | XMS_ITS | Encounter Summary ---
Author Organization [facility] Address [address] [place] [address] Care Team Providers Care Stitch Welder Name Role Phone Unavailable Primary Care Provider Unavailabl e Encounter Details Date Type Department Care Team (Late st Contact Info) Description 05/07/2018 Lab Requisition [facility] Laboratory Services [address] [place] [address] Wilmar Haas DO [address] [place] [address] Social History Tobacco Use Types Packs/Day Years Used Date Smoking Tobacco: Never Assessed Sex and Gender Information Value Date Recorded Sex Assigned at Not on file Legal Sex Male 12:46 AM PRIMARY CARE PHYSICIAN Gender Identity Not on file Sexual Orientation Not on file documented as of this encounter Plan of Treatment Not on file documented as of this encounter Procedures Procedure Name Priority Date/Time Associated Diagnosis Comments IV CATHETER CULTURE Stat 05/07/2018 9 :35 AM PRIMARY CARE PHYSICIAN documented in this encounter Results * IV CATHETER CULTURE (05/07/2018 9:35 AM PRIMARY CARE PHYSICIAN) CULTURE No growth 05/09/2018 8:05 AM PRIMARY CARE PHYSICIAN [facility] [employer] [facility] Vascular catheter tip (physical object) (Hemodialysis Catheter) Collection / Unknown 05/07/2018 9:35 AM PRIMARY CARE PHYSICIAN 05/07/2018 4:56 PM PRIMARY CARE PHYSICIAN us Wilmar Haas DO MICROBIOLOGY - GENERAL ORDER VANESSA Final Result [facility] [employer] [facility] CLIA# [id number] [address] [place] [address] documented in this encounter Visit Diagnoses Not on filedocumented in this encounter
--- OUTSIDE RECORDS SUMMARY | 2025-02-10 23:11 | XMS_ITS | Encounter Summary ---
Author Organization [facility] Address [address] [place] [address] Care Team Providers Care Wax Pot Tender Name Role Phone Unavailable Primary Care Provider Unavailabl e Encounter Details Date Type Department Care Team (Late st Contact Info) Description 03/11/2018 Lab Requisition [facility] Laboratory [facility] [address] [place] [address] Tracy Pereira MD NO ADDRESS ON FILE Social History Tobacco Use Types Packs/Day Years Used Date Smoking Tobacco: Never Assessed Sex and Gender Information Value Date Recorded Sex Assigned at Not on file Legal Sex Male 12:46 AM MATZO FORMING MACHINE OPERATOR Gender Identity Not on file Sexual Orientation Not on file documented as of this encounter Plan of Treatment Not on file documented as of this encounter Procedures Procedure Name Priority Date/Time Associated Diagnosis Comments BLOOD CULTURE Stat 03/11/2018 10:50 AM MATZO FORMING MACHINE OPERATOR documented in this encounter Results * BLOOD CULTURE (03/11/2018 10:50 AM MATZO FORMING MACHINE OPERATOR) BLOOD CULTURE No growth 03/16/2018 12:53 PM MATZO FORMING MACHINE OPERATOR [facility] Blood (Other, specify) Collection / Unknown 03/11/2018 10:50 AM MATZO FORMING MACHINE OPERATOR 03/11/2018 12:13 PM MATZO FORMING MACHINE OPERATOR us Tracy Pereira MD MICROBIOLOGY - GENERAL ORDERABLE S Final Result [facility] CLIA# [id number] [address] [place] [address] documented in this encounter Visit Diagnoses Not on filedocumented in this encounter
--- OUTSIDE RECORDS SUMMARY | 2025-02-10 23:11 | XMS_ITS | Encounter Summary ---
Author Organization [facility] Address [address] [place] [address] Care Team Providers Care Spool Cleaner Hand Name Role Phone Unavailable Primary Care Provider Unavailabl e Encounter Details Date Type Department Care Team (Late st Contact Info) Description 05/10/2018 Lab Requisition [facility] [address] [place] [address] Carissa Monroy MD NO ADDRESS ON FILE Social History Tobacco Use Types Packs/Day Years Used Date Smoking Tobacco: Never Assessed Sex and Gender Information Value Date Recorded Sex Assigned at Not on file Legal Sex Male 12:46 AM APPLICATIONS SUPPORT SPECIALIST Gender Identity Not on file Sexual Orientation Not on file documented as of this encounter Plan of Treatment Not on file documented as of this encounter Procedures Procedure Name Priority Date/Time Associated Diagnosis Comments BLOOD CULTURE Stat 05/10/2018 4:41 PM APPLICATIONS SUPPORT SPECIALIST documented in this encounter Results * BLOOD CULTURE (05/10/2018 4:41 PM APPLICATIONS SUPPORT SPECIALIST) BLOOD CULTURE No growth 05/15/2018 8:18 PM APPLICATIONS SUPPORT SPECIALIST [facility] Blood (Other, specify) Collection / Unknown 05/10/2018 4:41 PM APPLICATIONS SUPPORT SPECIALIST 05/10/2018 7:46 PM APPLICATIONS SUPPORT SPECIALIST us Carissa Monroy MD MICROBIOLOGY - GENERAL ORDERABLE S Final Result [facility] CLIA# [id number] [address] [place] [address] documented in this encounter Visit Diagnoses Not on filedocumented in this encounter
--- OUTSIDE RECORDS SUMMARY | 2025-02-10 23:11 | XMS_ITS | Encounter Summary ---
Author Organization [facility] Address [address] [place] [address] Care Team Providers Care Ampoule Examiner Name Role Phone Unavailable Primary Care Provider Unavailabl e Encounter Details Date Type Department Care Team (Late st Contact Info) Description 03/18/2018 Lab Requisition [facility] Laboratory Services [address] [place] [address] Eulalia Carter MD [address] [place] [address] Social History Tobacco Use Types Packs/Day Years Used Date Smoking Tobacco: Never Assessed Sex and Gender Information Value Date Recorded Sex Assigned at Not on file Legal Sex Male 12:46 AM MANAGER FRONT Gender Identity Not on file Sexual Orientation Not on file documented as of this encounter Plan of Treatment Not on file documented as of this encounter Procedures Procedure Name Priority Date/Time Associated Diagnosis Comments CBC WITH DIFFERENTIAL Stat 03/19/2018 3:15 AM MANAGER FRONT BASIC METABOLIC PANEL Stat 03/19/2018 3:15 AM MANAGER FRONT documented in this encounter Results * (ABNORMAL) BASIC METABOLIC PANEL (03/19/2018 3:15 AM MANAGER FRONT) SODIUM 130(L) 136 - 145 mmol/L 03/19/2018 8:22 AM MANAGER FRONT [facility] POTASSIUM 4.8 3.5 - 5.1 mmol/L 03/19/2018 8:22 AM MANAGER FRONT [facility] CHLORIDE 87(L) 98 - 107 mmol/L 03/19/2018 8:22 AM MANAGER FRONT [facility] CO2 27 22 - 29 mmol/L 03/19/2018 8:22 AM MANAGER FRONT [facility] CALCIUM 9.3 8.6 - 10.0 mg/dL 03/19/2018 8:22 AM [facility] BUN 74(H) 6 - 20 mg/dL 03/19/2018 8:22 AM [facility] CREATININE 5.21(H) 0.67 - 1.17 mg/dL 03/19/2018 8:22 AM [facility] GLUCOSE 151(H) 74 - 99 mg/dL 03/19/2018 8:22 AM [facility] GFR 11(L) >=60 mL/min/1. 73 sq meter 03/19/2018 8:22 AM [facility] Comment: eGFR has not [...] please refer to the GFR result. GFR, 14(L) >=60 mL/min/1. 73 sq meter 03/19/2018 8:22 AM [facility] ANION GAP 16 9 - 20 mmol/L 03/19/2018 8:22 AM [facility] Blood Collection / Unknown 03/19/2018 3:15 AM MANAGER FRONT 03/19/2018 5:16 AM [facility] us Eulalia Carter MD CHEMISTRY ORDERABLES Edited Resu lt - Final [facility] CLIA# [id number] [facility] [place] [address] * (ABNORMAL) CBC WITH DIFFERENTIAL (03/19/2018 3:15 AM [facility]) WBC 11.2(H) 4.8 - 10.8 K/uL 03/19/2018 8:22 AM [facility] RBC 2.63(L) 4.60 - 6.20 M/uL 03/19/2018 8:22 AM [facility] HEMOGLOBIN 7.9(L) 14.0 - 18.0 g/dL 03/19/2018 8:22 AM [facility] HEMATOCRIT 24.9(L) 41.0 - 53.0 % 03/19/2018 8:22 AM [facility] MCV 94.7 84.0 - 103.0 fL 03/19/2018 8:22 AM [facility] MCH 30.0 27.0 - 34.0 pg 03/19/2018 8:22 AM [facility] MCHC 31.7 30.0 - 35.0 g/dL 03/19/2018 8:22 AM [facility] RDW 18.0(H) 11.0 - 14.5 % 03/19/2018 8:22 AM [facility] RDW-STDEV 62.7(H) 37.0 - 54.0 fL 03/19/2018 8:22 AM [facility] PLATELETS 286 140 - 440 K/uL 03/19/2018 8:22 AM [facility] MPV 10.1 8.9 - 12.8 fL 03/19/2018 8:22 AM [facility] NEUTROPHILS 72 42 - 75 % 03/19/2018 8:22 AM [facility] LYMPHOCYTES 14(L) 24 - 44 % 03/19/2018 8:22 AM [facility] MONOCYTES 10 2 - 10 % 03/19/2018 8:22 AM [facility] EOSINOPHILS 3 0 - 7 % 03/19/2018 8:22 AM [facility] BASOPHILS 1 0 - 1 % 03/19/2018 8:22 AM [facility] IMMATURE GRANULOCYTES 1 0 - 2 % 03/19/2018 8:22 AM [facility] NEUTROPHIL ABSOLUTE 8.00 2.00 - 8.00 K/uL 03/19/2018 8:22 AM [facility] LYMPHOCYTE ABSOLUTE 1.51 1.20 - 4.00 K/uL 03/19/2018 8:22 AM MANAGER FRONT [facility] MONOCYTE ABSOLUTE 1.12(H) 0.10 - 0.60 K/uL 03/19/2018 8:22 AM MANAGER FRONT [facility] EOSINOPHIL ABSOLUTE 0.36 0.00 - 0.70 K/uL 03/19/2018 8:22 AM [facility] BASOPHILS ABSOLUTE 0.06 0.00 - 0.20 K/uL 03/19/2018 8:22 AM MANAGER FRONT [facility] IMMATURE GRANULOCYTES ABSOLUTE 0.10 0.00 - 0.10 K/uL 03/19/2018 8:22 AM [facility] Blood Collection / Unknown 03/19/2018 3:15 AM MANAGER FRONT 03/19/2018 5:16 AM MANAGER FRONT us Eulalia Carter MD HEMATOLOGY ORDERABLES Edited Res ult - Final [facility] CLIA# [id number] [facility] [place] [address] documented in this encounter Visit Diagnoses Not on filedocumented in this encounter
--- OUTSIDE RECORDS SUMMARY | 2025-02-10 23:12 | XMS_ITS | Encounter Summary ---
Author Organization [facility] Address [address] [place] [address] Care Team Providers Care Chemical Production Machine Operator Name Role Phone Unavailable Primary Care Provider Unavailabl e Encounter Details Date Type Department Care Team (Late st Contact Info) Description 04/24/2018 Lab Requisition [facility] Laboratory Services [address] [place] [address] Karen Austin MD [address] [place] [address] Social History Tobacco Use Types Packs/Day Years Used Date Smoking Tobacco: Never Assessed Sex and Gender Information Value Date Recorded Sex Assigned at Not on file Legal Sex Male 12:46 AM IT SUPPORT MANAGER Gender Identity Not on file Sexual Orientation Not on file documented as of this encounter Plan of Treatment Not on file documented as of this encounter Procedures Procedure Name Priority Date/Time Associated Diagnosis Comments BASIC METABOLIC PANEL Stat 04/24/2018 3:00 AM IT SUPPORT MANAGER documented in this encounter Results * (ABNORMAL) BASIC METABOLIC PANEL (04/24/2018 3:00 AM IT SUPPORT MANAGER) SODIUM 140 136 - 145 mmol/L 04/24/2018 6:12 AM [facility] POTASSIUM 3.7 3.5 - 5.1 mmol/L 04/24/2018 6:12 AM [facility] CHLORIDE 105 98 - 107 mmol/L 04/24/2018 6:12 AM [facility] CO2 24 22 - 29 mmol/L 04/24/2018 6:12 AM [facility] CALCIUM 8.6 8.6 - 10.0 mg/dL 04/24/2018 6:12 AM [facility] [employer] [facility] BUN 23(H) 6 - 20 mg/dL 04/24/2018 6:12 AM [facility] CREATININE 1.69(H) 0.67 - 1.17 mg/dL 04/24/2018 6:12 AM [facility] GLUCOSE 93 74 - 99 mg/dL 04/24/2018 6:12 AM [facility] GFR 42(L) >=60 mL/min/1. 73 sq meter 04/24/2018 6:12 AM [facility] Comment: eGFR has not [...] please refer to the GFR result. GFR, 51(L) >=60 mL/min/1. 73 sq meter 04/24/2018 6:12 AM [facility] ANION GAP 11 9 - 20 mmol/L 04/24/2018 6:12 AM [facility] Blood Collection / Unknown 04/24/2018 3:00 AM IT SUPPORT MANAGER 04/24/2018 5:37 AM IT SUPPORT MANAGER us Karen Austin MD CHEMISTRY ORDERABLES Leidy josé Result [facility] CLIA# [id number] [address] [place] [address] documented in this encounter Visit Diagnoses Not on filedocumented in this encounter
--- OUTSIDE RECORDS SUMMARY | 2025-02-10 23:12 | XMS_ITS | Encounter Summary ---
Author Organization [facility] Address [address] [place] [address] Care Team Providers Care Gear Keeper Name Role Phone Unavailable Primary Care Provider Unavailabl e Encounter Details Date Type Department Care Team (Late st Contact Info) Description 05/27/2018 Lab Requisition [facility] Laboratory Services [address] [place] [address] Karen Austin MD [address] [place] [address] Social History Tobacco Use Types Packs/Day Years Used Date Smoking Tobacco: Never Assessed Sex and Gender Information Value Date Recorded Sex Assigned at Not on file Legal Sex Male 12:46 AM EDITORIAL WRITER Gender Identity Not on file Sexual Orientation Not on file documented as of this encounter Plan of Treatment Not on file documented as of this encounter Procedures Procedure Name Priority Date/Time Associated Diagnosis Comments HEMOGLOBIN A1C Stat 05/27/2018 3:00 AM CDT documented in this encounter Results * HEMOGLOBIN A1C (05/27/2018 3:00 AM CDT) HEMOGLOBIN A1C 4.6 4.0 - 6.0 % 05/28/2018 12:02 PM CDT [facility] [employer] [facility] EST. AVG GLUCOSE, A1C 85 mg/dL 05/28/2018 12:02 PM CDT [facility] Blood Collection / Unknown 05/27/2018 3:00 AM CDT 05/27/2018 4:57 AM CDT Narrative [facility] [employer] [facility] - 05/28/2018 12:02 PM CDT HGB A1C INTERPRETATION NORMAL: <5.7% PRE-DIABETES: 5.7 - 6.4% DIABETES: 6.5% OR GREATER us Karen Austin MD CHEMISTRY ORDERABLES Leidy josé Result [facility] LABORATORY SERVICES [facility]# [id number] [address] [place] [address] documented in this encounter Visit Diagnoses Not on filedocumented in this encounter
--- OUTSIDE RECORDS SUMMARY | 2025-02-10 23:12 | XMS_ITS | Encounter Summary ---
Author Organization [facility] Address [address] [place] [address] Care Team Providers Care Psychologist Educational Name Role Phone Unavailable Primary Care Provider Unavailabl e Encounter Details Date Type Department Care Team (Late st Contact Info) Description 05/13/2018 Lab Requisition [facility] Laboratory Services [address] [place] [address] Carissa Monroy MD NO ADDRESS ON FILE Social History Tobacco Use Types Packs/Day Years Used Date Smoking Tobacco: Never Assessed Sex and Gender Information Value Date Recorded Sex Assigned at Not on file Legal Sex Male 12:46 AM BREAKFAST HOSTESS Gender Identity Not on file Sexual Orientation Not on file documented as of this encounter Plan of Treatment Not on file documented as of this encounter Procedures Procedure Name Priority Date/Time Associated Diagnosis Comments CBC WITH DIFFERENTIAL Stat 05/13/2018 12:45 PM BREAKFAST HOSTESS PHOSPHORUS Stat 05/13/2018 12:45 PM BREAKFAST HOSTESS MAGNESIUM LEVEL Stat 05/13/2018 12:45 PM BREAKFAST HOSTESS COMPREHENSIVE METABOLIC PANEL Stat 05/13/2018 12:45 PM BREAKFAST HOSTESS documented in this encounter Results * PHOSPHORUS (05/13/2018 12:45 PM BREAKFAST HOSTESS) PHOSPHORUS 4.4 2.5 - 4.5 mg/dL 05/13/2018 2:21 PM BREAKFAST HOSTESS [facility] [employer] [facility] Blood Collection / Unknown 05/13/2018 12:45 PM BREAKFAST HOSTESS 05/13/2018 1:49 PM BREAKFAST HOSTESS us Carissa Monroy MD CHEMISTRY ORDERABLES Final Resul t [facility] CLIA# [id number] [address] [place], [place] [id number] * MAGNESIUM LEVEL (05/13/2018 12:45 PM BREAKFAST HOSTESS) [facility] MAGNESIUM 1.8 1.6 - 2.6 mg/dL 05/13/2018 2:21 PM [facility] Blood Collection / Unknown 05/13/2018 12:45 PM BREAKFAST HOSTESS 05/13/2018 1:49 PM BREAKFAST HOSTESS us Carissa Monroy MD CHEMISTRY ORDERABLES Final Resul t [facility] CLIA# [id number] [address] [place] [address] * (ABNORMAL) COMPREHENSIVE METABOLIC PANEL (05/13/2018 12:45 PM BREAKFAST HOSTESS) [facility] SODIUM 146(H) 136 - 145 mmol/L 05/13/2018 2:21 PM [facility] [employer] [facility] POTASSIUM 4.6 3.5 - 5.1 mmol/L 05/13/2018 2:21 PM [facility] CHLORIDE 111(H) 98 - 107 mmol/L 05/13/2018 2:21 PM [facility] CO2 26 22 - 29 mmol/L 05/13/2018 2:21 PM [facility] CALCIUM 8.2(L) 8.6 - 10.0 mg/dL 05/13/2018 2:21 PM [facility] [employer] [facility] BUN 24(H) 6 - 20 mg/dL 05/13/2018 2:21 PM [facility] CREATININE 1.72(H) 0.67 - 1.17 mg/dL 05/13/2018 2:21 PM [facility] GLUCOSE 177(H) 74 - 99 mg/dL 05/13/2018 2:21 PM [facility] TOTAL PROTEIN 6.2(L) 6.4 - 8.3 g/dL 05/13/2018 2:21 PM [facility] ALBUMIN 2.6(L) 3.5 - 5.2 g/dL 05/13/2018 2:21 PM [facility] BILIRUBIN TOTAL 0.2 0.2 - 1.0 mg/dL 05/13/2018 2:21 PM [facility] ALKALINE PHOSPHATASE 139(H) 40 - 129 U/L 05/13/2018 2:21 PM [facility] AST 26 10 - 50 U/L 05/13/2018 2:21 PM [facility] ALT 90(H) <=50 U/L 05/13/2018 2:21 PM [facility] GFR 41(L) >=60 mL/min/1. 73 sq meter 05/13/2018 2:21 PM [facility] Comment: eGFR has not been validated [...] please refer to the GFR result. GFR, 50(L) >=60 mL/min/1. 73 sq meter 05/13/2018 2:21 PM [facility] ANION GAP 9 9 - 20 mmol/L 05/13/2018 2:21 PM [facility] Blood Collection / Unknown 05/13/2018 12:45 PM BREAKFAST HOSTESS 05/13/2018 1:49 PM BREAKFAST HOSTESS us Carissa Monroy MD CHEMISTRY ORDERABLES Final Resul t [facility] CLIA# [id number] [address] [place] [address] * (ABNORMAL) CBC WITH DIFFERENTIAL (05/13/2018 12:45 PM BREAKFAST HOSTESS) [facility] WBC 14.8(H) 4.8 - 10.8 K/uL 05/13/2018 1:57 PM [facility] RBC 3.25(L) 4.60 - 6.20 M/uL 05/13/2018 1:57 PM [facility] HEMOGLOBIN 9.5(L) 14.0 - 18.0 g/dL 05/13/2018 1:57 PM [facility] HEMATOCRIT 34.2(L) 41.0 - 53.0 % 05/13/2018 1:57 PM [facility] MCV 105.2(H) 84.0 - 103.0 fL 05/13/2018 1:57 PM [facility] MCH 29.2 27.0 - 34.0 pg 05/13/2018 1:57 PM [facility] MCHC 27.8(L) 30.0 - 35.0 g/dL 05/13/2018 1:57 PM [facility] RDW 16.7(H) 11.0 - 14.5 % 05/13/2018 1:57 PM [facility] RDW-STDEV 59.5(H) 37.0 - 54.0 fL 05/13/2018 1:57 PM [facility] PLATELETS 340 140 - 440 K/uL 05/13/2018 1:57 PM [facility] MPV 9.8 8.9 - 12.8 fL 05/13/2018 1:57 PM [facility] NEUTROPHILS 80(H) 42 - 75 % 05/13/2018 1:57 PM [facility] LYMPHOCYTES 12(L) 24 - 44 % 05/13/2018 1:57 PM [facility] MONOCYTES 4 2 - 10 % 05/13/2018 1:57 PM [facility] EOSINOPHILS 1 0 - 7 % 05/13/2018 1:57 PM [facility] BASOPHILS 1 0 - 1 % 05/13/2018 1:57 PM [facility] IMMATURE GRANULOCYTES 2 0 - 2 % 05/13/2018 1:57 PM [facility] NEUTROPHIL ABSOLUTE 11.77(H) 2.00 - 8.00 K/uL 05/13/2018 1:57 PM [facility] LYMPHOCYTE ABSOLUTE 1.83 1.20 - 4.00 K/uL 05/13/2018 1:57 PM [facility] MONOCYTE ABSOLUTE 0.62(H) 0.10 - 0.60 K/uL 05/13/2018 1:57 PM [facility] EOSINOPHIL ABSOLUTE 0.21 0.00 - 0.70 K/uL 05/13/2018 1:57 PM [facility] BASOPHILS ABSOLUTE 0.09 0.00 - 0.20 K/uL 05/13/2018 1:57 PM [facility] IMMATURE GRANULOCYTES ABSOLUTE 0.23(H) 0.00 - 0.10 K/uL 05/13/2018 1:57 PM [facility] Blood Collection / Unknown 05/13/2018 12:45 PM BREAKFAST HOSTESS 05/13/2018 1:49 PM BREAKFAST HOSTESS us Carissa Monroy MD HEMATOLOGY ORDERABLES Final Resu lt [facility] CLIA# [id number] [address] [place] [address] documented in this encounter Visit Diagnoses Not on filedocumented in this encounter
--- OUTSIDE RECORDS SUMMARY | 2025-02-10 23:12 | XMS_ITS | Encounter Summary ---
Author Organization [facility] Address [address] [place] [address] Care Team Providers Care Blasting Cap Assembler Name Role Phone Unavailable Primary Care Provider Unavailabl e Encounter Details Date Type Department Care Team (Late st Contact Info) Description 03/14/2018 Lab Requisition [facility] Laboratory Services [address] [place] [address] Arturo Simon MD [address] [place] [address] Social History Tobacco Use Types Packs/Day Years Used Date Smoking Tobacco: Never Assessed Sex and Gender Information Value Date Recorded Sex Assigned at Not on file Legal Sex Male 12:46 AM PROCESS DESIGN CHEMICAL ENGINEER Gender Identity Not on file Sexual Orientation Not on file documented as of this encounter Plan of Treatment Not on file documented as of this encounter Procedures Procedure Name Priority Date/Time Associated Diagnosis Comments VANCOMYCIN LEVEL RANDOM Stat 03/14/2018 3:00 AM PROCESS DESIGN CHEMICAL ENGINEER documented in this encounter Results * VANCOMYCIN LEVEL RANDOM (03/14/2018 3:00 AM PROCESS DESIGN CHEMICAL ENGINEER) VANCOMYCIN, RANDOM 24.5 5.0 - 50.0 ug/mL 03/14/2018 5:41 AM PROCESS DESIGN CHEMICAL ENGINEER [facility] [employer] [facility] Blood Collection / Unknown 03/14/2018 3:00 AM PROCESS DESIGN CHEMICAL ENGINEER 03/14/2018 5:07 AM PROCESS DESIGN CHEMICAL ENGINEER Narrative [facility] [employer] [facility] - 03/14/2018 5:41 AM PROCESS DESIGN CHEMICAL ENGINEER Vancomycin Therapeutic Ranges: Vancomycin Trough: 10 - 20 mcg/mL Vancomycin Peak: 25 - 50 mcg/mL us Arturo Simon MD CHEMISTRY ORDERABLES Final Result [facility] LABORATORY SERVICES [facility]# [id number] [address] [place] [address] documented in this encounter Visit Diagnoses Not on filedocumented in this encounter
--- OUTSIDE RECORDS SUMMARY | 2025-02-10 23:12 | XMS_ITS | Encounter Summary ---
Author Organization [employer] [facility] Address [address] [place] [address] Care Team Providers Care Card Table Attendant Name Role Phone Unavailable Primary Care Provider Unavailabl e Encounter Details Date Type Department Care Team (Late st Contact Info) Description 04/04/2018 Lab Requisition [facility] Laboratory Services [address] [place] [address] Timi Duy Taylor MD [address] [place] [address] Social History Tobacco Use Types Packs/Day Years Used Date Smoking Tobacco: Never Assessed Sex and Gender Information Value Date Recorded Sex Assigned at Not on file Legal Sex Male 12:46 AM SCHOOL PHOTOGRAPHER Gender Identity Not on file Sexual Orientation Not on file documented as of this encounter Plan of Treatment Not on file documented as of this encounter Procedures Procedure Name Priority Date/Time Associated Diagnosis Comments CBC WITH DIFFERENTIAL Stat 04/04/2018 4:15 AM SCHOOL PHOTOGRAPHER COMPREHENSIVE METABOLIC PANEL Stat 04/04/2018 4:15 AM SCHOOL PHOTOGRAPHER documented in this encounter Results * (ABNORMAL) COMPREHENSIVE METABOLIC PANEL (04/04/2018 4:15 AM SCHOOL PHOTOGRAPHER) SODIUM 135(L) 136 - 145 mmol/L 04/04/2018 5:48 AM SCHOOL PHOTOGRAPHER [facility] POTASSIUM 4.3 3.5 - 5.1 mmol/L 04/04/2018 5:48 AM SCHOOL PHOTOGRAPHER [facility] CHLORIDE 92(L) 98 - 107 mmol/L 04/04/2018 5:48 AM SCHOOL PHOTOGRAPHER [facility] CO2 27 22 - 29 mmol/L 04/04/2018 5:48 AM SCHOOL PHOTOGRAPHER [facility] CALCIUM 9.7 8.6 - 10.0 mg/dL 04/04/2018 5:48 AM [facility] BUN 50(H) 6 - 20 mg/dL 04/04/2018 5:48 AM [facility] CREATININE 3.67(H) 0.67 - 1.17 mg/dL 04/04/2018 5:48 AM [facility] GLUCOSE 89 74 - 99 mg/dL 04/04/2018 5:48 AM [facility] TOTAL PROTEIN 7.3 6.4 - 8.3 g/dL 04/04/2018 5:48 AM [facility] ALBUMIN 3.3(L) 3.5 - 5.2 g/dL 04/04/2018 5:48 AM [facility] BILIRUBIN TOTAL 0.4 0.2 - 1.0 mg/dL 04/04/2018 5:48 AM [facility] ALKALINE PHOSPHATASE 178(H) 40 - 129 U/L 04/04/2018 5:48 AM [facility] [employer] [facility] AST 14 10 - 50 U/L 04/04/2018 5:48 AM [facility] [employer] [facility] ALT 29 <=50 U/L 04/04/2018 5:48 AM [facility] GFR 17(L) >=60 mL/min/1. 73 sq meter 04/04/2018 5:48 AM [facility] Comment: eGFR has not been [...] GFR, 21(L) >=60 mL/min/1. 73 sq meter 04/04/2018 5:48 AM [facility] [employer] [facility] ANION GAP 16 9 - 20 mmol/L 04/04/2018 5:48 AM [facility] Blood Collection / Unknown 04/04/2018 4:15 AM SCHOOL PHOTOGRAPHER 04/04/2018 5:06 AM SCHOOL PHOTOGRAPHER us Timi Duy Taylor MD CHEMISTRY ORDERABLES Final Resul t [facility] CLIA# [id number] [address] [place] [id number] * (ABNORMAL) CBC WITH DIFFERENTIAL (04/04/2018 4:15 AM SCHOOL PHOTOGRAPHER) Pathologist [facility] WBC 11.9(H) 4.8 - 10.8 K/uL 04/04/2018 5:18 AM [facility] RBC 3.08(L) 4.60 - 6.20 M/uL 04/04/2018 5:18 AM [facility] HEMOGLOBIN 9.0(L) 14.0 - 18.0 g/dL 04/04/2018 5:18 AM [facility] HEMATOCRIT 30.2(L) 41.0 - 53.0 % 04/04/2018 5:18 AM [facility] MCV 98.1 84.0 - 103.0 fL 04/04/2018 5:18 AM [facility] MCH 29.2 27.0 - 34.0 pg 04/04/2018 5:18 AM [facility] MCHC 29.8(L) 30.0 - 35.0 g/dL 04/04/2018 5:18 AM [facility] RDW 17.3(H) 11.0 - 14.5 % 04/04/2018 5:18 AM [facility] RDW-STDEV 62.1(H) 37.0 - 54.0 fL 04/04/2018 5:18 AM [facility] PLATELETS 324 140 - 440 K/uL 04/04/2018 5:18 AM [facility] MPV 9.7 8.9 - 12.8 fL 04/04/2018 5:18 AM [facility] [employer] [facility] NEUTROPHILS 73 42 - 75 % 04/04/2018 5:18 AM [facility] LYMPHOCYTES 14(L) 24 - 44 % 04/04/2018 5:18 AM [facility] MONOCYTES 11(H) 2 - 10 % 04/04/2018 5:18 AM [facility] EOSINOPHILS 2 0 - 7 % 04/04/2018 5:18 AM [facility] BASOPHILS 1 0 - 1 % 04/04/2018 5:18 AM [facility] IMMATURE GRANULOCYTES 0 0 - 2 % 04/04/2018 5:18 AM [facility] NEUTROPHIL ABSOLUTE 8.67(H) 2.00 - 8.00 K/uL 04/04/2018 5:18 AM [facility] LYMPHOCYTE ABSOLUTE 1.62 1.20 - 4.00 K/uL 04/04/2018 5:18 AM [facility] MONOCYTE ABSOLUTE 1.29(H) 0.10 - 0.60 K/uL 04/04/2018 5:18 AM [facility] EOSINOPHIL ABSOLUTE 0.18 0.00 - 0.70 K/uL 04/04/2018 5:18 AM [facility] BASOPHILS ABSOLUTE 0.06 0.00 - 0.20 K/uL 04/04/2018 5:18 AM [facility] IMMATURE GRANULOCYTES ABSOLUTE 0.05 0.00 - 0.10 K/uL 04/04/2018 5:18 AM [facility] Blood Collection / Unknown 04/04/2018 4:15 AM [facility] 04/04/2018 5:06 AM SCHOOL PHOTOGRAPHER us Timi Duy Taylor MD HEMATOLOGY ORDERABLES Final Resu lt [facility] CLIA# [id number] [address] [place] [id number] documented in this encounter Visit Diagnoses Not on filedocumented in this encounter
--- OUTSIDE RECORDS SUMMARY | 2025-02-10 23:12 | XMS_ITS | Encounter Summary ---
Author Organization [facility] Address [address] [place] [address] Care Team Providers Care Network Operations Specialist Name Role Phone Unavailable Primary Care Provider Unavailabl e Encounter Details Date Type Department Care Team (Late st Contact Info) Description 05/17/2018 Lab Requisition [facility] Laboratory Services [address] [place] [address] Carissa Monroy MD NO ADDRESS ON FILE Social History Tobacco Use Types Packs/Day Years Used Date Smoking Tobacco: Never Assessed Sex and Gender Information Value Date Recorded Sex Assigned at Not on file Legal Sex Male 12:46 AM COB SAWYER Gender Identity Not on file Sexual Orientation Not on file documented as of this encounter Plan of Treatment Not on file documented as of this encounter Procedures Procedure Name Priority Date/Time Associated Diagnosis Comments CBC WITH DIFFERENTIAL Stat 05/17/2018 3:00 AM COB SAWYER BASIC METABOLIC PANEL Stat 05/17/2018 3:00 AM COB SAWYER documented in this encounter Results * (ABNORMAL) BASIC METABOLIC PANEL (05/17/2018 3:00 AM COB SAWYER) SODIUM 146(H) 136 - 145 mmol/L 05/17/2018 5:47 AM [facility] POTASSIUM 4.4 3.5 - 5.1 mmol/L 05/17/2018 5:47 AM COB SAWYER [facility] CHLORIDE 114(H) 98 - 107 mmol/L 05/17/2018 5:47 AM [facility] CO2 25 22 - 29 mmol/L 05/17/2018 5:47 AM [facility] CALCIUM 8.0(L) 8.6 - 10.0 mg/dL 05/17/2018 5:47 AM [facility] BUN 19 6 - 20 mg/dL 05/17/2018 5:47 AM [facility] CREATININE 1.32(H) 0.67 - 1.17 mg/dL 05/17/2018 5:47 AM [facility] GLUCOSE 116(H) 74 - 99 mg/dL 05/17/2018 5:47 AM [facility] GFR 56(L) >=60 mL/min/1. 73 sq meter 05/17/2018 5:47 AM [facility] Comment: eGFR has not been validated [...] GFR, >60 >=60 mL/min/1. 73 sq meter 05/17/2018 5:47 AM [facility] ANION GAP 7(L) 9 - 20 mmol/L 05/17/2018 5:47 AM [facility] Blood Collection / Unknown 05/17/2018 3:00 AM [employer]B SAWYER 05/17/2018 5:14 AM [facility] us Carissa Monroy MD CHEMISTRY ORDERABLES Final Resul t [facility] CLIA# [id number] [facility] [place] [address] * (ABNORMAL) CBC WITH DIFFERENTIAL (05/17/2018 3:00 AM [facility]) Pathologist [facility] WBC 8.1 4.8 - 10.8 K/uL 05/17/2018 5:25 AM [facility] RBC 3.01(L) 4.60 - 6.20 M/uL 05/17/2018 5:25 AM [facility] HEMOGLOBIN 8.9(L) 14.0 - 18.0 g/dL 05/17/2018 5:25 AM [facility] HEMATOCRIT 32.4(L) 41.0 - 53.0 % 05/17/2018 5:25 AM [facility] MCV 107.6(H) 84.0 - 103.0 fL 05/17/2018 5:25 AM [facility] MCH 29.6 27.0 - 34.0 pg 05/17/2018 5:25 AM [facility] MCHC 27.5(L) 30.0 - 35.0 g/dL 05/17/2018 5:25 AM [facility] RDW 17.2(H) 11.0 - 14.5 % 05/17/2018 5:25 AM [facility] RDW-STDEV 65.0(H) 37.0 - 54.0 fL 05/17/2018 5:25 AM [facility] PLATELETS 228 140 - 440 K/uL 05/17/2018 5:25 AM [facility] MPV 10.2 8.9 - 12.8 fL 05/17/2018 5:25 AM [facility] NEUTROPHILS 75 42 - 75 % 05/17/2018 5:25 AM [facility] LYMPHOCYTES 14(L) 24 - 44 % 05/17/2018 5:25 AM [facility] MONOCYTES 7 2 - 10 % 05/17/2018 5:25 AM [facility] EOSINOPHILS 3 0 - 7 % 05/17/2018 5:25 AM [facility] BASOPHILS 1 0 - 1 % 05/17/2018 5:25 AM [facility] IMMATURE GRANULOCYTES 1 0 - 2 % 05/17/2018 5:25 AM [facility] NEUTROPHIL ABSOLUTE 6.06 2.00 - 8.00 K/uL 05/17/2018 5:25 AM [facility] LYMPHOCYTE ABSOLUTE 1.12(L) 1.20 - 4.00 K/uL 05/17/2018 5:25 AM [facility] MONOCYTE ABSOLUTE 0.52 0.10 - 0.60 K/uL 05/17/2018 5:25 AM [employer] [facility] EOSINOPHIL ABSOLUTE 0.21 0.00 - 0.70 K/uL 05/17/2018 5:25 AM [employer] [facility] BASOPHILS ABSOLUTE 0.06 0.00 - 0.20 K/uL 05/17/2018 5:25 AM [employer] [facility] IMMATURE GRANULOCYTES ABSOLUTE 0.09 0.00 - 0.10 K/uL 05/17/2018 5:25 AM [employer] [facility] Blood Collection / Unknown 05/17/2018 3:00 AM COB [employer]YER 05/17/2018 5:14 AM [employer] us Carissa Monroy MD HEMATOLOGY ORDERABLES Final Resu lt [facility] CLIA# [id number] [address] [place] [id number] documented in this encounter Visit Diagnoses Not on filedocumented in this encounter
--- OUTSIDE RECORDS SUMMARY | 2025-02-10 23:12 | XMS_ITS | Encounter Summary ---
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 Name Role Phone Unavailable Primary Care Provider Unavailabl e Encounter Details Date Type Department Care Team (Late st Contact Info) Description 04/04/2018 Lab Requisition [facility] Laboratory Services [address] [place] [address] Daniel Merino MD [address] [place] [address] [address] [place], [place] [address] Social History Tobacco Use Types Packs/Day Years Used Date Smoking Tobacco: Never Assessed Sex and Gender Information Value Date Recorded Sex Assigned at Not on file 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
--- OUTSIDE RECORDS SUMMARY | 2025-02-10 23:12 | XMS_ITS | Encounter Summary ---
Author Organization [facility] Address [address] [place] [address] Care Team Providers Care Rehab Liaison Name Role Phone Unavailable Primary Care Provider Unavailabl e Encounter Details Date Type Department Care Team (Late st Contact Info) Description 03/12/2018 Lab Requisition [facility] Laboratory Services [address] [place] [address] Tracy Pereira MD NO ADDRESS ON FILE Social History Tobacco Use Types Packs/Day Years Used Date Smoking Tobacco: Never Assessed Sex and Gender Information Value Date Recorded Sex Assigned at Not on file Legal Sex Male 12:46 AM PROGRAM COORDINATOR EXECUTIVE EDUCATION Gender Identity Not on file Sexual Orientation Not on file documented as of this encounter Plan of Treatment Not on file documented as of this encounter Procedures Procedure Name Priority Date/Time Associated Diagnosis Comments OCCULT BLOOD GUAIAC DIAGNOSTIC Stat 03/12/2018 6:50 PM PROGRAM COORDINATOR EXECUTIVE EDUCATION documented in this encounter Results * OCCULT BLOOD GUAIAC DIAGNOSTIC (03/12/2018 6:50 PM PROGRAM COORDINATOR EXECUTIVE EDUCATION) OCCULT BLOOD, STOOL Negative Negative 03/12/2018 7:46 PM PROGRAM COORDINATOR EXECUTIVE EDUCATION [facility] 1,2,3 [facility] Stool STOOL SPECIMEN / Unknown 03/12/2018 6:50 PM PROGRAM COORDINATOR EXECUTIVE EDUCATION 03/12/2018 7:32 PM PROGRAM COORDINATOR EXECUTIVE EDUCATION us Tracy Pereira MD BODY FLUIDS AND STOOLS Final Res ult [facility] 1,2,3 [employer] [facility] CLIA# [id number] [address] [place] [address] documented in this encounter Visit Diagnoses Not on filedocumented in this encounter
--- OUTSIDE RECORDS SUMMARY | 2025-02-10 23:12 | XMS_ITS | Continuity of Care Document ---
Author Organization ROBERTA Pahceco [facility] Jyoti Haro, [facility] ([facility]) Address [address] [place] [address] Care Team Providers Care Non Morse Intercept Technician Name Role Phone MATEUS GLOVER Primary Care Provider Unavailabl e Assessment Encounter Date Assessment Date Assessment LastModified by Organization Details LastModified Time 11/27/2024 11/27/2024 Document scribed by Jayce Oliver, Torpedo Worker. I was present during interview and exam. I have reviewed and agree with above documentation . Dr. Mateus Glover. Advised pt contact [facility] and update them on the amount of purulent drainage he is experiencing, they may want to address this sooner than his next appt on 12/05/24. Will treat with abx, I want to prevent Sepsis. Reviewed allergies, will treat with Clindamycin, spouse confirms he does ok on this. [email or web address] Not available 11/27/2024 10:55:17 Plan of Treatment Reminders Order Date Submit Date Provider Last Modified By Organization Details Last Modified Time Details Appointments None recorded. Lab CMP, serum or plasma 2024 025 [email or web address] 47 [facility], [address], [address], [place], [address], 17:37:16 CBC 2024 025 [email or web address] 47 [facility], [address], [address], [place], [address], 17:37:16 C-reactive protein, quantitativ e, serum or plasma 2024 [place] [employer] [facility], [address] [place] [address], [facility] 3 [facility], [place], [address], 07:17:29 ESR (erythrocyt e sedimentati on rate), blood [address] ([facility]), [address] [place], [address], 17:37:16 lipase, serum or plasma 2024 [place] [email or web address] [facility], [address] [place] [address], [facility] [address] , [place], [address], 07:17:29 amylase, serum or plasma 2024 [place] [email or web address] [facility], [address] [place] [address], [facility] [address] , [place], [address], 07:17:29 Referral None recorded. Procedures None recorded. Surgeries None recorded. Imaging None recorded. Medication Orders clindamycin HCl 300 mg capsule 2024 [facility]/Pharmacy #[id number], [address] [facility], [facility] [address], [address], 16:19:27 fluconazole 150 mg tablet 2024 [facility]/Pharmacy #[id number], [address] [facility], [facility] [address], [address], 5 16:22:41 terbinafine HCl 1 % topical cream [address]/Pharmacy #[id number], [address] [facility], [facility] [address], [address], 17:37:16 Patient TargetsNo targets recorded. Patient InstructionsNo instructions recorded. Reason for Referral None Reported. Results Created Date Observation Date Name Description Value Unit Range Abnormal Flag Note LastModifiedBy Organization Detail LastModifiedTime 11/28/1911/27/2024 CBC WBC 12.8 x10 4.5-10 .5 high Not Available [facility] [address] [facility], [place], [address], 11/27/2024 11:34:35 11/28/1911/27/2024 CBC RBC 4.63 x10 4.30-5 .90 Not Available [facility] [address] [facility], [place], [address], 11/27/2024 11:34:35 11/28/1911/27/2024 CBC HGB 14.1 g/dL 13.5-1 8.0 Not Available [facility] [address] [facility], [place], [address], 11/27/2024 11:34:35 11/28/1911/27/2024 CBC HCT 43.5 % 35.0-6 0.0 Not Available [facility] [address] [facility], [place], [address], 11/27/2024 11:34:35 11/28/1911/27/2024 CBC MCV 94.0 fL 80.0-9 9.9 Not Available [facility] [address] [facility], [place], [address], 11/27/2024 11:34:35 11/28/1911/27/2024 CBC MCH 30.4 pg 27.0-3 2.0 Not Available [facility] [address] [facility], [place], [address], 11/27/2024 11:34:35 11/28/1911/27/2024 CBC MCHC 32.3 g/dL 32.0-3 6.0 Not Available [facility] [address] [facility], [place], [address], 11/27/2024 11:34:35 11/28/1911/27/2024 CBC RDW 13.3 % 11.5-1 4.5 Not Available [facility] [address] [facility], [place], [address], 11/27/2024 11:34:35 11/28/1911/27/2024 CBC plt 238.5 x10 150.0- 451.0 Not Available [facility] [address] [facility], [place], [address], 11/27/2024 11:34:35 11/28/1911/27/2024 CBC lymphocytes % 6.5 % 20.0-5 0.0 low Not Available [facility] [address] [facility], [place], [address], 11/27/2024 11:34:35 11/28/1911/27/2024 CBC granulcytes % 87.9 % 30.0-7 0.0 high Not Available [facility] [address] [facility] [address], [place], [address], 11/27/2024 11:34:35 11/28/1911/27/2024 CBC monocytes % 3.6 % 2.0-16 .0 Not Available [facility] [address] [facility], [place], [address], 11/27/2024 11:34:35 11/28/1911/27/2024 CBC granulcytes# 11.3 x10 Not Joslyn ilable [facility] [address] [facility], [place], [address], 11/27/2024 11:34:35 11/28/19 25 11/27/2024 CBC lymphocytes # 0.8 x10 Not Available [facility] [address] [facility], [place], [address], 11/27/2024 11:34:35 11/28/19 25 11/27/2024 CBC monocytes # 0.5 x10 Not Avai lable [facility] [address] [facility], [place], [address], 11/27/2024 11:34:35 11/28/19 25 11/27/2024 CMP (MALE ) glucose 91.0 mg/dL 60.0-9 9.0 Not Available [facility] [address] [facility], [place], [address], 11/27/2024 11:57:43 11/28/19 25 11/27/2024 CMP (MALE ) BUN (blood urea nitrogen) 18.0 mg/dL 10.0-2 6.0 Not Available [facility] [address] [facility] 1, [place], [address], 11/27/2024 11:57:43 11/28/19 25 11/27/2024 CMP (MALE ) creatinine (serum) 1.5 mg/dL 0.4-1. 5 Not Available [facility] [address] [facility], [place], [address], 11/27/2024 11:57:43 11/28/19 25 11/27/2024 CMP (MALE ) BUN/creatini ne ratio 12.00 ratio Not Available [facility] [address] [facility] 1, [place], [address], 11/27/2024 11:57:43 11/28/19 25 11/27/2024 CMP (MALE ) eGFR calculated 49.9 Not Available [facility] [address] [facility], [place], [address], 11/27/2024 11:57:43 11/28/19 25 11/27/2024 CMP (MALE ) total protein 8.0 g/dL 6.0-8. 5 Not Available [facility] [address] [facility], [place], [address], 11/27/2024 11:57:43 11/28/19 25 11/27/2024 CMP (MALE ) total bilirubin 1.3 mg/dL 0.2-1. 3 Not Available [facility] [address] [facility], [place], [address], 11/27/2024 11:57:43 11/28/1911/27/2024 CMP (MALE ) albumin 4.1 g/dL 3.5-5. 5 Not Available [facility] [address] [facility], [place], [address], 11/27/2024 11:57:43 11/28/19 25 11/27/2024 CMP (MALE ) globulin 3.9 calc Not Available [facility] [address] [facility], [place], [address], 11/27/2024 11:57:43 11/28/19 25 11/27/2024 CMP (MALE ) AST (SGOT) 30.0 U/L 0.0-46 .0 Not Available [facility] [address] [facility], [place], [address], 11/27/2024 11:57:43 11/28/1911/27/2024 CMP (MALE ) altv (SGPT) 64.0 U/L 13.0-6 9.0 normal Not Available [facility] [address] [facility], [place], [address], 11/27/2024 11:57:43 0911/27/2024 CMP (MALE ) A/G ratio 1.1 ratio Not Available [facility] [address] [facility], [place], [address], 11/27/2024 11:57:43 11/28/1911/27/2024 CMP (MALE ) ALP phos 330.0 U/L 30.0-1 40.0 abnormal Not Available [facility] [address] [facility], [place], [address], 11/27/2024 11:57:43 11/28/1911/27/2024 CMP (MALE ) calcium 9.2 mg/dL 8.4-10 .5 Not Available [facility] [address] [facility] [address], [place], [address], 11/27/2024 11:57:43 11/28/1911/27/2024 CMP (MALE ) sodium 140.0 mmol/ L 136.0- 145.0 Not Available [facility] [address] [facility], [place], [address], 11/27/2024 11:57:43 11/28/19 25 11/27/2024 CMP (MALE ) potassium 3.9 mmol/ L 3.5-5. 1 Not Available [facility] [address] [facility] [address], [place], [address], 11/27/2024 11:57:43 11/28/1911/27/2024 CMP (MALE ) chloride 105.0 mmol/ L 98.0-1 10.0 normal Not Available [facility] [address] [facility], [place], [address], 11/27/2024 11:57:43 11/28/19 25 11/27/2024 CMP (MALE ) C02 26.0 mmol/ L 22.0-3 1.0 Not Available [facility] [address] [facility] 1, [place], [address], 11/27/2024 11:57:43 11/28/1911/27/2024 CMP (MALE ) anion gap 9.0 calc Not Available [facility] [address] [facility] 1, [place], [address], 11/27/2024 11:57:43 11/28/19 25 11/27/2024 CMP (MALE ) osmolality 290.6 calc Not Available [facility] [address] [facility] 1, [place], [address], 11/27/2024 11:57:43 11/28/19 25 11/28/2024 C-DAVID CTIVE PROTE IN C-reactive protein 97.9 mg/L <8.0 high Not Available [employer] [place] [address] [place], [address], 11/28/2024 07:17:28 11/28/1911/28/2024 AMYLA SE amylase 45 U/L 21-101 normal Not Available [facility] [address] [place], [address], 11/28/2024 07:17:29 11/28/1911/28/2024 LIPAS E lipase 114 U/L 7-60 high Not Available [employer] [place] [address] [place], [address], 11/28/2024 07:17:29 11/28/1911/27/2024 ESR (eryt hrocy te sedim entat ion rate) , blood SedRate 35 Not Available [facility] ([facility]) [address] [place], [address], 11/27/2024 10:56:15 Result Notes None recorded. Problems Name Problem SNOMED Code Status Onset Date Resolution Date Notes Provider Name and Address Organization Details Recorded Time [facility] 83679266 Active 2022 Mateus Glover DO [address] [place] [address], [address] , [facility] L.L[facility]CKenny 5 08:16:17 Benign hypertensi on 76799234 Active 2022 Jayce baez, [facility], L.L.CKenny 5 12:22:35 Pulmonary edema 83621068 Active 2022 Not Available [facility] 4 07:52:43 Acute on chronic diastolic heart failure 995005489 Active 2022 Mateus Glover DO [address] [place] [address], [address] , [facility] 5 08:16:17 Herpes zoster 4118906 Active 2022 Not Available [facility] 4 07:52:43 Chronic diastolic heart failure 816955428 Active 2022 Not Available [facility] 4 07:52:43 Chronic atrial flutter 653004922 Active 2022 Not Available [facility] 4 07:52:43 Pseudocyst of pancreas 509542834 Active 2022 Not Available [facility] 4 07:52:43 Cirrhosis of liver 06360508 Active 2022 Mateus Glover DO [address] [place] [address], [address] , [facility] 5 08:16:17 Dyspnea 455815942 Active 2022 Princess Can sasha [facility] 5 12:14:34 Edema 693336698 Active 2022 Mateus Glover DO [address] [place] [address], [address] , [facility], L.L.CKenny 5 08:16:17 Congestive heart failure 92958789 Completed 202212/20/2023 Jayce Brizuelakofi sasha, [facility] 4 12:48:27 Acute bronchitis 43207783 Active 2023 Princessjoe Hughesyuri baez, [facility] 5 12:14:25 Candidiasi s of skin 42711061 Active 2023 Princess baez [facility] 5 12:14:29 Type 2 diabetes mellitus 39105241 Active 2023 Mateus Glover [address], [address] , [facility] 5 08:16:17 Obstructiv e sleep apnea syndrome 25899180 Active 2023 Mateus Glover [address], [address] , [facility] 5 08:16:17 Itching of skin 670556515 Active 2023 Princess baez [facility] 5 12:15:36 Chronic kidney disease 770190329 Active 2023 Mateus Glover DO [address] [place] [address], [address] , [facility] 5 08:16:17 Gastroesop hageal reflux disease 236510428 Active 2023 Mateus Glover [address], [address] , [facility] 5 08:16:17 Chronic obstructiv e pulmonary disease 15639126 Active 2023 Mateus Glover [address], [address] , [facility] 5 08:16:17 Chronic pancreatit is 184658229 Active 2024 Jayce baez, [facility] 5 12:25:40 Moderate recurrent major depression 82702331 Active 2024 Jayce baez [facility] 5 12:40:47 Depressive disorder 54941328 Active [address], [address] , [facility] 5 00:27:12 Wound of skin 121570534 Active [address], [address] , [facility] 5 00:27:13 Problem Notes None recorded. Medical Equipment None Reported. Allergies Allergen ID Allergen Name Allergen Category Reaction Reaction Severity Criticality Documentation Date Start Date Code Code System Note Provider Name and Address Organization Details Recorded Time 41114 Celebrex medicatio n hives mild low 10/15/2022 77475 7 RxNorm Britt Jimenez [facility] 4 16:18:55 49738 Levaquin medicatio n Not available Not available Not available 11/14/2022 65960 2 RxNorm ELISAABY MENJIVAR [facility] 3 13:59:14 978 doxycycli ne Not available Not available Not available Not available 06/21/2022 3640 RxNorm ERIC DAMON [facility] 3 15:19:55 979 amoxicill in medicatio n Not available Not available Not available 06/21/2022 723 [facility] 3 15:20:01 980 celecoxib medicatio n Not available Not available Not available 06/21/2022 06148 7 [facility] 3 15:20:14 981 chlorhexi dine medicatio n Not available Not available Not available 06/21/2022 2358 RxNojonh DAMON [facility] 3 15:20:33 982 Substance with sulfonami de structure and antibacte rial mechanism of action (substanc e) medicatio n Not available Not available Not available 06/21/2022 42568 8003 SN[facility]ED [facility] 15:20:39 983 furosemid e medicatio n Not available Not available Not available 06/21/2022 4603 [facility] 3 15:20:55 Medications Name Sig Start [...] FOUR TIMES A DAY FOR 10 DAYS 09/22 /2025 completed Not Available Not Available Not Available [...] hydroxyzi ne HCl as needed 04/17 completed 85407; Recorded 04/21/19 9:52AM by Elisa Delarosa (Authori [...] hydralazi ne three times daily 04/17 completed 25055; Recorded 05/31/19 23 3:29PM by Estela Harry (Authori zed through Wade Sharma MD), Refill Request; Refill Quantity : 90; Tablet; Not Available Not Available Not Available quinapril daily 08/15 completed Recorded 08/15/19 09 4:27PM by Leticia Mullen LPN, Office Visit; Not Available Not Available Not Available sildenafi l as needed 06/14 completed 98223; Recorded 05/31/19 23 3:29PM by Estela Harry (Authori zed through Wade Sharma MD), Refill Request; Refill Quantity : 0; Not Available Not Available Not Available metolazon e as needed 06/14 completed 91109; Recorded 05/31/19 23 3:29PM by Estela Harry [...] e Deanna Pen Needle 32 gauge x 5/32 active Not Available Not Available Not Available [...] Updated DateTime 5 177.8 cm 36.3 kg/m2 464321. 87 g 98 % 71 /min 18 /min 122/64 mm[Hg] Princess Can [facility], L.LKennyCKenny 5 10:22:30 Date Recorded Body height Body mass index (BMI) Body weight Oxygen saturation Heart rate Respiratory rate Systolic And Diastolic Provider Name and Address Organization Details Last Updated DateTime 5 177.8 cm 36.5 kg/m2 106709. 56 g 94 % 90 /min 18 /min 136/80 mm[Hg] Princess Can [facility] 16:20:47 Social History Question Answer Notes LastModified by Organizat ion Details LastModified Time Tobacco Smoking Status Never Smoker Princess baez [facility] 11/16/2023 10:04:13 What Was The Date Of Your Most Recent Tobacco Screening? 09/13/2024 [email or web address] Information not available 09/13/2024 What Is Your Relationship Status? [email or web address] Information not available 12/20/2023 Sex: Unknown Functional Status Question Answer Note LastModified by Organizat ion Details LastModified Time Do you use any illicit or recreational drugs? No [email or web address] Information not available 06/21/2022 Do you or have you ever used any other forms of tobacco or nicotine? No [email or web address] Information not available 06/21/2022 What is your level of alcohol consumption? None [email or web address] Information not available 06/21/2022 Mental Status None recorded. Family History Relationship Description Onset Age of this Age Resolved Age Notes LastModified by Organization Details LastModified Time Father No current problems or disability [email or web address] Not available 06/2022 15:39:32 Mother No current problems or disability [email or web address] Not available 06/2022 15:39:32 Notes:Diabetes-father, broth er, [place]/CAD- father, Leukemia- father, Hypertension, HTN- mother,father, Arthritis, Colon Cancer, Hypercholesterolemia, Cancer, Heart disease in male family member before age 55, Diabetes Mellitus Medical History No medical history recorded. Immunizations Vaccine Type Date Status Note Provider Nam e and Address Organization Details Recorded Time Td(adult) unspecified formulation 2 completed Not Available [facility] 10/15/2022 02:52:02 Tdap 2 completed Princess baez [facility] 08/16/2023 09:55:33 Influenza, split virus, quadrivalent, PF 2 completed Princess baez [facility] L[facility]CKenny 08/16/2023 09:55:33 Influenza, split virus, trivalent, preservative 4 completed Not Available [facility] 12/09/2024 16:12:50 RSV, recombinant, protein subunit RSVpreF, adjuvant reconstituted, 0.5 mL, PF 4 completed Not Available [facility] 12/09/2024 16:12:50 Influenza, MDCK, trivalent, PF 4 completed Not Available [facility] 12/09/2024 16:12:50 Pneumococcal conjugate PCV20, polysaccharide [id number] conjugate, adjuvant, PF 4 completed Not Available [facility] 12/09/2024 16:12:50 Past Encounters Encounter ID Performer Location Encounter Start Date Encounter Closed Date Diagnosis/Indication Diagnosis SNOMED-CT Code Diagnosis ICD10 Code Diagnosis IMO Codes Diagnosis Note [id number] Mateus Glover DO [facility] ([facility]) [address] [place] [address] 11/27/2024 09:56:55 12/10/2024 08:06:01 Candidiasis 86452609 B37.9 31522 Counseled will treat with oral and topical antifungal Local infe ction of wound 82708707 T14.8XXA L08.9 703472 11/27/24: Advised pt contact [facility] and update them on the amount of purulent drainage he is experienci ng, they may want to address this sooner than his next appt on 12/05/24. Will treat with abx, I want to prevent Sepsis. Reviewed allergies, will treat with Clindamyci n, spouse confirms he does ok on this. Will also draw lab today. Health Concerns Section Related Observation LastModified by Organization Detai ls LastModified Time None Recorded Concern Status LastModified by Organization Details LastModified Time None Recorded Payers Encounter Date Sequence Insurance Name Policy Number Policy Brooke Covered Member ID Brooke Member ID Guarantor Name 11/27/2024 1 [place] LEYDI Alberts [id number] Clay Alberts 11/27/2024 2 [place] [id number] Clay Alberts [id number] Clay Alberts Notes Date Note Type Note Provider Name and Address Organization Details Recorded Time 11/27/2024 text/html ROS as noted in the [...] in clinic this am. Mateus Glover DO [address] [place] [address], [phone], [facility], LKennyLKennyC. 12/09/2024 16:31:44 12/09/2024 text/html ROS as noted [...] issues with acid reflux. Mateus Glover DO [address] [place], [address], [facility], LKennyLKennyC. 12/17/2024 18:56:13
--- OUTSIDE RECORDS SUMMARY | 2025-02-10 23:12 | XMS_ITS | Encounter Summary ---
Author Organization [employer] [facility] Address [address] [place] [address] Care Team Providers Care Critical Care Nurse Specialist Name Role Phone Unavailable Primary Care Provider Unavailabl e Encounter Details Date Type Department Care Team (Late st Contact Info) Description 04/13/2018 Lab Requisition [facility] Laboratory Services [address] [place] [address] [place] [address] Wilmar Haas, DO [address] [place] [address] Social History Tobacco Use Types Packs/Day Years Used Date Smoking Tobacco: Never Assessed Sex and Gender Information Value Date Recorded Sex Assigned at Not on file Legal Sex Male 12:46 AM ALLIANCE MANAGER Gender Identity Not on file Sexual Orientation Not on file documented as of this encounter Plan of Treatment Not on file documented as of this encounter Procedures Procedure Name Priority Date/Time Associated Diagnosis Comments HEPATITIS B SURFACE AB, QUAL Stat 04/13/2018 4:35 PM ALLIANCE MANAGER HEPATITIS B SURFACE ANTIGEN Stat 04/13/2018 4:35 PM ALLIANCE MANAGER HEPATITIS C ANTIBODY Stat 04/13/2018 4:35 PM ALLIANCE MANAGER HEPATITIS B CORE IGM Stat 04/13/2018 4:35 PM ALLIANCE MANAGER documented in this encounter Results * HEPATITIS C ANTIBODY W REFLEX (04/13/2018 4:35 PM ALLIANCE MANAGER) HEPATITIS C AB NON-REACTI VE Non-react megan 04/15/2018 6:32 PM ALLIANCE MANAGER [facility] Blood Collection / Unknown 04/13/2018 4:35 PM ALLIANCE MANAGER 04/15/2018 5:06 PM ALLIANCE MANAGER Wilmar Haas DO CHEMISTRY ORDERABLES Final R esult Performing Organization Address City/[facility]/ZIP Co de Phone Number [facility] CLIA# [id number] [address] [place] [address] * HEPATITIS B SURFACE ANTIGEN (04/13/2018 4:35 PM ALLIANCE MANAGER) HEPATITIS B SURFACE AG NON-REACTI VE Non-react megan 04/15/2018 6:[address] [facility] Blood Collection / Unknown 04/13/2018 4:35 PM ALLIANCE MANAGER 04/15/2018 5:06 PM ALLIANCE MANAGER Wilmar Haas DO CHEMISTRY ORDERABLES Final R esult Performing Organization Address [facility] de Phone Number [facility] CLIA# [id number] [address] [place] [address] * HEPATITIS B SURFACE AB, QUAL (04/13/2018 4:35 PM ALLIANCE MANAGER) HEPATITIS B SURFACE AB, QUAL Non-reacti ve Non-react megan 04/15/2018 6:[address] [facility] Comment:Patient is presumed to be not immune to infection with HBV. Blood Collection / Unknown 04/13/2018 4:35 PM ALLIANCE MANAGER 04/15/2018 5:06 PM ALLIANCE MANAGER Wilmar Haas DO CHEMISTRY ORDERABLES Final R esult Performing Organization Address [facility] Co de Phone Number [facility] CLIA# [id number] [address] [place] [address] * HEPATITIS B CORE IGM (04/13/2018 4:35 PM ALLIANCE MANAGER) HEPATITIS B CORE IGM Non-reacti ve Non-react megan 04/15/2018 6:32 PM ALLIANCE MANAGER [facility] Blood Collection / Unknown 04/13/2018 4:35 PM ALLIANCE MANAGER 04/15/2018 5:06 PM ALLIANCE MANAGER us Wilmar Haas DO CHEMISTRY ORDERABLES Final R esult [facility] CLIA# [id number] [facility] [place] [address] documented in this encounter Visit Diagnoses Not on filedocumented in this encounter
--- OUTSIDE RECORDS SUMMARY | 2025-02-10 23:12 | XMS_ITS | Encounter Summary ---
Author Organization [facility] Address [address] [place] [address] Care Team Providers Care Software Development Specialist Name Role Phone Unavailable Primary Care Provider Unavailabl e Encounter Details Date Type Department Care Team (Late st Contact Info) Description 05/25/2018 Lab Requisition [facility] Laboratory Services [address] [place] [address] [place] [address] Karen Austin MD [address] [place] [address] Social History Tobacco Use Types Packs/Day Years Used Date Smoking Tobacco: Never Assessed Sex and Gender Information Value Date Recorded Sex Assigned at Not on file Legal Sex Male 12:46 AM READING INTERVENTIONIST Gender Identity Not on file Sexual Orientation Not on file documented as of this encounter Plan of Treatment Not on file documented as of this encounter Procedures Procedure Name Priority Date/Time Associated Diagnosis Comments CBC WITH DIFFERENTIAL Stat 05/25/2018 3:26 AM READING INTERVENTIONIST PROTIME-INR Stat 05/25/2018 3:26 AM READING INTERVENTIONIST BASIC METABOLIC PANEL Stat 05/25/2018 3:26 AM READING INTERVENTIONIST documented in this encounter Results * PROTIME-INR (05/25/2018 3:26 AM READING INTERVENTIONIST) PROTIME 13.7 11.5 - 15.1 Seconds 05/25/2018 5:50 AM READING INTERVENTIONIST [facility] LABORATORY [facility] INR 1.0 0.8 - 1.2 05/25/2018 5:50 AM READING INTERVENTIONIST [facility] Blood Collection / Unknown 05/25/2018 3:26 AM READING INTERVENTIONIST 05/25/2018 5:28 AM READING INTERVENTIONIST [facility] - 05/25/2018 5:50 AM READING INTERVENTIONIST Expected Values for INR: DVT/PE Goal INR 2.5; range 2.0 - 3.0 Valve Replacement Tissue Goal INR 2.5; range 2.0 - 3.0 Valve Replacement Mechanical Goal INR 3.0; range 2.5 - 3.5 POST-WV Goal INR 2.5; range 2.0 - 3.0 or Goal INR 3.0; range 2.5 - 3.5 Atrial Fibrillation Goal INR 2.5; range 2.0 - 3.0 Ischemic Stroke Goal INR 2.5; range 2.0 - 3.0 For additional information see Guidelines for Anticoagulation available from the pharmacy Adan Hanson DKenny Karen Austin MD HEMATOLOGY ORDERABLES Fin al Result [id number] [place] [address] * (ABNORMAL) BASIC METABOLIC PANEL (05/25/2018 3:26 AM READING INTERVENTIONIST) SODIUM 152(H) 136 - 145 mmol/L 05/25/2018 6:07 AM [facility] POTASSIUM 3.9 3.5 - 5.1 mmol/L 05/25/2018 6:07 AM [facility] CHLORIDE 113(H) 98 - 107 mmol/L 05/25/2018 6:07 AM [facility] CO2 30(H) 22 - 29 mmol/L 05/25/2018 6:07 AM [facility] CALCIUM 8.3(L) 8.6 - 10.0 mg/dL 05/25/2018 6:07 AM [facility] BUN 16 6 - 20 mg/dL 05/25/2018 6:07 AM [facility] CREATININE 1.12 0.67 - 1.17 mg/dL 05/25/2018 6:07 AM [facility] GLUCOSE 60(L) 74 - 99 mg/dL 05/25/2018 6:07 AM [facility] GFR >60 >=60 mL/min/1.7 3 sq meter 05/25/2018 6:07 AM [facility] Comment: eGFR has not been validated for [...] to the GFR result. GFR, >60 >=60 mL/min/1.7 3 sq meter 05/25/2018 6:07 AM [facility] ANION GAP 9 9 - 20 mmol/L 05/25/2018 6:07 AM [facility] Blood Collection / Unknown 05/25/2018 3:26 AM READING INTERVENTIONIST 05/25/2018 5:28 AM [facility] us Karen Austin MD CHEMISTRY ORDERABLES Leidy josé Result [facility] CLIA# [id number] [facility] [place] [address] * (ABNORMAL) CBC WITH DIFFERENTIAL (05/25/2018 3:26 AM [facility]) Pathologist [facility] WBC 7.8 4.8 - 10.8 K/uL 05/25/2018 5:38 AM [facility] RBC 2.90(L) 4.60 - 6.20 M/uL 05/25/2018 5:38 AM [facility] HEMOGLOBIN 8.7(L) 14.0 - 18.0 g/dL 05/25/2018 5:38 AM [facility] HEMATOCRIT 30.4(L) 41.0 - 53.0 % 05/25/2018 5:38 AM [facility] MCV 104.8(H) 84.0 - 103.0 fL 05/25/2018 5:38 AM [facility] MCH 30.0 27.0 - 34.0 pg 05/25/2018 5:38 AM [facility] MCHC 28.6(L) 30.0 - 35.0 g/dL 05/25/2018 5:38 AM [facility] RDW 16.0(H) 11.0 - 14.5 % 05/25/2018 5:38 AM [facility] RDW-STDEV 60.9(H) 37.0 - 54.0 fL 05/25/2018 5:38 AM [facility] PLATELETS 174 140 - 440 K/uL 05/25/2018 5:38 AM [facility] MPV 10.8 8.9 - 12.8 fL 05/25/2018 5:38 AM [facility] NEUTROPHILS 69 42 - 75 % 05/25/2018 5:38 AM [facility] LYMPHOCYTES 19(L) 24 - 44 % 05/25/2018 5:38 AM [facility] MONOCYTES 7 2 - 10 % 05/25/2018 5:38 AM [facility] EOSINOPHILS 4 0 - 7 % 05/25/2018 5:38 AM [facility] BASOPHILS 1 0 - 1 % 05/25/2018 5:38 AM [facility] IMMATURE GRANULOCYTES 0 0 - 2 % 05/25/2018 5:38 AM [facility] NEUTROPHIL ABSOLUTE 5.37 2.00 - 8.00 K/uL 05/25/2018 5:38 AM [facility] LYMPHOCYTE ABSOLUTE 1.51 1.20 - 4.00 K/uL 05/25/2018 5:38 AM [facility] MONOCYTE ABSOLUTE 0.54 0.10 - 0.60 K/uL 05/25/2018 5:38 AM [facility] EOSINOPHIL ABSOLUTE 0.27 0.00 - 0.70 K/uL 05/25/2018 5:38 AM [facility] BASOPHILS ABSOLUTE 0.06 0.00 - 0.20 K/uL 05/25/2018 5:38 AM READING INTERVENTIONIST [facility] IMMATURE GRANULOCYTES ABSOLUTE 0.02 0.00 - 0.10 K/uL 05/25/2018 5:38 AM READING INTERVENTIONIST [facility] Blood Collection / Unknown 05/25/2018 3:26 AM READING INTERVENTIONIST 05/25/2018 5:28 AM READING INTERVENTIONIST us Karen Austin MD HEMATOLOGY ORDERABLES Fin al Result [facility] CLIA# [id number] [address] [place] [address] documented in this encounter Visit Diagnoses Not on filedocumented in this encounter
--- OUTSIDE RECORDS SUMMARY | 2025-02-10 23:12 | XMS_ITS | Encounter Summary ---
Author Organization [facility] Address [address] [place] [address] Care Team Providers Care Foreign Exchange Trader Name Role Phone Unavailable Primary Care Provider Unavailabl e Encounter Details Date Type Department Care Team (Late st Contact Info) Description 04/23/2018 Lab Requisition [facility] Laboratory Services [address] [place] [address] [place] [address] Timi Duy Taylor MD [address] [place] [address] Social History Tobacco Use Types Packs/Day Years Used Date Smoking Tobacco: Never Assessed Sex and Gender Information Value Date Recorded Sex Assigned at Not on file Legal Sex Male 12:46 AM CLINICAL RESEARCH COORDINATOR Gender Identity Not on file Sexual Orientation Not on file documented as of this encounter Plan of Treatment Not on file documented as of this encounter Procedures Procedure Name Priority Date/Time Associated Diagnosis Comments EXTRA TUBE (GREEN) Routine 04/23/2018 8: 45 AM CLINICAL RESEARCH COORDINATOR IRON, TIBC, AND PERCENT SATURATION Stat 04/23/2018 8:45 AM CLINICAL RESEARCH COORDINATOR documented in this encounter Results * EXTRA TUBE (GREEN) (04/23/2018 8:45 AM CLINICAL RESEARCH COORDINATOR) Blood Collection / Unknown 04/23/2018 8:45 AM CLINICAL RESEARCH COORDINATOR 04/23/2018 9:30 AM CLINICAL RESEARCH COORDINATOR us Timi Duy Taylor MD CHEMISTRY ORDERABLES Final Resul t [facility] [employer] [facility] CLIA# [id number] [address] [place] [address] * (ABNORMAL) IRON, TIBC, AND PERCENT SATURATION (04/23/2018 8:45 AM CLINICAL RESEARCH COORDINATOR) IRON 35(L) 59 - 158 ug/dL 04/23/2018 10:20 AM CLINICAL RESEARCH COORDINATOR [facility] TIBC 140(L) 250 - 450 ug/dL 04/23/2018 10:20 AM CLINICAL RESEARCH COORDINATOR [facility] IRON % SATURATION 25 15 - 60 % 04/23/2018 10:20 AM CLINICAL RESEARCH COORDINATOR [facility] Blood Collection / Unknown 04/23/2018 8:45 AM CLINICAL RESEARCH COORDINATOR 04/23/2018 9:29 AM CLINICAL RESEARCH COORDINATOR us Timi Duy Taylor MD CHEMISTRY ORDERABLES Final Resul t [facility] CLIA# [id number] [address] [place] [address] documented in this encounter Visit Diagnoses Not on filedocumented in this encounter
--- OUTSIDE RECORDS SUMMARY | 2025-02-10 23:12 | XMS_ITS | Encounter Summary ---
Author Organization [employer] [facility] Address [address] [place] [address] Care Team Providers Care Back Up Machine Operator Name Role Phone Unavailable Primary Care Provider Unavailabl e Encounter Details Date Type Department Care Team (Late st Contact Info) Description 04/01/2018 Lab Requisition [facility] Laboratory Services [address] [place] [address] [place] [address] Timi Duy Taylor MD [address] [place] [address] Social History Tobacco Use Types Packs/Day Years Used Date Smoking Tobacco: Never Assessed Sex and Gender Information Value Date Recorded Sex Assigned at Not on file Legal Sex Male 12:46 AM CURVE SAW OPERATOR Gender Identity Not on file Sexual Orientation Not on file documented as of this encounter Plan of Treatment Not on file documented as of this encounter Procedures Procedure Name Priority Date/Time Associated Diagnosis Comments CBC WITH DIFFERENTIAL Stat 04/02/2018 3:00 AM CURVE SAW OPERATOR COMPREHENSIVE METABOLIC PANEL Stat 04/02/2018 3:00 AM CURVE SAW OPERATOR documented in this encounter Results * (ABNORMAL) COMPREHENSIVE METABOLIC PANEL (04/02/2018 3:00 AM CURVE SAW OPERATOR) SODIUM 136 136 - 145 mmol/L 04/02/2018 9:41 AM CURVE SAW OPERATOR [facility]OR[facility] POTASSIUM 4.2 3.5 - 5.1 mmol/L 04/02/2018 9:41 AM CURVE SAW OPERATOR [facility] CHLORIDE 94(L) 98 - 107 mmol/L 04/02/2018 9:41 AM CURVE SAW OPERATOR [facility] CO2 26 22 - 29 mmol/L 04/02/2018 9:41 AM CURVE SAW OPERATOR [facility] CALCIUM 9.7 8.6 - 10.0 mg/dL 04/02/2018 9:41 AM [facility] BUN 92(H) 6 - 20 mg/dL 04/02/2018 9:41 AM [facility] CREATININE 4.41(H) 0.67 - 1.17 mg/dL 04/02/2018 9:41 AM [facility] GLUCOSE 82 74 - 99 mg/dL 04/02/2018 9:41 AM [facility] TOTAL PROTEIN 7.0 6.4 - 8.3 g/dL 04/02/2018 9:41 AM [facility] ALBUMIN 2.9(L) 3.5 - 5.2 g/dL 04/02/2018 9:41 AM [facility] BILIRUBIN TOTAL 0.4 0.2 - 1.0 mg/dL 04/02/2018 9:41 AM [facility] ALKALINE PHOSPHATASE 177(H) 40 - 129 U/L 04/02/2018 9:41 AM [facility] AST 30 10 - 50 U/L 04/02/2018 9:41 AM [facility] ALT 45 <=50 U/L 04/02/2018 9:41 AM [facility] GFR 14(L) >=60 mL/min/1. 73 sq meter 04/02/2018 9:41 AM [facility] Comment: eGFR has not been [...] GFR, 17(L) >=60 mL/min/1. 73 sq meter 04/02/2018 9:41 AM [facility] ANION GAP 16 9 - 20 mmol/L 04/02/2018 9:41 AM [facility] Blood Collection / Unknown 04/02/2018 3:00 AM CURVE SAW OPERATOR 04/02/2018 8:38 AM CURVE SAW OPERATOR us Timi Duy Taylor MD CHEMISTRY ORDERABLES Final Resul t [facility] CLIA# [id number] [facility] [place] [address] * (ABNORMAL) CBC WITH DIFFERENTIAL (04/02/2018 3:00 AM CURVE SAW OPERATOR) Pathologist [facility] WBC 14.0(H) 4.8 - 10.8 K/uL 04/02/2018 8:50 AM [facility] RBC 2.41(L) 4.60 - 6.20 M/uL 04/02/2018 8:50 AM [facility] HEMOGLOBIN 7.2(L) 14.0 - 18.0 g/dL 04/02/2018 8:50 AM [facility] HEMATOCRIT 23.8(L) 41.0 - 53.0 % 04/02/2018 8:50 AM [facility] MCV 98.8 84.0 - 103.0 fL 04/02/2018 8:50 AM [facility] MCH 29.9 27.0 - 34.0 pg 04/02/2018 8:50 AM [facility] MCHC 30.3 30.0 - 35.0 g/dL 04/02/2018 8:50 AM [facility] RDW 17.5(H) 11.0 - 14.5 % 04/02/2018 8:50 AM [facility] RDW-STDEV 63.0(H) 37.0 - 54.0 fL 04/02/2018 8:50 AM [facility] PLATELETS 356 140 - 440 K/uL 04/02/2018 8:50 AM [facility] MPV 10.0 8.9 - 12.8 fL 04/02/2018 8:50 AM [facility] NEUTROPHILS 76(H) 42 - 75 % 04/02/2018 8:50 AM [facility] LYMPHOCYTES 12(L) 24 - 44 % 04/02/2018 8:50 AM [facility] MONOCYTES 8 2 - 10 % 04/02/2018 8:50 AM [facility] EOSINOPHILS 3 0 - 7 % 04/02/2018 8:50 AM [facility] BASOPHILS 0 0 - 1 % 04/02/2018 8:50 AM [facility] IMMATURE GRANULOCYTES 1 0 - 2 % 04/02/2018 8:50 AM [facility] NEUTROPHIL ABSOLUTE 10.60(H) 2.00 - 8.00 K/uL 04/02/2018 8:50 AM [facility] LYMPHOCYTE ABSOLUTE 1.73 1.20 - 4.00 K/uL 04/02/2018 8:50 AM [facility] MONOCYTE ABSOLUTE 1.11(H) 0.10 - 0.60 K/uL 04/02/2018 8:50 AM [facility] EOSINOPHIL ABSOLUTE 0.41 0.00 - 0.70 K/uL 04/02/2018 8:50 AM [facility] BASOPHILS ABSOLUTE 0.06 0.00 - 0.20 K/uL 04/02/2018 8:50 AM [facility] IMMATURE GRANULOCYTES ABSOLUTE 0.10 0.00 - 0.10 K/uL 04/02/2018 8:50 AM [facility] Blood Collection / Unknown 04/02/2018 3:00 AM CURVE SAW OPERATOR 04/02/2018 8:38 AM CURVE SAW OPERATOR us Timi Duy Taylor MD HEMATOLOGY ORDERABLES Final Resu lt [facility] CLIA# [id number] [address] [place] [address] documented in this encounter Visit Diagnoses Not on filedocumented in this encounter
--- OUTSIDE RECORDS SUMMARY | 2025-02-10 23:12 | XMS_ITS | Encounter Summary ---
Author Organization [facility] Address [address] [place] [address] Care Team Providers Care Pharmaceutical Botanist Name Role Phone Unavailable Primary Care Provider Unavailabl e Encounter Details Date Type Department Care Team (Late st Contact Info) Description 05/11/2018 Lab Requisition [facility] Laboratory Services [address] [place] [address] Wilmar Haas, DO [address] [place] [address] Social History Tobacco Use Types Packs/Day Years Used Date Smoking Tobacco: Never Assessed Sex and Gender Information Value Date Recorded Sex Assigned at Not on file Legal Sex Male 12:46 AM KNAPSACK SPRAYER Gender Identity Not on file Sexual Orientation Not on file documented as of this encounter Plan of Treatment Not on file documented as of this encounter Procedures Procedure Name Priority Date/Time Associated Diagnosis Comments CBC WITH DIFFERENTIAL Stat 05/11/2018 4:00 AM KNAPSACK SPRAYER COMPREHENSIVE METABOLIC PANEL Stat 05/11/2018 4:00 AM KNAPSACK SPRAYER documented in this encounter Results * (ABNORMAL) COMPREHENSIVE METABOLIC PANEL (05/11/2018 4:00 AM KNAPSACK SPRAYER) SODIUM 144 136 - 145 mmol/L 05/11/2018 5:42 AM KNAPSACK SPRAYER [facility] POTASSIUM 4.6 3.5 - 5.1 mmol/L 05/11/2018 5:42 AM KNAPSACK SPRAYER [facility] CHLORIDE 108(H) 98 - 107 mmol/L 05/11/2018 5:42 AM KNAPSACK SPRAYER [facility] CO2 25 22 - 29 mmol/L 05/11/2018 5:42 AM KNAPSACK SPRAYER [facility] CALCIUM 8.7 8.6 - 10.0 mg/dL 05/11/2018 5:42 AM [facility] BUN 29(H) 6 - 20 mg/dL 05/11/2018 5:42 AM [facility] CREATININE 2.26(H) 0.67 - 1.17 mg/dL 05/11/2018 5:42 AM [facility] GLUCOSE 98 74 - 99 mg/dL 05/11/2018 5:42 AM [facility] TOTAL PROTEIN 6.7 6.4 - 8.3 g/dL 05/11/2018 5:42 AM [facility] ALBUMIN 2.8(L) 3.5 - 5.2 g/dL 05/11/2018 5:42 AM [facility] BILIRUBIN TOTAL 0.3 0.2 - 1.0 mg/dL 05/11/2018 5:42 AM [facility] ALKALINE PHOSPHATASE 149(H) 40 - 129 U/L 05/11/2018 5:42 AM [facility] AST 74(H) 10 - 50 U/L 05/11/2018 5:42 AM [facility] ALT 200(H) <=50 U/L 05/11/2018 5:42 AM [facility] GFR 30(L) >=60 mL/min/1. 73 sq meter 05/11/2018 5:42 AM [facility] [...] please refer to the GFR result. GFR, 36(L) >=60 mL/min/1. 73 sq meter 05/11/2018 5:42 AM [facility] [employer] [facility] ANION GAP 11 9 - 20 mmol/L 05/11/2018 5:42 AM [facility] Blood Collection / Unknown 05/11/2018 4:00 AM KNAPSACK SPRAYER 05/11/2018 5:05 AM KNAPSACK SPRAYER Wilmar Haas DO CHEMISTRY ORDERABLES Final R esult [facility] CLIA# [id number] [address] [place] [id number] * (ABNORMAL) CBC WITH DIFFERENTIAL (05/11/2018 4:00 AM KNAPSACK SPRAYER) WBC 14.8(H) 4.8 - 10.8 K/uL 05/11/2018 5:23 AM [facility] RBC 3.09(L) 4.60 - 6.20 M/uL 05/11/2018 5:23 AM [facility] HEMOGLOBIN 9.2(L) 14.0 - 18.0 g/dL 05/11/2018 5:23 AM [facility] HEMATOCRIT 32.8(L) 41.0 - 53.0 % 05/11/2018 5:23 AM [facility] MCV 106.1(H) 84.0 - 103.0 fL 05/11/2018 5:23 AM [facility] MCH 29.8 27.0 - 34.0 pg 05/11/2018 5:23 AM [facility] MCHC 28.0(L) 30.0 - 35.0 g/dL 05/11/2018 5:23 AM [facility] RDW 15.6(H) 11.0 - 14.5 % 05/11/2018 5:23 AM [facility] RDW-STDEV 59.7(H) 37.0 - 54.0 fL 05/11/2018 5:23 AM [facility] PLATELETS 345 140 - 440 K/uL 05/11/2018 5:23 AM [facility] MPV 10.0 8.9 - 12.8 fL 05/11/2018 5:23 AM [facility] NEUTROPHILS 78(H) 42 - 75 % 05/11/2018 5:23 AM [facility] LYMPHOCYTES 13(L) 24 - 44 % 05/11/2018 5:23 AM [facility] MONOCYTES 5 2 - 10 % 05/11/2018 5:23 AM [facility] EOSINOPHILS 1 0 - 7 % 05/11/2018 5:23 AM [facility] BASOPHILS 1 0 - 1 % 05/11/2018 5:23 AM [facility] IMMATURE GRANULOCYTES 2 0 - 2 % 05/11/2018 5:23 AM [facility] NEUTROPHIL ABSOLUTE 11.59(H) 2.00 - 8.00 K/uL 05/11/2018 5:23 AM [facility] LYMPHOCYTE ABSOLUTE 1.94 1.20 - 4.00 K/uL 05/11/2018 5:23 AM [facility] MONOCYTE ABSOLUTE 0.76(H) 0.10 - 0.60 K/uL 05/11/2018 5:23 AM [facility] EOSINOPHIL ABSOLUTE 0.21 0.00 - 0.70 K/uL 05/11/2018 5:23 AM [facility] BASOPHILS ABSOLUTE 0.09 0.00 - 0.20 K/uL 05/11/2018 5:23 AM [facility] IMMATURE GRANULOCYTES ABSOLUTE 0.24(H) 0.00 - 0.10 K/uL 05/11/2018 5:23 AM [facility] Blood Collection / Unknown 05/11/2018 4:00 AM KNAPSACK SPRAYER 05/11/2018 5:05 AM KNAPSACK SPRAYER us Wilmar Haas DO HEMATOLOGY ORDERABLES Final Result [facility] CLIA# [id number] [address] [place] [address] documented in this encounter Visit Diagnoses Not on filedocumented in this encounter
--- OUTSIDE RECORDS SUMMARY | 2025-02-10 23:12 | XMS_ITS | Encounter Summary ---
Author Organization [facility] Address [address] [place] [address] Care Team Providers Care Clean Up Worker Name Role Phone Unavailable Primary Care Provider Unavailabl e Encounter Details Date Type Department Care Team (Late st Contact Info) Description 03/12/2018 Lab Requisition [facility] Laboratory Services [address] [place] [address] Tracy Pereira MD NO ADDRESS ON FILE Social History Tobacco Use Types Packs/Day Years Used Date Smoking Tobacco: Never Assessed Sex and Gender Information Value Date Recorded Sex Assigned at Not on file Legal Sex Male 12:46 AM SCHOOL BUS OPERATOR Gender Identity Not on file Sexual Orientation Not on file documented as of this encounter Plan of Treatment Scheduled Orders Name Type Priority Associated Diagnoses Orde r Schedule PREPARE RED BLOOD CELLS Blood Bank Stat O rdered: 03/12/2018 documented as of this encounter Procedures Procedure Name Priority Date/Time Associated Diagnosis Comments PREPARE RED BLOOD CELLS Routine 03/12/2018 10:35 AM SCHOOL BUS OPERATOR BLOOD BANK AB IDENT Routine 03/12/2018 9 :40 AM SCHOOL BUS OPERATOR TYPE AND SCREEN Stat 03/12/2018 9:40 AM SCHOOL BUS OPERATOR documented in this encounter Results * PREPARE RED BLOOD CELLS (03/12/2018 10:35 AM SCHOOL BUS OPERATOR) COMPONENT TYPE [id number] [facility] [place] COMPONENT IDENTIFICATION [id number] [facility] [place] UNIT ABO O [facility] [place] UNIT RH POS [facility] [place] COMPONENT STATUS Transfused ME [facility] -- [place] COMPONENT EXPIRATION DATE/TIME [id number] [facility] [place] COMPONENT CODING SYSTEM [address] [facility] [place] 03/12/2018 10:3 5 AM SCHOOL BUS OPERATOR Tracy Pereira MD LAB TRANSFUSION ORDERABLES Edite d Result - Final Performing Organization Address [facility] Co de Phone Number [facility] [place] CLIA#[id number] [address] [place] [address], [place] * BLOOD BANK AB IDENT (03/12/2018 9:40 AM SCHOOL BUS OPERATOR) ANTIBODY #1 Anti-K 03/12/2018 12:52 PM SCHOOL BUS OPERATOR [facility] [place] Blood 03/12/2018 9:40 AM SCHOOL BUS OPERATOR 03/12/2018 10:28 AM SCHOOL BUS OPERATOR Tracy Pereira MD BLOOD BANK ORDERABLES Final Resu lt Performing Organization Address [facility] Co de Phone Number [facility] [place] CLIA#[id number] [address] [place] [address], [place] * TYPE AND SCREEN (03/12/2018 9:40 AM SCHOOL BUS OPERATOR) ABO GROUP O 03/12/2018 12:45 PM SCHOOL BUS OPERATOR [facility] [place] RH (D) TYPE Positive 03/12/2018 12:45 PM SCHOOL BUS OPERATOR [facility] [place] ANTIBODY SCREEN Positive 03/12/2018 12:45 PM SCHOOL BUS OPERATOR [facility] [place] Blood 03/12/2018 9:40 AM SCHOOL BUS OPERATOR 03/12/2018 10:28 AM SCHOOL BUS OPERATOR Tracy Pereira MD BLOOD BANK ORDERABLES Edited Res ult - Final Performing Organization Address [facility] Co de Phone Number [facility] [place] CLIA#[id number] [address] [place] [address], [place] documented in this encounter Visit Diagnoses Not on filedocumented in this encounter
--- OUTSIDE RECORDS SUMMARY | 2025-02-10 23:12 | XMS_ITS | Encounter Summary ---
Author Organization [facility] Address [address] [place] [address] Care Team Providers Care School Library Media Program Director Name Role Phone Unavailable Primary Care Provider Unavailabl e Encounter Details Date Type Department Care Team (Late st Contact Info) Description 04/09/2018 Lab Requisition [facility] Laboratory Services [address] [place] [address] Timi Duy Taylor MD [address] [place] [address] Social History Tobacco Use Types Packs/Day Years Used Date Smoking Tobacco: Never Assessed Sex and Gender Information Value Date Recorded Sex Assigned at Not on file Legal Sex Male 12:46 AM INTERNET TECHNOLOGY MANAGER Gender Identity Not on file Sexual Orientation Not on file documented as of this encounter Plan of Treatment Not on file documented as of this encounter Visit Diagnoses Not on filedocumented in this encounter
--- OUTSIDE RECORDS SUMMARY | 2025-02-10 23:12 | XMS_ITS | Encounter Summary ---
Author Organization [facility] Address [address] [place] [address] Care Team Providers Care Water Supervisor Name Role Phone Unavailable Primary Care Provider Unavailabl e Encounter Details Date Type Department Care Team (Late st Contact Info) Description 05/14/2018 Lab Requisition [facility] Laboratory Services [address] [place] [address] Carissa Monroy MD NO ADDRESS ON FILE Social History Tobacco Use Types Packs/Day Years Used Date Smoking Tobacco: Never Assessed Sex and Gender Information Value Date Recorded Sex Assigned at Not on file Legal Sex Male 12:46 AM CHARGE MANAGER Gender Identity Not on file Sexual Orientation Not on file documented as of this encounter Plan of Treatment Not on file documented as of this encounter Procedures Procedure Name Priority Date/Time Associated Diagnosis Comments CBC WITH DIFFERENTIAL Stat 05/14/2018 2:50 PM CHARGE MANAGER PHOSPHORUS Stat 05/14/2018 2:50 PM CHARGE MANAGER MAGNESIUM LEVEL Stat 05/14/2018 2:50 PM CHARGE MANAGER BASIC METABOLIC PANEL Stat 05/14/2018 2:50 PM CHARGE MANAGER documented in this encounter Results * (ABNORMAL) PHOSPHORUS (05/14/2018 2:50 PM CHARGE MANAGER) PHOSPHORUS 4.8(H) 2.5 - 4.5 mg/dL 05/14/2018 4:09 PM CHARGE MANAGER [facility] Blood Collection / Unknown 05/14/2018 2:50 PM CHARGE MANAGER 05/14/2018 3:32 PM CHARGE MANAGER us Carissa Monroy MD CHEMISTRY ORDERABLES Final Resul t [facility] CLIA# [id number] [address] [place] [address] * (ABNORMAL) BASIC METABOLIC PANEL (05/14/2018 2:50 PM CHARGE MANAGER) SODIUM 147(H) 136 - 145 mmol/L 05/14/2018 4:09 PM [facility] POTASSIUM 4.9 3.5 - 5.1 mmol/L 05/14/2018 4:09 PM [facility] CHLORIDE 111(H) 98 - 107 mmol/L 05/14/2018 4:09 PM [facility] CO2 26 22 - 29 mmol/L 05/14/2018 4:09 PM [facility] CALCIUM 8.6 8.6 - 10.0 mg/dL 05/14/2018 4:09 PM [facility] BUN 22(H) 6 - 20 mg/dL 05/14/2018 4:09 PM [facility] CREATININE 1.66(H) 0.67 - 1.17 mg/dL 05/14/2018 4:09 PM [facility] GLUCOSE 83 74 - 99 mg/dL 05/14/2018 4:09 PM [facility] GFR 43(L) >=60 mL/min/1. 73 sq meter 05/14/2018 4:09 PM [facility] Comment: eGFR has [...] please refer to the GFR result. GFR, 52(L) >=60 mL/min/1. 73 sq meter 05/14/2018 4:09 PM [facility] ANION GAP 10 9 - 20 mmol/L 05/14/2018 4:09 PM CHARGE MANAGER [facility] Blood Collection / Unknown 05/14/2018 2:50 PM CHARGE MANAGER 05/14/2018 3:32 PM CHARGE MANAGER Carissa Monroy MD CHEMISTRY ORDERABLES Final Resul t Performing Organization Address [facility] de Phone Number [facility] CLIA# [id number] [address] [place] [address] * MAGNESIUM LEVEL (05/14/2018 2:50 PM CHARGE MANAGER) Pathologist [facility] MAGNESIUM 1.7 1.6 - 2.6 mg/dL 05/14/2018 4:09 PM [facility] Blood Collection / Unknown 05/14/2018 2:50 PM CHARGE MANAGER 05/14/2018 3:32 PM CHARGE MANAGER Carissa Monroy MD CHEMISTRY ORDERABLES Final Resul t Performing Organization Address [facility] de Phone Number [facility] CLIA# [id number] [address] [place] [address] * (ABNORMAL) CBC WITH DIFFERENTIAL (05/14/2018 2:50 PM CHARGE MANAGER) WBC 13.3(H) 4.8 - 10.8 K/uL 05/14/2018 3:49 PM [facility] NRBCS 1(H) <1 % 05/14/2018 3:49 PM [facility] RBC 3.42(L) 4.60 - 6.20 M/uL 05/14/2018 3:49 PM [facility] HEMOGLOBIN 10.0(L) 14.0 - 18.0 g/dL 05/14/2018 3:49 PM [facility] HEMATOCRIT 36.8(L) 41.0 - 53.0 % 05/14/2018 3:49 PM [facility] MCV 107.6(H) 84.0 - 103.0 fL 05/14/2018 3:49 PM [facility] MCH 29.2 27.0 - 34.0 pg 05/14/2018 3:49 PM [facility] MCHC 27.2(L) 30.0 - 35.0 g/dL 05/14/2018 3:49 PM [facility] RDW 17.4(H) 11.0 - 14.5 % 05/14/2018 3:49 PM [facility] RDW-STDEV 62.5(H) 37.0 - 54.0 fL 05/14/2018 3:49 PM [facility] PLATELETS 312 140 - 440 K/uL 05/14/2018 3:49 PM [facility] MPV 9.7 8.9 - 12.8 fL 05/14/2018 3:49 PM [facility] NEUTROPHILS 79(H) 42 - 75 % 05/14/2018 3:49 PM [facility] LYMPHOCYTES 11(L) 24 - 44 % 05/14/2018 3:49 PM [facility] MONOCYTES 4 2 - 10 % 05/14/2018 3:49 PM [facility] EOSINOPHILS 1 0 - 7 % 05/14/2018 3:49 PM [facility] BASOPHILS 1 0 - 1 % 05/14/2018 3:49 PM [facility] IMMATURE GRANULOCYTES 5(H) 0 - 2 % 05/14/2018 3:49 PM [facility] NEUTROPHIL ABSOLUTE 10.47(H) 2.00 - 8.00 K/uL 05/14/2018 3:49 PM [facility] LYMPHOCYTE ABSOLUTE 1.43 1.20 - 4.00 K/uL 05/14/2018 3:49 PM [facility] MONOCYTE ABSOLUTE 0.55 0.10 - 0.60 K/uL 05/14/2018 3:49 PM [facility] EOSINOPHIL ABSOLUTE 0.10 0.00 - 0.70 K/uL 05/14/2018 3:49 PM [facility] BASOPHILS ABSOLUTE 0.10 0.00 - 0.20 K/uL 05/14/2018 3:49 PM CHARGE MANAGER [facility] IMMATURE GRANULOCYTES ABSOLUTE 0.63(H) 0.00 - 0.10 K/uL 05/14/2018 3:49 PM CHARGE MANAGER [facility] Blood Collection / Unknown 05/14/2018 2:50 PM CHARGE MANAGER 05/14/2018 3:32 PM CHARGE MANAGER us Carissa Monroy MD HEMATOLOGY ORDERABLES Final Resu lt [facility] CLIA# [id number] [address] [place] [phone] documented in this encounter Visit Diagnoses Not on filedocumented in this encounter
--- OUTSIDE RECORDS SUMMARY | 2025-02-10 23:12 | XMS_ITS | Encounter Summary ---
Author Organization [facility] Address [address] [place] [address] Care Team Providers Care Electronic Video Games Servicer Name Role Phone Unavailable Primary Care Provider Unavailabl e Encounter Details Date Type Department Care Team (Late st Contact Info) Description 03/09/2018 Lab Requisition [facility] Laboratory Services [address] [place] [address] Arturo Simon MD [address] [place] [address] Social History Tobacco Use Types Packs/Day Years Used Date Smoking Tobacco: Never Assessed Sex and Gender Information Value Date Recorded Sex Assigned at Not on file Legal Sex Male 12:46 AM CLINICAL SOCIAL WORK THERAPIST Gender Identity Not on file Sexual Orientation Not on file documented as of this encounter Plan of Treatment Not on file documented as of this encounter Procedures Procedure Name Priority Date/Time Associated Diagnosis Comments HEPATITIS B SURFACE AB, QUAL Stat 03/09/2018 3:30 AM CLINICAL SOCIAL WORK THERAPIST HEPATITIS B SURFACE ANTIGEN Stat 03/09/2018 3:30 AM CLINICAL SOCIAL WORK THERAPIST HEPATITIS C ANTIBODY Stat 03/09/2018 3:30 AM CLINICAL SOCIAL WORK THERAPIST HEPATITIS B CORE IGM Stat 03/09/2018 3:30 AM CLINICAL SOCIAL WORK THERAPIST CBC WITH DIFFERENTIAL Stat 03/09/2018 3:30 AM CLINICAL SOCIAL WORK THERAPIST PHOSPHORUS Stat 03/09/2018 3:30 AM CLINICAL SOCIAL WORK THERAPIST MAGNESIUM LEVEL Stat 03/09/2018 3:30 AM CLINICAL SOCIAL WORK THERAPIST COMPREHENSIVE METABOLIC PANEL Stat 03/09/2018 3:30 AM CLINICAL SOCIAL WORK THERAPIST documented in this encounter Results * (ABNORMAL) COMPREHENSIVE METABOLIC PANEL (03/09/2018 3:30 AM CLINICAL SOCIAL WORK THERAPIST) SODIUM 135(L) 136 - 145 mmol/L 03/09/2018 5:50 AM [facility] POTASSIUM 5.2(H) 3.5 - 5.1 mmol/L 03/09/2018 5:50 AM [facility] CHLORIDE 92(L) 98 - 107 mmol/L 03/09/2018 5:50 AM [facility] CO2 28 22 - 29 mmol/L 03/09/2018 5:50 AM [facility] CALCIUM 9.2 8.6 - 10.0 mg/dL 03/09/2018 5:50 AM [facility] BUN 69(H) 6 - 20 mg/dL 03/09/2018 5:50 AM [facility] CREATININE 4.97(H) 0.67 - 1.17 mg/dL 03/09/2018 5:50 AM [facility] GLUCOSE 163(H) 74 - 99 mg/dL 03/09/2018 5:50 AM [facility] TOTAL PROTEIN 6.7 6.4 - 8.3 g/dL 03/09/2018 5:50 AM [facility] ALBUMIN 3.3(L) 3.5 - 5.2 g/dL 03/09/2018 5:50 AM [facility] BILIRUBIN TOTAL 0.8 0.2 - 1.0 mg/dL 03/09/2018 5:50 AM [facility] ALKALINE PHOSPHATASE 194(H) 40 - 129 U/L 03/09/2018 5:50 AM [facility] AST 13 10 - 50 U/L 03/09/2018 5:50 AM [facility] ALT 14 <=50 U/L 03/09/2018 5:50 AM [facility] GFR 12(L) >=60 mL/min/1. 73 sq meter 03/09/2018 5:50 AM [facility] Comment: eGFR has not been validated for [...] GFR, 15(L) >=60 mL/min/1. 73 sq meter 03/09/2018 5:50 AM CLINICAL SOCIAL WORK THERAPIST [facility] [employer] [facility] ANION GAP 15 9 - 20 mmol/L 03/09/2018 5:50 AM CLINICAL SOCIAL WORK THERAPIST [facility] Blood Collection / Unknown 03/09/2018 3:30 AM CLINICAL SOCIAL WORK THERAPIST 03/09/2018 5:12 AM CLINICAL SOCIAL WORK THERAPIST us Arturo Simon MD CHEMISTRY ORDERABLES Final Result Performing Organization Address City/[facility]/ZIP Co de Phone Number [facility] CLIA# [id number] [address] [place] [address] * HEPATITIS C ANTIBODY W REFLEX (03/09/2018 3:30 AM CLINICAL SOCIAL WORK THERAPIST) Pathologist [facility] HEPATITIS C AB NON-REACTI VE Non-react megan 03/09/2018 6:00 AM CLINICAL SOCIAL WORK THERAPIST [facility] Blood Collection / Unknown 03/09/2018 3:30 AM CLINICAL SOCIAL WORK THERAPIST 03/09/2018 5:12 AM CLINICAL SOCIAL WORK THERAPIST us Arturo Simon MD CHEMISTRY ORDERABLES Final Result [facility] CLIA# [id number] [address] [place] [address] * HEPATITIS B SURFACE ANTIGEN (03/09/2018 3:30 AM CLINICAL SOCIAL WORK THERAPIST) HEPATITIS B SURFACE AG NON-REACTI VE Non-react megan 03/09/2018 6:00 AM CLINICAL SOCIAL WORK THERAPIST [facility] Blood Collection / Unknown 03/09/2018 3:30 AM CLINICAL SOCIAL WORK THERAPIST 03/09/2018 5:12 AM CLINICAL SOCIAL WORK THERAPIST Arturo Simon MD CHEMISTRY ORDERABLES Final Result Performing Organization Address [facility] Co de Phone Number [facility] CLIA# [id number] [address] [place] [address] * (ABNORMAL) HEPATITIS B SURFACE AB, QUAL (03/09/2018 3:30 AM CLINICAL SOCIAL WORK THERAPIST) HEPATITIS B SURFACE AB, QUAL Equivocal (A) Non-react megan 03/09/2018 6:57 AM CLINICAL SOCIAL WORK THERAPIST [facility] Comment:Unable to determine if anti-HBs antibody is present at levels consistent with immunity, suggest sample be recollected. Blood Collection / Unknown 03/09/2018 3:30 AM CLINICAL SOCIAL WORK THERAPIST 03/09/2018 5:12 AM CLINICAL SOCIAL WORK THERAPIST us Arturo Simon MD CHEMISTRY ORDERABLES Final Result Performing Organization Address [facility] Co in Phone Number [facility] CLIA# [id number] [address] [place] [address] * HEPATITIS B CORE IGM (03/09/2018 3:30 AM CLINICAL SOCIAL WORK THERAPIST) HEPATITIS B CORE IGM Non-reacti ve Non-react megan 03/09/2018 6:00 AM CLINICAL SOCIAL WORK THERAPIST [facility] Blood Collection / Unknown 03/09/2018 3:30 AM CLINICAL SOCIAL WORK THERAPIST 03/09/2018 5:12 AM CLINICAL SOCIAL WORK THERAPIST Arturo Simon MD CHEMISTRY ORDERABLES Final Result Performing Organization Address City/[facility]/ZIP Co de Phone Number [facility] CLIA# [id number] [address] [place] [address] * (ABNORMAL) PHOSPHORUS (03/09/2018 3:30 AM CLINICAL SOCIAL WORK THERAPIST) Pathologist [facility] PHOSPHORUS 5.2(H) 2.5 - 4.5 mg/dL 03/09/2018 5:50 AM [facility] Blood Collection / Unknown 03/09/2018 3:30 AM CLINICAL SOCIAL WORK THERAPIST 03/09/2018 5:12 AM CLINICAL SOCIAL WORK THERAPIST Arturo Simon MD CHEMISTRY ORDERABLES Final Result Performing Organization Address [facility]/ZIP Co de Phone Number [facility] CLIA# [id number] [address] [place] [address] * MAGNESIUM LEVEL (03/09/2018 3:30 AM CLINICAL SOCIAL WORK THERAPIST) Pathologist [facility] MAGNESIUM 2.1 1.6 - 2.6 mg/dL 03/09/2018 5:50 AM [facility] Blood Collection / Unknown 03/09/2018 3:30 AM CLINICAL SOCIAL WORK THERAPIST 03/09/2018 5:12 AM CLINICAL SOCIAL WORK THERAPIST Arturo Simon MD CHEMISTRY ORDERABLES Final Result Performing Organization Address [facility] Co de Phone Number [facility] CLIA# [id number] [address] [place] [address] * (ABNORMAL) CBC WITH DIFFERENTIAL (03/09/2018 3:30 AM CLINICAL SOCIAL WORK THERAPIST) Pathologist [facility] WBC 22.6(H) 4.8 - 10.8 K/uL 03/09/2018 5:27 AM [facility] RBC 2.54(L) 4.60 - 6.20 M/uL 03/09/2018 5:27 AM [facility] HEMOGLOBIN 7.2(L) 14.0 - 18.0 g/dL 03/09/2018 5:27 AM [facility] HEMATOCRIT 24.0(L) 41.0 - 53.0 % 03/09/2018 5:27 AM [facility] MCV 94.5 84.0 - 103.0 fL 03/09/2018 5:27 AM [facility] MCH 28.3 27.0 - 34.0 pg 03/09/2018 5:27 AM [facility] MCHC 30.0 30.0 - 35.0 g/dL 03/09/2018 5:27 AM [facility] RDW 18.2(H) 11.0 - 14.5 % 03/09/2018 5:27 AM [facility] RDW-STDEV 61.9(H) 37.0 - 54.0 fL 03/09/2018 5:27 AM [facility] [employer] [facility] PLATELETS 275 140 - 440 K/uL 03/09/2018 5:27 AM [facility] MPV 10.4 8.9 - 12.8 fL 03/09/2018 5:27 AM [facility] NEUTROPHILS 81(H) 42 - 75 % 03/09/2018 5:27 AM [facility] LYMPHOCYTES 8(L) 24 - 44 % 03/09/2018 5:27 AM [facility] [employer] [facility] MONOCYTES 6 2 - 10 % 03/09/2018 5:27 AM [facility] EOSINOPHILS 1 0 - 7 % 03/09/2018 5:27 AM [facility] BASOPHILS 0 0 - 1 % 03/09/2018 5:27 AM [facility] IMMATURE GRANULOCYTES 4(H) 0 - 2 % 03/09/2018 5:27 AM [facility] [employer] [facility] NEUTROPHIL ABSOLUTE 18.30(H) 2.00 - 8.00 K/uL 03/09/2018 5:27 AM [facility] LYMPHOCYTE ABSOLUTE 1.78 1.20 - 4.00 K/uL 03/09/2018 5:27 AM [facility] MONOCYTE ABSOLUTE 1.45(H) 0.10 - 0.60 K/uL 03/09/2018 5:27 AM [facility] EOSINOPHIL ABSOLUTE 0.14 0.00 - 0.70 K/uL 03/09/2018 5:27 AM CLINICAL SOCIAL WORK THERAPIST [facility] BASOPHILS ABSOLUTE 0.08 0.00 - 0.20 K/uL 03/09/2018 5:27 AM CLINICAL SOCIAL WORK THERAPIST [facility] IMMATURE GRANULOCYTES ABSOLUTE 0.82(H) 0.00 - 0.10 K/uL 03/09/2018 5:27 AM CLINICAL SOCIAL WORK THERAPIST [facility] Blood Collection / Unknown 03/09/2018 3:30 AM CLINICAL SOCIAL WORK THERAPIST 03/09/2018 5:12 AM CLINICAL SOCIAL WORK THERAPIST us Arturo Simon MD HEMATOLOGY ORDERABLES Final Result [facility] CLIA# [id number] [address] [place] [address] documented in this encounter Visit Diagnoses Not on filedocumented in this encounter
--- OUTSIDE RECORDS SUMMARY | 2025-02-10 23:12 | XMS_ITS | Encounter Summary ---
Author Organization [facility] Address [address] [place] [address] Care Team Providers Care Clerical And Office Support Workers Name Role Phone Unavailable Primary Care Provider Unavailabl e Encounter Details Date Type Department Care Team (Late st Contact Info) Description 03/11/2018 Lab Requisition [facility] Laboratory Services [address] [place] [address] Tracy Pereira MD NO ADDRESS ON FILE Social History Tobacco Use Types Packs/Day Years Used Date Smoking Tobacco: Never Assessed Sex and Gender Information Value Date Recorded Sex Assigned at Not on file Legal Sex Male 12:46 AM EKG TECHNICIAN Gender Identity Not on file Sexual Orientation Not on file documented as of this encounter Plan of Treatment Not on file documented as of this encounter Procedures Procedure Name Priority Date/Time Associated Diagnosis Comments LACTIC ACID Stat 03/11/2018 6:40 AM EKG TECHNICIAN documented in this encounter Results * LACTIC ACID (03/11/2018 6:40 AM EKG TECHNICIAN) LACTIC ACID 1.0 0.5 - 2.2 mmol/L 03/11/2018 7:12 AM EKG TECHNICIAN [facility] [employer] [facility] Blood Collection / Unknown 03/11/2018 6:40 AM EKG TECHNICIAN 03/11/2018 6:53 AM EKG TECHNICIAN Narrative [facility] [employer] [facility] - 03/11/2018 7:12 AM EKG TECHNICIAN Arterial Reference Range 0.5-1.6 mmol/L Tracy Pereira MD CHEMISTRY ORDERABLES Final Resul t [facility] [employer] [facility] CLIA# [id number] [address] [place], [place] [id number] documented in this encounter Visit Diagnoses Not on filedocumented in this encounter
--- OUTSIDE RECORDS SUMMARY | 2025-02-10 23:12 | XMS_ITS | Encounter Summary ---
Author Organization [facility] Address [address] [place] [address] Care Team Providers Care Gun Striper Name Role Phone Unavailable Primary Care Provider Unavailabl e Encounter Details Date Type Department Care Team (Late st Contact Info) Description 05/22/2018 Lab Requisition [facility] Laboratory Services [address] [place] [address] [place] [address] Clay Mooney MD [address] [place] [address] Social History Tobacco Use Types Packs/Day Years Used Date Smoking Tobacco: Never Assessed Sex and Gender Information Value Date Recorded Sex Assigned at Not on file Legal Sex Male 12:46 AM VESSEL SPECIALIST Gender Identity Not on file Sexual Orientation Not on file documented as of this encounter Plan of Treatment Not on file documented as of this encounter Procedures Procedure Name Priority Date/Time Associated Diagnosis Comments VANCOMYCIN LEVEL RANDOM Stat 05/22/2018 4:00 AM VESSEL SPECIALIST documented in this encounter Results * VANCOMYCIN LEVEL RANDOM (05/22/2018 4:00 AM VESSEL SPECIALIST) VANCOMYCIN, RANDOM 24.1 5.0 - 50.0 ug/mL 05/22/2018 6:05 AM VESSEL SPECIALIST [facility] Blood Collection / Unknown 05/22/2018 4:00 AM VESSEL SPECIALIST 05/22/2018 5:29 AM VESSEL SPECIALIST Narrative [facility] - 05/22/2018 6:05 AM VESSEL SPECIALIST Vancomycin Therapeutic Ranges: Vancomycin Trough: 10 - 20 mcg/mL Vancomycin Peak: 25 - 50 mcg/mL us Clay Mooney MD CHEMISTRY ORDERABLES Final Resul t [facility]# [id number] [address] [place] [address] documented in this encounter Visit Diagnoses Not on filedocumented in this encounter
--- OUTSIDE RECORDS SUMMARY | 2025-02-10 23:12 | XMS_ITS | Encounter Summary ---
Author Organization [facility] Address [address] [place] [address] Care Team Providers Care Consultant [employer]. Vice President [employer] Name Role Phone Unavailable Primary Care Provider Unavailabl e Encounter Details Date Type Department Care Team (Late st Contact Info) Description 04/13/2018 Lab Requisition [facility] Laboratory Services [address] [place] [address] [place] [address] Billy Whitlock MD [address] [place] [address] Social History Tobacco Use Types Packs/Day Years Used Date Smoking Tobacco: Never Assessed Sex and Gender Information Value Date Recorded Sex Assigned at Not on file Legal Sex Male 12:46 AM ULTRASOUND SPECIALIST Gender Identity Not on file Sexual Orientation Not on file documented as of this encounter Plan of Treatment Not on file documented as of this encounter Procedures Procedure Name Priority Date/Time Associated Diagnosis Comments CBC WITH DIFFERENTIAL Stat 2018 3:00 AM ULTRASOUND SPECIALIST PHOSPHORUS Stat 2018 3:00 AM ULTRASOUND SPECIALIST documented in this encounter Results * (ABNORMAL) PHOSPHORUS (2018 3:00 AM ULTRASOUND SPECIALIST) PHOSPHORUS 5.0(H) 2.5 - 4.5 mg/dL 04/13/2018 5:30 AM ULTRASOUND SPECIALIST [facility] [employer] [facility] Blood Collection / Unknown 2018 3:00 AM ULTRASOUND SPECIALIST 04/13/2018 4:56 AM ULTRASOUND SPECIALIST Billy Whitlock MD CHEMISTRY ORDERABLES Final Resu lt [facility] [employer] [facility] CLIA# [id number] [address] [place] [address] * (ABNORMAL) CBC WITH DIFFERENTIAL (2018 3:00 AM [facility]) [facility] WBC 8.1 4.8 - 10.8 K/uL 04/13/2018 5:04 AM [facility] RBC 2.88(L) 4.60 - 6.20 M/uL 04/13/2018 5:04 AM [facility] HEMOGLOBIN 8.3(L) 14.0 - 18.0 g/dL 04/13/2018 5:04 AM [facility] HEMATOCRIT 28.4(L) 41.0 - 53.0 % 04/13/2018 5:04 AM [facility] MCV 98.6 84.0 - 103.0 fL 04/13/2018 5:04 AM [facility] MCH 28.8 27.0 - 34.0 pg 04/13/2018 5:04 AM [facility] MCHC 29.2(L) 30.0 - 35.0 g/dL 04/13/2018 5:04 AM [facility] RDW 15.9(H) 11.0 - 14.5 % 04/13/2018 5:04 AM [facility] RDW-STDEV 57.9(H) 37.0 - 54.0 fL 04/13/2018 5:04 AM [facility] [employer] [facility] PLATELETS 252 140 - 440 K/uL 04/13/2018 5:04 AM [facility] [employer] [facility] MPV 9.6 8.9 - 12.8 fL 04/13/2018 5:04 AM [facility] NEUTROPHILS 72 42 - 75 % 04/13/2018 5:04 AM [facility] LYMPHOCYTES 17(L) 24 - 44 % 04/13/2018 5:04 AM [facility] [employer] [facility] MONOCYTES 9 2 - 10 % 04/13/2018 5:04 AM [facility] [employer] [facility] EOSINOPHILS 2 0 - 7 % 04/13/2018 5:04 AM ULTRASOUND SPECIALIST [facility] BASOPHILS 1 0 - 1 % 04/13/2018 5:04 AM [facility] IMMATURE GRANULOCYTES 0 0 - 2 % 04/13/2018 5:04 AM [facility] NEUTROPHIL ABSOLUTE 5.85 2.00 - 8.00 K/uL 04/13/2018 5:04 AM [facility] LYMPHOCYTE ABSOLUTE 1.34 1.20 - 4.00 K/uL 04/13/2018 5:04 AM [facility] MONOCYTE ABSOLUTE 0.70(H) 0.10 - 0.60 K/uL 04/13/2018 5:04 AM [facility] EOSINOPHIL ABSOLUTE 0.14 0.00 - 0.70 K/uL 04/13/2018 5:04 AM [facility] BASOPHILS ABSOLUTE 0.04 0.00 - 0.20 K/uL 04/13/2018 5:04 AM [facility] IMMATURE GRANULOCYTES ABSOLUTE 0.03 0.00 - 0.10 K/uL 04/13/2018 5:04 AM [facility] Blood Collection / Unknown 2018 3:00 AM ULTRASOUND SPECIALIST 04/13/2018 4:56 AM ULTRASOUND SPECIALIST us Billy Whitlock MD HEMATOLOGY ORDERABLES Final Res ult [facility] CLIA# [id number] [address] [place] [id number] documented in this encounter Visit Diagnoses Not on filedocumented in this encounter
--- OUTSIDE RECORDS SUMMARY | 2025-02-10 23:12 | XMS_ITS | Encounter Summary ---
Author Organization [facility] Address [address] [place] [address] Care Team Providers Care Rn Cardiac Rehab Name Role Phone Unavailable Primary Care Provider Unavailabl e Encounter Details Date Type Department Care Team (Late st Contact Info) Description 05/18/2018 Lab Requisition [facility] Laboratory Services [address] [place] [address] [place] [address] Karen Austin MD [address] [place] [address] Social History Tobacco Use Types Packs/Day Years Used Date Smoking Tobacco: Never Assessed Sex and Gender Information Value Date Recorded Sex Assigned at Not on file Legal Sex Male 12:46 AM TICKET AGENT Gender Identity Not on file Sexual Orientation Not on file documented as of this encounter Plan of Treatment Not on file documented as of this encounter Procedures Procedure Name Priority Date/Time Associated Diagnosis Comments CBC WITH DIFFERENTIAL Stat 05/18/2018 1:45 PM TICKET AGENT COMPREHENSIVE METABOLIC PANEL Stat 05/18/2018 1:45 PM TICKET AGENT documented in this encounter Results * (ABNORMAL) COMPREHENSIVE METABOLIC PANEL (05/18/2018 1:45 PM TICKET AGENT) SODIUM 146(H) 136 - 145 mmol/L 05/18/2018 3:54 PM TICKET AGENT [facility] POTASSIUM 4.6 3.5 - 5.1 mmol/L 05/18/2018 3:54 PM TICKET AGENT [facility] CHLORIDE 114(H) 98 - 107 mmol/L 05/18/2018 3:54 PM TICKET AGENT [facility] CO2 26 22 - 29 mmol/L 05/18/2018 3:54 PM TICKET AGENT [facility] CALCIUM 8.4(L) 8.6 - 10.0 mg/dL 05/18/2018 3:[address] [facility] BUN 18 6 - 20 mg/dL 05/18/2018 3:[address] [facility] CREATININE 1.33(H) 0.67 - 1.17 mg/dL 05/18/2018 3:[address] [facility] GLUCOSE 127(H) 74 - 99 mg/dL 05/18/2018 3:[address] [facility] TOTAL PROTEIN 5.6(L) 6.4 - 8.3 g/dL 05/18/2018 3:[address] [facility] ALBUMIN 2.4(L) 3.5 - 5.2 g/dL 05/18/2018 3:[address] [facility] BILIRUBIN TOTAL 0.2 0.2 - 1.0 mg/dL 05/18/2018 3:[address] [facility] ALKALINE PHOSPHATASE 95 40 - 129 U/L 05/18/2018 3:[address] [facility] AST 12 10 - 50 U/L 05/18/2018 3:[address] [facility] ALT 24 <=50 U/L 05/18/2018 3:[address] [facility] GFR 55(L) >=60 mL/min/1. 73 sq meter 05/18/2018 3:[address] [facility] Comment: eGFR has not been validated [...] GFR, >60 >=60 mL/min/1. 73 sq meter 05/18/2018 3:[address] [facility] ANION GAP 6(L) 9 - 20 mmol/L 05/18/2018 3:[address] [facility] Blood Collection / Unknown 05/18/2018 1:45 PM TICKET AGENT 05/18/2018 3:23 PM TICKET AGENT Karen Austin MD CHEMISTRY ORDERABLES Leidy josé Result [facility] CLIA# [id number] [facility] [place] [address] * (ABNORMAL) CBC WITH DIFFERENTIAL (05/18/2018 1:45 PM TICKET AGENT) [facility] WBC 8.9 4.8 - 10.8 K/uL 05/18/2018 3:[address] [facility] RBC 3.00(L) 4.60 - 6.20 M/uL 05/18/2018 3:[address] [facility] HEMOGLOBIN 8.8(L) 14.0 - 18.0 g/dL 05/18/2018 3:[address] [facility] HEMATOCRIT 32.6(L) 41.0 - 53.0 % 05/18/2018 3:[address] [facility] MCV 108.7(H) 84.0 - 103.0 fL 05/18/2018 3:[address] [facility] MCH 29.3 27.0 - 34.0 pg 05/18/2018 3:[address] [facility] MCHC 27.0(L) 30.0 - 35.0 g/dL 05/18/2018 3:[address] [facility] RDW 16.9(H) 11.0 - 14.5 % 05/18/2018 3:[address] [facility] RDW-STDEV 66.0(H) 37.0 - 54.0 fL 05/18/2018 3:[address] [facility] PLATELETS 177 140 - 440 K/uL 05/18/2018 3:[address] [facility] MPV 10.3 8.9 - 12.8 fL 05/18/2018 3:[address] [facility] NEUTROPHILS 80(H) 42 - 75 % 05/18/2018 3:[address] [facility] LYMPHOCYTES 11(L) 24 - 44 % 05/18/2018 3:[address] [facility] MONOCYTES 6 2 - 10 % 05/18/2018 3:[address] [facility] EOSINOPHILS 2 0 - 7 % 05/18/2018 3:[address] [facility] BASOPHILS 0 0 - 1 % 05/18/2018 3:[address] [facility] IMMATURE GRANULOCYTES 1 0 - 2 % 05/18/2018 3:[address] [facility] NEUTROPHIL ABSOLUTE 7.17 2.00 - 8.00 K/uL 05/18/2018 3:[address] [facility] LYMPHOCYTE ABSOLUTE 0.96(L) 1.20 - 4.00 K/uL 05/18/2018 3:[address] [facility] MONOCYTE ABSOLUTE 0.50 0.10 - 0.60 K/uL 05/18/2018 3:[address] [facility] EOSINOPHIL ABSOLUTE 0.17 0.00 - 0.70 K/uL 05/18/2018 3:[address] [facility] BASOPHILS ABSOLUTE 0.04 0.00 - 0.20 K/uL 05/18/2018 3:[address] [facility] IMMATURE GRANULOCYTES ABSOLUTE 0.09 0.00 - 0.10 K/uL 05/18/2018 3:[address] [facility] Blood Collection / Unknown 05/18/2018 1:45 PM [facility] 05/18/2018 3:23 PM [employer]ICKET [employer]ENT us Karen Austin MD HEMATOLOGY ORDERABLES Fin al Result [facility] CLIA# [id number] [place] [address] documented in this encounter Visit Diagnoses Not on filedocumented in this encounter
--- OUTSIDE RECORDS SUMMARY | 2025-02-10 23:12 | XMS_ITS | Encounter Summary ---
Author Organization [facility] Address [address] [place] [address] Care Team Providers Care Special Education Educational Assistant Name Role Phone Unavailable Primary Care Provider Unavailabl e Encounter Details Date Type Department Care Team (Late st Contact Info) Description 05/21/2018 Lab Requisition [facility] Laboratory Services [address] [place] [place] [address] Karen Austin MD [address] [place] [address] Social History Tobacco Use Types Packs/Day Years Used Date Smoking Tobacco: Never Assessed Sex and Gender Information Value Date Recorded Sex Assigned at Not on file Legal Sex Male 12:46 AM TIME SIGNAL WIRER Gender Identity Not on file Sexual Orientation Not on file documented as of this encounter Plan of Treatment Not on file documented as of this encounter Procedures Procedure Name Priority Date/Time Associated Diagnosis Comments COMPREHENSIVE METABOLIC PANEL Stat 05/21/2018 3:50 AM TIME SIGNAL WIRER documented in this encounter Results * (ABNORMAL) COMPREHENSIVE METABOLIC PANEL (05/21/2018 3:50 AM TIME SIGNAL WIRER) SODIUM 147(H) 136 - 145 mmol/L 05/21/2018 5:43 AM [facility] LABORATORY [facility] POTASSIUM 4.5 3.5 - 5.1 mmol/L 05/21/2018 5:43 AM TIME SIGNAL WIRER [facility] LABORATORY [facility] CHLORIDE 113(H) 98 - 107 mmol/L 05/21/2018 5:43 AM TIME SIGNAL WIRER [facility] CO2 28 22 - 29 mmol/L 05/21/2018 5:43 AM [facility] CALCIUM 8.6 8.6 - 10.0 mg/dL 05/21/2018 5:43 AM [facility] BUN 18 6 - 20 mg/dL 05/21/2018 5:43 AM [facility] CREATININE 1.20(H) 0.67 - 1.17 mg/dL 05/21/2018 5:43 AM [facility] GLUCOSE 79 74 - 99 mg/dL 05/21/2018 5:43 AM [facility] TOTAL PROTEIN 5.6(L) 6.4 - 8.3 g/dL 05/21/2018 5:43 AM [facility] ALBUMIN 2.4(L) 3.5 - 5.2 g/dL 05/21/2018 5:43 AM [facility] BILIRUBIN TOTAL 0.2 0.2 - 1.0 mg/dL 05/21/2018 5:43 AM [facility] ALKALINE PHOSPHATASE 95 40 - 129 U/L 05/21/2018 5:43 AM [facility] AST 14 10 - 50 U/L 05/21/2018 5:43 AM [facility] ALT 17 <=50 U/L 05/21/2018 5:43 AM [facility] GFR >60 >=60 mL/min/1. 73 sq meter 05/21/2018 5:43 AM [facility] Comment: eGFR has not been [...] GFR, >60 >=60 mL/min/1. 73 sq meter 05/21/2018 5:43 AM [facility] ANION GAP 6(L) 9 - 20 mmol/L 05/21/2018 5:43 AM [facility] Blood Collection / Unknown 05/21/2018 3:50 AM TIME SIGNAL WIRER 05/21/2018 5:07 AM TIME SIGNAL WIRER Karen Austin MD CHEMISTRY ORDERABLES Leidy josé Result [facility] LABORATORY SERVICES [facility]# [id number] [address] [place] [address] documented in this encounter Visit Diagnoses Not on filedocumented in this encounter
--- OUTSIDE RECORDS SUMMARY | 2025-02-10 23:12 | XMS_ITS | Encounter Summary ---
Author Organization [facility] Address [address] [place] [address] Care Team Providers Care Cutter Wet Machine Name Role Phone Unavailable Primary Care Provider Unavailabl e Encounter Details Date Type Department Care Team (Late st Contact Info) Description 03/13/2018 Lab Requisition [facility] Laboratory Services [address] [place] [address] [place] [address] Tracy Pereira MD NO ADDRESS ON FILE Social History Tobacco Use Types Packs/Day Years Used Date Smoking Tobacco: Never Assessed Sex and Gender Information Value Date Recorded Sex Assigned at Not on file Legal Sex Male 12:46 AM SENIOR DIRECTOR OF STRATEGY Gender Identity Not on file Sexual Orientation Not on file documented as of this encounter Plan of Treatment Not on file documented as of this encounter Procedures Procedure Name Priority Date/Time Associated Diagnosis Comments CBC WITH DIFFERENTIAL Stat 03/13/2018 3:35 AM SENIOR DIRECTOR OF STRATEGY BASIC METABOLIC PANEL Stat 03/13/2018 3:35 AM SENIOR DIRECTOR OF STRATEGY documented in this encounter Results * (ABNORMAL) BASIC METABOLIC PANEL (03/13/2018 3:35 AM SENIOR DIRECTOR OF STRATEGY) SODIUM 133(L) 136 - 145 mmol/L 03/13/2018 5:32 AM [facility] LABORATORY [facility] POTASSIUM 4.7 3.5 - 5.1 mmol/L 03/13/2018 5:32 AM SENIOR DIRECTOR OF STRATEGY [facility] LABORATORY [facility] CHLORIDE 91(L) 98 - 107 mmol/L 03/13/2018 5:32 AM [facility] CO2 27 22 - 29 mmol/L 03/13/2018 5:32 AM [facility] CALCIUM 8.6 8.6 - 10.0 mg/dL 03/13/2018 5:32 AM [facility] LABORATORY [facility] BUN 39(H) 6 - 20 mg/dL 03/13/2018 5:32 AM [facility] CREATININE 3.11(H) 0.67 - 1.17 mg/dL 03/13/2018 5:32 AM [facility] GLUCOSE 164(H) 74 - 99 mg/dL 03/13/2018 5:32 AM [facility] GFR 21(L) >=60 mL/min/1. 73 sq meter 03/13/2018 5:32 AM [facility] Comment: eGFR has not been [...] please refer to the GFR result. GFR, 25(L) >=60 mL/min/1. 73 sq meter 03/13/2018 5:32 AM [facility] ANION GAP 15 9 - 20 mmol/L 03/13/2018 5:32 AM [facility] Blood Collection / Unknown 03/13/2018 3:35 AM SENIOR DIRECTOR OF STRATEGY 03/13/2018 4:52 AM [facility] us Tracy Pereira MD CHEMISTRY ORDERABLES Final Resul t [facility] CLIA# [id number] [address] [place] [address] * (ABNORMAL) CBC WITH DIFFERENTIAL (03/13/2018 3:35 AM [facility]) WBC 14.2(H) 4.8 - 10.8 K/uL 03/13/2018 4:58 AM [facility] RBC 2.50(L) 4.60 - 6.20 M/uL 03/13/2018 4:58 AM [facility] HEMOGLOBIN 7.2(L) 14.0 - 18.0 g/dL 03/13/2018 4:58 AM [facility] HEMATOCRIT 24.1(L) 41.0 - 53.0 % 03/13/2018 4:58 AM [facility] MCV 96.4 84.0 - 103.0 fL 03/13/2018 4:58 AM [facility] MCH 28.8 27.0 - 34.0 pg 03/13/2018 4:58 AM [facility] MCHC 29.9(L) 30.0 - 35.0 g/dL 03/13/2018 4:58 AM [facility] RDW 18.0(H) 11.0 - 14.5 % 03/13/2018 4:58 AM [facility] RDW-STDEV 62.1(H) 37.0 - 54.0 fL 03/13/2018 4:58 AM [facility] PLATELETS 219 140 - 440 K/uL 03/13/2018 4:58 AM [facility] MPV 10.0 8.9 - 12.8 fL 03/13/2018 4:58 AM [facility] NEUTROPHILS 83(H) 42 - 75 % 03/13/2018 4:58 AM [facility] LYMPHOCYTES 7(L) 24 - 44 % 03/13/2018 4:58 AM [facility] MONOCYTES 6 2 - 10 % 03/13/2018 4:58 AM [facility] EOSINOPHILS 2 0 - 7 % 03/13/2018 4:58 AM [facility] BASOPHILS 1 0 - 1 % 03/13/2018 4:58 AM [facility] IMMATURE GRANULOCYTES 2 0 - 2 % 03/13/2018 4:58 AM [facility] NEUTROPHIL ABSOLUTE 11.77(H) 2.00 - 8.00 K/uL 03/13/2018 4:58 AM [facility] LYMPHOCYTE ABSOLUTE 0.99(L) 1.20 - 4.00 K/uL 03/13/2018 4:58 AM [facility] MONOCYTE ABSOLUTE 0.80(H) 0.10 - 0.60 K/uL 03/13/2018 4:58 AM SENIOR DIRECTOR OF STRATEGY [facility] LABORATORY [facility] EOSINOPHIL ABSOLUTE 0.21 0.00 - 0.70 K/uL 03/13/2018 4:58 AM SENIOR DIRECTOR OF STRATEGY [facility] BASOPHILS ABSOLUTE 0.07 0.00 - 0.20 K/uL 03/13/2018 4:58 AM SENIOR DIRECTOR OF STRATEGY [facility] IMMATURE GRANULOCYTES ABSOLUTE 0.31(H) 0.00 - 0.10 K/uL 03/13/2018 4:58 AM SENIOR DIRECTOR OF STRATEGY [facility] Blood Collection / Unknown 03/13/2018 3:35 AM SENIOR DIRECTOR OF STRATEGY 03/13/2018 4:52 AM SENIOR DIRECTOR OF STRATEGY us Tracy Pereira MD HEMATOLOGY ORDERABLES Final Resu lt [facility] CLIA# [id number] [address] [place] [address] documented in this encounter Visit Diagnoses Not on filedocumented in this encounter
--- OUTSIDE RECORDS SUMMARY | 2025-02-10 23:12 | XMS_ITS | Encounter Summary ---
Author Organization [facility] Address [address] [place] [address] Care Team Providers Care Electronic Warfare Specialist Name Role Phone Unavailable Primary Care Provider Unavailabl e Encounter Details Date Type Department Care Team (Late st Contact Info) Description 04/21/2018 Lab Requisition [facility] Laboratory Services [address] [place] [address] [place] [address] Carissa Monroy MD NO ADDRESS ON FILE Social History Tobacco Use Types Packs/Day Years Used Date Smoking Tobacco: Never Assessed Sex and Gender Information Value Date Recorded Sex Assigned at Not on file Legal Sex Male 12:46 AM CORPORATE STRATEGY INTERN Gender Identity Not on file Sexual Orientation Not on file documented as of this encounter Plan of Treatment Not on file documented as of this encounter Procedures Procedure Name Priority Date/Time Associated Diagnosis Comments CBC WITH DIFFERENTIAL Stat 04/21/2018 6:20 AM CORPORATE STRATEGY INTERN BASIC METABOLIC PANEL Stat 04/21/2018 6:20 AM CORPORATE STRATEGY INTERN documented in this encounter Results * (ABNORMAL) BASIC METABOLIC PANEL (04/21/2018 6:20 AM CORPORATE STRATEGY INTERN) SODIUM 148(H) 136 - 145 mmol/L 04/21/2018 7:14 AM [facility] LABORATORY [facility] POTASSIUM 3.6 3.5 - 5.1 mmol/L 04/21/2018 7:14 AM [facility] LABORATORY [facility] CHLORIDE 110(H) 98 - 107 mmol/L 04/21/2018 7:14 AM [facility] CO2 27 22 - 29 mmol/L 04/21/2018 7:14 AM [facility] CALCIUM 8.6 8.6 - 10.0 mg/dL 04/21/2018 7:14 AM [facility] LABORATORY [facility] BUN 30(H) 6 - 20 mg/dL 04/21/2018 7:14 AM [facility] CREATININE 1.83(H) 0.67 - 1.17 mg/dL 04/21/2018 7:14 AM [facility] GLUCOSE 84 74 - 99 mg/dL 04/21/2018 7:14 AM [facility] GFR 38(L) >=60 mL/min/1. 73 sq meter 04/21/2018 7:14 AM [facility] Comment: eGFR [...] please refer to the GFR result. GFR, 46(L) >=60 mL/min/1. 73 sq meter 04/21/2018 7:14 AM [facility] ANION GAP 11 9 - 20 mmol/L 04/21/2018 7:14 AM [facility] Blood Collection / Unknown 04/21/2018 6:20 AM CORPORATE STRATEGY INTERN 04/21/2018 6:41 AM [facility] us Carissa Monroy MD CHEMISTRY ORDERABLES Final Resul t [facility] CLIA# [id number] [address] [place] [address] * (ABNORMAL) CBC WITH DIFFERENTIAL (04/21/2018 6:20 AM [facility]) WBC 7.9 4.8 - 10.8 K/uL 04/21/2018 6:44 AM [facility] RBC 2.85(L) 4.60 - 6.20 M/uL 04/21/2018 6:44 AM [facility] HEMOGLOBIN 8.3(L) 14.0 - 18.0 g/dL 04/21/2018 6:44 AM [facility] HEMATOCRIT 28.3(L) 41.0 - 53.0 % 04/21/2018 6:44 AM [facility] MCV 99.3 84.0 - 103.0 fL 04/21/2018 6:44 AM [facility] MCH 29.1 27.0 - 34.0 pg 04/21/2018 6:44 AM [facility] MCHC 29.3(L) 30.0 - 35.0 g/dL 04/21/2018 6:44 AM [facility] RDW 15.1(H) 11.0 - 14.5 % 04/21/2018 6:44 AM [facility] RDW-STDEV 54.8(H) 37.0 - 54.0 fL 04/21/2018 6:44 AM [facility] PLATELETS 239 140 - 440 K/uL 04/21/2018 6:44 AM [facility] MPV 10.1 8.9 - 12.8 fL 04/21/2018 6:44 AM [facility] NEUTROPHILS 71 42 - 75 % 04/21/2018 6:44 AM [facility] LYMPHOCYTES 17(L) 24 - 44 % 04/21/2018 6:44 AM [facility] MONOCYTES 9 2 - 10 % 04/21/2018 6:44 AM [facility] EOSINOPHILS 2 0 - 7 % 04/21/2018 6:44 AM [facility] BASOPHILS 0 0 - 1 % 04/21/2018 6:44 AM [facility] IMMATURE GRANULOCYTES 1 0 - 2 % 04/21/2018 6:44 AM [facility] NEUTROPHIL ABSOLUTE 5.62 2.00 - 8.00 K/uL 04/21/2018 6:44 AM [facility] LYMPHOCYTE ABSOLUTE 1.36 1.20 - 4.00 K/uL 04/21/2018 6:44 AM [facility] MONOCYTE ABSOLUTE 0.67(H) 0.10 - 0.60 K/uL 04/21/2018 6:44 AM CORPORATE STRATEGY INTERN [facility] EOSINOPHIL ABSOLUTE 0.16 0.00 - 0.70 K/uL 04/21/2018 6:44 AM CORPORATE STRATEGY INTERN [facility] BASOPHILS ABSOLUTE 0.03 0.00 - 0.20 K/uL 04/21/2018 6:44 AM CORPORATE STRATEGY INTERN [facility] IMMATURE GRANULOCYTES ABSOLUTE 0.04 0.00 - 0.10 K/uL 04/21/2018 6:44 AM CORPORATE STRATEGY INTERN [facility] Blood Collection / Unknown 04/21/2018 6:20 AM CORPORATE STRATEGY INTERN 04/21/2018 6:41 AM CORPORATE STRATEGY INTERN us Carissa Monroy MD HEMATOLOGY ORDERABLES Final Resu lt [facility] CLIA# [id number] [address] [place] [address] documented in this encounter Visit Diagnoses Not on filedocumented in this encounter
--- OUTSIDE RECORDS SUMMARY | 2025-02-10 23:12 | XMS_ITS | Encounter Summary ---
Author Organization [facility] Address [address] [place] [address] Care Team Providers Care Traffic Assistant Name Role Phone Unavailable Primary Care Provider Unavailabl e Encounter Details Date Type Department Care Team (Late st Contact Info) Description 2018 Lab Requisition [facility] Laboratory Services [address] [place] [address] Wilmar Haas, DO [address] [place] [address] Social History Tobacco Use Types Packs/Day Years Used Date Smoking Tobacco: Never Assessed Sex and Gender Information Value Date Recorded Sex Assigned at Not on file Legal Sex Male 12:46 AM TOP FORMER Gender Identity Not on file Sexual Orientation Not on file documented as of this encounter Plan of Treatment Not on file documented as of this encounter Procedures Procedure Name Priority Date/Time Associated Diagnosis Comments CBC WITH DIFFERENTIAL Stat 2018 4:00 AM TOP FORMER TSH Stat 2018 4:00 AM TOP FORMER PHOSPHORUS Stat 2018 4:00 AM TOP FORMER MAGNESIUM LEVEL Stat 2018 4:00 AM TOP FORMER HEMOGLOBIN A1C Stat 2018 4:00 AM TOP FORMER COMPREHENSIVE METABOLIC PANEL Stat 2018 4:00 AM TOP FORMER documented in this encounter Results * HEMOGLOBIN A1C (2018 4:00 AM TOP FORMER) HEMOGLOBIN A1C 5.0 4.0 - 6.0 % 2018 11:22 AM [facility] EST. AVG GLUCOSE, A1C 97 mg/dL 2018 11:22 AM [facility] Blood Collection / Unknown 2018 4:00 AM TOP FORMER 2018 5:18 AM TOP FORMER Narrative [facility] - 2018 11:22 AM TOP FORMER HGB A1C INTERPRETATION NORMAL: <5.7% PRE-DIABETES: 5.7 - 6.4% DIABETES: 6.5% OR GREATER Wilmar Haas DO CHEMISTRY ORDERABLES Final R esult Performing Organization Address [facility] Co de Phone Number [facility] CLIA# [id number] [address] [place] [address] * (ABNORMAL) TSH (2018 4:00 AM TOP FORMER) TSH 21.62(H) 0.27 - 4.20 uIU/mL 2018 6:00 AM [facility] Blood Collection / Unknown 2018 4:00 AM TOP FORMER 2018 5:18 AM TOP FORMER Wilmar Haas DO CHEMISTRY ORDERABLES Final R esult Performing Organization Address [facility] Co de Phone Number [facility] CLIA# [id number] [address] [place] [address] * PHOSPHORUS (2018 4:00 AM TOP FORMER) PHOSPHORUS 4.1 2.5 - 4.5 mg/dL 2018 6:00 AM [facility] Blood Collection / Unknown 2018 4:00 AM TOP FORMER 2018 5:18 AM TOP FORMER Wilmar Haas DO CHEMISTRY ORDERABLES Final R esult [facility] CLIA# [id number] [address] [place], [place] [address] * (ABNORMAL) MAGNESIUM LEVEL (2018 4:00 AM TOP FORMER) [facility] MAGNESIUM 1.5(L) 1.6 - 2.6 mg/dL 2018 6:00 AM [facility] Blood Collection / Unknown 2018 4:00 AM TOP FORMER 2018 5:18 AM TOP FORMER us Wilmar Haas DO CHEMISTRY ORDERABLES Final R esult Performing Organization Address City/[facility]/ZIP Co de Phone Number [facility] CLIA# [id number] [address] [place] [address] * (ABNORMAL) CBC WITH DIFFERENTIAL (2018 4:00 AM TOP FORMER) [facility] WBC 8.4 4.8 - 10.8 K/uL 2018 5:26 AM [facility] [employer] [facility] RBC 2.97(L) 4.60 - 6.20 M/uL 2018 5:26 AM [facility] [employer] [facility] HEMOGLOBIN 8.7(L) 14.0 - 18.0 g/dL 2018 5:26 AM [facility] [employer] [facility] HEMATOCRIT 29.4(L) 41.0 - 53.0 % 2018 5:26 AM [facility] [employer] [facility] MCV 99.0 84.0 - 103.0 fL 2018 5:26 AM [facility] [employer] [facility] MCH 29.3 27.0 - 34.0 pg 2018 5:26 AM [facility] [employer] [facility] MCHC 29.6(L) 30.0 - 35.0 g/dL 2018 5:26 AM [facility] [employer] [facility] RDW 16.2(H) 11.0 - 14.5 % 2018 5:26 AM [facility] RDW-STDEV 58.4(H) 37.0 - 54.0 fL 2018 5:26 AM [facility] PLATELETS 255 140 - 440 K/uL 2018 5:26 AM [facility] MPV 9.8 8.9 - 12.8 fL 2018 5:26 AM [facility] NEUTROPHILS 73 42 - 75 % 2018 5:26 AM [facility] LYMPHOCYTES 15(L) 24 - 44 % 2018 5:26 AM [facility] MONOCYTES 9 2 - 10 % 2018 5:26 AM [facility] EOSINOPHILS 3 0 - 7 % 2018 5:26 AM [facility] BASOPHILS 1 0 - 1 % 2018 5:26 AM [facility] IMMATURE GRANULOCYTES 1 0 - 2 % 2018 5:26 AM [facility] NEUTROPHIL ABSOLUTE 6.14 2.00 - 8.00 K/uL 2018 5:26 AM [facility] LYMPHOCYTE ABSOLUTE 1.24 1.20 - 4.00 K/uL 2018 5:26 AM [facility] MONOCYTE ABSOLUTE 0.73(H) 0.10 - 0.60 K/uL 2018 5:26 AM [facility] EOSINOPHIL ABSOLUTE 0.22 0.00 - 0.70 K/uL 2018 5:26 AM [facility] BASOPHILS ABSOLUTE 0.04 0.00 - 0.20 K/uL 2018 5:26 AM [facility] IMMATURE GRANULOCYTES ABSOLUTE 0.04 0.00 - 0.10 K/uL 2018 5:26 AM [facility] Blood Collection / Unknown 2018 4:00 AM TOP FORMER 2018 5:18 AM [facility] Wilmar Haas DO HEMATOLOGY ORDERABLES Final Result [facility] CLIA# [id number] [address] [place] [address] * (ABNORMAL) COMPREHENSIVE METABOLIC PANEL (2018 4:00 AM [facility]) SODIUM 141 136 - 145 mmol/L 2018 6:00 AM [facility] POTASSIUM 4.3 3.5 - 5.1 mmol/L 2018 6:00 AM [facility] CHLORIDE 101 98 - 107 mmol/L 2018 6:00 AM [facility] CO2 28 22 - 29 mmol/L 2018 6:00 AM [facility] CALCIUM 8.8 8.6 - 10.0 mg/dL 2018 6:00 AM [facility] BUN 38(H) 6 - 20 mg/dL 2018 6:00 AM [facility] CREATININE 2.15(H) 0.67 - 1.17 mg/dL 2018 6:00 AM [facility] GLUCOSE 90 74 - 99 mg/dL 2018 6:00 AM [facility] TOTAL PROTEIN 6.1(L) 6.4 - 8.3 g/dL 2018 6:00 AM [facility] ALBUMIN 2.8(L) 3.5 - 5.2 g/dL 2018 6:00 AM [facility] BILIRUBIN TOTAL 0.4 0.2 - 1.0 mg/dL 2018 6:00 AM [facility] ALKALINE PHOSPHATASE 144(H) 40 - 129 U/L 2018 6:00 AM [facility] AST 18 10 - 50 U/L 2018 6:00 AM [facility] ALT 27 <=50 U/L 2018 6:00 AM [facility] GFR 32(L) >=60 mL/min/1. 73 sq meter 2018 6:00 AM TOP FORMER [facility] [employer] [facility] Comment: eGFR has not been validated [...] please refer to the GFR result. GFR, 38(L) >=60 mL/min/1. 73 sq meter 2018 6:00 AM TOP FORMER [facility] [employer] [facility] ANION GAP 12 9 - 20 mmol/L 2018 6:00 AM TOP FORMER [facility] [employer] [facility] Blood Collection / Unknown 2018 4:00 AM TOP FORMER 2018 5:18 AM TOP FORMER Wilmar Haas DO CHEMISTRY ORDERABLES Final R esult [facility] [employer] [facility] CLIA# [id number] [place] [address] documented in this encounter Visit Diagnoses Not on filedocumented in this encounter
--- OUTSIDE RECORDS SUMMARY | 2025-02-10 23:12 | XMS_ITS | Encounter Summary ---
Author Organization [facility] Address [address] [place] [address] Care Team Providers Care Emergency Medicine Specialist Name Role Phone Unavailable Primary Care Provider Unavailabl e Encounter Details Date Type Department Care Team (Late st Contact Info) Description 04/04/2018 Lab Requisition [facility] Laboratory Services [address] [place] [address] [place] [address] Arturo Simon MD [address] [place] [address] Social History Tobacco Use Types Packs/Day Years Used Date Smoking Tobacco: Never Assessed Sex and Gender Information Value Date Recorded Sex Assigned at Not on file Legal Sex Male 12:46 AM FINISHER SPECIAL STOCKS Gender Identity Not on file Sexual Orientation Not on file documented as of this encounter Plan of Treatment Not on file documented as of this encounter Procedures Procedure Name Priority Date/Time Associated Diagnosis Comments PHOSPHORUS Stat 04/04/2018 4:15 AM [employer] documented in this encounter Results * (ABNORMAL) PHOSPHORUS (04/04/2018 4:15 AM [employer]) PHOSPHORUS 6.4(H) 2.5 - 4.5 mg/dL 04/04/2018 5:37 AM FIN[employer]OCKS [facility] [employer] [facility] Blood Collection / Unknown 04/04/2018 4:15 AM [employer] 04/04/2018 5:11 AM [employer] us Arturo Simon MD CHEMISTRY ORDERABLES Final Result [facility] [employer] [facility] CLIA# [id number] [address] [place] [address] documented in this encounter Visit Diagnoses Not on filedocumented in this encounter
--- OUTSIDE RECORDS SUMMARY | 2025-02-10 23:12 | XMS_ITS | Encounter Summary ---
Author Organization [facility] Address [address] [place] [address] Care Team Providers Care Cat Operator Name Role Phone Unavailable Primary Care Provider Unavailabl e Encounter Details Date Type Department Care Team (Late st Contact Info) Description 05/10/2018 Lab Requisition [facility] Laboratory [facility] [address] [place] [address] [place] [address] Carissa Monroy MD NO ADDRESS ON FILE Social History Tobacco Use Types Packs/Day Years Used Date Smoking Tobacco: Never Assessed Sex and Gender Information Value Date Recorded Sex Assigned at Not on file Legal Sex Male 12:46 AM TARGET AIRCRAFT TECHNICIAN Gender Identity Not on file Sexual Orientation Not on file documented as of this encounter Plan of Treatment Not on file documented as of this encounter Procedures Procedure Name Priority Date/Time Associated Diagnosis Comments BLOOD CULTURE Stat 05/10/2018 4:42 PM TARGET AIRCRAFT TECHNICIAN documented in this encounter Results * BLOOD CULTURE (05/10/2018 4:42 PM TARGET AIRCRAFT TECHNICIAN) BLOOD CULTURE No growth 05/15/2018 9:09 PM TARGET AIRCRAFT TECHNICIAN [facility] Blood (Other, specify) Collection / Unknown 05/10/2018 4:42 PM TARGET AIRCRAFT TECHNICIAN 05/10/2018 8:55 PM TARGET AIRCRAFT TECHNICIAN us Carissa Monroy MD MICROBIOLOGY - GENERAL ORDERABLE S Final Result [facility] CLIA# [id number] [address] [place] [address] documented in this encounter Visit Diagnoses Not on filedocumented in this encounter
--- OUTSIDE RECORDS SUMMARY | 2025-02-10 23:12 | XMS_ITS | Encounter Summary ---
Author Organization [employer] [facility] Address [address] [place] [address] Care Team Providers Care Database Admin Name Role Phone Unavailable Primary Care Provider Unavailabl e Encounter Details Date Type Department Care Team (Late st Contact Info) Description 04/15/2018 Lab Requisition [facility] Laboratory Services [address] [place] [address] [place] [address] Timi Duy Taylor MD [address] [place] [address] Social History Tobacco Use Types Packs/Day Years Used Date Smoking Tobacco: Never Assessed Sex and Gender Information Value Date Recorded Sex Assigned at Not on file Legal Sex Male 12:46 AM X RAY OPERATOR Gender Identity Not on file Sexual Orientation Not on file documented as of this encounter Plan of Treatment Not on file documented as of this encounter Procedures Procedure Name Priority Date/Time Associated Diagnosis Comments CBC WITH DIFFERENTIAL Stat 04/16/2018 12:00 PM X RAY OPERATOR COMPREHENSIVE METABOLIC PANEL Stat 04/16/2018 12:00 PM X RAY OPERATOR documented in this encounter Results * (ABNORMAL) COMPREHENSIVE METABOLIC PANEL (04/16/2018 12:00 PM X RAY OPERATOR) SODIUM 147(H) 136 - 145 mmol/L 04/16/2018 1:19 PM X RAY OPERATOR [facility] POTASSIUM 4.0 3.5 - 5.1 mmol/L 04/16/2018 1:19 PM X RAY OPERATOR [facility] CHLORIDE 107 98 - 107 mmol/L 04/16/2018 1:19 PM X RAY OPERATOR [facility] CO2 27 22 - 29 mmol/L 04/16/2018 1:19 PM X RAY OPERATOR [facility] CALCIUM 8.9 8.6 - 10.0 mg/dL 04/16/2018 1:19 PM [facility] BUN 48(H) 6 - 20 mg/dL 04/16/2018 1:19 PM [facility] CREATININE 2.36(H) 0.67 - 1.17 mg/dL 04/16/2018 1:19 PM [facility] GLUCOSE 152(H) 74 - 99 mg/dL 04/16/2018 1:19 PM [facility] TOTAL PROTEIN 6.5 6.4 - 8.3 g/dL 04/16/2018 1:19 PM [facility] ALBUMIN 2.9(L) 3.5 - 5.2 g/dL 04/16/2018 1:19 PM [facility] BILIRUBIN TOTAL 0.3 0.2 - 1.0 mg/dL 04/16/2018 1:19 PM [facility] ALKALINE PHOSPHATASE 127 40 - 129 U/L 04/16/2018 1:19 PM [facility] AST 13 10 - 50 U/L 04/16/2018 1:19 PM [facility] ALT 21 <=50 U/L 04/16/2018 1:19 PM [facility] GFR 28(L) >=60 mL/min/1. 73 sq meter 04/16/2018 1:19 PM [facility] Comment: eGFR has not been validated for [...] please refer to the GFR result. GFR, 35(L) >=60 mL/min/1. 73 sq meter 04/16/2018 1:19 PM [facility] ANION GAP 13 9 - 20 mmol/L 04/16/2018 1:19 PM [facility] Blood Collection / Unknown 04/16/2018 12:00 PM X RAY OPERATOR 04/16/2018 12:33 PM X RAY OPERATOR us Timi Duy Taylor MD CHEMISTRY ORDERABLES Final Resul t [facility] CLIA# [id number] [facility] [place] [address] * (ABNORMAL) CBC WITH DIFFERENTIAL (04/16/2018 12:00 PM X RAY OPERATOR) Pathologist [facility] WBC 9.1 4.8 - 10.8 K/uL 04/16/2018 12:42 PM [facility] RBC 2.96(L) 4.60 - 6.20 M/uL 04/16/2018 12:42 PM [facility] HEMOGLOBIN 8.6(L) 14.0 - 18.0 g/dL 04/16/2018 12:42 PM [facility] HEMATOCRIT 29.3(L) 41.0 - 53.0 % 04/16/2018 12:42 PM [facility] MCV 99.0 84.0 - 103.0 fL 04/16/2018 12:42 PM [facility] MCH 29.1 27.0 - 34.0 pg 04/16/2018 12:42 PM [facility] MCHC 29.4(L) 30.0 - 35.0 g/dL 04/16/2018 12:42 PM [facility] RDW 15.3(H) 11.0 - 14.5 % 04/16/2018 12:42 PM [facility] RDW-STDEV 55.5(H) 37.0 - 54.0 fL 04/16/2018 12:42 PM [facility] PLATELETS 290 140 - 440 K/uL 04/16/2018 12:42 PM [facility] MPV 10.1 8.9 - 12.8 fL 04/16/2018 12:42 PM [facility] NEUTROPHILS 79(H) 42 - 75 % 04/16/2018 12:42 PM [facility] LYMPHOCYTES 12(L) 24 - 44 % 04/16/2018 12:42 PM [facility] MONOCYTES 7 2 - 10 % 04/16/2018 12:42 PM [facility] EOSINOPHILS 1 0 - 7 % 04/16/2018 12:42 PM [facility] BASOPHILS 0 0 - 1 % 04/16/2018 12:42 PM [facility] IMMATURE GRANULOCYTES 0 0 - 2 % 04/16/2018 12:42 PM [facility] NEUTROPHIL ABSOLUTE 7.17 2.00 - 8.00 K/uL 04/16/2018 12:42 PM [facility] LYMPHOCYTE ABSOLUTE 1.10(L) 1.20 - 4.00 K/uL 04/16/2018 12:42 PM [facility] MONOCYTE ABSOLUTE 0.64(H) 0.10 - 0.60 K/uL 04/16/2018 12:42 PM [facility] EOSINOPHIL ABSOLUTE 0.12 0.00 - 0.70 K/uL 04/16/2018 12:42 PM [facility] BASOPHILS ABSOLUTE 0.03 0.00 - 0.20 K/uL 04/16/2018 12:42 PM [facility] IMMATURE GRANULOCYTES ABSOLUTE 0.03 0.00 - 0.10 K/uL 04/16/2018 12:42 PM [facility] Blood Collection / Unknown 04/16/2018 12:00 PM X RAY OPERATOR 04/16/2018 12:33 PM X RAY OPERATOR us Timi Duy Taylor MD HEMATOLOGY ORDERABLES Final Resu lt [facility] CLIA# [id number] [address] [place] [address] documented in this encounter Visit Diagnoses Not on filedocumented in this encounter
--- OUTSIDE RECORDS SUMMARY | 2025-02-10 23:12 | XMS_ITS | Encounter Summary ---
Author Organization [facility] Address [address] [place] [address] Care Team Providers Care Hole Digger Name Role Phone Unavailable Primary Care Provider Unavailabl e Encounter Details Date Type Department Care Team (Late st Contact Info) Description 05/17/2018 Lab Requisition [facility] Laboratory Services [address] [place] [address] Wilmar Haas DO [address] [place] [address] Social History Tobacco Use Types Packs/Day Years Used Date Smoking Tobacco: Never Assessed Sex and Gender Information Value Date Recorded Sex Assigned at Not on file Legal Sex Male 12:46 AM TOWEL ROLLING MACHINE OPERATOR Gender Identity Not on file Sexual Orientation Not on file documented as of this encounter Plan of Treatment Not on file documented as of this encounter Procedures Procedure Name Priority Date/Time Associated Diagnosis Comments VANCOMYCIN LEVEL TROUGH Stat 05/17/2018 3:30 PM TOWEL ROLLING MACHINE OPERATOR documented in this encounter Results * (ABNORMAL) VANCOMYCIN LEVEL TROUGH (05/17/2018 3:30 PM TOWEL ROLLING MACHINE OPERATOR) VANCOMYCIN, TROUGH 25.1(HH) 10.0 - 20.0 ug/mL 05/17/2018 5:03 PM TOWEL ROLLING MACHINE OPERATOR [facility] Comment: The following critical results were called to Pardeep Nava RN and read back verified. Vancomycin, Trough: 25.1 ug/mL High Panic (Ref. Range: 10.0-20.0) Blood Collection / Unknown 05/17/2018 3:30 PM TOWEL ROLLING MACHINE OPERATOR 05/17/2018 4:25 PM TOWEL ROLLING MACHINE OPERATOR us Wilmar Haas DO CHEMISTRY ORDERABLES Final R esult [facility]# [id number] [address] [place] [address] documented in this encounter Visit Diagnoses Not on filedocumented in this encounter
--- OUTSIDE RECORDS SUMMARY | 2025-02-10 23:12 | XMS_ITS | Encounter Summary ---
Author Organization [facility] Address [address] [place] [address] Care Team Providers Care Plaster Machine Operator Name Role Phone Unavailable Primary Care Provider Unavailabl e Encounter Details Date Type Department Care Team (Late st Contact Info) Description 04/23/2018 Lab Requisition [facility] Laboratory Services [address] [place] [address] Carissa Monroy MD NO ADDRESS ON FILE Social History Tobacco Use Types Packs/Day Years Used Date Smoking Tobacco: Never Assessed Sex and Gender Information Value Date Recorded Sex Assigned at Not on file Legal Sex Male 12:46 AM PLASTICS SCIENTIST Gender Identity Not on file Sexual Orientation Not on file documented as of this encounter Plan of Treatment Not on file documented as of this encounter Visit Diagnoses Not on filedocumented in this encounter
--- OUTSIDE RECORDS SUMMARY | 2025-02-10 23:12 | XMS_ITS | Encounter Summary ---
Author Organization [facility] Address [address] [place] [address] Care Team Providers Care Grooving Lathe Tender Name Role Phone Unavailable Primary Care Provider Unavailabl e Encounter Details Date Type Department Care Team (Late st Contact Info) Description 05/27/2018 Lab Requisition [facility] Laboratory Services [address] [place] [address] [place] [address] Karen [place] MD [address] [place] [address] Social History Tobacco Use Types Packs/Day Years Used Date Smoking Tobacco: Never Assessed Sex and Gender Information Value Date Recorded Sex Assigned at Not on file Legal Sex Male 12:46 AM RANCH SUPERVISOR Gender Identity Not on file Sexual Orientation Not on file documented as of this encounter Plan of Treatment Not on file documented as of this encounter Visit Diagnoses Not on filedocumented in this encounter
--- OUTSIDE RECORDS SUMMARY | 2025-02-10 23:12 | XMS_ITS | Encounter Summary ---
Author Organization [employer] Address [address] [place] [address] Care Team Providers Care Formulation Technician Name Role Phone Unavailable Primary Care Provider Unavailabl e Encounter Details Date Type Department Care Team (Late st Contact Info) Description 03/11/2018 Lab Requisition [facility] Laboratory Services [address] [place] [address] Tracy Pereira MD NO ADDRESS ON FILE Social History Tobacco Use Types Packs/Day Years Used Date Smoking Tobacco: Never Assessed Sex and Gender Information Value Date Recorded Sex Assigned at Not on file Legal Sex Male 12:46 AM PASSEMENTERIE WORKER Gender Identity Not on file Sexual Orientation Not on file documented as of this encounter Plan of Treatment Not on file documented as of this encounter Procedures Procedure Name Priority Date/Time Associated Diagnosis Comments DIFFERENTIAL, MANUAL Routine 03/11/2018 3:35 AM PASSEMENTERIE WORKER CBC WITH DIFFERENTIAL Stat 03/11/2018 3:35 AM PASSEMENTERIE WORKER PHOSPHORUS Stat 03/11/2018 3:35 AM PASSEMENTERIE WORKER MAGNESIUM LEVEL Stat 03/11/2018 3:35 AM PASSEMENTERIE WORKER BASIC METABOLIC PANEL Stat 03/11/2018 3:35 AM PASSEMENTERIE WORKER documented in this encounter Results * (ABNORMAL) MANUAL DIFFERENTIAL (03/11/2018 3:35 AM PASSEMENTERIE WORKER) SEGMENTED NEUTROPHILS 79(H) 36 - 66 % 03/11/2018 6:10 AM PASSEMENTERIE WORKER [facility] BANDS RELATIVE 3 0 - 6 % 03/11/2018 6:10 AM [address] [facility] LYMPHOCYTES RELATIVE 7(L) 24 - 44 % 03/11/2018 6:[address] [facility] MONOCYTES RELATIVE 11(H) 4 - 10 % 03/11/2018 6:10 AM [facility] NEUTROPHILS ABSOLUTE COUNT 26.24(H) 2.00 - 8.00 K/uL 03/11/2018 6:10 AM [facility] LYMPHOCYTES ABSOLUTE 2.24 1.20 - 4.00 K/uL 03/11/2018 6:10 AM [facility] MONOCYTES ABSOLUTE 3.52(H) 0.10 - 0.60 K/uL 03/11/2018 6:10 AM [facility] TOTAL CELLS COUNTED IN DIFF 100 03/11/2018 6:10 AM [facility] PLATELET EST. Adequate 03/11/2018 6:10 AM [facility] RBC MORPHOLOGY Normal 03/11/2018 6:10 AM [facility] Blood Collection / Unknown 03/11/2018 3:35 AM PASSEMENTERIE WORKER 03/11/2018 5:24 AM PASSEMENTERIE WORKER Tracy Pereira MD HEMATOLOGY ORDERABLES COM Final Result Performing Organization Address City/[facility]/ZIP Co de Phone Number [facility] CLIA# [id number] [address] [place] [address] * (ABNORMAL) PHOSPHORUS (03/11/2018 3:35 AM PASSEMENTERIE WORKER) [facility] PHOSPHORUS 5.8(H) 2.5 - 4.5 mg/dL 03/11/2018 5:58 AM [facility] Blood Collection / Unknown 03/11/2018 3:35 AM PASSEMENTERIE WORKER 03/11/2018 5:24 AM PASSEMENTERIE WORKER Tracy Pereira MD CHEMISTRY ORDERABLES Final Resul t Performing Organization Address City/[facility]/ZIP Co de Phone Number [facility] CLIA# [id number] [address] [place] [address] * (ABNORMAL) BASIC METABOLIC PANEL (03/11/2018 3:35 AM PASSEMENTERIE WORKER) SODIUM 132(L) 136 - 145 mmol/L 03/11/2018 5:58 AM [facility] POTASSIUM 5.3(H) 3.5 - 5.1 mmol/L 03/11/2018 5:58 AM [facility] CHLORIDE 88(L) 98 - 107 mmol/L 03/11/2018 5:58 AM [facility] CO2 28 22 - 29 mmol/L 03/11/2018 5:58 AM [facility] CALCIUM 9.5 8.6 - 10.0 mg/dL 03/11/2018 5:58 AM [facility] BUN 61(H) 6 - 20 mg/dL 03/11/2018 5:58 AM [facility] CREATININE 4.48(H) 0.67 - 1.17 mg/dL 03/11/2018 5:58 AM [facility] GLUCOSE 139(H) 74 - 99 mg/dL 03/11/2018 5:58 AM [facility] GFR 14(L) >=60 mL/min/1. 73 sq meter 03/11/2018 5:58 AM [facility] Comment: eGFR has not been validated for [...] please refer to the GFR result. GFR, 16(L) >=60 mL/min/1. 73 sq meter 03/11/2018 5:58 AM [facility] ANION GAP 16 9 - 20 mmol/L 03/11/2018 5:58 AM [facility] Blood Collection / Unknown 03/11/2018 3:35 AM PASSEMENTERIE WORKER 03/11/2018 5:24 AM PASSEMENTERIE WORKER Tracy Pereira MD CHEMISTRY ORDERABLES Final Resul t Performing Organization Address [facility]/ZIP Co de Phone Number [facility] CLIA# [id number] [address] [place] [address] * MAGNESIUM LEVEL (03/11/2018 3:35 AM PASSEMENTERIE WORKER) MAGNESIUM 2.2 1.6 - 2.6 mg/dL 03/11/2018 5:58 AM [facility] Blood Collection / Unknown 03/11/2018 3:35 AM PASSEMENTERIE WORKER 03/11/2018 5:24 AM PASSEMENTERIE WORKER Tracy Pereira MD CHEMISTRY ORDERABLES Final Resul t Performing Organization Address [facility] de Phone Number [facility] CLIA# [id number] [address] [place] [address] * (ABNORMAL) CBC WITH DIFFERENTIAL (03/11/2018 3:35 AM PASSEMENTERIE WORKER) WBC 32.0(H) 4.8 - 10.8 K/uL 03/11/2018 6:10 AM [facility] Lizhi [facility] RBC 2.67(L) 4.60 - 6.20 M/uL 03/11/2018 6:10 AM [facility] HEMOGLOBIN 7.6(L) 14.0 - 18.0 g/dL 03/11/2018 6:10 AM [facility] Lizhi [facility] HEMATOCRIT 25.8(L) 41.0 - 53.0 % 03/11/2018 6:10 AM [facility] MCV 96.6 84.0 - 103.0 fL 03/11/2018 6:10 AM [facility] MCH 28.5 27.0 - 34.0 pg 03/11/2018 6:10 AM [facility] MCHC 29.5(L) 30.0 - 35.0 g/dL 03/11/2018 6:10 AM [facility] RDW 18.2(H) 11.0 - 14.5 % 03/11/2018 6:[address] [facility] RDW-STDEV 62.3(H) 37.0 - 54.0 fL 03/11/2018 6:10 AM [facility] PLATELETS 286 140 - 440 K/uL 03/11/2018 6:10 AM [facility] MPV 10.2 8.9 - 12.8 fL 03/11/2018 6:[address] [facility] Blood Collection / Unknown 03/11/2018 3:35 AM PASSEMENTERIE WORKER 03/11/2018 5:24 AM PASSEMENTERIE WORKER us Tracy Pereira MD HEMATOLOGY ORDERABLES Final Resu lt [facility] CLIA# [id number] [address] [place] [address] documented in this encounter Visit Diagnoses Not on filedocumented in this encounter
--- OUTSIDE RECORDS SUMMARY | 2025-02-10 23:12 | XMS_ITS | Encounter Summary ---
Author Organization [employer] [facility] Address [address] [place] [address] Care Team Providers Care Agronomy Supervisor Name Role Phone Unavailable Primary Care Provider Unavailabl e Encounter Details Date Type Department Care Team (Late st Contact Info) Description 04/13/2018 Lab Requisition [facility] Laboratory Services [address] [place] [address] Billy Whitlock MD [address] [place] [address] Social History Tobacco Use Types [...] Procedure Name Priority Date/Time Associated Diagnosis Comments CREATININE, 24 HR URINE Stat 04/13/2018 8:14 AM PODIATRIC SURGEON PROTEIN, 24 HR URINE Stat 04/13/2018 8:14 AM PODIATRIC SURGEON documented in this encounter Results * (ABNORMAL) PROTEIN, 24 HR URINE (04/13/2018 8:14 AM PODIATRIC SURGEON) LENGTH OF COLLECTION 24 HR URINE 24 24 - 24 HR 04/14/2018 12:52 PM PODIATRIC SURGEON [facility] [facility] VOLUME, 24 HR URINE 1,000 mL 04/14/2018 12:52 PM PODIATRIC SURGEON [facility] [employer] [facility] PROTEIN TOTAL, 24 HR URINE 570(H) <150 mg/24 hrs 04/14/2018 12:52 PM PODIATRIC SURGEON [facility] [employer] [facility] Urine, 24 hour 04/13/2018 8: 14 AM PODIATRIC SURGEON 04/14/2018 12:12 PM PODIATRIC SURGEON us Billy Whitlock MD URINE ORDERABLES Final Result Performing Organization Address City/[facility]/ZIP Co de Phone Number [facility] CLIA# [id number] [address] [place] [address] * CREATININE, 24 HR URINE (04/13/2018 8:14 AM PODIATRIC SURGEON) LENGTH OF COLLECTION 24 HR URINE 24 24 - 24 HR 04/14/2018 12:52 PM [facility] VOLUME, 24 HR URINE 1,000 mL 04/14/2018 12:52 PM [facility] CREATININE, URINE 83.8 40.0 - 278.0 mg/dL 04/14/2018 12:52 PM [facility] Comment: Reference Range varies with fluid intake and diet. CREATININE, 24 HR URINE 0.8 0.7 - 1.5 g/24 hrs 04/14/2018 12:52 PM [facility] Urine, 24 hour 04/13/2018 8: 14 AM PODIATRIC SURGEON 04/14/2018 12:12 PM PODIATRIC SURGEON us Billy Whitlock MD URINE ORDERABLES Final Result Performing Organization Address [facility] Co de Phone Number [facility] CLIA# [id number] [address] [place] [address] documented in this encounter Visit Diagnoses Not on filedocumented in this encounter
--- OUTSIDE RECORDS SUMMARY | 2025-02-10 23:12 | XMS_ITS | Encounter Summary ---
Author Organization [facility] Address [address] [place] [address] Care Team Providers Care Fuel Retrofitting Technician Name Role Phone Unavailable Primary Care Provider Unavailabl e Encounter Details Date Type Department Care Team (Late st Contact Info) Description 04/18/2018 Lab Requisition [facility] Laboratory Services [address] [place] [address] Timi Duy Taylor MD [address] [place] [address] Social History Tobacco Use Types Packs/Day Years Used Date Smoking Tobacco: Never Assessed Sex and Gender Information Value Date Recorded Sex Assigned at Not on file Legal Sex Male 12:46 AM PAST DUE ACCOUNTS CLERK Gender Identity Not on file Sexual Orientation Not on file documented as of this encounter Plan of Treatment Not on file documented as of this encounter Procedures Procedure Name Priority Date/Time Associated Diagnosis Comments CBC WITH DIFFERENTIAL Stat 04/18/2018 2:00 PM PAST DUE ACCOUNTS CLERK COMPREHENSIVE METABOLIC PANEL Stat 04/18/2018 2:00 PM PAST DUE ACCOUNTS CLERK documented in this encounter Results * (ABNORMAL) COMPREHENSIVE METABOLIC PANEL (04/18/2018 2:00 PM PAST DUE ACCOUNTS CLERK) SODIUM 149(H) 136 - 145 mmol/L 04/18/2018 4:02 PM PAST DUE ACCOUNTS CLERK [facility] POTASSIUM 3.8 3.5 - 5.1 mmol/L 04/18/2018 4:02 PM PAST DUE ACCOUNTS CLERK [facility] CHLORIDE 110(H) 98 - 107 mmol/L 04/18/2018 4:02 PM PAST DUE ACCOUNTS CLERK [facility] CO2 24 22 - 29 mmol/L 04/18/2018 4:02 PM PAST DUE ACCOUNTS CLERK [facility] CALCIUM 8.9 8.6 - 10.0 mg/dL 04/18/2018 4:02 PM [facility] BUN 38(H) 6 - 20 mg/dL 04/18/2018 4:02 PM [facility] CREATININE 2.04(H) 0.67 - 1.17 mg/dL 04/18/2018 4:02 PM [facility] GLUCOSE 134(H) 74 - 99 mg/dL 04/18/2018 4:02 PM [facility] TOTAL PROTEIN 6.5 6.4 - 8.3 g/dL 04/18/2018 4:02 PM [facility] ALBUMIN 2.9(L) 3.5 - 5.2 g/dL 04/18/2018 4:02 PM [facility] BILIRUBIN TOTAL 0.4 0.2 - 1.0 mg/dL 04/18/2018 4:02 PM [facility] ALKALINE PHOSPHATASE 131(H) 40 - 129 U/L 04/18/2018 4:02 PM [facility] AST 13 10 - 50 U/L 04/18/2018 4:02 PM [facility] ALT 22 <=50 U/L 04/18/2018 4:02 PM [facility] GFR 34(L) >=60 mL/min/1. 73 sq meter 04/18/2018 4:02 PM [facility] Comment: eGFR has not [...] please refer to the GFR result. GFR, 41(L) >=60 mL/min/1. 73 sq meter 04/18/2018 4:02 PM [facility] ANION GAP 15 9 - 20 mmol/L 04/18/2018 4:02 PM [facility] Blood Collection / Unknown 04/18/2018 2:00 PM PAST DUE ACCOUNTS CLERK 04/18/2018 3:32 PM PAST DUE ACCOUNTS CLERK us Timi Duy Taylor MD CHEMISTRY ORDERABLES Final Resul t [facility] CLIA# [id number] [address] [place] [address] * (ABNORMAL) CBC WITH DIFFERENTIAL (04/18/2018 2:00 PM PAST DUE ACCOUNTS CLERK) WBC 9.8 4.8 - 10.8 K/uL 04/18/2018 3:40 PM [facility] RBC 3.14(L) 4.60 - 6.20 M/uL 04/18/2018 3:40 PM [facility] HEMOGLOBIN 9.1(L) 14.0 - 18.0 g/dL 04/18/2018 3:40 PM [facility] HEMATOCRIT 31.7(L) 41.0 - 53.0 % 04/18/2018 3:40 PM [facility] MCV 101.0 84.0 - 103.0 fL 04/18/2018 3:40 PM [facility] MCH 29.0 27.0 - 34.0 pg 04/18/2018 3:40 PM [facility] MCHC 28.7(L) 30.0 - 35.0 g/dL 04/18/2018 3:40 PM [facility] RDW 15.2(H) 11.0 - 14.5 % 04/18/2018 3:40 PM [facility] RDW-STDEV 55.8(H) 37.0 - 54.0 fL 04/18/2018 3:40 PM [facility] PLATELETS 310 140 - 440 K/uL 04/18/2018 3:40 PM [facility] MPV 10.2 8.9 - 12.8 fL 04/18/2018 3:40 PM [facility] NEUTROPHILS 77(H) 42 - 75 % 04/18/2018 3:40 PM [facility] LYMPHOCYTES 14(L) 24 - 44 % 04/18/2018 3:40 PM [facility] MONOCYTES 8 2 - 10 % 04/18/2018 3:40 PM [facility] EOSINOPHILS 1 0 - 7 % 04/18/2018 3:40 PM [facility] BASOPHILS 0 0 - 1 % 04/18/2018 3:40 PM [facility] IMMATURE GRANULOCYTES 0 0 - 2 % 04/18/2018 3:40 PM [facility] NEUTROPHIL ABSOLUTE 7.53 2.00 - 8.00 K/uL 04/18/2018 3:40 PM [facility] LYMPHOCYTE ABSOLUTE 1.34 1.20 - 4.00 K/uL 04/18/2018 3:40 PM [facility] MONOCYTE ABSOLUTE 0.74(H) 0.10 - 0.60 K/uL 04/18/2018 3:40 PM [facility] EOSINOPHIL ABSOLUTE 0.11 0.00 - 0.70 K/uL 04/18/2018 3:40 PM [facility] BASOPHILS ABSOLUTE 0.04 0.00 - 0.20 K/uL 04/18/2018 3:40 PM [facility] IMMATURE GRANULOCYTES ABSOLUTE 0.04 0.00 - 0.10 K/uL 04/18/2018 3:40 PM [facility] Blood Collection / Unknown 04/18/2018 2:00 PM PAST DUE ACCOUNTS CLERK 04/18/2018 3:32 PM PAST DUE ACCOUNTS CLERK us Timi Duy Taylor MD HEMATOLOGY ORDERABLES Final Resu lt [facility] CLIA# [id number] [address] [place] [address] documented in this encounter Visit Diagnoses Not on filedocumented in this encounter
--- OUTSIDE RECORDS SUMMARY | 2025-02-10 23:12 | XMS_ITS | Encounter Summary ---
Author Organization [facility] Address [address] [place] [address] Care Team Providers Care Bible Worker Name Role Phone Unavailable Primary Care Provider Unavailabl e Encounter Details Date Type Department Care Team (Late st Contact Info) Description 05/15/[address] [facility] Laboratory Services [address] [place] [address] Carissa Monroy MD NO ADDRESS ON FILE Social History Tobacco Use Types Packs/Day Years Used Date Smoking Tobacco: Never Assessed Sex and Gender Information Value Date Recorded Sex Assigned at Not on file Legal Sex Male 12:46 AM INTERNAL COMBUSTION ENGINEER Gender Identity Not on file Sexual Orientation Not on file documented as of this encounter Plan of Treatment Not on file documented as of this encounter Procedures Procedure Name Priority Date/Time Associated Diagnosis Comments VANCOMYCIN LEVEL TROUGH Stat 05/15/2018 3:30 PM INTERNAL COMBUSTION ENGINEER documented in this encounter Results * VANCOMYCIN LEVEL TROUGH (05/15/2018 3:30 PM INTERNAL COMBUSTION ENGINEER) VANCOMYCIN, TROUGH 19.3 10.0 - 20.0 ug/mL 05/15/2018 4:58 PM INTERNAL COMBUSTION ENGINEER [facility] Blood Collection / Unknown 05/15/2018 3:30 PM INTERNAL COMBUSTION ENGINEER 05/15/2018 4:24 PM INTERNAL COMBUSTION ENGINEER us Carissa Monroy MD CHEMISTRY ORDERABLES Final Resul t [facility] [employer] [facility] CLIA# [id number] [address] [place] [address] documented in this encounter Visit Diagnoses Not on filedocumented in this encounter
--- OUTSIDE RECORDS SUMMARY | 2025-02-10 23:12 | XMS_ITS | Encounter Summary ---
Author Organization [facility] Address [address] [place] [address] Care Team Providers Care Senior Controls Technician Name Role Phone Unavailable Primary Care Provider Unavailabl e Encounter Details Date Type Department Care Team (Late st Contact Info) Description 04/14/2018 Lab Requisition [facility] Laboratory Services [address] [place] [address] Wilmar Haas, DO [address] [place] [address] Social History Tobacco Use Types Packs/Day Years Used Date Smoking Tobacco: Never Assessed Sex and Gender Information Value Date Recorded Sex Assigned at Not on file Legal Sex Male 12:46 AM HEATING AND COOLING SYSTEMS ENGINEER Gender Identity Not on file Sexual Orientation Not on file documented as of this encounter Plan of Treatment Not on file documented as of this encounter Procedures Procedure Name Priority Date/Time Associated Diagnosis Comments CBC WITH DIFFERENTIAL Stat 04/15/2018 3:00 AM HEATING AND COOLING SYSTEMS ENGINEER PHOSPHORUS Stat 04/15/2018 3:00 AM HEATING AND COOLING SYSTEMS ENGINEER MAGNESIUM LEVEL Stat 04/15/2018 3:00 AM HEATING AND COOLING SYSTEMS ENGINEER BASIC METABOLIC PANEL Stat 04/15/2018 3:00 AM HEATING AND COOLING SYSTEMS ENGINEER documented in this encounter Results * (ABNORMAL) PHOSPHORUS (04/15/2018 3:00 AM HEATING AND COOLING SYSTEMS ENGINEER) PHOSPHORUS 4.9(H) 2.5 - 4.5 mg/dL 04/15/2018 5:54 AM HEATING AND COOLING SYSTEMS ENGINEER [facility] Blood Collection / Unknown 04/15/2018 3:00 AM HEATING AND COOLING SYSTEMS ENGINEER 04/15/2018 5:09 AM HEATING AND COOLING SYSTEMS ENGINEER Wilmar Bora Haas DO CHEMISTRY ORDERABLES Final R esult Performing Organization Address City/[facility]/ZIP Co de Phone Number [facility] CLIA# [id number] [address] [place] [address] * (ABNORMAL) MAGNESIUM LEVEL (04/15/2018 3:00 AM HEATING AND COOLING SYSTEMS ENGINEER) MAGNESIUM 1.4(L) 1.6 - 2.6 mg/dL 04/15/2018 5:54 AM [facility] Blood Collection / Unknown 04/15/2018 3:00 AM HEATING AND COOLING SYSTEMS ENGINEER 04/15/2018 5:09 AM HEATING AND COOLING SYSTEMS ENGINEER Wilmar Haas DO CHEMISTRY ORDERABLES Final R esult Performing Organization Address [facility] de Phone Number [facility] CLIA# [id number] [address] [place] [address] * (ABNORMAL) BASIC METABOLIC PANEL (04/15/2018 3:00 AM HEATING AND COOLING SYSTEMS ENGINEER) SODIUM 146(H) 136 - 145 mmol/L 04/15/2018 5:54 AM [facility] [employer] [facility] POTASSIUM 4.4 3.5 - 5.1 mmol/L 04/15/2018 5:54 AM [facility] CHLORIDE 105 98 - 107 mmol/L 04/15/2018 5:54 AM [facility] [employer] [facility] CO2 28 22 - 29 mmol/L 04/15/2018 5:54 AM [facility] [employer] [facility] CALCIUM 9.0 8.6 - 10.0 mg/dL 04/15/2018 5:54 AM [facility] BUN 50(H) 6 - 20 mg/dL 04/15/2018 5:54 AM [facility] CREATININE 2.64(H) 0.67 - 1.17 mg/dL 04/15/2018 5:54 AM [facility] GLUCOSE 84 74 - 99 mg/dL 04/15/2018 5:54 AM [facility] GFR 25(L) >=60 mL/min/1. 73 sq meter 04/15/2018 5:54 AM [facility] Comment: eGFR has not been [...] please refer to the GFR result. GFR, 30(L) >=60 mL/min/1. 73 sq meter 04/15/2018 5:54 AM [facility] ANION GAP 13 9 - 20 mmol/L 04/15/2018 5:54 AM [facility] Blood Collection / Unknown 04/15/2018 3:00 AM [facility] 04/15/2018 5:09 AM [facility] us Wilmar Haas DO CHEMISTRY ORDERABLES Final R esult [facility] CLIA# [id number] [address] [place] [address] * (ABNORMAL) CBC WITH DIFFERENTIAL (04/15/2018 3:00 AM [facility]) WBC 8.1 4.8 - 10.8 K/uL 04/15/2018 5:23 AM [facility] RBC 2.98(L) 4.60 - 6.20 M/uL 04/15/2018 5:23 AM [facility] HEMOGLOBIN 8.6(L) 14.0 - 18.0 g/dL 04/15/2018 5:23 AM [facility] HEMATOCRIT 29.9(L) 41.0 - 53.0 % 04/15/2018 5:23 AM [facility] MCV 100.3 84.0 - 103.0 fL 04/15/2018 5:23 AM [facility] [employer] [facility] MCH 28.9 27.0 - 34.0 pg 04/15/2018 5:23 AM [facility] MCHC 28.8(L) 30.0 - 35.0 g/dL 04/15/2018 5:23 AM [facility] RDW 15.7(H) 11.0 - 14.5 % 04/15/2018 5:23 AM [facility] [employer] [facility] RDW-STDEV 58.1(H) 37.0 - 54.0 fL 04/15/2018 5:23 AM [facility] [employer] [facility] PLATELETS 262 140 - 440 K/uL 04/15/2018 5:23 AM [facility] MPV 10.1 8.9 - 12.8 fL 04/15/2018 5:23 AM [facility] NEUTROPHILS 72 42 - 75 % 04/15/2018 5:23 AM [facility] LYMPHOCYTES 18(L) 24 - 44 % 04/15/2018 5:23 AM [facility] [employer] [facility] MONOCYTES 8 2 - 10 % 04/15/2018 5:23 AM [facility] [employer] [facility] EOSINOPHILS 2 0 - 7 % 04/15/2018 5:23 AM [facility] BASOPHILS 1 0 - 1 % 04/15/2018 5:23 AM [facility] IMMATURE GRANULOCYTES 0 0 - 2 % 04/15/2018 5:23 AM [facility] [employer] [facility] NEUTROPHIL ABSOLUTE 5.82 2.00 - 8.00 K/uL 04/15/2018 5:23 AM [facility] [employer] [facility] LYMPHOCYTE ABSOLUTE 1.42 1.20 - 4.00 K/uL 04/15/2018 5:23 AM [facility] MONOCYTE ABSOLUTE 0.65(H) 0.10 - 0.60 K/uL 04/15/2018 5:23 AM [facility] [employer] [facility] EOSINOPHIL ABSOLUTE 0.16 0.00 - 0.70 K/uL 04/15/2018 5:23 AM [facility] BASOPHILS ABSOLUTE 0.05 0.00 - 0.20 K/uL 04/15/2018 5:23 AM HEATING AND COOLING SYSTEMS ENGINEER [facility] IMMATURE GRANULOCYTES ABSOLUTE 0.03 0.00 - 0.10 K/uL 04/15/2018 5:23 AM HEATING AND COOLING SYSTEMS ENGINEER [facility] Blood Collection / Unknown 04/15/2018 3:00 AM HEATING AND COOLING SYSTEMS ENGINEER 04/15/2018 5:09 AM HEATING AND COOLING SYSTEMS ENGINEER us Wilmar Haas DO HEMATOLOGY ORDERABLES Final Result [facility] CLIA# [id number] [address] [place] [address] documented in this encounter Visit Diagnoses Not on filedocumented in this encounter
--- OUTSIDE RECORDS SUMMARY | 2025-02-10 23:12 | XMS_ITS | Encounter Summary ---
Author Organization [facility] Address [address] [place] [address] Care Team Providers Care Internal Wholesaler Name Role Phone Unavailable Primary Care Provider Unavailabl e Encounter Details Date Type Department Care Team (Late st Contact Info) Description 05/26/2018 Lab Requisition [facility] Laboratory Services [address] [place] [address] [place] [address] Karen Austin MD [address] [place] [address] Social History Tobacco Use Types Packs/Day Years Used Date Smoking Tobacco: Never Assessed Sex and Gender Information Value Date Recorded Sex Assigned at Not on file Legal Sex Male 12:46 AM CUSTOMER SERVICE TELLER Gender Identity Not on file Sexual Orientation Not on file documented as of this encounter Plan of Treatment Not on file documented as of this encounter Procedures Procedure Name Priority Date/Time Associated Diagnosis Comments BASIC METABOLIC PANEL Stat 05/26/2018 3:47 AM CUSTOMER SERVICE TELLER documented in this encounter Results * (ABNORMAL) BASIC METABOLIC PANEL (05/26/2018 3:47 AM CUSTOMER SERVICE TELLER) SODIUM 147(H) 136 - 145 mmol/L 05/26/2018 5:27 AM [facility] POTASSIUM 3.9 3.5 - 5.1 mmol/L 05/26/2018 5:27 AM CUSTOMER SERVICE TELLER [facility] CHLORIDE 112(H) 98 - 107 mmol/L 05/26/2018 5:27 AM [facility] CO2 29 22 - 29 mmol/L 05/26/2018 5:27 AM [facility] CALCIUM 8.0(L) 8.6 - 10.0 mg/dL 05/26/2018 5:27 AM [facility] BUN 17 6 - 20 mg/dL 05/26/2018 5:27 AM [facility] CREATININE 1.11 0.67 - 1.17 mg/dL 05/26/2018 5:27 AM [facility] GLUCOSE 67(L) 74 - 99 mg/dL 05/26/2018 5:27 AM [facility] GFR >60 >=60 mL/min/1.7 3 sq meter 05/26/2018 5:27 AM [facility] Comment: eGFR has not been [...] GFR, >60 >=60 mL/min/1.7 3 sq meter 05/26/2018 5:27 AM [facility] ANION GAP 6(L) 9 - 20 mmol/L 05/26/2018 5:27 AM [facility] Blood Collection / Unknown 05/26/2018 3:47 AM CUSTOMER SERVICE TELLER 05/26/2018 4:52 AM CUSTOMER SERVICE TELLER Karen Austin MD CHEMISTRY ORDERABLES Leidy josé Result [facility] CLIA# [id number] [address] [place] [address] documented in this encounter Visit Diagnoses Not on filedocumented in this encounter
--- OUTSIDE RECORDS SUMMARY | 2025-02-10 23:12 | XMS_ITS | Encounter Summary ---
Author Organization [facility] Address [address] [place] [address] Care Team Providers Care Mud Jack Nozzle Worker Name Role Phone Unavailable Primary Care Provider Unavailabl e Encounter Details Date Type Department Care Team (Late st Contact Info) Description 04/13/2018 Lab Requisition [facility] Laboratory Services [address] [place] [address] [place] [address] Timi Duy Taylor MD [address] [place] [address] Social History Tobacco Use Types Packs/Day Years Used Date Smoking Tobacco: Never Assessed Sex and Gender Information Value Date Recorded Sex Assigned at Not on file Legal Sex Male 12:46 AM CCTV TECHNICIAN Gender Identity Not on file Sexual Orientation Not on file documented as of this encounter Plan of Treatment Not on file documented as of this encounter Procedures Procedure Name Priority Date/Time Associated Diagnosis Comments COMPREHENSIVE METABOLIC PANEL Stat 2018 3:00 AM CCTV TECHNICIAN documented in this encounter Results * (ABNORMAL) COMPREHENSIVE METABOLIC PANEL (2018 3:00 AM CCTV TECHNICIAN) SODIUM 143 136 - 145 mmol/L 04/13/2018 5:30 AM [facility]OR[facility] POTASSIUM 4.1 3.5 - 5.1 mmol/L 04/13/2018 5:30 AM [facility] CHLORIDE 102 98 - 107 mmol/L 04/13/2018 5:30 AM [facility] CO2 29 22 - 29 mmol/L 04/13/2018 5:30 AM [facility] CALCIUM 8.9 8.6 - 10.0 mg/dL 04/13/2018 5:30 AM [facility] BUN 44(H) 6 - 20 mg/dL 04/13/2018 5:30 AM [facility] CREATININE 2.80(H) 0.67 - 1.17 mg/dL 04/13/2018 5:30 AM [facility] GLUCOSE 105(H) 74 - 99 mg/dL 04/13/2018 5:30 AM [facility] TOTAL PROTEIN 6.2(L) 6.4 - 8.3 g/dL 04/13/2018 5:30 AM [facility] ALBUMIN 2.9(L) 3.5 - 5.2 g/dL 04/13/2018 5:30 AM [facility] BILIRUBIN TOTAL 0.4 0.2 - 1.0 mg/dL 04/13/2018 5:30 AM [facility] ALKALINE PHOSPHATASE 137(H) 40 - 129 U/L 04/13/2018 5:30 AM [facility] AST 15 10 - 50 U/L 04/13/2018 5:30 AM [facility] ALT 26 <=50 U/L 04/13/2018 5:30 AM [facility] GFR 23(L) >=60 mL/min/1. 73 sq meter 04/13/2018 5:30 AM [facility] Comment: eGFR has not been validated [...] please refer to the GFR result. GFR, 28(L) >=60 mL/min/1. 73 sq meter 04/13/2018 5:30 AM [facility] ANION GAP 12 9 - 20 mmol/L 04/13/2018 5:30 AM [facility] Blood Collection / Unknown 2018 3:00 AM CCTV TECHNICIAN 04/13/2018 4:56 AM CCTV TECHNICIAN us Timi Duy Taylor MD CHEMISTRY ORDERABLES Final Resul t Performing Organization Address City/State/[facility] Co de Phone Number [facility] SERVICES [facility]# [id number] [address] [place] [address] documented in this encounter Visit Diagnoses Not on filedocumented in this encounter
[2025-02-10 23:31] VITALS: BP 191/99; PULSE 89; RESP 20; TEMP 36.7; O2SAT 95; BMI 35.9
--- NOTE | 2025-02-10 23:57 | W.ED.MALEGU ---
HPI - Male Genitourinary General: Chief complaint: Urogenital-Male Stated complaint: Cant Pee Time Seen by Provider: 02/10/25 23:37 History of Present Illness: 64-year-old male presents emergency room complaining of unable to urinate. He has a history of prostate issues he recently had a Do catheter placed for his urinary retention this morning around 9 or 930 had removed since then he has had what by his description sounds like overflow incontinence. He is very uncomfortable is not been able to empty his bladder is not fully urinated he estimates that most he maybe had 10 or 12 ounces per the and urinary output all day. He denies fever sweats or chills. Associated symptoms: Deny dysuria Related Data Home Medications ?Medication ?Instructions ?Recorded ?Confirmed cholecalciferol (vitamin D3) 50 50 mcg PO DAILY 12/14/21 09/15/22 mcg (2,000 unit) tablet (Vitamin D3) hydralazine 50 mg tablet 50 mg PO TID 12/14/21 09/15/22 ondansetron HCl 4 mg tablet 4 mg PO Q6H PRN Nausea And Vomiting 12/14/21 09/15/22 sildenafil 25 mg tablet 25 mg PO DAILY PRN Erectile 12/14/21 09/15/22 Dysfunction metoprolol tartrate 50 mg tablet 50 mg PO TID 01/20/22 09/15/22 hydroxyzine HCl 25 mg tablet 25 mg PO BEDTIME PRN 08/08/22 09/15/22 anxiety/itching insulin aspart U-100 100 unit/mL 20 unit SUBCUT DAILY@12 08/08/22 09/15/22 (3 mL) subcutaneous pen (Novolog FlexPen U-100 Insulin aspart) insulin detemir U-100 100 unit/mL 35 unit SUBCUT BID 08/08/22 09/15/22 (3 mL) subcutaneous pen (Levemir FlexPen) [id number] See Rx Instructions .Route .COMPLEX 08/08/22 09/15/22 (pork)36,000-114,000-180k unit capsule,del rel (Creon) metolazone 5 mg tablet 2.5 - 5 mg PO DAILY 08/08/22 09/15/22 Held on 08/11/22. Instructions: Resume on 09/01/22. Patient will see his pcp before restarting potassium chloride 10 mEq 10 meq PO DAILY 08/08/22 09/15/22 tablet,extended release Held on 08/11/22. Instructions: Resume on 09/01/22. spironolactone 50 mg tablet 50 mg PO QAM 08/08/22 09/15/22 Held on 08/11/22. Instructions: Resume on 08/18/22. Previous Rx's ?Medication ?Instructions ?Recorded tamsulosin 0.4 mg capsule 0.4 mg PO BID #180 caps 12/29/21 torsemide 20 mg tablet 20 mg PO DAILY #120 tabs 09/23/22 ciprofloxacin HCl 500 mg tablet 500 mg PO BID #20 tabs 02/11/25 Allergies Allergy/AdvReac Type Severity Reaction Status Date / Time amoxicillin Allergy ADR-Itching Verified 09/14/22 13:08 celecoxib (From Celebrex) Allergy ALGY-Difficulty Verified 09/14/22 13:08 Breathing doxycycline Allergy Unknown Verified 09/14/22 13:08 furosemide (From Lasix) Allergy ALGY-Hives Verified 09/14/22 13:08 povidone-iodine (From Allergy ALGY-Rash Verified 09/14/22 13:08 Betadine) Sulfa (Sulfonamide Allergy ALGY-Hives Verified 09/14/22 13:08 Antibiotics) Review of Systems Const: Denies: fever(s) or chills Card: Denies: chest pain Resp: Denies: dyspnea GI: Denies: abdominal pain : Denies: dysuria, urinary frequency or urinary urgency Musc: Denies: neck pain or back pain Skin/Breast: Denies: rash PFSH ED PFSH: Medical History Transaminitis Acute kidney injury superimposed on CKD Weakness generalized Dehydration Hypercholesteremia Gout Hypertension Type 2 diabetes mellitus without complications GERD (gastroesophageal reflux disease) Male erectile dysfunction, unspecified Acute pancreatitis Gout Diabetes Hypertension Surgical History History of laparoscopic cholecystectomy History of vasectomy History of appendectomy Family History Mother Hypertension Father , Age 72 Hypertension Cancer LEUKEMIA CAD (coronary artery disease) Myocardial infarction Diabetes Social History Smoking and tobacco/nicotine status: never used tobacco/nicotine Alcohol intake: never Household members: spouse Marital status: Current occupational status: employed Physical Exam Const: GENERAL APPEARANCE: cooperative ORIENTATION/CONSCIOUSNESS: Yes awake, Yes oriented to person, Yes oriented to place and Yes oriented to time HENMT: COMMON NORMALS: normocephalic, atraumatic and hearing grossly normal bilaterally HEAD & SCALP: normocephalic and atraumatic Resp: COMMON NORMALS: normal respiratory effort, No retractions, No use of accessory muscles and clear to auscultation bilaterally AUSCULTATION: clear to auscultation bilaterally Cardio: COMMON NORMALS: regular rate, regular rhythm and No murmurs present (Cardio) RATE: regular rate RHYTHM: regular rhythm GI: COMMON NORMALS: No hepatosplenomegaly present AUSCULTATION: Yes normoactive bowel sounds PALPATION: Yes Tenderness to palpation present (GI) (Suprapubic tenderness), No Guarding due to palpation present (GI) and Yes No hepatosplenomegaly present OTHER: Bladder palpable above the pubic symphysis Extremity: COMMON NORMALS: normal to inspection, capillary refill normal, no clubbing, cyanosis or edema, no calf tenderness and no pedal edema Neuro: SENSORIUM/ORIENTATION: Yes oriented to person, Yes oriented to place and Yes oriented to time Skin: COMMON NORMALS: no rashes or lesions noted GENERAL SKIN EXAM: no rashes or lesions noted Course Vital Signs: Vital signs: Vital Signs Temperature 98.1 F 02/10/25 23:31 Pulse Rate 89 02/10/25 23:31 Respiratory Rate 20 H 02/10/25 23:31 Blood Pressure 191/99 02/10/25 23:31 Pulse Oximetry 95 02/10/25 23:31 MDM - Male Medical Decision Making Medical decision making Social determinants: Patient attends the year with his I reviewed the patient's medical record. I reviewed the patient's current home meds Alternate historians: contributed to history Differential diagnosis: Prostatitis cystitis pyelonephritis urinary retention Lab Review: No leukocytosis renal function slightly elevated at patient's baseline. Liver functions elevated but reviewing old records this has been chronic. UA shows greater than 100 white blood cells and greater than 100 red blood cells per high-power field 2+ leukocyte esterase Imaging:None Assessment of risk: Level of risk: Moderate Hospitalization considerations: No need for hospitalization Reexamination: On repeat exam patient improved after Do placed Assessment and plan: Urinary retention prostatitis Patient improved after Do was placed will start on ciprofloxacin and have him follow-up with urologist who he had seen yesterday. Return if he has worsening abdominal discomfort. He did have greater than 400 out after placement of the Do still has open quite significant discomfort with placement of the Do suspect this is due to the recent manipulation and prostatitis. Medical Records I reviewed the patient's medical records. Lab Data I reviewed the patient's lab results. 02/11/25 00:17 02/11/25 00:17 Laboratory Results WBC 7.23 10^3/uL (3.29-11.43) 02/11/25 00:17 RBC 4.48 10^6/uL (3.85-5.65) 02/11/25 00:17 Hgb 13.60 g/dL (11.27-16.99) 02/11/25 00:17 Hct 40.8 % (37-53) 02/11/25 00:17 MCV 91.1 fl (82-101) 02/11/25 00:17 MCH 30.4 pg (27-33) 02/11/25 00:17 MCHC 33.3 g/dL (30-55) 02/11/25 00:17 RDW 13.0 % (12.1-15.1) 02/11/25 00:17 Plt Count 141 10^3/cmm (157-399) L 02/11/25 00:17 MPV 12.0 fL (7.4-10.4) H 02/11/25 00:17 Neut % (Auto) 78.2 % 02/11/25 00:17 Lymph % (Auto) 10.9 % 02/11/25 00:17 Parke % (Auto) 3.9 % 02/11/25 00:17 Eos % (Auto) 6.2 % 02/11/25 00:17 Baso % (Auto) 0.7 % 02/11/25 00:17 Neut # (Auto) 5.65 10^3/uL (1.8-7.7) 02/11/25 00:17 Lymph # (Auto) 0.8 10^3/uL (0.8-4.8) 02/11/25 00:17 Parke # (Auto) 0.3 10^3/uL (0.2-0.9) 02/11/25 00:17 Eos # (Auto) 0.5 10^3/uL (0.0-0.8) 02/11/25 00:17 Baso # (Auto) 0.1 10^3/uL (0.0-0.1) 02/11/25 00:17 Nucleated RBC % (auto) 0 % 02/11/25 00:17 Nucleated RBCs # 0.0 /100WBC 02/11/25 00:17 Sodium 137 mmol/L (136-145) 02/11/25 00:17 Potassium 4.1 mmol/L (3.5-5.1) 02/11/25 00:17 Chloride 103 mmol/L (98-107) 02/11/25 00:17 Carbon Dioxide 24 mmol/L (22-29) 02/11/25 00:17 Anion Gap 14.1 (5-19) 02/11/25 00:17 BUN 19 mg/dL (8-23) 02/11/25 00:17 Creatinine 1.2 mg/dL (0.7-1.2) 02/11/25 00:17 GFR Calculation 60.8 mL/min (90-130) L 02/11/25 00:17 Glucose 211 mg/dL (65-115) H 02/11/25 00:17 Calculated Osmolality 293 mOsm/kg (285-295) 02/11/25 00:17 Calcium 8.6 mg/dL (8.5-10.5) 02/11/25 00:17 Total Bilirubin 0.9 mg/dL (0.15-1.2) 02/11/25 00:17 AST 85 U/L (0-40) H 02/11/25 00:17 ALT 117 U/L (0-41) H 02/11/25 00:17 Alkaline Phosphatase 720 U/L (40-130) H 02/11/25 00:17 Total Protein 6.8 g/dL (6.6-8.7) 02/11/25 00:17 Albumin 3.5 g/dL (3.5-5.2) 02/11/25 00:17 Globulin 3.3 g/dL (1.3-4.6) 02/11/25 00:17 Urine Color Yellow (Yellow) 02/10/25 23:50 Urine Appearance Turbid (CLEAR) A 02/10/25 23:50 Urine pH 6.0 (5-7) 02/10/25 23:50 Ur Specific [place] 1.014 (1.005-1.030) 02/10/25 23:50 Urine Protein 3+ (Negative) A 02/10/25 23:50 Urine Glucose (UA) Negative (Normal) 02/10/25 23:50 Urine Ketones Negative (Negative) 02/10/25 23:50 Urine Blood 3+ (Negative) A 02/10/25 23:50 Urine Nitrate Negative (Negative) 02/10/25 23:50 Urine Bilirubin Negative (Negative) 02/10/25 23:50 Urine Urobilinogen 1.0 mg/dL (Negative) 02/10/25 23:50 Ur Leukocyte Esterase 2+ (Negative) A 02/10/25 23:50 Urine RBC >100 /hpf (0-2) H 02/10/25 23:50 Urine WBC >100 /hpf (0-5) H 02/10/25 23:50 Ur Squamous Epith Cells 0-5 /hpf (0-5) 02/10/25 23:50 Amorphous Sediment Not Reportable 02/10/25 23:50 Urine Bacteria 4+ /hpf (NONE) H 02/10/25 23:50 Hyaline Casts 0.40 /lpf 02/10/25 23:50 No radiology studies performed this visit Discharge Plan Discharge Patient Disposition: Home Clinical Impression: Urinary retention, Chronic prostatitis, Elevated liver enzymes Condition: Stable Prescriptions: New ciprofloxacin HCl 500 mg tablet 500 mg PO BID Qty: 20 0RF No Action tamsulosin 0.4 mg capsule 0.4 mg PO BID Qty: 180 3RF torsemide 20 mg tablet 20 mg PO DAILY Qty: 120 2RF Rx Instructions: Alternate days of taking 20mg and 40mg ondansetron HCl 4 mg Tablet 4 mg PO Q6H PRN (Reason: Nausea And Vomiting) sildenafil 25 mg Tablet 25 mg PO DAILY PRN (Reason: Erectile Dysfunction) Rx Instructions: administer 30 minutes to 4 hours before activity hydralazine 50 mg Tablet 50 mg PO TID cholecalciferol (vitamin D3) [Vitamin D3] 50 mcg (2,000 unit) Tablet 50 mcg PO DAILY metoprolol tartrate 50 mg tablet 50 mg PO TID metolazone 5 mg tablet 2.5 - 5 mg PO DAILY potassium chloride 10 mEq tablet extended release 10 meq PO DAILY hydroxyzine HCl 25 mg tablet 25 mg PO BEDTIME PRN (Reason: anxiety/itching) spironolactone 50 mg tablet 50 mg PO QAM Novolog FlexPen U-100 Insulin 100 unit/mL (3 mL) insulin pen 20 unit SUBCUT DAILY@12 Levemir FlexPen 100 unit/mL (3 mL) insulin pen 35 unit SUBCUT BID Creon 36,000-114,000- 180,000 unit capsule,delayed release(DR/EC) See Rx Instructions .ROUTE .COMPLEX Rx Instructions: TAKE 2 CAPSULES BY MOUTH WITH EACH MEAL AND 1 CAPSULE WITH EACH SNACK Discharge Orders: Discharge ED (Routine); Ordered 02/11/25 Ordered By: Wilfredo Cadet Referrals: Tereso Nye DO [Primary Care Provider, Family Practice] Discharge Diet: Usual diet Discharge Activity: Resume usual activity and Use walker/crutches as instructed Patient Instructions: Opioid Safety, Pain Management, Patient Portal & Mony Instructions Activity Restrictions/Additional Instructions: Thank you for choosing [facility] for your healthcare needs today. It is very important that you follow up as instructed or that you return to the Emergency Department should you have concerns or if your condition changes or worsens in any way. Emergency department visits are focused on emergent conditions, in some cases you may require further evaluation on an outpatient basis. You were seen in the emergency room (Please note that included in your discharge packet is information concerning opioid safety and pain management. This information is given to all patients were discharged from the ER regardless of their discharge diagnosis or the medicines they usually take or are prescribed.) Print Language: Scottish Coding Level of Care Code ED Mechanical Tech for Jarrett Tobias
[2025-02-11 00:07] LABS: Add Urine Microscopic? YES; Glucose Urine UA Negative (Normal); Nitrate Urine Negative (Negative); Specific Gravity, Urine 1.014 (1.005-1.030)
[2025-02-11 01:03] LABS: Hematocrit 40.8 % (37-53); Hemoglobin 13.60 g/dL (11.27-16.99); Mean Corpuscular HGB Conc 33.3 g/dL (30-55); Mean Corpuscular Hemoglobin 30.4 pg (27-33); Mean Corpuscular Volume 91.1 fl (82-101); Nucleated Red Blood Cells % 0 %; Platelet Count 141 10^3/cmm (157-399); Red Blood Count 4.48 10^6/uL (3.85-5.65); White Blood Count 7.23 10^3/uL (3.29-11.43)
[2025-02-11 01:16] LABS: Alanine Aminotransferase 117 U/L (0-41); Albumin Level 3.5 g/dL (3.5-5.2); Alkaline Phosphatase 720 U/L (40-130); Anion Gap 14.1 (5-19); Aspartate Amino Transferase 85 U/L (0-40); Blood Urea Nitrogen 19 mg/dL (8-23); Calcium 8.6 mg/dL (8.5-10.5); Carbon Dioxide 24 mmol/L (22-29); Chloride 103 mmol/L (98-107); Globulin 3.3 g/dL (1.3-4.6); Glucose 211 mg/dL (65-115); Osmolality Calculated 293 mOsm/kg (285-295); Potassium 4.1 mmol/L (3.5-5.1); Sodium 137 mmol/L (136-145); Total Protein 6.8 g/dL (6.6-8.7)
== END 2025-02-11 02:45 | disposition home or self-care (01) ==
PROVIDERS: Emergency Provider Family Medicine; PCP Electrodiagnostic Medicine
DX: R33.9 Retention of urine, unspecified (principal); N41.1 Chronic prostatitis; R74.01 Elevation of levels of liver transaminase levels; E11.9 Type 2 diabetes mellitus without complications; I10 Essential (primary) hypertension
CPT/HCPCS: 36415; 51702; 80053; 81001; 85025; 87077; 87086; 87186; 99283; J9999